=== PATIENT | male | born 1940 | race Caucasian/White ===

== ENCOUNTER → 2019-07-09 08:23 | Outpatient (BNVA) | payer MEDICARE, SELFPAY | PROVIDERS: Family Provider Internal Medicine; PCP Internal Medicine; Visit Provider Internal Medicine Cardiovascular Disease | DX: I48.91 Unspecified atrial fibrillation (principal) | CPT/HCPCS: 85610 ==

== ENCOUNTER → 2019-08-06 08:16 | Outpatient (BNVA) | payer MEDICARE, SELFPAY | PROVIDERS: Family Provider Internal Medicine; PCP Internal Medicine; Visit Provider Internal Medicine Cardiovascular Disease | DX: I48.91 Unspecified atrial fibrillation (principal); Z79.01 Long term (current) use of anticoagulants | CPT/HCPCS: 85610 ==

== ENCOUNTER → 2019-09-03 08:28 | Outpatient (BNVA) | payer MEDICARE, SELFPAY | PROVIDERS: Family Provider Internal Medicine; PCP Internal Medicine; Visit Provider Internal Medicine Cardiovascular Disease | DX: I48.91 Unspecified atrial fibrillation (principal) | CPT/HCPCS: 85610 ==

== ENCOUNTER → 2019-10-03 08:24 | Outpatient (BNVA) | payer MEDICARE, SELFPAY | PROVIDERS: Family Provider Internal Medicine; PCP Internal Medicine; Visit Provider Internal Medicine Cardiovascular Disease | DX: I48.91 Unspecified atrial fibrillation (principal) | CPT/HCPCS: 85610 ==

== ENCOUNTER → 2019-11-01 08:33 | Outpatient (BNVA) | payer MEDICARE, SELFPAY | PROVIDERS: Family Provider Internal Medicine; PCP Internal Medicine; Visit Provider Internal Medicine Cardiovascular Disease | DX: I48.91 Unspecified atrial fibrillation (principal); Z79.01 Long term (current) use of anticoagulants | CPT/HCPCS: 85610 ==

== ENCOUNTER → 2019-11-29 08:29 | Outpatient (BNVA) | payer MEDICARE, SELFPAY | PROVIDERS: Family Provider Internal Medicine; PCP Internal Medicine; Visit Provider Internal Medicine Cardiovascular Disease | DX: I48.91 Unspecified atrial fibrillation (principal); Z79.01 Long term (current) use of anticoagulants | CPT/HCPCS: 85610 ==

== ENCOUNTER → 2019-12-06 08:38 | Outpatient (BNVA) | payer MEDICARE, SELFPAY | PROVIDERS: Family Provider Internal Medicine; PCP Internal Medicine; Visit Provider Internal Medicine Cardiovascular Disease | DX: I48.91 Unspecified atrial fibrillation (principal); Z79.01 Long term (current) use of anticoagulants | CPT/HCPCS: 85610 ==

== ENCOUNTER → 2020-01-03 08:29 | Outpatient (BNVA) | payer MEDICARE, SELFPAY | PROVIDERS: Family Provider Internal Medicine; PCP Internal Medicine; Visit Provider Internal Medicine Cardiovascular Disease | DX: I48.91 Unspecified atrial fibrillation (principal) | CPT/HCPCS: 85610 ==

== ENCOUNTER → 2020-01-31 08:07 | Outpatient (BNVA) | payer MEDICARE, SELFPAY | PROVIDERS: Family Provider Internal Medicine; PCP Internal Medicine; Visit Provider Internal Medicine Cardiovascular Disease | DX: I48.91 Unspecified atrial fibrillation (principal) | CPT/HCPCS: 85610 ==

== ENCOUNTER → 2020-03-06 08:23 | Outpatient (BNVA) | payer MEDICARE, SELFPAY | PROVIDERS: Family Provider Internal Medicine; PCP Internal Medicine; Visit Provider Internal Medicine Cardiovascular Disease | DX: I48.91 Unspecified atrial fibrillation (principal) | CPT/HCPCS: 85610 ==

== ENCOUNTER → 2020-04-03 09:22 | Outpatient (BNVA) | payer MEDICARE, SELFPAY | PROVIDERS: Family Provider Internal Medicine; PCP Internal Medicine; Visit Provider Internal Medicine Cardiovascular Disease | DX: I48.91 Unspecified atrial fibrillation (principal) | CPT/HCPCS: 85610 ==

== ENCOUNTER → 2020-04-10 08:27 | Outpatient (BNVA) | payer MEDICARE, SELFPAY | PROVIDERS: Family Provider Internal Medicine; PCP Internal Medicine; Visit Provider Internal Medicine Cardiovascular Disease | DX: I48.91 Unspecified atrial fibrillation (principal); Z79.01 Long term (current) use of anticoagulants | CPT/HCPCS: 85610 ==

== ENCOUNTER → 2020-04-24 08:15 | Outpatient (BNVA) | payer MEDICARE, SELFPAY | PROVIDERS: Family Provider Internal Medicine; PCP Internal Medicine; Visit Provider Internal Medicine Cardiovascular Disease | DX: I48.91 Unspecified atrial fibrillation (principal) | CPT/HCPCS: 85610 ==

== ENCOUNTER → 2020-05-22 08:19 | Outpatient (BNVA) | payer MEDICARE, SELFPAY | PROVIDERS: Family Provider Internal Medicine; PCP Internal Medicine; Visit Provider Internal Medicine Cardiovascular Disease | DX: I48.91 Unspecified atrial fibrillation (principal) | CPT/HCPCS: 85610 ==

== ENCOUNTER → 2020-06-19 08:43 | Outpatient (BNVA) | payer MEDICARE, SELFPAY | PROVIDERS: Family Provider Internal Medicine; PCP Internal Medicine; Visit Provider Internal Medicine Cardiovascular Disease | DX: I48.91 Unspecified atrial fibrillation (principal) | CPT/HCPCS: 85610 ==

== ENCOUNTER → 2020-06-26 08:25 | Outpatient (BNVA) | payer MEDICARE, SELFPAY | PROVIDERS: Family Provider Internal Medicine; PCP Internal Medicine; Visit Provider Internal Medicine Cardiovascular Disease | DX: I48.91 Unspecified atrial fibrillation (principal) | CPT/HCPCS: 85610 ==

== ENCOUNTER → 2020-08-01 10:09 | Outpatient (BNVA) | payer MEDICARE, SELFPAY | PROVIDERS: Family Provider Internal Medicine; PCP Internal Medicine; Visit Provider Internal Medicine Cardiovascular Disease | DX: I48.91 Unspecified atrial fibrillation (principal) | CPT/HCPCS: 85610 ==

== ENCOUNTER → 2020-08-28 09:03 | Outpatient (BNVA) | payer MEDICARE, SELFPAY | PROVIDERS: Family Provider Internal Medicine; PCP Internal Medicine; Visit Provider Internal Medicine Cardiovascular Disease | DX: I48.91 Unspecified atrial fibrillation (principal) | CPT/HCPCS: 85610 ==

== ENCOUNTER → 2020-10-01 08:29 | Outpatient (BNVA) | payer MEDICARE, SELFPAY | PROVIDERS: Family Provider Internal Medicine; PCP Internal Medicine; Visit Provider Internal Medicine Cardiovascular Disease | DX: I48.91 Unspecified atrial fibrillation (principal) | CPT/HCPCS: 85610 ==

== ENCOUNTER → 2020-10-29 10:50 | Outpatient (BNVA) | payer MEDICARE, SELFPAY | PROVIDERS: Family Provider Internal Medicine; PCP Internal Medicine; Visit Provider Internal Medicine Cardiovascular Disease | DX: I48.91 Unspecified atrial fibrillation (principal) | CPT/HCPCS: 85610 ==

== ENCOUNTER → 2020-11-05 08:54 | Outpatient (BNVA) | payer MEDICARE, SELFPAY | PROVIDERS: Family Provider Internal Medicine; PCP Internal Medicine; Visit Provider Internal Medicine Cardiovascular Disease | DX: I48.91 Unspecified atrial fibrillation (principal) | CPT/HCPCS: 85610 ==

== ENCOUNTER → 2020-12-03 08:20 | Outpatient (BNVA) | payer MEDICARE, SELFPAY | PROVIDERS: Family Provider Internal Medicine; PCP Family Medicine; Visit Provider Internal Medicine Cardiovascular Disease | DX: I48.91 Unspecified atrial fibrillation (principal); Z79.01 Long term (current) use of anticoagulants | CPT/HCPCS: 85610 ==

== ENCOUNTER 2020-12-08 14:32 | Outpatient (CLI) | payer MEDICARE, SELFPAY ==
--- NOTE | 2020-12-08 15:00 | USCV_ITS ---
Al Yni Age: 80 Gender: M : 1940 Exam Date: 12/08/2020 14:46 Ordering Phys: Flavio Hanks MD ([email or web address]) Technologist: Stephanie Delgado Exam Location: [facility] [place] Indication: 2 PRIOR CABG BP: / HR: 70 Rhythm: Sinus Technical Quality: Adequate MEASUREMENTS (Male / Female) Normal Values 2D ECHO LV Diastolic Diameter PLAX 5.0 cm 4.2 - 5.9 / 3.9 - 5.3 cm LV Systolic Diameter PLAX 5.6 cm LV Chamber Size 5.7 cm IVS Diastolic Thickness 1.4 cm 0.6 - 1.0 / 0.6 - 0.9 cm IVS Systolic Thickness 1.2 cm LVPW Diastolic Thickness 1.8 cm 0.6 - 1.0 / 0.6 - 0.9 cm LVPW Systolic Thickness 1.4 cm RV Chamber Size 4.1 cm LVOT Diameter 2.1 cm LV Ejection Fraction 2D Teich 51.7 % LV Ejection Fraction MOD 2C 19.4 % LV Ejection Fraction 2C AL 20.0 % LA Diameter 4.5 cm LA Width 4.2 cm LA Height 4.3 cm RA Width 3.9 cm RA Height 4.4 cm Aorta at Sinotubular Diameter 2.5 cm M-MODE LV Diastolic Diameter MM 4.2 cm 4.2 - 5.9 / 3.9 - 5.3 cm LV Systolic Diameter MM 3.2 cm LV Ejection Fraction MM Teich 47.5 % IVS Diastolic Thickness MM 1.0 cm 0.6 - 1.0 / 0.6 - 0.9 cm IVS Systolic Thickness MM 1.1 cm LVPW Diastolic Thickness MM 1.2 cm 0.6 - 1.0 / 0.6 - 0.9 cm LVPW Systolic Thickness MM 1.7 cm Aortic Annulus Diameter 3.6 cm LA Ao Ratio MM 1.4 MV E Point Septal Separation 2.7 cm DOPPLER AV Peak Velocity 110.0 cm/s LVOT Peak Velocity 81.0 cm/s AV Area Cont Eq vti 2.3 cm squared AV Area Cont Eq pk 2.5 cm squared MV Area PHT 4.1 cm squared Mitral E to A Ratio 1.4 MV E' Velocity 35.5 cm/s Mitral E to MV E' Ratio 10.2 Mitral E to LV E' Lateral Ratio 8.8 Mitral E to LV E' Septal Ratio 12.4 TR Peak Velocity 264.7 cm/s TR Peak Gradient 28.0 mmHg TR Mean Velocity 183.6 cm/s TR Mean Gradient 15.5 mmHg TR Velocity Time Integral 88.4 cm TV Peak E Velocity 52.0 cm/s Right Atrial Pressure 3.0 mmHg Pulmonary Artery Systolic Pressu 31.0 mmHg PV Peak Velocity 52.0 cm/s RV Acceleration Time 0.1 s RV Ejection Time 0.3 s RV AcT/ET 0.4 FINDINGS Left Ventricle Moderately increased left ventricular cavity size. Severely decreased left ventricular systolic function. Global left ventricular hypokinesis. Left ventricular ejection fraction is estimated at 25 %. Grade II/IV diastolic dysfunction, moderately elevated filling pressures. Right Ventricle Catheter/pacemaker wire visualized in the right ventricle. Right Atrium The right atrium is normal in size. Left Atrium The left atrium is normal in size. Mitral Valve Moderately thickened mitral valve. No mitral valve stenosis. Moderate mitral valve regurgitation. Aortic Valve Structurally normal aortic valve without significant sclerosis or stenosis. There is no aortic regurgitation. Tricuspid Valve Thickened tricuspid valve. Moderate tricuspid valve regurgitation. Pulmonic Valve Structurally normal pulmonic valve without significant stenosis. There is no pulmonic regurgitation. Pericardium Normal pericardium without effusion. Aorta Normal ascending aorta dimension. CONCLUSIONS 1-Moderately increased left ventricular cavity size. Severely decreased left ventricular systolic function. Global left ventricular hypokinesis. Left ventricular ejection fraction is estimated at 25 %. Grade II/IV diastolic dysfunction, moderately elevated filling pressures. 2-Catheter/pacemaker wire visualized in the right ventricle. 3-Moderately thickened mitral valve. No mitral valve stenosis. Moderate mitral valve regurgitation. 4-Structurally normal aortic valve without significant sclerosis or stenosis. There is no aortic regurgitation. 5-Thickened tricuspid valve. Moderate tricuspid valve regurgitation. 6-There is no pericardial effusion. 7-No significant change since the prior echocardiogram study of 11/19/2013.. Flavio Hanks MD (Electronically Signed) Final Date: 10 December 2020 19:03 S
== END 2020-12-08 14:33 | disposition home or self-care (01) ==
PROVIDERS: PCP Family Medicine; Visit Provider Internal Medicine Cardiovascular Disease
DX: R06.02 Shortness of breath (principal); Z95.1 Presence of aortocoronary bypass graft; I08.3 Combined rheumatic disorders of mitral, aortic and tricuspid valves; Z95.0 Presence of cardiac pacemaker
CPT/HCPCS: 93306

== ENCOUNTER → 2020-12-31 08:28 | Outpatient (BNVA) | payer MEDICARE, SELFPAY | PROVIDERS: PCP Family Medicine; Visit Provider Internal Medicine Cardiovascular Disease | DX: I48.91 Unspecified atrial fibrillation (principal); Z79.01 Long term (current) use of anticoagulants | CPT/HCPCS: 85610 ==

== ENCOUNTER → 2021-01-07 08:24 | Outpatient (BNVA) | payer MEDICARE, SELFPAY | PROVIDERS: PCP Family Medicine; Visit Provider Internal Medicine Cardiovascular Disease | DX: I48.91 Unspecified atrial fibrillation (principal); Z79.01 Long term (current) use of anticoagulants | CPT/HCPCS: 85610 ==

== ENCOUNTER → 2021-02-04 08:28 | Outpatient (BNVA) | payer MEDICARE, SELFPAY | PROVIDERS: PCP Family Medicine; Visit Provider Internal Medicine Cardiovascular Disease | DX: I48.91 Unspecified atrial fibrillation (principal); Z79.01 Long term (current) use of anticoagulants | CPT/HCPCS: 85610 ==

== ENCOUNTER → 2021-03-04 08:22 | Outpatient (BNVA) | payer MEDICARE, SELFPAY | PROVIDERS: PCP Family Medicine; Visit Provider Internal Medicine Cardiovascular Disease | DX: I48.91 Unspecified atrial fibrillation (principal); Z79.01 Long term (current) use of anticoagulants | CPT/HCPCS: 85610 ==

== ENCOUNTER → 2021-04-08 08:29 | Outpatient (BNVA) | payer MEDICARE, SELFPAY | PROVIDERS: PCP Family Medicine; Visit Provider Internal Medicine Cardiovascular Disease | DX: I48.91 Unspecified atrial fibrillation (principal); Z79.01 Long term (current) use of anticoagulants | CPT/HCPCS: 85610 ==

== ENCOUNTER → 2021-05-06 08:21 | Outpatient (BNVA) | payer MEDICARE, SELFPAY | PROVIDERS: PCP Family Medicine; Visit Provider Internal Medicine Cardiovascular Disease | DX: I48.91 Unspecified atrial fibrillation (principal); Z79.01 Long term (current) use of anticoagulants | CPT/HCPCS: 85610 ==

== ENCOUNTER → 2021-06-03 08:59 | Outpatient (BNVA) | payer MEDICARE, SELFPAY | PROVIDERS: PCP Family Medicine; Visit Provider Internal Medicine Cardiovascular Disease | DX: I48.91 Unspecified atrial fibrillation (principal); Z79.01 Long term (current) use of anticoagulants | CPT/HCPCS: 85610 ==

== ENCOUNTER → 2021-07-01 08:26 | Outpatient (BNVA) | payer MEDICARE, SELFPAY | PROVIDERS: PCP Family Medicine; Visit Provider Internal Medicine Cardiovascular Disease | DX: I48.91 Unspecified atrial fibrillation (principal) | CPT/HCPCS: 85610 ==

== ENCOUNTER → 2021-07-08 08:28 | Outpatient (BNVA) | payer MEDICARE, SELFPAY | PROVIDERS: PCP Family Medicine; Visit Provider Internal Medicine Cardiovascular Disease | DX: I48.91 Unspecified atrial fibrillation (principal) | CPT/HCPCS: 85610 ==

== ENCOUNTER → 2021-08-04 08:22 | Outpatient (BNVA) | payer MEDICARE, SELFPAY | PROVIDERS: PCP Family Medicine; Visit Provider Internal Medicine Cardiovascular Disease | DX: I48.91 Unspecified atrial fibrillation (principal) | CPT/HCPCS: 85610 ==

== ENCOUNTER → 2021-09-01 08:30 | Outpatient (BNVA) | payer MEDICARE, SELFPAY | PROVIDERS: PCP Family Medicine; Visit Provider Internal Medicine | DX: I48.91 Unspecified atrial fibrillation (principal); Z79.01 Long term (current) use of anticoagulants | CPT/HCPCS: 85610 ==

== ENCOUNTER → 2021-09-25 08:18 | Outpatient (BNVA) | payer MEDICARE, SELFPAY | PROVIDERS: PCP Family Medicine; Visit Provider Internal Medicine | DX: Z45.02 Encounter for adjustment and management of automatic implantable cardiac defibrillator (principal) | CPT/HCPCS: 93283 ==

== ENCOUNTER → 2021-09-29 08:20 | Outpatient (BNVA) | payer MEDICARE, SELFPAY | PROVIDERS: PCP Family Medicine; Visit Provider Internal Medicine | DX: I48.91 Unspecified atrial fibrillation (principal); Z79.01 Long term (current) use of anticoagulants | CPT/HCPCS: 85610 ==

== ENCOUNTER 2021-10-09 13:26 | Outpatient (CLI) | payer MEDICARE, SELFPAY ==
[2021-10-09 14:16] LABS: Anion Gap 14.7 (5-19); Blood Urea Nitrogen 28 mg/dL (8-23); Calcium 9.3 mg/dL (8.5-10.5); Carbon Dioxide 27 mmol/L (22-29); Chloride 94 mmol/L (98-107); Glucose 78 mg/dL (65-115); NT Pro B Type Natriuretic Pept 6131 pg/mL (0-450); Osmolality Calculated 276 mOsm/kg (285-295); Potassium 4.7 mmol/L (3.5-5.1); Sodium 131 mmol/L (136-145)
== END 2021-10-09 13:27 | disposition home or self-care (01) ==
LOC: LAB 13:29
PROVIDERS: PCP Family Medicine; Visit Provider Internal Medicine
DX: I50.22 Chronic systolic (congestive) heart failure (principal); I11.0 Hypertensive heart disease with heart failure
CPT/HCPCS: 36415; 80048; 83880

== ENCOUNTER 2021-10-26 08:27 | Outpatient (CLI) | payer MEDICARE, SELFPAY ==
[2021-10-26 10:27] LABS: Anion Gap 15.9 (5-19); Blood Urea Nitrogen 41 mg/dL (8-23); Calcium 8.3 mg/dL (8.5-10.5); Carbon Dioxide 25 mmol/L (22-29); Chloride 94 mmol/L (98-107); Glucose 197 mg/dL (65-115); NT Pro B Type Natriuretic Pept 2972 pg/mL (0-450); Osmolality Calculated 286 mOsm/kg (285-295); Potassium 4.9 mmol/L (3.5-5.1); Sodium 130 mmol/L (136-145)
== END 2021-10-26 08:28 | disposition home or self-care (01) ==
PROVIDERS: PCP Family Medicine; Visit Provider Internal Medicine
DX: I10 Essential (primary) hypertension (principal); I50.22 Chronic systolic (congestive) heart failure
CPT/HCPCS: 36415; 80048; 83880

== ENCOUNTER → 2021-10-28 08:28 | Outpatient (BNVA) | payer MEDICARE, SELFPAY | PROVIDERS: PCP Family Medicine; Visit Provider Internal Medicine | DX: I25.10 Atherosclerotic heart disease of native coronary artery without angina pectoris (principal); I11.0 Hypertensive heart disease with heart failure; I50.22 Chronic systolic (congestive) heart failure; I48.91 Unspecified atrial fibrillation; Z79.01 Long term (current) use of anticoagulants; I25.5 Ischemic cardiomyopathy; Z87.891 Personal history of nicotine dependence | CPT/HCPCS: 85610; 99214 ==

== ENCOUNTER → 2021-11-04 08:37 | Outpatient (BNVA) | payer MEDICARE, SELFPAY | PROVIDERS: PCP Family Medicine; Visit Provider Internal Medicine | DX: Z79.01 Long term (current) use of anticoagulants (principal) | CPT/HCPCS: 85610 ==

== ENCOUNTER 2021-11-10 14:44 | Inpatient (IN) | payer OTHER, MEDICARE, SELFPAY ==
[2021-11-10] VITALS (10 sets, daily range): BP systolic 70–106; BP diastolic 30–86; PULSE 65–93; RESP 12–21; TEMP 35.5–36.5; O2SAT 92–99; BMI 24.8; BMI 25.6
--- NOTE | 2021-11-10 15:14 | XRR_ITS ---
PROCEDURE INFORMATION: Exam: XR Chest Exam date and time: 11/10/2021 3:37 PM Age: 81 years old Clinical indication: Cough and dyspnea; Additional info: Dyspnea/cough TECHNIQUE: Imaging protocol: XR of the chest. Views: 1 view. COMPARISON: CR Chest 1 [place] [id number] 03/01/2017 4:37 AM FINDINGS: Tubes, catheters and devices: Sternotomy wires, CABG clips and left chest wall cardiac device remain in place. Lungs: Minimal reticulonodular interstitial prominence has slightly worsened which may be related to interstitial lung disease and/or minimal pulmonary interstitial edema. No obvious dense consolidation however the lung bases are suboptimally assessed. Pleural spaces: Unremarkable. No pleural effusion. No pneumothorax. Heart/Mediastinum: Mild cardiac silhouette enlargement with cephalized/prominent vascularity suggesting CHF, which may have slightly worsened since prior exam. Bones/joints: No acute findings. XR/XR chest 1V portable [id number] IMPRESSION: 1. Enlarged cardiac silhouette with vascular congestion. 2. Minimal interstitial prominence as described above. No obvious consolidation.
--- NOTE | 2021-11-10 15:15 | ECG_ITS ---
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 Measurements Intervals [place] Rate: 72 P: [place]: QRS: 50 QRSD: 194 T: -86 QT: 447 QTc: 492 Interpretive Statements ELECTRONIC VENTRICULAR PACEMAKER -- CONTOUR ANALYSIS BASED ON INTRINSIC RHYTHM INTRAVENTRICULAR CONDUCTION DELAY [130+ ms QRS DURATION] Compared to ECG 03/01/2017 04:03:27 Intraventricular conduction delay now present Atrial-paced complex(es) or rhythm no longer present Ventricular premature complex(es) no longer present Electronically Signed On 11-10-2021 18:27:48 CDT by Matt Tucker M.D. [id number]
--- NOTE | 2021-11-10 15:30 | W.ED.GENADLT ---
HPI - General Adult General: Chief complaint: General Medical Stated complaint: needs fluids, had kidney test done Time Seen by Provider: 11/10/21 14:58 Source: patient Mode of arrival: ambulatory Limitations: no limitations History of Present Illness: 73-year-old male presents emergency room with complaint of generally not feeling well. He has a known history of congestive heart failure and recently had a follow-up his creatinine is markedly elevated. He recently had his diuretics adjusted. On follow-up his creatinine is elevated. He is not having as much orthopnea. His residential program worker had directed him to the emergency room after getting the results of his most recent lab work. Onset (ago): minute(s) Severity: mild Quality: burning Pain Consistency: constant Relieving factors: none Exacerbating factors: none Associated symptoms: Reports malaise; Deny chest pain, confusion, cough, diaphoresis, decreased appetite, dyspnea, fevers/chills, headache(s), nausea, rash, palpitations, seizures, short of breath, syncope, vomiting or weakness Treatments prior to arrival: none Review of Systems Const: Reports: fatigue and malaise; Denies: fever(s), chills, body aches, change in appetite or diaphoresis ENMT: Denies: throat pain, ear or mastoid pain, nasal discharge or nasal congestion Card: Denies: chest pain, palpitations or syncope Resp: Denies: dyspnea GI: Denies: nausea or vomiting : Denies: flank pain, dysuria, urinary frequency or urinary urgency Skin/Breast: Denies: rash Neuro: Denies: headache(s) or confusion PFS ED PFSH: Medical History Atrial fibrillation Cardioembolic stroke CHF (congestive heart failure) Coronary artery disease Stable doing fine from a coronary disease perspective continue meds HTN (hypertension) Hyperlipidemia Ischemic cardiomyopathy Surgical History S/P CABG (coronary artery bypass graft) S/P cardiac pacemaker procedure S/P cholecystectomy Family History Father Stroke Social History Smoking and tobacco status: former smoker History of recent travel: No Physical Exam Const: GENERAL APPEARANCE: cooperative and comfortable ORIENTATION/CONSCIOUSNESS: Yes awake, Yes oriented to person, Yes oriented to place and Yes oriented to time HENMT: COMMON NORMALS: normocephalic, atraumatic and hearing grossly normal bilaterally HEAD & SCALP: normocephalic and atraumatic Neck/C-Spine: COMMON NORMALS: no JVD Resp: AUSCULTATION: crackles and diminished lung sounds Cardio: COMMON NORMALS: no JVD, regular rate, regular rhythm and No murmurs present (Cardio) RATE: regular rate RHYTHM: regular rhythm GI: COMMON NORMALS: No hepatosplenomegaly present INSPECTION: Yes abdominal distension and Yes Fluid wave present AUSCULTATION: Yes normoactive bowel sounds PALPATION: No Tenderness to palpation present (GI), No Guarding due to palpation present (GI) and Yes No hepatosplenomegaly present PERCUSSION: dullness to percussion and Fluid wave present Extremity: COMMON NORMALS: normal to inspection, capillary refill normal, no clubbing, cyanosis or edema, no calf tenderness and no pedal edema Neuro: SENSORIUM/ORIENTATION: Yes oriented to person, Yes oriented to place and Yes oriented to time Skin: COMMON NORMALS: no rashes or lesions noted GENERAL SKIN EXAM: no rashes or lesions noted Course Vital Signs: Vital signs: Vital Signs Temperature 98 F 11/12/21 00:00 Pulse Rate 74 11/12/21 05:47 Respiratory Rate 14 11/12/21 00:00 Blood Pressure 102/68 11/12/21 00:00 Pulse Oximetry 93 11/12/21 00:00 [facility] - General Adult Medical Decision Making Acute kidney injury with hyponatremia. Additionally patient has severe ischemic cardiomyopathy and congestive heart failure his EF is 25%. Will need to be very gently rehydrated discussed with hospitalist orders written. Patient was significantly hypotensive initially has been started on Levophed. He did respond to small fluid boluses here in the emergency room. Did not use large fluid bolus because of his poor EF and history of heart failure. Medical Records I reviewed the patient's medical records. Lab Data I reviewed the patient's lab results. : 11/11/21 04:44 11/11/21 04:44 Radiology Impressions Chest X-Ray 11/10/21 15:14 IMPRESSION: 1. Enlarged cardiac silhouette with vascular congestion. 2. Minimal interstitial prominence as described above. No obvious consolidation. Abdomen Ultrasound 11/11/21 01:46 Impression: 1. Cholecystectomy. 2. Pancreas not visualized. 3. Negative for acute intra-abdominal abnormalities. Abdomen/Pelvis CT 11/11/21 12:24 IMPRESSION: 1. Comparison CT 03/01/2017. 2. New trace bilateral pleural effusions and cardiac findings as above. 3. Status post cholecystectomy. Few ovoid calcific densities are noted adjacent to cholecystectomy clips. See discussion above. No biliary dilatation. 4. Colonic diverticulosis without diverticulitis. 5. Mildly enlarged and probably mild bladder wall thickening. See discussion above. 6. Soft tissue and osseous findings as described. Laboratory Results WBC 7.5 10^3/uL (4.0-10.0) 11/10/21 15:34 RBC 4.81 10^6/uL (4.1-5.3) 11/10/21 15:34 Hgb 15.9 g/dL (11.7-16.6) 11/10/21 15:34 Hct 45.3 % (42.0-52.0) 11/10/21 15:34 MCV 94.2 fl (80-94) H 11/10/21 15:34 MCH 33.1 pg (28.0-34.0) 11/10/21 15:34 MCHC 35.1 g/dL (30.0-36.0) 11/10/21 15:34 RDW 12.3 % (12.1-15.1) 11/10/21 15:34 Plt Count 149 10^3/cmm (130-400) 11/10/21 15:34 MPV 10.1 fL (7.4-10.4) 11/10/21 15:34 Neut % (Auto) 66.5 % 11/10/21 15:34 Lymph % (Auto) 19.1 % 11/10/21 15:34 Curry % (Auto) 11.7 % 11/10/21 15:34 Eos % (Auto) 1.5 % 11/10/21 15:34 Baso % (Auto) 0.5 % 11/10/21 15:34 Neut # (Auto) 4.96 10^3/uL (1.8-7.7) 11/10/21 15:34 Lymph # (Auto) 1.4 10^3/uL (0.8-4.8) 11/10/21 15:34 Curry # (Auto) 0.9 10^3/uL (0.2-0.9) 11/10/21 15:34 Eos # (Auto) 0.1 10^3/uL (0.0-0.8) 11/10/21 15:34 Baso # (Auto) 0.0 10^3/uL (0.0-0.1) 11/10/21 15:34 Nucleated RBC % (auto) 0 % 11/10/21 15:34 Nucleated RBCs # 0.0 /100WBC 11/10/21 15:34 Sodium 122 mmol/L (136-145) L 11/10/21 15:34 Potassium 3.4 mmol/L (3.5-5.1) L 11/10/21 15:34 Chloride 78 mmol/L (98-107) L 11/10/21 15:34 Carbon Dioxide 26 mmol/L (22-29) 11/10/21 15:34 Anion Gap 21.4 (5-19) H 11/10/21 15:34 BUN 109 mg/dL (8-23) H* 11/10/21 15:34 Creatinine 3.1 mg/dL (0.7-1.2) H 11/10/21 15:34 GFR Calculation Not Reportable 11/10/21 15:34 Glucose 125 mg/dL (65-115) H 11/10/21 15:34 Calculated Osmolality 290 mOsm/kg (285-295) 11/10/21 15:34 Calcium 9.4 mg/dL (8.5-10.5) 11/10/21 15:34 Total Bilirubin 1.1 mg/dL (0.15-1.2) 11/10/21 15:34 AST 22 U/L (0-40) 11/10/21 15:34 ALT 17 U/L (0-41) 11/10/21 15:34 Alkaline Phosphatase 76 IU/L (40-130) 11/10/21 15:34 Creatine Kinase 76 U/L (39-308) 11/10/21 15:34 Troponin T Baseline 64 ng/L (0-15) H 11/10/21 15:34 NT-Pro-B Natriuret Pep 8792 pg/mL (0-450) H 11/10/21 15:34 Total Protein 6.6 g/dL (6.6-8.7) 11/10/21 15:34 Albumin 4.0 g/dL (3.5-5.2) 11/10/21 15:34 Globulin 2.6 g/dL (1.3-4.6) 11/10/21 15:34 Discharge Plan Discharge Patient Disposition: Placed in Observation Admit Provider: Benjamin Kingsley Clinical Impression: Acute kidney injury, Ischemic cardiomyopathy, Atrial fibrillation, Congestive heart failure, HTN (hypertension), Hyponatremia Coding Level of Care Code ED Dental Mold Maker for Brennan Contreras
[2021-11-10 15:42] LABS: Basophils % 0.5 %; Eosinophils # 0.1 10^3/uL (0.0-0.8); Eosinophils % 1.5 %; Hematocrit 45.3 % (42.0-52.0); Hemoglobin 15.9 g/dL (11.7-16.6); Lymphocytes # 1.4 10^3/uL (0.8-4.8); Lymphocytes % 19.1 %; Mean Corpuscular HGB Conc 35.1 g/dL (30.0-36.0); Mean Corpuscular Hemoglobin 33.1 pg (28.0-34.0); Mean Corpuscular Volume 94.2 fl (80-94); Mean Platelet Volume 10.1 fL (7.4-10.4); Monocytes # 0.9 10^3/uL (0.2-0.9); Monocytes % 11.7 %; Neutrophils # 4.96 10^3/uL (1.8-7.7); Neutrophils % 66.5 %; Nucleated Red Blood Cells % 0 %; Platelet Count 149 10^3/cmm (130-400); Red Blood Count 4.81 10^6/uL (4.1-5.3); Red Cell Distribution Width 12.3 % (12.1-15.1); White Blood Count 7.5 10^3/uL (4.0-10.0)
[2021-11-10] MEDS: sodium chloride 0.9% 500 ML IV (16:00)
[2021-11-10 16:01] LABS: Troponin(5th) Baseline 64 ng/L (0-15)
[2021-11-10 16:09] LABS: Alanine Aminotransferase 17 U/L (0-41); Alkaline Phosphatase 76 IU/L (40-130); Aspartate Amino Transferase 22 U/L (0-40); Calcium 9.4 mg/dL (8.5-10.5); Carbon Dioxide 26 mmol/L (22-29); Chloride 78 mmol/L (98-107); Creatine Phosphokinase 76 U/L (39-308); Globulin 2.6 g/dL (1.3-4.6); Glucose 125 mg/dL (65-115); NT Pro B Type Natriuretic Pept 8792 pg/mL (0-450); Osmolality Calculated 290 mOsm/kg (285-295); Sodium 122 mmol/L (136-145); Total Bilirubin 1.1 mg/dL (0.15-1.2); Total Protein 6.6 g/dL (6.6-8.7)
[2021-11-10 16:10] LABS: Anion Gap 21.4 (5-19); Potassium 3.4 mmol/L (3.5-5.1)
[2021-11-10 16:11] LABS: Blood Urea Nitrogen 109 mg/dL (8-23)
--- NOTE | 2021-11-10 17:15 | ECG_ITS ---
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 Measurements Intervals [place] Rate: 74 P: [place]: QRS: 39 QRSD: 188 T: -85 QT: 466 QTc: 518 Interpretive Statements UNCERTAIN IRREGULAR RHYTHM ELECTRONIC VENTRICULAR PACEMAKER -- CONTOUR ANALYSIS BASED ON INTRINSIC RHYTHM INTRAVENTRICULAR CONDUCTION DELAY [130+ ms QRS DURATION] Compared to ECG 11/10/2021 15:23:48 No significant changes Electronically Signed On 11-10-2021 18:33:00 CDT by Matt Tucker M.D. [id number]
--- NOTE | 2021-11-10 18:51 | P.HP_ITS ---
Providers/Chief Complaint Admitting Physician: Benjamin Kingsley Primary Care Provider: Echo Garay MD Chief Complaint: needs fluids, had kidney test done History of Present Illness Al Yin is a 81 year old male who presents to the ER after sent in by Dr. Tucker. He had recent worsening abdominal swelling despite no history of cirrhosis. His diuretics were increased and he developed renal failure and came in with hypotension patient was hydrated gently in the emergency department and referred for admission for hyponatremia sodium 122 and acute kidney injury with creatinine 3.3 Patient lives alone. He does not smoke for the last 30 years. He does not drink alcohol and never was a heavy drinker he wants full CODE STATUS Review of Systems Narrative: General no fevers chills weight initially went down and then increased again patient states he weighs daily. 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 Heme negative for bleeding or bruising Medications/Allergies Home Medications Medication Instructions Recorded Confirmed Last Taken Type lisinopril 5 mg tablet 2.5 mg PO DAILY tab 07/17/19 11/10/21 11/10/21 History magnesium 250 mg tablet 500 mg PO DAILY tab 07/17/19 11/10/21 11/10/21 History pravastatin 40 mg tablet 40 mg PO DAILY 07/18/19 11/10/21 11/10/21 History warfarin 5 mg tablet 5 mg PO DIRECTED 90 Days #90 tab 11/03/20 11/10/21 11/10/21 Rx coenzyme Q10 100 mg capsule (Co 100 mg PO DAILY 04/22/21 11/10/21 11/10/21 History Q-10) evolocumab 140 mg/mL subcutaneous 140 mg SUBCUT Q14D ml 04/22/21 11/10/21 Unknown History pen injector (Shania Dominguez) carvedilol 6.25 mg tablet 9.375 mg PO BID #408 tab 10/23/21 11/10/21 11/10/21 Rx bumetanide 2 mg tablet 2 mg PO BID #180 tab 10/28/21 11/10/21 11/10/21 Rx metolazone 5 mg tablet 5 mg PO DAILY #90 tab 10/28/21 11/10/21 11/10/21 Rx cholecalciferol (vitamin D3) 25 25 mcg PO DAILY 11/10/21 11/10/21 11/10/21 History mcg (1,000 unit) tablet (Vitamin D3) furosemide 40 mg tablet 40 mg PO BID 11/10/21 11/10/21 11/10/21 History omega-3 fatty acids-fish oil 684 1 cap PO DAILY 11/10/21 11/10/21 11/10/21 History mg-1,200 mg capsule,delayed release spironolactone 25 mg tablet 25 mg PO DAILY 11/10/21 11/10/21 11/10/21 History Allergies Allergy/AdvReac Type Severity Reaction Status Date / Time atorvastatin Allergy Unknown Unknown Verified 10/28/21 12:54 simvastatin Allergy Unknown Unknown Verified 10/28/21 12:54 PFSH Acute PFSH: Medical History Atrial fibrillation Cardioembolic stroke CHF (congestive heart failure) Coronary artery disease Stable doing fine from a coronary disease perspective continue meds HTN (hypertension) Hyperlipidemia Ischemic cardiomyopathy Surgical History S/P CABG (coronary artery bypass graft) S/P cardiac pacemaker procedure S/P cholecystectomy Family History Father Stroke Social History Smoking and tobacco status: former smoker History of recent travel: No Vitals/I&O/Wt Last Vital Signs Temp 96 F L 11/10/21 15:02 Pulse 92 11/10/21 18:00 Resp 15 11/10/21 18:00 BP 102/86 11/10/21 18:00 Pulse Ox 99 11/10/21 18:00 Weight last 48 hrs Weight 69.853 kg Physical Exam Narrative: General well-developed well-nourished male with abdominal distention. CV regular rate and rhythm Lungs clear to auscultation bilaterally Abdomen distended nontender no rebound. Calves trace to 1+ pretibial edema Skin warm and dry psych mood and affect are appropriate. Data : 11/10/21 15:34 11/10/21 15:34 A&P Assessment and plan (1) Acute kidney injury: This appears to be diuretic induced and possibly hepatorenal with the ascites although he denies history of liver disease Status: Acute (2) Hyponatremia: We will replace with Normal saline with 20 of KCl per liter to run at 100 cc an hour. 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 Patient denies history of cirrhosis, alcoholism or viral hepatitis Status: Acute Attestations Medical Necessity Statement*: Patient admitted for hypotension and acute kidney failure. Time Spent in Patient Care: Greater than 35 minutes 70 minutes spent in evaluation coronation care for this patient today Coding Level of Care Code Acute Venetian Blind Maker for Brennan Contreras Diagnoses Acute kidney injury N17.9 Hyponatremia E87.1 Congestive heart failure I50.9 Ischemic cardiomyopathy I25.5 Tense ascites R18.8
[2021-11-10 19:05] LABS: Troponin 5 2HR 58.02 ng/L (0-15)
[2021-11-10 19:07] LABS: Troponin 5 2HR Delta -5.98 ABS# (0-10)
[2021-11-10] MEDS: sodium chlor 0.9% + KCl 20 mEq 20 MEQ/1,000 ML BAG 100 MEQ IV (20:08)
--- NOTE | 2021-11-10 21:15 | ECG_ITS ---
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 Measurements Intervals [place] Rate: 81 P: [place]: QRS: 57 QRSD: 184 T: -82 QT: 453 QTc: 526 Interpretive Statements UNCERTAIN IRREGULAR RHYTHM ELECTRONIC VENTRICULAR PACEMAKER -- CONTOUR ANALYSIS BASED ON INTRINSIC RHYTHM INTRAVENTRICULAR CONDUCTION DELAY [130+ ms QRS DURATION] Compared to ECG 11/10/2021 16:56:07 No significant changes Electronically Signed On 11-10-2021 21:46:47 CDT by Matt Tucker M.D. [id number]
[2021-11-10] MEDS: hyDROXYzine 25 mg Capsule PO (23:19)
[2021-11-11] VITALS (8 sets, daily range): BP systolic 101–109; BP diastolic 59–80; PULSE 70–76; RESP 14–18; TEMP 36.3–36.7; O2SAT 90–98
--- NOTE | 2021-11-11 01:46 | US_ITS ---
WS: [id number] Abdomen ultrasound, 11/11/2021 Clinical Data: ascites and kidney failure Comparison: None. Findings: The pancreas was obscured by overlying bowel gas. The liver shows no cysts, masses or dilated intrahepatic ducts. The liver measured 17.1 cm in greates t diameter with normal portal venous flow. The gallbladder has been removed. The common bile duct is 0.3 cm and no intraductal abnormalities are noted. The right kidney is 10.9 cm. No cysts, masses or hydronephrosis is seen. The left kidney is 11.1 cm. No cysts, masses or hydronephrosis is seen. The abdominal aorta is not dilated and the inferior vena cava has normal flow. No vascular abnormalit ies are seen. The spleen measures 9.4 cm and there are no intrasplenic masses or capsular abnormalities. The bladder showed no wall thickening or intraluminal defects. The bladder volume was 125 mL. US/US abdomen complete* [id number] Impression: 1. Cholecystectomy. 2. Pancreas not visualized. 3. Negative for acute intra-abdominal abnormalities.
[2021-11-11 05:55] LABS: Basophils % 0.6 %; Eosinophils # 0.2 10^3/uL (0.0-0.8); Eosinophils % 2.8 %; Hematocrit 41.6 % (42.0-52.0); Hemoglobin 14.9 g/dL (11.7-16.6); Lymphocytes # 1.7 10^3/uL (0.8-4.8); Lymphocytes % 25.5 %; Mean Corpuscular HGB Conc 35.8 g/dL (30.0-36.0); Mean Corpuscular Hemoglobin 32.9 pg (28.0-34.0); Mean Corpuscular Volume 91.8 fl (80-94); Mean Platelet Volume 10.3 fL (7.4-10.4); Monocytes # 0.8 10^3/uL (0.2-0.9); Monocytes % 12.5 %; Neutrophils # 3.75 10^3/uL (1.8-7.7); Nucleated Red Blood Cells % 0 %; Platelet Count 142 10^3/cmm (130-400); Red Blood Count 4.53 10^6/uL (4.1-5.3); Red Cell Distribution Width 12.1 % (12.1-15.1); White Blood Count 6.5 10^3/uL (4.0-10.0)
[2021-11-11] MEDS: sodium chlor 0.9% + KCl 20 mEq 20 MEQ/1,000 ML BAG 100 MEQ IV ×2 (06:12→16:37)
[2021-11-11 06:14] LABS: Alanine Aminotransferase 14 U/L (0-41); Albumin Level 3.6 g/dL (3.5-5.2); Alkaline Phosphatase 61 IU/L (40-130); Anion Gap 18.5 (5-19); Aspartate Amino Transferase 15 U/L (0-40); Carbon Dioxide 23 mmol/L (22-29); Chloride 86 mmol/L (98-107); Globulin 2.2 g/dL (1.3-4.6); Glucose 87 mg/dL (65-115); Potassium 3.5 mmol/L (3.5-5.1); Sodium 124 mmol/L (136-145); Total Bilirubin 1.1 mg/dL (0.15-1.2); Total Protein 5.8 g/dL (6.6-8.7)
[2021-11-11 06:26] LABS: Osmolality Calculated 295 mOsm/kg (285-295)
[2021-11-11 06:28] LABS: Blood Urea Nitrogen 117 mg/dL (8-23)
--- NOTE | 2021-11-11 10:45 | PC.CHAP ---
Pastoral Care Encounter/Spiritual Assessment Type of Contact [] Declined control room helper visit [] Patient/Family/Request visit [] Outpatient visit [] Follow-up visit [] Physician referral [] Code/Alert [x] Routine visit [] Staff referral [] Actively dying [] Patient sleeping [] Family support [] [] Out of room [] Palliative care [] [] Receiving care in room [] Pre-surgical visit [] Trauma [] Long length of stay [] ICU visit [] Other: Relational/Emotional Strength [x] Patient feels connected with others/family/visitors/staff [] Distress [] Loneliness/isolation [] Abandonment Spirituality of Patient [x] Person of Joanne [x] Attends Islam of their Joanne x] Believes in Prayer [] Reads Bible or Orthodoxy materials [] There are Spiritual issues to be addressed School Bus Technician Interventions [x] Prayer [x] Active listening [x] Non-anxious presence [x] Spiritual/emotional support [] Crisis/trauma care [] Spiritual counseling [] Bereavement support [] Provided bereavement packet [] Provided Bible/devotional materials [] Provided toy/stuffed animal, coloring book to patient or family member [] Provided Communion [] Anointing/[place] [] Salvation [x Completed spiritual assessment [] Other: Impact on Illness or Injury [] Angry [] Fearful [] Anxious [] Often cries [] Exhaustion [] Unable to work [] Unable to attend episcopalian [] Unable to walk/stand [] Unable to read [] Unable to drive [] Unable to eat/drink [] Unable to sleep [] Unable to be with family [] Patient intubated [] Other: Summary Time spent with patient 10 min
--- NOTE | 2021-11-11 12:18 | P.PN_ITS ---
Subjective Subjective: Patient was admitted with acute renal failure. 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 He came in dehydrated. He denies history of ascites or liver disease. He does not drink alcohol. He underwent abdominal ultrasound but there is no liver disease or ascites identified. Patient states he does have bowel movements but less in the last few days. Vitals/I&O/Wt Last Vital Signs Temp 97.6 F 11/11/21 07:39 Pulse 70 11/11/21 11:10 Resp 18 11/11/21 11:10 BP 106/70 11/11/21 11:10 Pulse Ox 98 11/11/21 11:10 11/10/21 11/11/21 11/11/21 22:59 06:59 14:59 Intake Total 500 / 500 1480 / 1980 360 / 360 Output Total 300 / 300 600 / 900 600 / 600 Balance 200 / 200 880 / 1080 -240 / -240 Weight last 48 hrs Weight 71.94 kg Weight 69.853 kg Physical Exam Narrative: General well-developed well-nourished male with abdominal distention. CV regular rate and rhythm Lungs clear to auscultation bilaterally Abdomen distended nontender no rebound. Calves trace to 1+ pretibial edema Skin warm and dry psych mood and affect are appropriate. Data : 11/11/21 04:44 11/11/21 04:44 A&P Assessment and plan (1) Acute kidney injury: This appears to be diuretic induced. Abdomen distended prompting recent outpatient increase in diuretics but no ascites seen on ultrasound. RenalUltrasound findings no hydronephrosis or obstruction bladder wall not thickened no masses and volume was 125 Status: Acute (2) Hyponatremia: We will replace with Normal saline with 20 of KCl per liter to run at 100 cc an hour. 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 Patient denies history of cirrhosis, alcoholism or viral hepatitis this is not tense ascites and actually was just abdominal distention. Will obtain a CT of the abdomen no contrast to see if he has excess stool or air bloating Status: Acute Attestations Medical Necessity Statement*: Additional close monitoring of renal function Time Spent in Patient Care: Greater than 35 minutes Coding Level of Care Code Acute Mental Health Program Manager for [facility] Diagnoses Acute kidney injury N17.9 Hyponatremia E87.1 Congestive heart failure I50.9 Ischemic cardiomyopathy I25.5 Tense ascites R18.8
--- NOTE | 2021-11-11 12:24 | CTR_ITS ---
PROCEDURE INFORMATION: Exam: CT Abdomen And Pelvis Without Contrast Exam date and time: 11/11/2021 4:11 PM Age: 81 years old Clinical indication: Bloating; Prior surgery; Surgery date: 6+ months; Surgery type: Carly; Additional info: Abdominal distention, no iv contrast due to gregory TECHNIQUE: Imaging protocol: Computed tomography of the abdomen and pelvis without contrast. Radiation optimization: All CT scans at this facility use at least one of these dose optimization techniques: automated exposure control; mA and/or kV adjustment per patient size (includes targeted exams where dose is matched to clinical indication); or iterative reconstruction. Other contrast: Oral, redi cat, 450 mL; COMPARISON: CT abdomen pelvis w con* [id number] 03/01/2017 5:52 AM RADIATION DOSE METRICS: Total DLP (mGy-cm): 1604.18 FINDINGS: Heart: [id number] 4 chamber cardiomegaly with coronary calcification similar to prior exam. New trace bilateral pleural effusions. Liver: Normal. No mass. Gallbladder and bile ducts: Prior cholecystectomy. Few ovoid calcific densities are noted adjacent to the cholecystectomy clips, the largest measuring 15 x 9 mm which has minimally increased in size since prior exam. Unclear if this is a dropped in the subhepatic space/surgical site or retained calculi within the cystic duct. No acute regional inflammatory response or fluid collection. No abnormal bile duct dilatation. Pancreas: Normal. No ductal dilation. Spleen: Normal. No splenomegaly. Adrenal glands: Normal. No mass. Kidneys and ureters: No obstructing calculus. No hydronephrosis. Stomach and bowel: Colonic diverticulosis. Small to moderate stool burden. No bowel obstruction or pneumatosis. No suspicious bowel wall thickening. Appendix: No evidence of appendicitis. Intraperitoneal space: See Gallbladder and bile ducts finding. Vasculature: No abdominal aortic aneurysm. Lymph nodes: No enlarged lymph nodes. Anterior midline omental calcification measuring 10 mm likely representing a benign calcified lymph node, unchanged. Urinary bladder: Urinary bladder is suboptimally assessed due to incomplete distention however there is probable nonspecific bladder wall thickening. This may be related to chronic hypertrophy and/or cystitis. Clinical correlation is needed. Reproductive: Mildly enlarged prostate. Bones/joints: Multilevel vertebral disc degeneration and endplate osteophytes. Interval worsening of L2-L3 disc space loss with chronic endplate changes. New prominent Schmorl's node at the inferior endplate of L1. No acute osseous findings otherwise. Soft tissues: Tiny bilateral fat containing inguinal hernias which also contained a trace amount of fluid. No evidence of bowel herniation. CT/CT abdomen pelvis wo con [id number] IMPRESSION: 1. Comparison CT 03/01/2017. 2. New trace bilateral pleural effusions and cardiac findings as above. 3. Status post cholecystectomy. Few ovoid calcific densities are noted adjacent to cholecystectomy clips. See discussion above. No biliary dilatation. 4. Colonic diverticulosis without diverticulitis. 5. Mildly enlarged and probably mild bladder wall thickening. See discussion above. 6. Soft tissue and osseous findings as described.
[2021-11-11] MEDS: iohexol 300 mg/mL 50 mL Btl PO (14:43)
[2021-11-11] MEDS: warfarin 2.5 mg Tablet PO (15:13)
[2021-11-12] VITALS (9 sets, daily range): BP systolic 100–126; BP diastolic 65–75; PULSE 65–83; RESP 14–18; TEMP 36.3–36.6; O2SAT 92–97
[2021-11-12] MEDS: sodium chlor 0.9% + KCl 20 mEq 20 MEQ/1,000 ML BAG 100 MEQ IV ×3 (02:16→22:01)
[2021-11-12] MEDS: warfarin 2.5 mg Tablet PO (13:49)
--- NOTE | 2021-11-12 14:27 | PM.PN ---
Subjective Subjective: Patient was admitted with acute renal failure. 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 He came in dehydrated. He denies history of ascites or liver disease. He does not drink alcohol. He underwent abdominal ultrasound but there is no liver disease or ascites identified. Patient states he does have bowel movements but less in the last few days. Vitals/I&O/Wt Last Vital Signs Temp 97.5 F L 11/12/21 11:18 Pulse 67 11/12/21 11:18 Resp 16 11/12/21 11:18 BP 112/73 11/12/21 11:18 Pulse Ox 96 11/12/21 11:18 11/11/21 11/12/21 11/12/21 22:59 06:59 14:59 Intake Total 1240 / 1840 965 / 2805 1570 / 1570 Output Total 325 / 925 300 / 1225 150 / 150 Balance 915 / 915 665 / 1580 1420 / 1420 Weight last 48 hrs Weight 71.94 kg Weight 69.853 kg Physical Exam Narrative: General well-developed well-nourished male with abdominal distention. CV regular rate and rhythm Lungs clear to auscultation bilaterally Abdomen distended nontender no rebound. Calves trace to 1+ pretibial edema Skin warm and dry psych mood and affect are appropriate. Data : 11/11/21 04:44 11/11/21 04:44 CT Abd/Pel: My impression: no ascites Radiologist's impression: 1. Comparison CT 03/01/2017. 2. New trace bilateral pleural effusions and cardiac findings as above. 3. Status post cholecystectomy. Few ovoid calcific densities are noted adjacent to cholecystectomy clips. See discussion above. No biliary dilatation. 4. Colonic diverticulosis without diverticulitis. 5. Mildly enlarged and probably mild bladder wall thickening. See discussion above. A&P Assessment and plan (1) Acute kidney injury: This appears to be diuretic induced. Abdomen distended prompting recent outpatient increase in diuretics but no ascites seen on ultrasound. RenalUltrasound findings no hydronephrosis or obstruction bladder wall not thickened no masses and volume was 125 Status: Acute (2) Hyponatremia: We will replace with Normal saline with 20 of KCl per liter to run at 100 cc an hour. 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
[2021-11-12] MEDS: bumetanide 1 mg Tablet PO (15:42)
[2021-11-12 16:06] LABS: INR 1.89 (0.8-1.2)
[2021-11-12 16:43] LABS: Anion Gap 22.2 (5-19); Calcium 8.7 mg/dL (8.5-10.5); Carbon Dioxide 20 mmol/L (22-29); Chloride 94 mmol/L (98-107); Glucose 99 mg/dL (65-115); Osmolality Calculated 301 mOsm/kg (285-295); Potassium 4.2 mmol/L (3.5-5.1); Sodium 132 mmol/L (136-145)
[2021-11-12 16:50] LABS: Blood Urea Nitrogen 89 mg/dL (8-23)
--- NOTE | 2021-11-12 16:56 | PC.NURSE ---
Received critical BUN of [address] Benjamin Kingsley notified. No new orders at this time.
[2021-11-13] VITALS: BP 109/78; PULSE 75; RESP 18; TEMP 36.7; O2SAT 94
[2021-11-13 04:00] VITALS: BP 130/71; PULSE 112; RESP 19; TEMP 36.6; O2SAT 94
[2021-11-13 05:32] VITALS: PULSE 88
[2021-11-13 05:33] LABS: Anion Gap 19.1 (5-19); Calcium 8.5 mg/dL (8.5-10.5); Carbon Dioxide 18 mmol/L (22-29); Chloride 97 mmol/L (98-107); Glucose 109 mg/dL (65-115); Osmolality Calculated 295 mOsm/kg (285-295); Potassium 4.1 mmol/L (3.5-5.1); Sodium 130 mmol/L (136-145)
[2021-11-13 05:53] LABS: Creatinine Clr Calc Pharmacy 25.8233
[2021-11-13 05:54] LABS: Blood Urea Nitrogen 81 mg/dL (8-23)
[2021-11-13 07:30] VITALS: BP 132/82; PULSE 85; RESP 18; TEMP 36.6; O2SAT 96
[2021-11-13] MEDS: sodium chlor 0.9% + KCl 20 mEq 20 MEQ/1,000 ML BAG 100 MEQ IV (08:01)
--- NOTE | 2021-11-13 09:42 | PC.SOCIAL ---
IMM Update Pg. 2 of IMM Updated and reviewed with patient, who verbalized understanding. Copy provided.
[2021-11-13 11:43] VITALS: BP 124/87; PULSE 75; RESP 18; TEMP 36.4; O2SAT 98
--- NOTE | 2021-11-13 11:59 | PM.DCS ---
Discharge Providers Date of Admission: 11/10/21 16:55 Date of Discharge: November 13, 2021 Attending Provider at Admission: Benjamin Kingsley MD Attending Provider at Discharge: Benjamin Kingsley MD Primary Care Provider: Echo Garay MD Diagnoses at Discharge Discharge Diagnosis (1) Acute kidney injury: Details from hospital stay: overdiuresed. Improved on fluid. The diuretics held for a admission and restarted just bumex 1 mg yesterday. resume 2 mg daily now. stop zaroxolyn for now Status: Acute (2) Hyponatremia: Details from hospital stay: improved with hydration. stop IVF and ok for discharge Status: Acute (3) Congestive heart failure: Details from hospital stay: Chronic systolic and diastolic CHF Status: Acute (4) Ischemic cardiomyopathy: Details from hospital stay: stable and managed by Dr. Tucker Status: Acute Reason for Visit Reason for Visit: needs fluids, had kidney test done Brief History: came in after ARF after diuretics increased for abd enlargement Hospital Course Hospital Course 81 yo WM admitted with dehydration and ZOEY following recent attempt to increase diuretic. He says his abdomen was swollen and thought to be retaining fluid. admitted with hyponatremia and given NS with potassium. He did well but renal function still recovering. abdominal US no ascites. CT scan showed obesity but not diverticulitis, bowel blockage or ascites. Patient stable for discharge on decreased dose of diuretic compared to home meds. Follow-up with mini panel and INR on Tuesday results to Dr. Tucker and primary care physician Echo Garay. Physical Exam Narrative: General well-developed well-nourished male with abdominal distention. CV regular rate and rhythm Lungs clear to auscultation bilaterally Abdomen distended nontender no rebound. Calves trace to 1+ pretibial edema Skin warm and dry psych mood and affect are appropriate. Discharge Data Studies Completed and Pending Completed Studies During Hospitalization Category Date Time Status CT abdomen pelvis wo con [id number] Routine Cat Scan 11/11/21 12:24 Completed XR chest 1V portable [id number] Stat Exams 11/10/21 15:14 Completed US abdomen complete* [id number] Routine Ultrasound 11/11/21 01:46 Completed Radiology Impressions Chest X-Ray 11/10/21 15:14 IMPRESSION: 1. Enlarged cardiac silhouette with vascular congestion. 2. Minimal interstitial prominence as described above. No obvious consolidation. Abdomen Ultrasound 11/11/21 01:46 Impression: 1. Cholecystectomy. 2. Pancreas not visualized. 3. Negative for acute intra-abdominal abnormalities. Abdomen/Pelvis CT 11/11/21 12:24 IMPRESSION: 1. Comparison CT 03/01/2017. 2. New trace bilateral pleural effusions and cardiac findings as above. 3. Status post cholecystectomy. Few ovoid calcific densities are noted adjacent to cholecystectomy clips. See discussion above. No biliary dilatation. 4. Colonic diverticulosis without diverticulitis. 5. Mildly enlarged and probably mild bladder wall thickening. See discussion above. 6. Soft tissue and osseous findings as described. Laboratory Results WBC 6.5 10^3/uL (4.0-10.0) 11/11/21 04:44 RBC 4.53 10^6/uL (4.1-5.3) 11/11/21 04:44 Hgb 14.9 g/dL (11.7-16.6) 11/11/21 04:44 Hct 41.6 % (42.0-52.0) L 11/11/21 04:44 MCV 91.8 fl (80-94) 11/11/21 04:44 MCH 32.9 pg (28.0-34.0) 11/11/21 04:44 MCHC 35.8 g/dL (30.0-36.0) 11/11/21 04:44 RDW 12.1 % (12.1-15.1) 11/11/21 04:44 Plt Count 142 10^3/cmm (130-400) 11/11/21 04:44 MPV 10.3 fL (7.4-10.4) 11/11/21 04:44 Neut % (Auto) 58.0 % 11/11/21 04:44 Lymph % (Auto) 25.5 % 11/11/21 04:44 Lipscomb % (Auto) 12.5 % 11/11/21 04:44 Eos % (Auto) 2.8 % 11/11/21 04:44 Baso % (Auto) 0.6 % 11/11/21 04:44 Neut # (Auto) 3.75 10^3/uL (1.8-7.7) 11/11/21 04:44 Lymph # (Auto) 1.7 10^3/uL (0.8-4.8) 11/11/21 04:44 Lipscomb # (Auto) 0.8 10^3/uL (0.2-0.9) 11/11/21 04:44 Eos # (Auto) 0.2 10^3/uL (0.0-0.8) 11/11/21 04:44 Baso # (Auto) 0.0 10^3/uL (0.0-0.1) 11/11/21 04:44 Nucleated RBC % (auto) 0 % 11/11/21 04:44 Nucleated RBCs # 0.0 /100WBC 11/11/21 04:44 PT 22.10 SECONDS (12.1-14.9) H 11/12/21 15:42 INR 1.89 (0.8-1.2) H 11/12/21 15:42 Sodium 130 mmol/L (136-145) L 11/13/21 04:37 Potassium 4.1 mmol/L (3.5-5.1) 11/13/21 04:37 Chloride 97 mmol/L (98-107) L 11/13/21 04:37 Carbon Dioxide 18 mmol/L (22-29) L 11/13/21 04:37 Anion Gap 19.1 (5-19) H 11/13/21 04:37 BUN 81 mg/dL (8-23) H 11/13/21 04:37 Creatinine 2.2 mg/dL (0.7-1.2) H 11/13/21 04:37 GFR Calculation Not Reportable 11/13/21 04:37 Glucose 109 mg/dL (65-115) 11/13/21 04:37 Calculated Osmolality 295 mOsm/kg (285-295) 11/13/21 04:37 Calcium 8.5 mg/dL (8.5-10.5) 11/13/21 04:37 Total Bilirubin 1.1 mg/dL (0.15-1.2) 11/11/21 04:44 AST 15 U/L (0-40) 11/11/21 04:44 ALT 14 U/L (0-41) 11/11/21 04:44 Alkaline Phosphatase 61 IU/L (40-130) 11/11/21 04:44 Creatine Kinase 76 U/L (39-308) 11/10/21 15:34 Troponin T Baseline 64 ng/L (0-15) H 11/10/21 15:34 Troponin T 120 Minute 58.02 ng/L (0-15) H 11/10/21 18:10 Delta Troponin T -5.98 ABS# (0-10) L 11/10/21 18:10 Troponin T Hi Sens 6Hr 58.50 ng/L (0-15) H 11/10/21 21:52 Troponin T Hi Sens 6Hr Delta -5.50 ng/L (0-12) L 11/10/21 21:52 NT-Pro-B Natriuret Pep 8792 pg/mL (0-450) H 11/10/21 15:34 Total Protein 5.8 g/dL (6.6-8.7) L 11/11/21 04:44 Albumin 3.6 g/dL (3.5-5.2) 11/11/21 04:44 Globulin 2.2 g/dL (1.3-4.6) 11/11/21 04:44 Vitals Last Vital Signs Temp 97.6 F 11/13/21 11:43 Pulse 75 11/13/21 11:43 Resp 18 11/13/21 11:43 BP 124/87 11/13/21 11:43 Pulse Ox 98 11/13/21 11:43 Discharge Plan Discharge Patient Disposition: Home Condition: Stable Prescriptions: Continued pravastatin 40 mg tablet 40 mg PO DAILY 0RF magnesium 250 mg tablet 500 mg PO DAILY 0RF Repatha SureClick 140 mg/mL pen injector 140 mg SUBCUT Q14D 0RF coenzyme Q10 [Co Q-10] 100 mg capsule 100 mg PO DAILY 0RF warfarin 5 mg tablet 5 mg PO DIRECTED 90 Days Qty: 90 3RF Protocol: Dose Management Condition: Tuesday Dose/Route: 2.5 mg Instruction: 0.5 x 5 mg tablets Condition: Tuesday Dose/Route: 2.5 mg Instruction: 0.5 x 5 mg tablets Condition: Tuesday Dose/Route: 2.5 mg Instruction: 0.5 x 5 mg tablets Condition: Tuesday Dose/Route: 2.5 mg Instruction: 0.5 x 5 mg tablets Condition: Dose/Route: 2.5 mg Instruction: 0.5 x 5 mg tablets Condition: Tuesday Dose/Route: 2.5 mg Instruction: 0.5 x 5 mg tablets Condition: Tuesday Dose/Route: 2.5 mg Instruction: 0.5 x 5 mg tablets Protocol Text: Adjustment Start Date: Tuesday11/04/21 INR Value: 21.9 Seconds INR Date: 11/04/21 Recheck Date: 11/11/21 carvedilol 6.25 mg tablet 9.375 mg PO BID Qty: 408 3RF spironolactone 25 mg Tablet 25 mg PO DAILY 0RF Vitamin D3 25 mcg (1,000 unit) Tablet 25 mcg PO DAILY 0RF [place] 3 Fish Oil 684-1,200 mg Capsule,Delayed Release(Dr/Ec) 1 cap PO DAILY 0RF Changed bumetanide 2 mg tablet 2 mg PO DAILY Qty: 180 3RF Discontinued metolazone 5 mg tablet 5 mg PO DAILY Qty: 90 3RF lisinopril 5 mg tablet 2.5 mg PO DAILY 0RF furosemide 40 mg Tablet 40 mg PO BID 0RF Discharge Orders: Discharge Order (Routine); Ordered 11/13/21 Ordered By: Benjamin Kingsley Referrals: Echo Garay MD [Primary Care Provider] - 11/17/21 1:30 pm (Your follow up appointment with Dr. Garay Office is 11-17-21 at 1:30 p.m. Please call [phone] to verify or if you have any questions or concerns. Thank you.) Discharge Diet: Cardiac Discharge Activity: Increase activity as tolerated Patient Instructions: Heart Failure (DC), Acute Kidney Injury (DC), Opioid Safety Discharge Attestations Time Spent in Discharge Care*: greater than 30 min Time Spent in Smoking Cessation: Non-smoker Quality Metrics Clinical Quality Measures [ No reported AMI, CVA or VTE this stay] Coding Level of Care Code Acute Chg FW DC note Diagnoses Acute kidney injury N17.9 Hyponatremia E87.1 Congestive heart failure I50.9 Ischemic cardiomyopathy I25.5
[2021-11-13] MEDS: bumetanide 1 mg Tablet PO (12:08)
--- NOTE | 2021-11-13 12:08 | PC.NURSE ---
Medication missed at 0900.
[2021-11-13] MEDS: warfarin 2.5 mg Tablet PO (14:38)
[2021-11-13 16:42] VITALS: BP 124/87; PULSE 75; RESP 18; TEMP 36.4; O2SAT 98
== END 2021-11-13 15:30 | disposition home or self-care (01) | DRG 683 ==
LOC: ER 16:24 → MEDSURG 21:15
PROVIDERS: Emergency Medicine; Admitting Provider Internal Medicine; Emergency Provider Family Medicine; PCP Family Medicine; Visit Provider Internal Medicine
DX: N17.9 Acute kidney failure, unspecified (principal); E87.1 Hypo-osmolality and hyponatremia; I50.42 Chronic combined systolic (congestive) and diastolic (congestive) heart failure; T50.1X5A Adverse effect of loop [high-ceiling] diuretics, initial encounter; I11.0 Hypertensive heart disease with heart failure; I48.91 Unspecified atrial fibrillation; Z86.73 Personal history of transient ischemic attack (TIA), and cerebral infarction without residual deficits; I25.10 Atherosclerotic heart disease of native coronary artery without angina pectoris; Z95.1 Presence of aortocoronary bypass graft; E78.5 Hyperlipidemia, unspecified; I25.5 Ischemic cardiomyopathy; Z95.0 Presence of cardiac pacemaker; Z87.891 Personal history of nicotine dependence; I95.9 Hypotension, unspecified; E86.0 Dehydration; E66.9 Obesity, unspecified; Z68.25 Body mass index [BMI] 25.0-25.9, adult; Z79.01 Long term (current) use of anticoagulants
CPT/HCPCS: 36415; 71045; 74176; 76700; 80048; 80053; 82550; 83880; 84484; 85025; 85610; 93005; 96360; 99285; J7040; Q9967

== ENCOUNTER 2021-11-15 09:01 | Observation (INO) | payer OTHER, MEDICARE, SELFPAY ==
[2021-11-15] VITALS (10 sets, daily range): BP systolic 93–118; BP diastolic 64–87; PULSE 61–95; RESP 12–18; TEMP 36.4–36.6; O2SAT 95–99; BMI 25.0
--- NOTE | 2021-11-15 09:05 | ECG_ITS ---
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 Measurements Intervals [place] Rate: 77 P: 123 ND: 186 QRS: 48 QRSD: 174 T: -83 QT: 416 QTc: 473 Interpretive Statements ELECTRONIC ATRIAL PACEMAKER with PVCs INTRAVENTRICULAR CONDUCTION DELAY [130+ ms QRS DURATION] LATERAL MYOCARDIAL INFARCTION , OF INDETERMINATE AGE [40+ ms Q WAVE AND/OR ST/T ABNORMALITY IN I/aVL/V5/V6] INFERIOR MYOCARDIAL INFARCTION , OF INDETERMINATE AGE [40+ ms Q WAVE AND/OR ST/T ABNORMALITY IN II/aVF] Compared to ECG 11/10/2021 21:16:22 Myocardial infarct finding now present Ventricular-paced complex(es) or rhythm no longer present Electronically Signed On 11-15-2021 9:24:49 CDT by Lorenzo Palacio M.D. [id number]
--- NOTE | 2021-11-15 09:05 | XRR_ITS ---
PROCEDURE INFORMATION: Exam: XR Chest Exam date and time: 11/15/2021 9:16 AM Age: 81 years old Clinical indication: Pain; Chest pressure; Prior surgery; Surgery type: Bypass, stents; Additional info: Cp TECHNIQUE: Imaging protocol: XR of the chest. Views: 1 view. COMPARISON: CR XR chest 1V portable [id number] 11/10/2021 3:37 PM FINDINGS: Tubes, catheters and devices: Cardiac rhythm maintenance device is in place. Lungs: Unremarkable. No consolidation. Pleural spaces: Unremarkable. No pleural effusion. No pneumothorax. Heart/Mediastinum: Changes of prior CABG. Cardiomegaly. Bones/joints: Unremarkable. XR/XR chest 1V portable [id number] IMPRESSION: Cardiomegaly with no acute cardiopulmonary abnormality.
[2021-11-15 09:19] LABS: Basophils # 0.1 10^3/uL (0.0-0.1); Basophils % 0.6 %; Eosinophils # 0.3 10^3/uL (0.0-0.8); Eosinophils % 3.2 %; Hemoglobin 15.3 g/dL (11.7-16.6); Lymphocytes # 1.5 10^3/uL (0.8-4.8); Lymphocytes % 16.3 %; Mean Corpuscular Hemoglobin 32.9 pg (28.0-34.0); Mean Corpuscular Volume 96.8 fl (80-94); Monocytes # 0.7 10^3/uL (0.2-0.9); Monocytes % 7.6 %; Neutrophils # 6.65 10^3/uL (1.8-7.7); Neutrophils % 71.9 %; Nucleated Red Blood Cells % 0 %; Platelet Count 142 10^3/cmm (130-400); Red Blood Count 4.65 10^6/uL (4.1-5.3); Red Cell Distribution Width 13.1 % (12.1-15.1); White Blood Count 9.3 10^3/uL (4.0-10.0)
--- NOTE | 2021-11-15 09:20 | ED_ITS ---
HPI - Syncope General: Chief Complaint: Syncope Stated Complaint: SYNCOPE Time Seen by Provider: 11/15/21 09:04 Source: patient and EMS Mode of arrival: EMS Limitations: no limitations History of Present Illness: 81-year-old male who states that he was going to the grocery store this morning and had a syncopal event. Patient was passed out in the parking lot bystanders believed he was not breathing and perform CPR and he states he awoke immediately unsure for actually how long he had passed out. He denies any pain before or after the event. He states that he has had some diarrhea recently admitted here for a acute kidney injury. Denies any fever denies hitting his head when he fell Associated symptoms: Deny abdominal pain, chest pain, fever(s), headache(s) or nausea Review of Systems Const: Denies: fever(s), chills, body aches or change in appetite Eyes: Denies: blurry vision or eye discomfort ENMT: Denies: throat pain or dental pain Card: Reports: syncope; Denies: chest pain Resp: Denies: dyspnea GI: Denies: abdominal pain, nausea, vomiting or diarrhea : Denies: dysuria Musc: Denies: neck pain or back pain Skin/Breast: Denies: rash Neuro: Denies: headache(s) Psych: Denies: depression Ros[place]/Lymph: Denies: easy bruising All/Imm: Denies: urticaria PFSH ED PFSH: Medical History Atrial fibrillation Cardioembolic stroke CHF (congestive heart failure) Coronary artery disease Stable doing fine from a coronary disease perspective continue meds HTN (hypertension) Hyperlipidemia Ischemic cardiomyopathy Surgical History S/P CABG (coronary artery bypass graft) S/P cardiac pacemaker procedure S/P cholecystectomy Family History Father Stroke Social History Smoking and tobacco status: former smoker History of recent travel: No Physical Exam Const: COMMON NORMALS: no acute distress, patient oriented x3 and healthy appearing HENMT: COMMON NORMALS: normocephalic and atraumatic HEAD & SCALP: normocephalic and atraumatic Eye: COMMON NORMALS: Equal, round and reactive pupils present and EOMs intact bilaterally PUPIL: Yes Equal, round and reactive pupils present Neck/C-Spine: COMMON NORMALS: full ROM and supple Chest: COMMONS NORMALS: normal inspection of the chest and normal palpation of entire chest wall Resp: COMMON NORMALS: normal respiratory effort, No retractions, No use of accessory muscles and clear to auscultation bilaterally AUSCULTATION: clear to auscultation bilaterally Cardio: COMMON NORMALS: regular rate, regular rhythm and No murmurs present (Cardio) RATE: regular rate RHYTHM: regular rhythm GI: COMMON NORMALS: Normal to inspection, nondistended, normoactive bowel sounds present, Soft to palpation, non-tender and no masses PALPATION: Yes Soft to palpation Extremity: COMMON NORMALS: normal to inspection and full ROM Neuro: COMMON NORMALS: patient oriented x3, moves all extremities and no focal motor deficits Psych: COMMON NORMALS: mental status grossly normal, Normal thought process present and cooperative THOUGHT PROCESS: Normal thought process present Skin: COMMON NORMALS: no rashes or lesions noted and no wounds GENERAL SKIN EXAM: no rashes or lesions noted Course Vital Signs: Vital signs: Vital Signs Temperature 98 F 11/15/21 09:05 Pulse Rate 72 11/15/21 10:03 Respiratory Rate 12 11/15/21 10:03 Blood Pressure 115/83 11/15/21 10:03 Pulse Oximetry 95 11/15/21 10:03 MDM - Syncope Medical Decision Making Patient presents here with syncopal event. He is well-appearing here felt improved here. Does have slightly elevated troponin and creatinine that is not far from his baseline but will trend spoke to hospitalist will admit for observation for his syncopal event. Lab Data : 11/15/21 08:45 11/15/21 08:45 Radiology Impressions Chest X-Ray 11/15/21 09:05 IMPRESSION: Cardiomegaly with no acute cardiopulmonary abnormality. Laboratory Results WBC 9.3 10^3/uL (4.0-10.0) 11/15/21 08:45 RBC 4.65 10^6/uL (4.1-5.3) 11/15/21 08:45 Hgb 15.3 g/dL (11.7-16.6) 11/15/21 08:45 Hct 45.0 % (42.0-52.0) 11/15/21 08:45 MCV 96.8 fl (80-94) H 11/15/21 08:45 MCH 32.9 pg (28.0-34.0) 11/15/21 08:45 MCHC 34.0 g/dL (30.0-36.0) 11/15/21 08:45 RDW 13.1 % (12.1-15.1) 11/15/21 08:45 Plt Count 142 10^3/cmm (130-400) 11/15/21 08:45 MPV 10.0 fL (7.4-10.4) 11/15/21 08:45 Neut % (Auto) 71.9 % 11/15/21 08:45 Lymph % (Auto) 16.3 % 11/15/21 08:45 [place] % (Auto) 7.6 % 11/15/21 08:45 Eos % (Auto) 3.2 % 11/15/21 08:45 Baso % (Auto) 0.6 % 11/15/21 08:45 Neut # (Auto) 6.65 10^3/uL (1.8-7.7) 11/15/21 08:45 Lymph # (Auto) 1.5 10^3/uL (0.8-4.8) 11/15/21 08:45 [place] # (Auto) 0.7 10^3/uL (0.2-0.9) 11/15/21 08:45 Eos # (Auto) 0.3 10^3/uL (0.0-0.8) 11/15/21 08:45 Baso # (Auto) 0.1 10^3/uL (0.0-0.1) 11/15/21 08:45 Nucleated RBC % (auto) 0 % 11/15/21 08:45 Nucleated RBCs # 0.0 /100WBC 11/15/21 08:45 PT 25.90 SECONDS (12.1-14.9) H 11/15/21 08:45 INR 2.33 (0.8-1.2) H 11/15/21 08:45 Sodium 133 mmol/L (136-145) L 11/15/21 08:45 Potassium 3.5 mmol/L (3.5-5.1) 11/15/21 08:45 Chloride 95 mmol/L (98-107) L 11/15/21 08:45 Carbon Dioxide 24 mmol/L (22-29) 11/15/21 08:45 Anion Gap 17.5 (5-19) 11/15/21 08:45 BUN 69 mg/dL (8-23) H 11/15/21 08:45 Creatinine 2.4 mg/dL (0.7-1.2) H 11/15/21 08:45 GFR Calculation Not Reportable 11/15/21 08:45 Glucose 138 mg/dL (65-115) H 11/15/21 08:45 Calculated Osmolality 298 mOsm/kg (285-295) H 11/15/21 08:45 Calcium 9.5 mg/dL (8.5-10.5) 11/15/21 08:45 Total Bilirubin 1.4 mg/dL (0.15-1.2) H 11/15/21 08:45 AST 53 U/L (0-40) H 11/15/21 08:45 ALT 56 U/L (0-41) H 11/15/21 08:45 Alkaline Phosphatase 98 IU/L (40-130) 11/15/21 08:45 Troponin T Baseline 83 ng/L (0-15) H 11/15/21 08:45 Total Protein 6.5 g/dL (6.6-8.7) L 11/15/21 08:45 Albumin 3.8 g/dL (3.5-5.2) 11/15/21 08:45 Globulin 2.7 g/dL (1.3-4.6) 11/15/21 08:45 EKG Data EKG 1: I personally reviewed and interpreted this EKG as follows: EKG interpretation date: 11/15/21 EKG interpretation time: 09:08 Interpretation: paced hr [address] elevation qrs 174 qtc 448 Discharge Plan Discharge Patient Disposition: Admitted As Inpatient Clinical Impression: Syncope Condition: Stable Prescriptions: No Action pravastatin 40 mg tablet 40 mg PO DAILY 0RF magnesium 250 mg tablet 500 mg PO DAILY 0RF Repatha SureClick 140 mg/mL pen injector 140 mg SUBCUT Q14D 0RF coenzyme Q10 [Co Q-10] 100 mg capsule 100 mg PO DAILY 0RF warfarin 5 mg tablet 5 mg PO DIRECTED 90 Days Qty: 90 3RF Protocol: Dose Management Condition: Tuesday Dose/Route: 2.5 mg Instruction: 0.5 x 5 mg tablets Condition: Tuesday Dose/Route: 2.5 mg Instruction: 0.5 x 5 mg tablets Condition: Tuesday Dose/Route: 2.5 mg Instruction: 0.5 x 5 mg tablets Condition: Tuesday Dose/Route: 2.5 mg Instruction: 0.5 x 5 mg tablets Condition: Dose/Route: 2.5 mg Instruction: 0.5 x 5 mg tablets Condition: Tuesday Dose/Route: 2.5 mg Instruction: 0.5 x 5 mg tablets Condition: Tuesday Dose/Route: 2.5 mg Instruction: 0.5 x 5 mg tablets Protocol Text: Adjustment Start Date: Tuesday11/04/21 INR Value: 21.9 Seconds INR Date: 11/04/21 Recheck Date: 11/11/21 carvedilol 6.25 mg tablet 9.375 mg PO BID Qty: 408 3RF spironolactone 25 mg Tablet 25 mg PO DAILY 0RF Vitamin D3 25 mcg (1,000 unit) Tablet 25 mcg PO DAILY 0RF omega-3 fatty acids-fish oil 684-1,200 mg Capsule,Delayed Release(Dr/Ec) 1 cap PO DAILY 0RF bumetanide 2 mg tablet 2 mg PO DAILY Qty: 180 3RF Referrals: Echo Garay MD [Primary Care Provider] - Coding Level of Care Code ED Bottle Machine Operator for Chg Fwd Exam Comprehensive
[2021-11-15 09:34] LABS: INR 2.33 (0.8-1.2)
[2021-11-15 09:37] LABS: Troponin(5th) Baseline 83 ng/L (0-15)
[2021-11-15 09:40] LABS: Alanine Aminotransferase 56 U/L (0-41); Albumin Level 3.8 g/dL (3.5-5.2); Alkaline Phosphatase 98 IU/L (40-130); Anion Gap 17.5 (5-19); Aspartate Amino Transferase 53 U/L (0-40); Blood Urea Nitrogen 69 mg/dL (8-23); Calcium 9.5 mg/dL (8.5-10.5); Carbon Dioxide 24 mmol/L (22-29); Chloride 95 mmol/L (98-107); Globulin 2.7 g/dL (1.3-4.6); Glucose 138 mg/dL (65-115); Osmolality Calculated 298 mOsm/kg (285-295); Potassium 3.5 mmol/L (3.5-5.1); Sodium 133 mmol/L (136-145); Total Bilirubin 1.4 mg/dL (0.15-1.2); Total Protein 6.5 g/dL (6.6-8.7)
--- NOTE | 2021-11-15 11:02 | PC.NURSE ---
EKG done at 1055 and shown to ER doctor.
--- NOTE | 2021-11-15 11:05 | ECG_ITS ---
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 Measurements Intervals [place] Rate: 77 P: 127 HI: 190 QRS: 52 QRSD: 176 T: 270 QT: 441 QTc: 501 Interpretive Statements ELECTRONIC ATRIAL PACEMAKER INTRAVENTRICULAR CONDUCTION DELAY [130+ ms QRS DURATION] LATERAL MYOCARDIAL INFARCTION , OF INDETERMINATE AGE [40+ ms Q WAVE AND/OR ST/T ABNORMALITY IN I/aVL/V5/V6] Compared to ECG 11/15/2021 09:08:11 Ventricular premature complex(es) no longer present Myocardial infarct finding still present Electronically Signed On 11-16-2021 16:25:37 CDT by Lorenzo Palacio M.D. [id number]
[2021-11-15 11:26] LABS: Troponin 5 2HR 71.49 ng/L (0-15)
--- NOTE | 2021-11-15 11:35 | PM.HP ---
Providers/Chief Complaint Primary Care Provider: Echo Garay MD Chief Complaint: SYNCOPE History of Present Illness Al Yin is a 81 year old male who carries history of reduced action fraction heart failure, status post AICD/pacemaker, most recent discharge from the hospital after management of ZOEY related to dehydration, patient presented today after an syncopal event. Patient stating that he drove himself to the grocery store, while he was in the parking lot, he started experiencing dizziness which he is describing as lightheadedness. And then next thing he knows he was on the ground, he did not experience any nausea, vomiting, shortness of breath or chest pain. He has been experiencing diarrhea for last 3 days, he is compliant with his Bumex as well. He noticed that he has lost 6 pounds all of a sudden which is very unusual for him. While he was on the ground he could hear there a bystander was stating that patient is not breathing, someone started chest compression however as soon as chest compressions were started he woke up. EMS was called. He was hemodynamically stable, patient denied discharge of his AICD. Diagnostics in the ER revealed normal hemodynamics, lab work consistent with CHF Patient has taken his Bumex today INR therapeutic I have requested echo, imaging in the ER is unremarkable Troponin trending down Review of Systems Const: Denies: fever(s) Eyes: Denies: change in vision ENMT: Denies: throat pain Card: Denies: chest pain Resp: Denies: dyspnea GI: Denies: abdominal pain : Denies: flank pain Musc: Denies: neck pain Skin/Breast: Denies: rash Neuro: Reports: dizziness; Denies: headache(s) Psych: Denies: anxiety Endo: Denies: polyuria Ros[place]/Lymph: Denies: easy bruising All/Imm: Denies: urticaria Medications/Allergies Home Medications Medication Instructions Recorded Confirmed Last Taken Type magnesium 250 mg tablet 500 mg PO DAILY tab 07/17/19 11/15/21 11/15/21 History pravastatin 40 mg tablet 40 mg PO DAILY 07/18/19 11/15/21 11/14/21 History warfarin 5 mg tablet 5 mg PO DIRECTED 90 Days #90 tab 11/03/20 11/15/21 11/14/21 Rx coenzyme Q10 100 mg capsule (Co 100 mg PO DAILY 04/22/21 11/15/21 11/15/21 History Q-10) evolocumab 140 mg/mL subcutaneous 140 mg SUBCUT Q14D ml 04/22/21 11/15/21 Unknown History pen injector (Shania Dominguez) carvedilol 6.25 mg tablet 9.375 mg PO BID #408 tab 10/23/21 11/15/21 11/15/21 Rx cholecalciferol (vitamin D3) 25 25 mcg PO DAILY 11/10/21 11/15/21 11/15/21 History mcg (1,000 unit) tablet (Vitamin D3) omega-3 fatty acids-fish oil 684 1 cap PO DAILY 11/10/21 11/15/21 11/15/21 History mg-1,200 mg capsule,delayed release bumetanide 2 mg tablet 2 mg PO DAILY #180 tab 11/13/21 11/15/21 11/15/21 Rx Allergies Allergy/AdvReac Type Severity Reaction Status Date / Time atorvastatin Allergy Unknown Unknown Verified 10/28/21 12:54 simvastatin Allergy Unknown Unknown Verified 10/28/21 12:54 PFSH Acute PFSH: Medical History Atrial fibrillation Cardioembolic stroke CHF (congestive heart failure) Coronary artery disease Stable doing fine from a coronary disease perspective continue meds HTN (hypertension) Hyperlipidemia Ischemic cardiomyopathy Surgical History S/P CABG (coronary artery bypass graft) S/P cardiac pacemaker procedure S/P cholecystectomy Family History Father Stroke Social History Smoking and tobacco status: former smoker History of recent travel: No Vitals/I&O/Wt Last Vital Signs Temp 98 F 11/15/21 09:05 Pulse 72 11/15/21 10:03 Resp 12 11/15/21 10:03 BP 115/83 11/15/21 10:03 Pulse Ox 95 11/15/21 10:03 Weight last 48 hrs Weight 70.307 kg Physical Exam Narrative: male Saturating well on room air Hemodynamically stable No active chest pain Abdomen bloated, soft, distended, No audible stridor or wheezing Edema of legs noted Right knee laceration noted He is awake and alert No signs of stroke or meningitis No signs of cellulitis No active bleeding A. fib without RVR Data : 11/15/21 08:45 11/15/21 08:45 A&P Assessment and plan (1) Syncope: Status: Acute (2) Congestive heart failure: Status: Acute (3) Atrial fibrillation: Status: Acute (4) Acute kidney injury superimposed on chronic kidney disease: Status: Acute Plan Syncopal event Likely related to fluid imbalance He has been suffering from intravascular depletion, acute on chronic kidney disease Pacemaker/AICD interrogation Echo in the morning Serial troponin EKG No active chest pain Patient is denying discharge of AICD Check magnesium and TSH Conservative management Is chemistry is consistent with CHF exacerbation, will start his Bumex tomorrow He took his dose today at home Patient is full code He has a nephew as a family member who should be notified in case of any emergency He lives alone Acute on chronic kidney disease he takes Bumex at home, chemistry consistent with fluid overload however clinically shows mild signs of fluid buildup in his legs Cardiac diet DVT prophylaxis not indicated as patient is on Coumadin for A. fib, INR is therapeutic Attestations Medical Necessity Statement*: Anticipating discharge within 48 hours will need work-up for syncope Time Spent in Patient Care: 40mins Coding Level of Care Code Acute Chief Librarian Music Department for Chg Fwd Diagnoses Syncope R55 Congestive heart failure I50.9 Atrial fibrillation I48.91 Acute kidney injury superimposed on chronic kidney disease N17.9; N18.9
[2021-11-15 11:41] LABS: Troponin 5 2HR Delta -11.51 ABS# (0-10)
--- NOTE | 2021-11-15 12:20 | USCV_ITS ---
Al Yin Age: 81 Gender: M : 1940 Exam Date: 11/15/2021 13:58 Ordering Phys: Flavio Virgen MD Technologist: Stephanie Delgado [place] [facility] [place]: [place] BP: 118 / 80 HR: 83 Rhythm: Atrial fibrillation Technical Quality: Adequate MEASUREMENTS (Male / Female) Normal Values 2D ECHO LV Diastolic Diameter PLAX 6.5 cm 4.2 - 5.9 / 3.9 - 5.3 cm LV Systolic Diameter PLAX 5.2 cm LV Chamber Size 3.7 cm IVS Diastolic Thickness 0.9 cm 0.6 - 1.0 / 0.6 - 0.9 cm IVS Systolic Thickness 0.7 cm LVPW Diastolic Thickness 0.9 cm 0.6 - 1.0 / 0.6 - 0.9 cm LVPW Systolic Thickness 1.4 cm RV Chamber Size 4.5 cm LVOT Diameter 2.0 cm LV Ejection Fraction 2D Teich 40.1 % LV Ejection Fraction MOD 2C 44.2 % LV Ejection Fraction 2C AL 49.2 % LA Diameter 4.1 cm LA Width 3.6 cm LA Height 5.7 cm RA Width 4.3 cm RA Height 5.0 cm Aorta at Sinotubular Diameter 2.4 cm IVC Diameter 2.8 cm M-MODE Aortic Annulus Diameter 3.6 cm LA Ao Ratio MM 1.3 MV E Point Septal Separation 1.9 cm DOPPLER AV Peak Velocity 84.0 cm/s LVOT Peak Velocity 58.0 cm/s AV Area Cont Eq vti 2.4 cm squared AV Area Cont Eq pk 2.2 cm squared MV Area PHT 7.1 cm squared MV E' Velocity 49.5 cm/s Mitral E to MV E' Ratio 9.1 Mitral E to LV E' Lateral Ratio 9.3 Mitral E to LV E' Septal Ratio 9.0 TR Peak Velocity 269.7 cm/s TR Peak Gradient 29.1 mmHg TR Mean Velocity 197.9 cm/s TR Mean Gradient 17.6 mmHg TR Velocity Time Integral 91.5 cm TV Peak E Velocity 73.0 cm/s Right Atrial Pressure 15.0 mmHg Pulmonary Artery Systolic Pressu 44.1 mmHg PV Peak Velocity 53.0 cm/s RV Acceleration Time 0.1 s RV Ejection Time 0.3 s RV AcT/ET 0.2 FINDINGS Left Ventricle Moderately increased left ventricular cavity size. Normal left ventricular wall thickness. Severely decreased left ventricular systolic function. Global left ventricular hypokinesis. Left ventricular ejection fraction is estimated at 25%. Right Ventricle Normal right ventricular size and systolic function. Catheter/pacemaker wire in the right ventricular cavity. Mild pulmonary hypertension, RVSP 44.1 mmHg. Right Atrium Mildly increased right atrial size. Left Atrium Mildly increased left atrial size. Mitral Valve Structurally normal mitral valve. Moderate-severe mitral valve regurgitation. Aortic Valve Structurally normal aortic valve without significant sclerosis or stenosis. There is no aortic regurgitation. Tricuspid Valve Structurally normal tricuspid valve. Mild tricuspid valve regurgitation. Pulmonic Valve Pulmonic valve not well visualized. Pericardium Normal pericardium without effusion. Aorta Normal ascending aorta dimension. IVC The inferior vena cava pulmonary and hepatic veins appear normal. CONCLUSIONS Moderately increased left ventricular cavity size. Normal left ventricular wall thickness. Severely decreased left ventricular systolic function. Global left ventricular hypokinesis. Left ventricular ejection fraction is estimated at 25%. Normal right ventricular size and systolic function. Catheter/pacemaker wire in the right ventricular cavity. Mild pulmonary hypertension, RVSP 44.1 mmHg. Mildly increased right atrial size. Mildly increased left atrial size. Structurally normal mitral valve. Moderate-severe mitral valve regurgitation. Dr. Lorenzo Palacio MD (Electronically Signed) Final Date: 16 November 2021 09:39 S
[2021-11-15 12:29] LABS: NT Pro B Type Natriuretic Pept 6294 pg/mL (0-450); Procalcitonin 0.13 ng/mL (0-0.5); Thyroid Stimulating Hormone 4.45 uIU/mL (0.27-4.20)
--- NOTE | 2021-11-15 15:05 | ECG_ITS ---
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 Measurements Intervals [place] Rate: 81 P: 121 MT: 196 QRS: 52 QRSD: 186 T: 267 QT: 444 QTc: 517 Interpretive Statements ELECTRONIC ATRIAL PACEMAKER INTRAVENTRICULAR CONDUCTION DELAY [130+ ms QRS DURATION] LATERAL MYOCARDIAL INFARCTION , OF INDETERMINATE AGE [40+ ms Q WAVE AND/OR ST/T ABNORMALITY IN I/aVL/V5/V6] INFERIOR MYOCARDIAL INFARCTION , OF INDETERMINATE AGE [40+ ms Q WAVE AND/OR ST/T ABNORMALITY IN II/aVF] Compared to ECG 11/15/2021 10:49:37 No significant changes Electronically Signed On 11-16-2021 16:28:19 CDT by Lorenzo Palacio M.D. [id number]
--- NOTE | 2021-11-15 15:35 | PC.NURSE ---
Pacemaker check completed using Universal Ad interrogator.
[2021-11-15 16:44] LABS: Troponin 5 6HR 76.99 ng/L (0-15)
[2021-11-15 16:53] LABS: Free T4 Free Thyroxine 1.67 ng/dL (0.82-1.77)
[2021-11-15] MEDS: warfarin 2.5 mg Tablet PO (17:03)
[2021-11-15 17:14] LABS: Troponin 5 6HR Delta -6.01 ng/L (0-12)
[2021-11-15] MEDS: carvedilol 6.25 mg Tablet 9.375 MG PO (19:10)
[2021-11-16] VITALS (11 sets, daily range): BP systolic 93–119; BP diastolic 58–91; PULSE 63–90; RESP 16–17; TEMP 36.3–36.6; O2SAT 94–97
[2021-11-16 05:28] LABS: Basophils % 0.7 %; Eosinophils # 0.3 10^3/uL (0.0-0.8); Eosinophils % 4.7 %; Hematocrit 41.5 % (42.0-52.0); Hemoglobin 13.9 g/dL (11.7-16.6); Lymphocytes % 17.9 %; Mean Corpuscular HGB Conc 33.5 g/dL (30.0-36.0); Mean Corpuscular Hemoglobin 32.9 pg (28.0-34.0); Mean Corpuscular Volume 98.3 fl (80-94); Mean Platelet Volume 9.6 fL (7.4-10.4); Monocytes # 0.5 10^3/uL (0.2-0.9); Monocytes % 8.2 %; Neutrophils # 3.92 10^3/uL (1.8-7.7); Nucleated Red Blood Cells % 0 %; Platelet Count 113 10^3/cmm (130-400); Red Blood Count 4.22 10^6/uL (4.1-5.3); Red Cell Distribution Width 13.2 % (12.1-15.1); White Blood Count 5.8 10^3/uL (4.0-10.0)
[2021-11-16 05:45] LABS: Anion Gap 15.9 (5-19); Blood Urea Nitrogen 72 mg/dL (8-23); C Reactive Protein 9.8 mg/L (0.0-4.9); Calcium 9.3 mg/dL (8.5-10.5); Carbon Dioxide 26 mmol/L (22-29); Chloride 95 mmol/L (98-107); Glucose 89 mg/dL (65-115); Magnesium 2.1 mg/dL (1.7-2.3); Osmolality Calculated 299 mOsm/kg (285-295); Phosphorus 3.6 mg/dL (2.5-4.5); Sodium 134 mmol/L (136-145)
[2021-11-16 05:47] LABS: Potassium 2.9 mmol/L (3.5-5.1)
[2021-11-16] MEDS: lidocaine 1% 5 ML in potassium chloride premix 100 ML 25 ML IV (06:22)
--- NOTE | 2021-11-16 09:45 | PC.CHAP ---
Pastoral Care Encounter/Spiritual Assessment Type of Contact [] Declined bunghole borer visit [] Patient/Family/Request visit [] Outpatient visit [] Follow-up visit [] Physician referral [] Code/Alert [x] Routine visit [] Staff referral [] Actively dying [] Patient sleeping [] Family support [] [] Out of room [] Palliative care [] [] Receiving care in room [] Pre-surgical visit [] Trauma [] Long length of stay [] ICU visit [] Other: Relational/Emotional Strength [x] Patient feels connected with others/family/visitors/staff [] Distress [] Loneliness/isolation [] Abandonment Spirituality of Patient [x] Person of Joanne [] Attends Yazidi of their Joanne [x] Believes in Prayer [] Reads Bible or Latter-Day materials [] There are Spiritual issues to be addressed Battery Service Technician Interventions [x] Prayer [x Active listening [x] Non-anxious presence [x] Spiritual/emotional support [] Crisis/trauma care [] Spiritual counseling [] Bereavement support [] Provided bereavement packet [] Provided Bible/devotional materials [] Provided toy/stuffed animal, coloring book to patient or family member [] Provided Communion [] Anointing/[place] [] Salvation [x] Completed spiritual assessment [] Other: Impact on Illness or Injury [] Angry [] Fearful [] Anxious [] Often cries [] Exhaustion [] Unable to work [] Unable to attend samaritan [] Unable to walk/stand [] Unable to read [] Unable to drive [] Unable to eat/drink [] Unable to sleep [] Unable to be with family [] Patient intubated [] Other: Summary Time spent with patient 10 min
[2021-11-16] MEDS: sodium chloride 0.9% 250 ML IV (09:53)
--- NOTE | 2021-11-16 12:02 | PM.PN ---
Subjective Subjective: Orthostatic positive Will give small bolus Potassium repleted Diuretics on hold Requested nurse to have IT check his telemetry leads, It is not showing any bleeding, last night Pacemaker and he is interrogation still pending, nurse updated Echo EF 25% pulm hypertension, mitral regurgitation, Vitals/I&O/Wt Last Vital Signs Temp 97.9 F 11/16/21 08:00 Pulse 68 11/16/21 09:20 Resp 16 11/16/21 09:20 BP 100/69 11/16/21 08:00 Pulse Ox 94 11/16/21 09:20 11/15/21 11/16/21 11/16/21 22:59 06:59 14:59 Intake Total 120 / 120 Output Total 800 / 800 900 / 1700 475 / 475 Balance -680 / -680 -900 / -1580 -475 / -475 Weight last 48 hrs Weight 70.307 kg Weight 70.307 kg Physical Exam Narrative: Patient is sitting at the bedside Endorsing feeling better Signs of fluid overload with 2+ pitting edema of legs No active chest pain Saturating well on room air Awake and alert Fluid bolus running at the bedside Abdomen soft Data : 11/16/21 05:17 11/16/21 05:17 A&P Assessment and plan (1) Acute kidney injury superimposed on chronic kidney disease: Status: Acute (2) Syncope: Status: Acute (3) Congestive heart failure: Status: Acute Plan Severe hypokalemia: Repleted Magnesium is normal Patient is endorsing feeling better Orthostatic hypotension positive most likely is the cause of his syncope Holding diuretics and Coreg for now A small bolus can be given today Echo reviewed Patient has pacemaker and AICD, interrogation is pending Nurse updated IT to reevaluate his telemetry leads Cardiac diet Full code Am planning to discharge him tomorrow after interrogation Symptomatically he has improved, I have encouraged patient to get out of bed and walk in the hallway with assistance Attestations Medical Necessity Statement*: Discharge tomorrow Time Spent in Patient Care: 30mins Coding Level of Care Code Acute Orthotic Finish Grinding Technician for [place] Fwd Diagnoses Acute kidney injury superimposed on chronic kidney disease N17.9; N18.9 Syncope R55 Congestive heart failure I50.9
[2021-11-16] MEDS: warfarin 2.5 mg Tablet PO (13:53)
[2021-11-17] VITALS: BP 116/64; PULSE 65; RESP 16; TEMP 36.3; O2SAT 95
[2021-11-17 04:00] VITALS: BP 89/58; PULSE 61; RESP 16; TEMP 36.6; O2SAT 94
[2021-11-17 05:48] VITALS: PULSE 75
[2021-11-17 06:19] LABS: INR 2.37 (0.8-1.2)
[2021-11-17 06:32] LABS: Anion Gap 14.5 (5-19); Blood Urea Nitrogen 64 mg/dL (8-23); Calcium 9.3 mg/dL (8.5-10.5); Carbon Dioxide 26 mmol/L (22-29); Chloride 97 mmol/L (98-107); Glucose 96 mg/dL (65-115); Magnesium 2.3 mg/dL (1.7-2.3); Osmolality Calculated 296 mOsm/kg (285-295); Potassium 3.5 mmol/L (3.5-5.1); Sodium 134 mmol/L (136-145)
[2021-11-17 08:00] VITALS: BP 126/80; PULSE 71; PULSE 73; RESP 16; TEMP 36.5; O2SAT 96; O2SAT 97
[2021-11-17] MEDS: potassium chloride ER 20 mEq Tablet 40 MEQ PO (09:20)
[2021-11-17] MEDS: lactated ringers 500 ML 999 ML IV (09:21)
--- NOTE | 2021-11-17 10:47 | PM.DCS ---
Discharge Providers Date of Admission: 11/15/21 12:20 Date of Discharge: November 17, 2021 Attending Provider at Admission: Flavio Virgen MD Attending Provider at Discharge: Flavio Virgen MD Primary Care Provider: Echo Garay MD Diagnoses at Discharge Discharge Diagnosis (1) Acute kidney injury superimposed on chronic kidney disease: Status: Acute (2) Syncope: Status: Acute (3) Congestive heart failure: Status: Acute Reason for Visit Reason for Visit: SYNCOPE Hospital Course Hospital Course Mr. Yin who is seeing Dr. Marcum for his reduced action fraction heart failure, he also has AICD/pacemaker, presented to the hospital after 1 syncopal episode. AICD pacemaker interrogation did not reveal AICD discharge for V. fib, he remained in A. fib for about 6 hours as well later on. He was orthostatic positive as well. He is low blood pressure responded very well to gentle fluid hydration. The cause of AICD discharge most likely is related to electrolyte imbalance. He was treated for electrolyte deficiency. Magnesium and potassium repleted. He did not complain of any chest pain. Troponin without significant delta. Echo did not show new abnormalities however it does show poor ejection fraction. Case was discussed with city distribution clerk Dr. Tucker. Who recommended increasing the dose of Coreg if blood pressure allows. Unfortunately blood pressure is on the softer side and I had to give him multiple boluses throughout his hospitalization. I would continue his same Coreg regimen. Patient was counseled not to take his Coreg if systolic blood pressure below 100. His Bumex was held. Creatinine seems to be getting better with better fluid hydration. At the time of discharge I will give him potassium, magnesium supplementation. Close follow-up with PCP and city distribution clerk. I have asked him to hold his Bumex for next 3 to 4 days. Creatinine at the time of discharge 1.8. Creatinine at the time of admission 2.4. Physical Exam Narrative: Patient is sitting in his chair with out any active dis comfort Endorsing feeling better Sig ns of fluid overlo ad with 2+ pitting edema of legs No active chest pain Saturating well on room air Awake an d alert Abdomen so ft Discharge Data Studies Completed and Pending Completed Studies During Hospitalization Category Date Time Status XR chest 1V portable [id number] Stat Exams 11/15/21 09:05 Completed CV. echo complete* [id number] Routine Ultrasound 11/15/21 12:20 Completed Radiology Impressions Chest X-Ray 11/15/21 09:05 IMPRESSION: Cardiomegaly with no acute cardiopulmonary abnormality. Laboratory Results WBC 5.8 10^3/uL (4.0-10.0) 11/16/21 05:17 RBC 4.22 10^6/uL (4.1-5.3) 11/16/21 05:17 Hgb 13.9 g/dL (11.7-16.6) 11/16/21 05:17 Hct 41.5 % (42.0-52.0) L 11/16/21 05:17 MCV 98.3 fl (80-94) H 11/16/21 05:17 MCH 32.9 pg (28.0-34.0) 11/16/21 05:17 MCHC 33.5 g/dL (30.0-36.0) 11/16/21 05:17 RDW 13.2 % (12.1-15.1) 11/16/21 05:17 Plt Count 113 10^3/cmm (130-400) L 11/16/21 05:17 MPV 9.6 fL (7.4-10.4) 11/16/21 05:17 Neut % (Auto) 68.0 % 11/16/21 05:17 Lymph % (Auto) 17.9 % 11/16/21 05:17 [place] % (Auto) 8.2 % 11/16/21 05:17 Eos % (Auto) 4.7 % 11/16/21 05:17 Baso % (Auto) 0.7 % 11/16/21 05:17 Neut # (Auto) 3.92 10^3/uL (1.8-7.7) 11/16/21 05:17 Lymph # (Auto) 1.0 10^3/uL (0.8-4.8) 11/16/21 05:17 [place] # (Auto) 0.5 10^3/uL (0.2-0.9) 11/16/21 05:17 Eos # (Auto) 0.3 10^3/uL (0.0-0.8) 11/16/21 05:17 Baso # (Auto) 0.0 10^3/uL (0.0-0.1) 11/16/21 05:17 Nucleated RBC % (auto) 0 % 11/16/21 05:17 Nucleated RBCs # 0.0 /100WBC 11/16/21 05:17 PT 26.30 SECONDS (12.1-14.9) H 11/17/21 05:00 INR 2.37 (0.8-1.2) H 11/17/21 05:00 Sodium 134 mmol/L (136-145) L 11/17/21 05:00 Potassium 3.5 mmol/L (3.5-5.1) 11/17/21 05:00 Chloride 97 mmol/L (98-107) L 11/17/21 05:00 Carbon Dioxide 26 mmol/L (22-29) 11/17/21 05:00 Anion Gap 14.5 (5-19) 11/17/21 05:00 BUN 64 mg/dL (8-23) H 11/17/21 05:00 Creatinine 1.8 mg/dL (0.7-1.2) H 11/17/21 05:00 GFR Calculation Not Reportable 11/17/21 05:00 Glucose 96 mg/dL (65-115) 11/17/21 05:00 Calculated Osmolality 296 mOsm/kg (285-295) H 11/17/21 05:00 Calcium 9.3 mg/dL (8.5-10.5) 11/17/21 05:00 Phosphorus 3.6 mg/dL (2.5-4.5) 11/16/21 05:17 Magnesium 2.3 mg/dL (1.7-2.3) 11/17/21 05:00 Total Bilirubin 1.4 mg/dL (0.15-1.2) H 11/15/21 08:45 AST 53 U/L (0-40) H 11/15/21 08:45 ALT 56 U/L (0-41) H 11/15/21 08:45 Alkaline Phosphatase 98 IU/L (40-130) 11/15/21 08:45 Troponin T Baseline 83 ng/L (0-15) H 11/15/21 08:45 Troponin T 120 Minute 71.49 ng/L (0-15) H 11/15/21 11:00 Delta Troponin T -11.51 ABS# (0-10) L 11/15/21 11:00 Troponin T Hi Sens 6Hr 76.99 ng/L (0-15) H 11/15/21 15:59 Troponin T Hi Sens 6Hr Delta -6.01 ng/L (0-12) L 11/15/21 15:59 C-Reactive Protein 9.8 mg/L (0.0-4.9) H 11/16/21 05:17 NT-Pro-B Natriuret Pep 6294 pg/mL (0-450) H 11/15/21 11:00 Total Protein 6.5 g/dL (6.6-8.7) L 11/15/21 08:45 Albumin 3.8 g/dL (3.5-5.2) 11/15/21 08:45 Globulin 2.7 g/dL (1.3-4.6) 11/15/21 08:45 Procalcitonin 0.13 ng/mL (0-0.5) 11/15/21 11:00 TSH 4.45 uIU/mL (0.27-4.20) H 11/15/21 11:00 Free T4 1.67 ng/dL (0.82-1.77) 11/15/21 15:59 Vitals Last Vital Signs Temp 97.7 F 11/17/21 08:00 Pulse 73 11/17/21 08:00 Resp 16 11/17/21 08:00 BP 126/80 11/17/21 08:00 Pulse Ox 96 11/17/21 08:00 Discharge Plan Discharge Patient Disposition: Home Condition: Stable Prescriptions: New potassium chloride 10 mEq tablet extended release 10 meq PO DAILY Qty: 10 0RF Continued pravastatin 40 mg tablet 40 mg PO DAILY 0RF Repatha SureClick 140 mg/mL pen injector 140 mg SUBCUT Q14D 0RF coenzyme Q10 [Co Q-10] 100 mg capsule 100 mg PO DAILY 0RF warfarin 5 mg tablet 5 mg PO DIRECTED 90 Days Qty: 90 3RF Protocol: Dose Management Condition: Tuesday Dose/Route: 2.5 mg Instruction: 0.5 x 5 mg tablets Condition: Tuesday Dose/Route: 2.5 mg Instruction: 0.5 x 5 mg tablets Condition: Tuesday Dose/Route: 2.5 mg Instruction: 0.5 x 5 mg tablets Condition: Tuesday Dose/Route: 2.5 mg Instruction: 0.5 x 5 mg tablets Condition: Dose/Route: 2.5 mg Instruction: 0.5 x 5 mg tablets Condition: Tuesday Dose/Route: 2.5 mg Instruction: 0.5 x 5 mg tablets Condition: Tuesday Dose/Route: 2.5 mg Instruction: 0.5 x 5 mg tablets Protocol Text: Adjustment Start Date: Tuesday11/04/21 INR Value: 21.9 Seconds INR Date: 11/04/21 Recheck Date: 11/11/21 magnesium 250 mg tablet 500 mg PO DAILY Qty: 30 2RF cholecalciferol (vitamin D3) [Vitamin D3] 25 mcg (1,000 unit) Tablet 25 mcg PO DAILY 0RF omega-3 fatty acids-fish oil 684-1,200 mg Capsule,Delayed Release(Dr/Ec) 1 cap PO DAILY 0RF Held carvedilol 6.25 mg tablet 9.375 mg PO BID Qty: 408 3RF Hold Instructions: Resume on 11/18/21. bumetanide 2 mg tablet 2 mg PO DAILY Qty: 180 3RF Hold Instructions: Resume on 11/20/21. Discharge Orders: Discharge Order (Routine); Ordered 11/17/21 Ordered By: Flavio Virgen Referrals: Matt Tucker M.D [Physician] - 2 weeks Echo Garay MD [Primary Care Provider] - 1-3 days Discharge Diet: Cardiac Discharge Activity: Increase activity as tolerated Patient Instructions: Opioid Safety Discharge Attestations Time Spent in Discharge Care*: less than 30 min Quality Metrics Clinical Quality Measures [ No reported AMI, CVA or VTE this stay] Coding Level of Care Code Acute Chg FW DC note Diagnoses Acute kidney injury superimposed on chronic kidney disease N17.9; N18.9 Syncope R55 Congestive heart failure I50.9
[2021-11-17 11:59] VITALS: BP 109/80; PULSE 75; RESP 16; TEMP 36.4; O2SAT 98
[2021-11-17 13:11] VITALS: BP 109/80; PULSE 75; RESP 16; TEMP 36.4; O2SAT 98
== END 2021-11-17 13:14 | disposition home or self-care (01) ==
LOC: ER 10:19 → MEDSURG 12:38
PROVIDERS: Admitting Provider Internal Medicine; Emergency Provider Emergency Medicine; PCP Family Medicine; Visit Provider Internal Medicine
DX: N17.9 Acute kidney failure, unspecified (principal); E11.22 Type 2 diabetes mellitus with diabetic chronic kidney disease; I13.0 Hypertensive heart and chronic kidney disease with heart failure and stage 1 through stage 4 chronic kidney disease, or unspecified chronic kidney disease; N18.9 Chronic kidney disease, unspecified; I50.9 Heart failure, unspecified; R55 Syncope and collapse; Z79.01 Long term (current) use of anticoagulants; I48.91 Unspecified atrial fibrillation; E78.5 Hyperlipidemia, unspecified; Z95.1 Presence of aortocoronary bypass graft; Z95.0 Presence of cardiac pacemaker
CPT/HCPCS: 36415; 71045; 80048; 80053; 83735; 83880; 84100; 84145; 84439; 84443; 84484; 85025; 85610; 86140; 93005; 93306; 96365; 96366; 99285; G0378; J3480; J7050

== ENCOUNTER → 2021-11-23 09:36 | Outpatient (BNVA) | payer OTHER, SELFPAY | PROVIDERS: PCP Family Medicine; Visit Provider Internal Medicine | DX: Z51.81 Encounter for therapeutic drug level monitoring (principal); Z79.01 Long term (current) use of anticoagulants; I48.91 Unspecified atrial fibrillation | CPT/HCPCS: 85610 ==

== ENCOUNTER → 2021-11-30 13:36 | Outpatient (BNVA) | payer OTHER, SELFPAY | PROVIDERS: PCP Family Medicine; Visit Provider Internal Medicine | DX: I25.10 Atherosclerotic heart disease of native coronary artery without angina pectoris (principal); I11.0 Hypertensive heart disease with heart failure; I50.22 Chronic systolic (congestive) heart failure; I48.91 Unspecified atrial fibrillation; I25.5 Ischemic cardiomyopathy; Z87.891 Personal history of nicotine dependence; Z95.810 Presence of automatic (implantable) cardiac defibrillator | CPT/HCPCS: 99214 ==

== ENCOUNTER → 2021-12-21 09:15 | Outpatient (BNVA) | payer OTHER, SELFPAY | PROVIDERS: PCP Family Medicine; Visit Provider Internal Medicine | DX: Z79.01 Long term (current) use of anticoagulants (principal) | CPT/HCPCS: 85610 ==

== ENCOUNTER → 2021-12-28 09:25 | Outpatient (BNVA) | payer OTHER, SELFPAY | PROVIDERS: PCP Family Medicine; Visit Provider Internal Medicine | DX: Z79.01 Long term (current) use of anticoagulants (principal) | CPT/HCPCS: 85610 ==

== ENCOUNTER → 2022-01-07 09:12 | Outpatient (BNVA) | payer OTHER, SELFPAY | PROVIDERS: PCP Family Medicine; Visit Provider Internal Medicine | DX: I48.91 Unspecified atrial fibrillation (principal) | CPT/HCPCS: 85610 ==

== ENCOUNTER → 2022-02-04 09:23 | Outpatient (BNVA) | payer OTHER, SELFPAY | PROVIDERS: PCP Family Medicine; Visit Provider Internal Medicine | DX: I48.91 Unspecified atrial fibrillation (principal) | CPT/HCPCS: 85610 ==

== ENCOUNTER 2022-02-26 09:58 | Inpatient (IN) | payer OTHER, SELFPAY ==
[2022-02-26] VITALS (23 sets, daily range): BP systolic 79–177; BP diastolic 56–86; PULSE 57–102; RESP 13–24; TEMP 36.4; O2SAT 94–99; BMI 25.0
--- NOTE | 2022-02-26 10:31 | CT_ITS ---
WS: [id number] CT abdomen pelvis wo con [id number] REASON FOR EXAM: abd pain/ swelling IV CONTRAST ADMINISTERED: None. TOTAL EXAM DLP: 619.[address] scans at [facility] use at least one of these dose optimization techniques: automat ed exposure control; mA and/or kV adjustment per patient size (includes targeted exams where dose is matched to clinical indication); or iterative reconstruction. FINDINGS: ABDOMEN: Compared to the previous examination of 11/11/2021, there is a very small amount of ascitic fluid adjac ent to the right lobe of the liver and a small right pleural effusion. Calculi associated with the cholecystectomy surgical bed and clips unchanged. No acute abnormality of the pancreas. Spleen is unremarkable. No renal hydronephrosis, calculus, or mass. No acute bowel abnormality. Degenerative spondylosis in the lumbar spine with no significant focal bone lesion. Intravertebral taisha dy herniation of disc at L1 and L3. PELVIS: No mass or adenopathy. Enlargement of the prostate with mild urinary bladder wall thickening. Fluid in the inguinal canals unchanged compared to 11/11/2021. No significant bony abnormality pelvis. CT/CT abdomen pelvis wo con [id number] IMPRESSION: Interval development of very small amount of ascitic fluid adjacent to the righ t lobe of liver and small right pleural effusion. No other significant interval change or acute abnormality.
--- NOTE | 2022-02-26 10:31 | XR_ITS ---
WS: [id number] XR chest 1V portable [id number] REASON FOR EXAM: sob FINDINGS: The chest does not appear significantly changed compared to previous examination of 11/10/2021 and 11/15. Left chest cardiac device with transverse left subclavian leads to the right ventricular apex and rig ht atrium. Previous sternotomy. Presumed internal mammary artery coronary artery bypass surgery. Moderate cardio megaly. Moderate tortuosity and ectasia of the thoracic aorta. No acute pulmonary parenchymal or pleural abnormality. Chronic interstitial lung opacities in both lo wer lungs. XR/XR chest 1V portable [id number] IMPRESSION: Cardiomegaly. No acute chest finding identified.
[2022-02-26 10:41] LABS: Basophils # 0.1 10^3/uL (0.0-0.1); Basophils % 0.9 %; Eosinophils # 0.1 10^3/uL (0.0-0.8); Eosinophils % 1.8 %; Hematocrit 45.7 % (42.0-52.0); Hemoglobin 15.3 g/dL (11.7-16.6); Lymphocytes # 1.6 10^3/uL (0.8-4.8); Mean Corpuscular HGB Conc 33.5 g/dL (30.0-36.0); Mean Corpuscular Hemoglobin 33.4 pg (28.0-34.0); Mean Corpuscular Volume 99.8 fl (80-94); Mean Platelet Volume 10.3 fL (7.4-10.4); Monocytes # 0.8 10^3/uL (0.2-0.9); Monocytes % 11.8 %; Neutrophils # 4.38 10^3/uL (1.8-7.7); Neutrophils % 62.1 %; Nucleated Red Blood Cells % 0 %; Platelet Count 150 10^3/cmm (130-400); Red Blood Count 4.58 10^6/uL (4.1-5.3); Red Cell Distribution Width 13.9 % (12.1-15.1); White Blood Count 7.1 10^3/uL (4.0-10.0)
[2022-02-26 10:57] LABS: Troponin(5th) Baseline 56 ng/L (0-15)
[2022-02-26 11:13] LABS: Alanine Aminotransferase 16 U/L (0-41); Albumin Level 3.9 g/dL (3.5-5.2); Alkaline Phosphatase 99 U/L (40-130); Aspartate Amino Transferase 26 U/L (0-40); Blood Urea Nitrogen 57 mg/dL (8-23); Calcium 9.6 mg/dL (8.5-10.5); Carbon Dioxide 21 mmol/L (22-29); Chloride 89 mmol/L (98-107); Globulin 2.9 g/dL (1.3-4.6); Glucose 132 mg/dL (65-115); NT Pro B Type Natriuretic Pept 5777 pg/mL (0-450); Osmolality Calculated 276 mOsm/kg (285-295); Sodium 124 mmol/L (136-145); Total Bilirubin 1.4 mg/dL (0.15-1.2); Total Protein 6.8 g/dL (6.6-8.7)
--- NOTE | 2022-02-26 11:20 | ED_ITS ---
HPI - SOB/Dyspnea General: Chief Complaint: ER Hold Stated Complaint: Dehydrated Time Seen by Provider: 02/26/22 10:22 Source: patient Mode of arrival: ambulatory Limitations: no limitations History of Present Illness: HPI Narrative: 81-year-old male states he has been having some abdominal distention with a pressure pain in his abdomen and states he is also been having shortness of breath. He states the symptoms are much worse with exertion. His abdomen is quite distended he states this is not typical for him. States he has had fatigue and weakness as well denies any vomiting or diarrhea denies any fevers. Associated symptoms: Reports abdominal pain; Deny chest pain or fever(s) Review of Systems Const: Denies: fever(s), chills, body aches or change in appetite Eyes: Denies: blurry vision or eye discomfort ENMT: Denies: throat pain or dental pain Card: Denies: chest pain Resp: Reports: dyspnea GI: Reports: abdominal pain : Denies: dysuria Musc: Denies: neck pain or back pain Skin/Breast: Denies: rash Neuro: Denies: headache(s) Psych: Denies: depression [place]/Lymph: Denies: easy bruising All/Imm: Denies: urticaria PFSH ED PFSH: Medical History Atrial fibrillation Cardioembolic stroke CHF (congestive heart failure) Congestive heart failure Coronary artery disease Stable doing fine from a coronary disease perspective continue meds HTN (hypertension) Hyperlipidemia Ischemic cardiomyopathy Surgical History S/P CABG (coronary artery bypass graft) S/P cardiac pacemaker procedure S/P cholecystectomy Family History Father Stroke Social History Smoking and tobacco status: former smoker History of recent travel: No Physical Exam Const: COMMON NORMALS: patient oriented x3 HENMT: COMMON NORMALS: normocephalic and atraumatic HEAD & SCALP: normocephalic and atraumatic Eye: COMMON NORMALS: Equal, round and reactive pupils present and EOMs intact bilaterally PUPIL: Yes Equal, round and reactive pupils present Neck/C-Spine: COMMON NORMALS: full ROM and supple Chest: COMMONS NORMALS: normal inspection of the chest and normal palpation of entire chest wall Resp: COMMON NORMALS: normal respiratory effort, No retractions, No use of accessory muscles and clear to auscultation bilaterally AUSCULTATION: clear to auscultation bilaterally Cardio: COMMON NORMALS: regular rate, regular rhythm and No murmurs present (Cardio) RATE: regular rate RHYTHM: regular rhythm GI: COMMON NORMALS: no masses OTHER: abdominal distention noted Extremity: COMMON NORMALS: normal to inspection and full ROM Neuro: COMMON NORMALS: patient oriented x3, moves all extremities and no focal motor deficits Psych: COMMON NORMALS: mental status grossly normal, Normal thought process present and cooperative THOUGHT PROCESS: Normal thought process present Skin: COMMON NORMALS: no rashes or lesions noted and no wounds GENERAL SKIN EXAM: no rashes or lesions noted Course Vital Signs: Vital signs: Vital Signs Pulse Rate 79 02/26/22 11:47 Respiratory Rate 13 02/26/22 11:47 Blood Pressure 100/79 02/26/22 11:47 Pulse Oximetry 98 02/26/22 11:47 Oxygen Delivery Me thod 02/26/22 11:47 MDM - SOB/Dyspnea Medical Decision Making Patient presents here with abdominal pain he does have ascites patient also has acute kidney injury along with hyponatremia patient otherwise well-appearing no signs of SBP spoke to hospitalist will admit at this time. Lab Data : 02/26/22 10:30 02/26/22 10:30 Labs/Radiology: Radiology Impressions Abdomen/Pelvis CT 02/26/22 10:31 IMPRESSION: Interval development of very small amount of ascitic fluid adjacent to the right lobe of liver and small right pleural effusion. No other significant interval change or acute abnormality. Chest X-Ray 02/26/22 10:31 IMPRESSION: Cardiomegaly. No acute chest finding identified. Abdomen Ultrasound 02/26/22 12:02 Impression: 1. Absent gallbladder. 2. Minimal perihepatic ascites. 3. Coarse liver echotexture with abnormal portal venous flow. Laboratory Results WBC 7.1 10^3/uL (4.0-10.0) 02/26/22 10:30 RBC 4.58 10^6/uL (4.1-5.3) 02/26/22 10:30 Hgb 15.3 g/dL (11.7-16.6) 02/26/22 10:30 Hct 45.7 % (42.0-52.0) 02/26/22 10:30 MCV 99.8 fl (80-94) H 02/26/22 10:30 MCH 33.4 pg (28.0-34.0) 02/26/22 10:30 MCHC 33.5 g/dL (30.0-36.0) 02/26/22 10:30 RDW 13.9 % (12.1-15.1) 02/26/22 10:30 Plt Count 150 10^3/cmm (130-400) 02/26/22 10:30 MPV 10.3 fL (7.4-10.4) 02/26/22 10:30 Neut % (Auto) 62.1 % 02/26/22 10:30 Lymph % (Auto) 23.0 % 02/26/22 10:30 [place] % (Auto) 11.8 % 02/26/22 10:30 Eos % (Auto) 1.8 % 02/26/22 10:30 Baso % (Auto) 0.9 % 02/26/22 10:30 Neut # (Auto) 4.38 10^3/uL (1.8-7.7) 02/26/22 10:30 Lymph # (Auto) 1.6 10^3/uL (0.8-4.8) 02/26/22 10:30 [place] # (Auto) 0.8 10^3/uL (0.2-0.9) 02/26/22 10:30 Eos # (Auto) 0.1 10^3/uL (0.0-0.8) 02/26/22 10:30 Baso # (Auto) 0.1 10^3/uL (0.0-0.1) 02/26/22 10:30 Nucleated RBC % (auto) 0 % 02/26/22 10:30 Nucleated RBCs # 0.0 /100WBC 02/26/22 10:30 PT 26.90 SECONDS (12.1-14.9) H 02/26/22 10:30 INR 2.45 (0.8-1.2) H 02/26/22 10:30 Sodium 124 mmol/L (136-145) L 02/26/22 10:30 Potassium 5.0 mmol/L (3.5-5.1) 02/26/22 10:30 Chloride 89 mmol/L (98-107) L 02/26/22 10:30 Carbon Dioxide 21 mmol/L (22-29) L 02/26/22 10:30 Anion Gap 19.0 (5-19) 02/26/22 10:30 BUN 57 mg/dL (8-23) H 02/26/22 10:30 Creatinine 2.3 mg/dL (0.7-1.2) H 02/26/22 10:30 GFR Calculation Not Reportable 02/26/22 10:30 Glucose 132 mg/dL (65-115) H 02/26/22 10:30 Calculated Osmolality 276 mOsm/kg (285-295) L 02/26/22 10:30 Calcium 9.6 mg/dL (8.5-10.5) 02/26/22 10:30 Total Bilirubin 1.4 mg/dL (0.15-1.2) H 02/26/22 10:30 AST 26 U/L (0-40) 02/26/22 10:30 ALT 16 U/L (0-41) 02/26/22 10:30 Alkaline Phosphatase 99 U/L (40-130) 02/26/22 10:30 Troponin T Baseline 56 ng/L (0-15) H 02/26/22 10:30 Troponin T 120 Minute 50.75 ng/L (0-15) H 02/26/22 12:29 Delta Troponin T -5.25 ABS# (0-10) L 02/26/22 12:29 NT-Pro-B Natriuret Pep 5777 pg/mL (0-450) H 02/26/22 10:30 Total Protein 6.8 g/dL (6.6-8.7) 02/26/22 10:30 Albumin 3.9 g/dL (3.5-5.2) 02/26/22 10:30 Globulin 2.9 g/dL (1.3-4.6) 02/26/22 10:30 EKG Data EKG 1: I personally reviewed and interpreted this EKG as follows: EKG Interpretation Date: 02/26/22 Interpretation: PACED hr [address] or t wave abnormalities qrs 174 qtc 481 Discharge Plan Discharge Patient Disposition: Admitted As Inpatient Admit Provider: Christa Rojas Clinical Impression: Acute kidney injury, Hyponatremia, Ascites Condition: Stable Coding Level of Care Code ED Pbx Inspector for Chg Fwd Exam Comprehensive
--- NOTE | 2022-02-26 12:02 | US_ITS ---
WS: [id number] Gallbladder and right upper quadrant ultrasound, 02/26/2022 Clinical Data: abd pain Comparison: Abdomen ultrasound, 11/11/2021 Findings: The gallbladder is absent The common bile duct is 0.3 cm and there are no intrahepatic ductal abnorma lities. Liver shows no cysts, masses or dilated intrahepatic ducts. The liver demonstrates minimal perihepat ic ascites. The main portal vein shows abnormal fugal flow. There is a coarse echotexture to the live r. The pancreas is obscured by overlying bowel gas but no cyst, pseudocyst, or evidence of pancreatitis is noted. Right kidney measures 10.1 cm and no cyst, masses or hydronephrosis can be seen. The aorta and inferior vena cava show no vascular abnormalities. US/US abdomen limited [id number] Impression: 1. Absent gallbladder. 2. Minimal perihepatic ascites. 3. Coarse liver echotexture with abnormal portal venous flow.
[2022-02-26 12:20] LABS: INR 2.45 (0.8-1.2)
--- NOTE | 2022-02-26 12:41 | ECG_ITS ---
[facility] Test Date: 2022-02-26 Pat Name: Al Yin Department: Room: EDIP Gender: Male Senior Sales Assistant: : 1940 Requested By: Luiz Barros Order Number: [id number] Piedad MD: Marie Davenport M.D. Measurements Intervals [place] Rate: 83 P: [place]: QRS: 53 QRSD: 172 T: 257 QT: 423 QTc: 499 Interpretive Statements ATRIAL FIBRILLATION ELECTRONIC VENTRICULAR PACEMAKER -- CONTOUR ANALYSIS BASED ON INTRINSIC RHYTHM INTRAVENTRICULAR CONDUCTION DELAY [130+ ms QRS DURATION] LATERAL MYOCARDIAL INFARCTION , OF INDETERMINATE AGE [40+ ms Q WAVE AND/OR ST/T ABNORMALITY IN I/aVL/V5/V6] Compared to ECG 02/26/2022 10:45:33 No significant changes Electronically Signed On 02-27-2022 8:42:25 CDT by Marie Davenport M.D. [id number]
[2022-02-26 12:59] LABS: Troponin 5 2HR 50.75 ng/L (0-15); Troponin 5 2HR Delta -5.25 ABS# (0-10)
--- NOTE | 2022-02-26 13:25 | P.HP_ITS ---
Providers/Chief Complaint Admitting Physician: Christa Rojas MD Primary Care Provider: Echo Garay MD Chief Complaint: Dehydrated/SOB History of Present Illness Al Yin is a 81 year old male Medications/Allergies Home Medications Medication Instructions Recorded Confirmed Last Taken Type pravastatin 40 mg tablet 40 mg PO QPM 07/18/19 02/26/22 02/25/22 History coenzyme Q10 100 mg capsule (Co 100 mg PO DAILY 04/22/21 02/26/22 02/26/22 History Q-10) evolocumab 140 mg/mL subcutaneous 140 mg SUBCUT Q14D 04/22/21 02/26/22 02/24/22 History pen injector (athjosé miguel MirelesWallacekyle) carvedilol 6.25 mg tablet 9.375 mg PO BID #408 tabs 10/23/21 02/26/22 02/26/22 Rx cholecalciferol (vitamin D3) 25 25 mcg PO DAILY 11/10/21 02/26/22 02/26/22 History mcg (1,000 unit) tablet (Vitamin D3) omega-3 fatty acids-fish oil 684 1 cap PO DAILY 11/10/21 02/26/22 02/26/22 History mg-1,200 mg capsule,delayed release bumetanide 2 mg tablet 2 mg PO DAILY #180 tabs 11/13/21 02/26/22 02/26/22 Rx magnesium 250 mg tablet 500 mg PO DAILY #30 tabs 11/17/21 02/26/22 02/26/22 Rx potassium chloride 10 mEq 10 meq PO DAILY #90 tabs 11/26/21 02/26/22 02/26/22 Rx tablet,extended release warfarin 5 mg tablet 5 mg PO DIRECTED #90 tabs 02/12/22 02/26/22 02/26/22 Rx lisinopril 5 mg tablet 2.5 mg PO DAILY 02/26/22 02/26/22 02/26/22 History Allergies Allergy/AdvReac Type Severity Reaction Status Date / Time atorvastatin Allergy Unknown Unknown Verified 02/26/22 12:08 simvastatin Allergy Unknown Unknown Verified 02/26/22 12:08 alirocumab Allergy Unknown Verified 02/26/22 12:08 lovastatin [From Mevacor] Allergy Unknown Verified 02/26/22 12:08 PFSH Acute PFSH: Medical History Atrial fibrillation Cardioembolic stroke CHF (congestive heart failure) Congestive heart failure Coronary artery disease Stable doing fine from a coronary disease perspective continue meds HTN (hypertension) Hyperlipidemia Ischemic cardiomyopathy Surgical History S/P CABG (coronary artery bypass graft) S/P cardiac pacemaker procedure S/P cholecystectomy Family History Father Stroke Social History Smoking and tobacco status: former smoker History of recent travel: No Vitals/I&O/Wt Last Vital Signs Pulse 79 02/26/22 11:47 Resp 13 02/26/22 11:47 BP 100/79 02/26/22 11:47 Pulse Ox 98 02/26/22 11:47 O2 Del Method 02/26/22 11:47 Weight last 48 hrs Weight 70.307 kg Data : 02/26/22 10:30 02/26/22 10:30 Coding Level of Care Code Acute Perioperative Nurse for Brennan Contreras
[2022-02-26 13:58] LABS: Lactic Sepsis W/Reflex 2.6 mmol/L (0.5-2.2)
[2022-02-26 14:01] LABS: Thyroid Stimulating Hormone 8.17 uIU/mL (0.27-4.20)
[2022-02-26 14:22] LABS: Procalcitonin 0.09 ng/mL (0-0.5)
[2022-02-26 14:53] LABS: Add Urine Microscopic? NO; Charge for UA Resulting for Rev
[2022-02-26 14:55] LABS: Bilirubin Urine Neg (Negative); Blood Urine Neg (Negative); Glucose Urine UA Norm (Normal); Ketones Urine Negative (Negative); Leukocyte Esterase Urine Negative (Negative); Nitrate Urine Negative (Negative); Protein Urine Neg (Negative); Specific Gravity, Urine 1.025 (1.005-1.030); Urine Appearance Clear (CLEAR); Urine Color Yellow (Yellow); Urobilinogen Urine Neg (Negative); pH Urine 5 (5-7)
--- NOTE | 2022-02-26 15:18 | PC.NURSE ---
[facility] CATHETER PLACEMENT ATTEMPTED AND UNSUCCESSFUL. DR MONAHAN NOTIFIED OF ATTEMPT AND PT'S ABILITY TO URINATE INTO URINAL. DR MONAHAN GAVE VERBAL ORDER TO DC CATHETER INSERTION.
[2022-02-26 15:32] LABS: Reflex Lactate Order REFLEX LACTIC ORDERD
--- NOTE | 2022-02-26 16:10 | PC.NURSE ---
DISCHARGE DOCUMENTATION FOR PATIENT TO DC HOME ENTERED IN ERROR. PT TRANSFERRED TO [facility].
--- NOTE | 2022-02-26 16:31 | ECG_ITS ---
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 Measurements Intervals [place] Rate: 76 P: [place]: QRS: 57 QRSD: 174 T: 255 QT: 450 QTc: 508 Interpretive Statements UNCERTAIN IRREGULAR RHYTHM underlying atrial fibrillation ELECTRONIC VENTRICULAR PACEMAKER -- CONTOUR ANALYSIS BASED ON INTRINSIC RHYTHM INTRAVENTRICULAR CONDUCTION DELAY [130+ ms QRS DURATION] LATERAL MYOCARDIAL INFARCTION , OF INDETERMINATE AGE [40+ ms Q WAVE AND/OR ST/T ABNORMALITY IN I/aVL/V5/V6] Compared to ECG 11/15/2021 15:03:51 Atrial-paced complex(es) or rhythm no longer present Myocardial infarct finding still present Electronically Signed On 02-27-2022 9:42:43 CDT by Lorenzo Palacio M.D. [email or web address]/[id number]
[2022-02-26 17:20] LABS: Troponin 5 6HR 51.95 ng/L (0-15)
[2022-02-26 17:21] LABS: Troponin 5 6HR Delta -4.05 ng/L (0-12)
--- NOTE | 2022-02-26 19:32 | PC.NURSE ---
Pt planned to transfer to ICU. Pt meds placed in bag of clothes for transfer to ICU
--- NOTE | 2022-02-26 20:07 | CTR_ITS ---
PROCEDURE INFORMATION: Exam: CT Chest Without Contrast; Diagnostic Exam date and time: 02/26/2022 10:58 PM Age: 81 years old Clinical indication: Shortness of breath; Prior surgery; Surgery type: Cabg. Pacer. Gb. Patient HX: C/O SOB. History of chf. TECHNIQUE: Imaging protocol: Diagnostic computed tomography of the chest without contrast. Radiation optimization: All CT scans at this facility use at least one of these dose optimization techniques: automated exposure control; mA and/or kV adjustment per patient size (includes targeted exams where dose is matched to clinical indication); or iterative reconstruction. COMPARISON: CR XR chest 1V portable [id number] 02/26/2022 10:39 AM RADIATION DOSE METRICS: Total DLP (mGy-cm): 423.24 FINDINGS: Tubes, catheters and devices: Pacemaker. Lungs: Emphysematous changes. Bibasilar atelectasis versus infiltrate. Pleural spaces: Moderate right and small left pleural effusions. Heart: Cardiomegaly. Coronary artery atherosclerotic calcifications. Lymph nodes: Unremarkable. No enlarged lymph nodes. Vasculature: Unremarkable. No aortic aneurysm. Gallbladder and bile ducts: Cholecystectomy. Several calcifications in the gallbladder fossa measuring up to 16 mm suggestive of dropped gallstones. Bones/joints: Sternotomy wires. Soft tissues: Unremarkable. Perihepatic fluid. CT/CT chest [facility] [id number] IMPRESSION: 1. Cardiomegaly. 2. Sternotomy wires. 3. Coronary artery atherosclerotic calcifications. 4. Moderate right and small left pleural effusions. 5. Cholecystectomy. 6. Emphysematous changes. 7. Bibasilar atelectasis versus infiltrate. 8. Pacemaker. 9. Perihepatic fluid. 10. Several calcifications in the gallbladder fossa measuring up to 16 mm suggestive of dropped gallstones.
--- NOTE | 2022-02-26 20:09 | P.HP_ITS ---
Providers/Chief Complaint Admitting Physician: Christa Rojas MD Primary Care Provider: Echo Garay MD Chief Complaint: Dehydrated/SOB History of Present Illness Al Yin is a 81 year old male with a past medical history of CAD, atrial fibrillation on Coumadin, hypertension, systolic CHF, EF of 25%, diastolic CHF, AICD history of pacemaker placement for syncope, patient had admission on 11/30/2021 for fluid overload, elevated creatinine, concern for ascites, history of V. fib requiring discharge from requiring admission on November 17, 2021, who had COVID in December, had 1 episode of pacemaker firing then, CKD who presents to [facility] for complaints of shortness of breath, exertional shortness of breath, and abdominal edema. He tells me that for the last few weeks, he has developed increase which shortness of breath, shortness of breath progressing to less than 10 feet, no orthopnea, no paroxysmal nocturnal dyspnea, no chest pain, no lower extremity edema, no fevers, no cough, no smoking history no COPD, no asthma history, he tells me he got over COVID in December, no very recent history of COVID. He also tells me that he developed abdominal edema with his shortness of breath. He tells me lives alone, he is able to take care of himself, but with the shortness of breath he has become short of breath with less than a few feet, which is interfering with his functioning. He takes all his medications as prescribed, last INR 2.45, denies any calf pain, no calf swelling, no recent travel, Review of Systems Const: Denies: fever(s) Card: Denies: chest pain Resp: Reports: dyspnea Medications/Allergies Home Medications Medication Instructions Recorded Confirmed Last Taken Type pravastatin 40 mg tablet 40 mg PO QPM 07/18/19 02/26/22 02/25/22 History coenzyme Q10 100 mg capsule (Co 100 mg PO DAILY 04/22/21 02/26/22 02/26/22 History Q-10) evolocumab 140 mg/mL subcutaneous 140 mg SUBCUT Q14D 04/22/21 02/26/22 02/24/22 History pen injector (Shania Dominguez) carvedilol 6.25 mg tablet 9.375 mg PO BID #408 tabs 10/23/21 02/26/22 02/26/22 Rx cholecalciferol (vitamin D3) 25 25 mcg PO DAILY 11/10/21 02/26/22 02/26/22 History mcg (1,000 unit) tablet (Vitamin D3) omega-3 fatty acids-fish oil 684 1 cap PO DAILY 11/10/21 02/26/22 02/26/22 History mg-1,200 mg capsule,delayed release bumetanide 2 mg tablet 2 mg PO DAILY #180 tabs 11/13/21 02/26/22 02/26/22 Rx magnesium 250 mg tablet 500 mg PO DAILY #30 tabs 11/17/21 02/26/22 02/26/22 Rx potassium chloride 10 mEq 10 meq PO DAILY #90 tabs 11/26/21 02/26/22 02/26/22 Rx tablet,extended release warfarin 5 mg tablet 5 mg PO DIRECTED #90 tabs 02/12/22 02/26/22 02/26/22 Rx lisinopril 5 mg tablet 2.5 mg PO DAILY 02/26/22 02/26/22 02/26/22 History Allergies Allergy/AdvReac Type Severity Reaction Status Date / Time atorvastatin Allergy Unknown Unknown Verified 02/26/22 12:08 simvastatin Allergy Unknown Unknown Verified 02/26/22 12:08 alirocumab Allergy Unknown Verified 02/26/22 12:08 lovastatin [From Mevacor] Allergy Unknown Verified 02/26/22 12:08 PFSH Acute PFSH: Medical History Atrial fibrillation Cardioembolic stroke CHF (congestive heart failure) Congestive heart failure Coronary artery disease Stable doing fine from a coronary disease perspective continue meds HTN (hypertension) Hyperlipidemia Ischemic cardiomyopathy Surgical History S/P CABG (coronary artery bypass graft) S/P cardiac pacemaker procedure S/P cholecystectomy Family History Father Stroke Social History Smoking and tobacco status: former smoker History of recent travel: No Vitals/I&O/Wt Last Vital Signs Pulse 57 L 02/26/22 16:04 Resp 20 H 02/26/22 16:06 BP 95/66 02/26/22 19:00 Pulse Ox 98 02/26/22 17:25 O2 Del Method 02/26/22 17:25 02/26/22 02/26/22 02/26/22 06:59 14:59 22:59 Intake Total 240 / 240 Balance 240 / 240 Weight last 48 hrs Weight 70.352 kg Weight 70.307 kg Physical Exam Const: COMMON NORMALS: no acute distress and patient oriented x3 HENMT: COMMON NORMALS: normocephalic HEAD & SCALP: normocephalic Eye: COMMON NORMALS: Equal, round and reactive pupils present and EOMs intact bilaterally Neck/C-Spine: COMMON NORMALS: no JVD Resp: COMMON NORMALS: normal respiratory effort, No retractions, No use of accessory muscles and clear to auscultation bilaterally AUSCULTATION: clear to auscultation bilaterally Cardio: COMMON NORMALS: regular rate, regular rhythm, S1 normal heart sound present and S2 normal heart sound present JUGULAR VENOUS DISTENTION: JVD RATE: regular rate RHYTHM: regular rhythm HEART SOUNDS: S1 normal heart sound present and S2 normal heart sound present GI: COMMON NORMALS: Soft to palpation, non-tender, No hepatosplenomegaly present, no masses and no bruits INSPECTION: Yes normal to inspection and Yes abdominal distension AUSCULTATION: Yes normoactive bowel sounds PALPATION: Yes Soft to palpation and Yes No hepatosplenomegaly present Extremity: COMMON NORMALS: capillary refill normal, no clubbing, cyanosis or edema, no calf tenderness and no pedal edema Neuro: COMMON NORMALS: patient oriented x3, CN's II-XII intact bilaterally, moves all extremities and no focal motor deficits Psych: COMMON NORMALS: mental status grossly normal Data : 02/26/22 10:30 02/26/22 10:30 A&P Assessment and plan (1) Acute kidney injury: Status: Acute (2) Hyponatremia: Status: Acute (3) Ascites: Status: Acute (4) Acute kidney injury: Status: Acute (5) CHF (congestive heart failure): Status: Acute Qualifiers: Heart failure type: systolic Heart failure chronicity: chronic Qualified Code(s): I50.22 - Chronic systolic (congestive) heart failure (6) Ischemic cardiomyopathy: Status: Acute (7) Shortness of breath: Status: Acute Plan Shortness of breath -Etiology unclear -Patient does not have bilateral extremity edema, no crackles on exam JVD is 8 t o 9 cm, does have abdominal distention, possible gut edema -No significant evidence of infectious etiology, no serum leukocytosis, Pro-Rickey within normal limits, chest x-ray no focal pneumonia -He did have COVID back in December, no calf pain, calf swelling, no hemoptysis, is on Coumadin -Last echocardiogram EF 25% he has been on diuretics, Bumex, difficulty with diuresis as outpatient given his fluctuation in his creatinine -However he is back here with shortness of breath with elevated JVD, get edema, hyponatremia, elevated creatinine -Potentially given above findings, patient's shortness of breath is related to systolic CHF exacerbation, with congestive hepatopathy, with cardiorenal syndrome, with hyponatremia -Case was discussed briefly with cardiology, plans on moving to ICU, dobutamine drip -Currently he is hemodynamically stable, on room air, blood pressure soft 90/50, no chest pain, shortness of breath, alert oriented x3 Plan -Moved to ICU -Start dobutamine drip -Place Caraballo catheter monitor urine output -Hyponatremia, monitor serum sodiums closely, but potentially serum sodiums c ould improve with dobutamine and Lasix -We will consider starting Lasix tonight based on clinical progress -We will do venous ultrasound, D-dimer given history of COVID infection -We will order cardiac echo -CT of the chest -Full code -Coumadin for DVT prophylaxis ZOEY on CKD likely cardiorenal syndrome, will monitor urine output to monitor creatinine Elevated lactic acid, 2.6, likely related to systolic CHF, EF 25% Attestations Medical Necessity Statement*: Patient requires hospitalization, inpatient, greater than 2 midnights, for shortness of breath Coding Level of Care Code 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
--- NOTE | 2022-02-26 20:56 | USR_ITS ---
PROCEDURE INFORMATION: Exam: US Duplex Lower Extremity Veins, Bilateral Exam date and time: 02/26/2022 9:43 PM Age: 81 years old Clinical indication: Other: Increased d dimer; Patient HX: Long history of cardiac problems; Additional info: Dvt TECHNIQUE: Imaging protocol: Real-time Duplex ultrasound of the bilateral extremities with 2-D agee scale, color Doppler flow and spectral waveform analysis with image documentation. Complete exam focused on the bilateral lower extremity veins. COMPARISON: CT abdomen pelvis wo con [id number] 02/26/2022 11:01 AM FINDINGS: Right deep veins: Unremarkable. The common femoral, femoral, proximal profunda femoral and popliteal veins are patent without thrombus. Normal Doppler waveforms. Normal compressibility and/or augmentation response. Right superficial veins: Saphenofemoral junction is patent without thrombus. Left deep veins: Unremarkable. The common femoral, femoral, proximal profunda femoral and popliteal veins are patent without thrombus. Normal Doppler waveforms. Normal compressibility and/or augmentation response. Left superficial veins: Saphenofemoral junction is patent without thrombus. Soft tissues: Unremarkable. US/CV venous duplex [facility] [id number] IMPRESSION: No evidence of deep vein thrombosis.
--- NOTE | 2022-02-26 20:56 | USCV_ITS ---
Al Yin Age: 81 Gender: M : 1940 Exam Date: 02/26/2022 21:23 Ordering Phys: Gabriel Garcia MD Technologist: Stephanie Dlegado [place] [facility] [place]: Shortness and history of low EF BP: 97 / 70 HR: 82 Rhythm: Atrial fibrillation Technical Quality: Adequate MEASUREMENTS (Male / Female) Normal Values 2D ECHO LV Diastolic Diameter PLAX 5.6 cm 4.2 - 5.9 / 3.9 - 5.3 cm LV Systolic Diameter PLAX 5.2 cm LV Chamber Size 3.0 cm IVS Diastolic Thickness 1.2 cm 0.6 - 1.0 / 0.6 - 0.9 cm IVS Systolic Thickness 1.4 cm LVPW Diastolic Thickness 1.4 cm 0.6 - 1.0 / 0.6 - 0.9 cm LVPW Systolic Thickness 1.8 cm RV Chamber Size 4.1 cm LVOT Diameter 2.1 cm LV Ejection Fraction 2D Teich 16.7 % LV Ejection Fraction MOD 2C 20.2 % LV Ejection Fraction 2C AL 17.5 % LA Diameter 5.0 cm LA Width 4.6 cm LA Height 6.8 cm RA Width 4.5 cm RA Height 5.4 cm Aorta at Sinotubular Diameter 2.8 cm IVC Diameter 1.9 cm M-MODE Aortic Annulus Diameter 1.7 cm LA Ao Ratio MM 1.8 MV E Point Septal Separation 1.1 cm DOPPLER AV Peak Velocity 86.0 cm/s LVOT Peak Velocity 68.0 cm/s AV Area Cont Eq vti 3.2 cm squared AV Area Cont Eq pk 2.6 cm squared MV Area PHT 2.0 cm squared MV E' Velocity 36.5 cm/s Mitral E to MV E' Ratio 9.3 Mitral E to LV E' Lateral Ratio 8.2 Mitral E to LV E' Septal Ratio 10.9 TR Peak Velocity 232.2 cm/s TR Peak Gradient 21.6 mmHg TR Mean Velocity 171.1 cm/s TR Mean Gradient 13.1 mmHg TR Velocity Time Integral 72.5 cm TV Peak E Velocity 77.0 cm/s Right Atrial Pressure 3.0 mmHg Pulmonary Artery Systolic Pressu 24.6 mmHg RV Acceleration Time 0.3 s RV Ejection Time 0.1 s RV AcT/ET 1.9 FINDINGS Left Ventricle Severely increased left ventricular cavity size. Decreased left ventricular wall thickness. Severely decreased left ventricular systolic function. Left ventricular ejection fraction is estimated at 10-15 %. Rhythm precludes evaluation of diastolic function. Global left ventricular hypokinesis. Right Ventricle Normal right ventricular size and systolic function. Normal right ventricular systolic pressure. Catheter/pacemaker wire in the right ventricular cavity. Right Atrium Mildly increased right atrial size. Left Atrium Moderately increased left atrial size. Mitral Valve Structurally normal mitral valve. Moderate-severe mitral valve regurgitation. Aortic Valve Structurally normal aortic valve without significant sclerosis or stenosis. There is no aortic regurgitation. Tricuspid Valve Structurally normal tricuspid valve. Trace tricuspid valve regurgitation. Pulmonic Valve Structurally normal pulmonic valve. Pericardium Normal pericardium without effusion. Aorta Normal ascending aorta dimension. IVC Inferior vena cava not visualized. CONCLUSIONS Severely increased left ventricular cavity size. Decreased left ventricular wall thickness. Severely decreased left ventricular systolic function. Left ventricular ejection fraction is estimated at 10-15 %. Rhythm precludes evaluation of diastolic function. Global left ventricular hypokinesis. Mildly increased right atrial size. Moderately increased left atrial size. Structurally normal mitral valve. Moderate-severe mitral valve regurgitation. From the previous echo dated 11/15/2021, the left ventricular function has decreased. Previous ejection fraction was 25%. Also the ventricular wall thickness is less. Dr. Lorenzo Palacio MD (Electronically Signed) Final Date: 27 February 2022 08:49 S
--- NOTE | 2022-02-26 21:24 | PC.NURSE ---
Dr. 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
[2022-02-26 21:38] LABS: D Dimer 1.23 ug/mIFEU (0-0.59)
[2022-02-26] MEDS: bumetanide 0.25 mg/mL SDV 10 mL 2 MG IVP (22:07)
[2022-02-26] MEDS: midodrine 5 mg TABLET 10 MG PO (22:07)
[2022-02-26 23:06] LABS: Urine Random Sodium 17 mmol/L
[2022-02-27] VITALS (73 sets, daily range): BP systolic 83–131; BP diastolic 49–102; PULSE 64–100; RESP 11–25; TEMP 36.4–36.6; O2SAT 84–99
--- NOTE | 2022-02-27 01:01 | PC.NURSE ---
Pt has clubbing of the toenails.
--- NOTE | 2022-02-27 01:13 | PC.NURSE ---
2L of oxygen per nasal cannula applied due to frequent periods of oxygen saturations in the 80%s with good waveform.
--- NOTE | 2022-02-27 04:06 | PC.NURSE ---
Pt has bladder distention, which is difficult to fully assess due to ascites. He also complains of feeling like he cannot empty all of the way. Will seek smaller urinary catheter. Pt also having increased PVCs.
--- NOTE | 2022-02-27 04:30 | PC.NURSE ---
Unable to place catheter.
--- NOTE | 2022-02-27 04:34 | PC.NURSE ---
Due to patient fullness, another attempt to place urinary catheter with smaller nigerian catheter attempted by another RN. Due to anatomical abnormalities, catheter placement unsuccessful.
[2022-02-27 04:56] LABS: Basophils # 0.1 10^3/uL (0.0-0.1); Basophils % 0.7 %; Eosinophils # 0.1 10^3/uL (0.0-0.8); Eosinophils % 1.2 %; Hematocrit 42.4 % (42.0-52.0); Hemoglobin 14.2 g/dL (11.7-16.6); Lymphocytes # 1.7 10^3/uL (0.8-4.8); Lymphocytes % 22.7 %; Mean Corpuscular HGB Conc 33.5 g/dL (30.0-36.0); Mean Corpuscular Hemoglobin 33.2 pg (28.0-34.0); Mean Corpuscular Volume 99.1 fl (80-94); Mean Platelet Volume 10.6 fL (7.4-10.4); Monocytes % 12.5 %; Neutrophils # 4.78 10^3/uL (1.8-7.7); Neutrophils % 62.1 %; Nucleated Red Blood Cells % 0 %; Platelet Count 156 10^3/cmm (130-400); Red Blood Count 4.28 10^6/uL (4.1-5.3); Red Cell Distribution Width 13.9 % (12.1-15.1); White Blood Count 7.7 10^3/uL (4.0-10.0)
[2022-02-27 05:15] LABS: Alanine Aminotransferase 21 U/L (0-41); Albumin Level 3.6 g/dL (3.5-5.2); Alkaline Phosphatase 95 U/L (40-130); Anion Gap 18.9 (5-19); Aspartate Amino Transferase 27 U/L (0-40); Blood Urea Nitrogen 62 mg/dL (8-23); Calcium 9.7 mg/dL (8.5-10.5); Carbon Dioxide 20 mmol/L (22-29); Chloride 89 mmol/L (98-107); Globulin 2.9 g/dL (1.3-4.6); Glucose 111 mg/dL (65-115); Magnesium 2.7 mg/dL (1.7-2.3); Osmolality Calculated 274 mOsm/kg (285-295); Potassium 4.9 mmol/L (3.5-5.1); Sodium 123 mmol/L (136-145); Total Bilirubin 1.5 mg/dL (0.15-1.2); Total Protein 6.5 g/dL (6.6-8.7)
[2022-02-27] MEDS: midodrine 5 mg TABLET 10 MG PO (05:37)
--- NOTE | 2022-02-27 07:21 | P.CONIM_ITS ---
Providers/Reason For Consult Consulting Physician/Specialty*: Cardiovascular medicine Reason for Consult*: Prior organic heart disease Requesting Physician: Hospitalist Attending Physician: Christa Rojas MD Primary Care Provider: Echo Garay MD History of Present Illness History of Present Illness Al Yin is a 81 year old male who has a long history of complicated cardiac disease. This involves coronary disease early in his life. He has undergone bypass surgery twice in the past. 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 He also has chronic atrial fibrillation on warfarin, stage III chronic kidney disease, an ejection fraction of 25%, chronic systolic heart failure, hypertension, dyslipidemia, history of a stroke and intolerance to statins. He was in the hospital in November with syncope and has dehydration. He has also had penile cancer and has difficulty urinating. Over the last week or 2 he has noticed shortness of breath with minimal exertion and some abdominal fullness. He does not have true distention or pain in the abdomen just feels like its full. He lives alone. At home he takes Bumex twice a day, Coreg, lisinopril, potassium and warfarin. He came into the emergency room last night and has been admitted. He has had a large number of radiologic studies since his arrival to include CT of the abdomen and pelvis which shows a small amount of ascitic fluid and small right pleural effusion but no other abnormalities. Chest x-ray does not reveal any congestive heart failure and is otherwise normal aside from noting the devices and cardiomegaly. Ultrasound of the abdomen shows ascites with abnormal portal venous flow. Chest CT shows moderate bilateral pleural effusions. Venous duplex shows no DVT. His INR is 2.4. CBC is normal. Sodium slightly low 124 and creatinine 2.1 which is about normal for him. I was contacted last evening by the hospitalist and suggested he be put on a dobutamine drip. The hospital does not have any dobutamine and somehow norepine phrine was substituted for the dobutamine. He is having some difficulty urinating because of his previous penile cancer. Review of Systems Narrative: Negative other than what is present in the history of present illness. Medications/Allergies Home Medications Medication Instructions Recorded Confirmed Last Taken Type pravastatin 40 mg tablet 40 mg PO QPM 07/18/19 02/26/22 02/25/22 History coenzyme Q10 100 mg capsule (Co 100 mg PO DAILY 1102/26/22 02/26/22 History Q-10) evolocumab 140 mg/mL subcutaneous 140 mg SUBCUT Q14D 04/22/21 02/26/22 02/24/22 History pen injector (Shania Dominguez) carvedilol 6.25 mg tablet 9.375 mg PO BID #408 tabs 10/23/21 02/26/22 02/26/22 Rx cholecalciferol (vitamin D3) 25 25 mcg PO DAILY 11/10/21 02/26/22 02/26/22 History mcg (1,000 unit) tablet (Vitamin D3) omega-3 fatty acids-fish oil 684 1 cap PO DAILY 11/10/21 02/26/22 02/26/22 History mg-1,200 mg capsule,delayed release bumetanide 2 mg tablet 2 mg PO DAILY #180 tabs 11/13/21 02/26/22 02/26/22 Rx magnesium 250 mg tablet 500 mg PO DAILY #30 tabs 11/17/21 02/26/22 02/26/22 Rx potassium chloride 10 mEq 10 meq PO DAILY #90 tabs 11/26/21 02/26/22 02/26/22 Rx tablet,extended release warfarin 5 mg tablet 5 mg PO DIRECTED #90 tabs 02/12/22 02/26/22 02/26/22 Rx lisinopril 5 mg tablet 2.5 mg PO DAILY 02/26/22 02/26/22 02/26/22 History Allergies Allergy/AdvReac Type Severity Reaction Status Date / Time atorvastatin Allergy Unknown Unknown Verified 02/26/22 12:08 simvastatin Allergy Unknown Unknown Verified 02/26/22 12:08 alirocumab Allergy Unknown Verified 02/26/22 12:08 lovastatin [From Mevacor] Allergy Unknown Verified 02/26/22 12:08 Current Medications Generic Name Dose Route Start Last Admin Trade Name Freq PRN Reason Stop Dose Admin Bumetanide 2 mg 02/26/22 21:30 02/26/22 22:07 Bumetanide 0.25 Mg/Ml Sdv 10 Ml IVP 2 mg Q12H GERMAN Administration Dobutamine HCl/Dextrose 500 mg in 250 mls @ 4.221 mls/hr 02/26/22 19:00 02/26/22 22:07 Dobutamine Drip IV Not Given .Q24H GERMAN 2 MCG/KG/MIN Norepinephrine Bitartrate 4 mg 254 mls @ 0 mls/hr 02/26/22 21:30 02/27/22 06:00 / Dextrose IV 2 mcg/min .Q0M GERMAN 7.62 mls/hr Titration Protocol Per Protocol Midodrine 10 mg 02/26/22 21:30 02/27/22 05:37 Midodrine 5 Mg Tablet PO 10 mg Q8H GERMAN Administration PFSH Acute PFSH: Medical History (Updated 02/27/22 @ 08:08 by Lorenzo Palacio MD) Atrial fibrillation Cardioembolic stroke CHF (congestive heart failure) Chronic kidney disease (CKD) Congestive heart failure Coronary artery disease Stable doing fine from a coronary disease perspective continue meds History of penile cancer HTN (hypertension) Hyperlipidemia ICD (implantable cardioverter-defibrillator) in place Ischemic cardiomyopathy Urinary obstruction Surgical History (Updated 02/27/22 @ 08:08 by Lorenzo Palacio MD) S/P CABG (coronary artery bypass graft) S/P cardiac pacemaker procedure S/P cholecystectomy Family History Father Stroke Social History Smoking and tobacco status: former smoker History of recent travel: No Vitals/I&O/Wt Last Vital Signs Temp 97.6 F 02/27/22 04:00 Pulse 86 02/27/22 06:15 Resp 14 02/27/22 06:15 BP 110/78 02/27/22 06:15 Pulse Ox 98 02/27/22 06:15 O2 Del Method 02/27/22 06:15 O2 Flow Rate 2 02/27/22 06:15 02/26/22 02/27/22 02/27/22 22:59 06:59 14:59 Intake Total 240 / 240 262.799 / 502.799 Output Total 100 / 100 475 / 575 150 / 150 Balance 140 / 140 -212.201 / -72.201 -150 / -150 Weight last 48 hrs Weight 159 lb 9.6 oz Weight 162 lb 9.6 oz Weight 155 lb 1.6 oz Weight 155 lb Physical Exam Narrative: GENERAL: In general he is comfortable this morning lying flat in b ed in no distress HEENT: Exam within normal limits. NECK: Supple without jugular vein distention. The carotid upstroke is normal without bruits. BACK: Exam normal. LUNGS: Clear. HEART: Irregular rate and rhythm. ABDOMEN: Benign without organomegaly or tenderness. EXTREMITIES: No edema. NEUROLOGIC: Exam normal. SKIN: Unremarkable. Urinary Catheter Management: Caraballo: Cath Placed During This Visit: no Data : 02/27/22 03:37 02/27/22 03:37 A&P Assessment and plan (1) Shortness of breath: Status: Acute (2) Acute kidney injury: Status: Acute (3) Hyponatremia: Status: Acute (4) Ascites: Status: Acute (5) Hyperlipidemia: Status: Acute Qualifiers: Hyperlipidemia type: pure hypercholesterolemia Qualified Code(s): E78.00 - Pure hypercholesterolemia, unspecified (6) HTN (hypertension): Status: Acute (7) CHF (congestive heart failure): Status: Acute Qualifiers: Heart failure type: systolic Heart failure chronicity: chronic Qualified Code(s): I50.22 - Chronic systolic (congestive) heart failure (8) Ischemic cardiomyopathy: Status: Acute (9) Cardioembolic stroke: Status: Acute (10) Coronary artery disease: Status: Acute (11) S/P cardiac pacemaker procedure: Status: Acute (12) S/P CABG (coronary artery bypass graft): Status: Acute (13) ICD (implantable cardioverter-defibrillator) in place: Status: Acute (14) Urinary obstruction: Status: Acute (15) History of penile cancer: Status: Acute (16) Chronic kidney disease (CKD): Status: Acute Plan We need to switch the drip to milrinone. Norepinephrine will not be of any benefit. The urinary obstruction should be addressed. His lungs his blood pressure is stable we will continue the intravenous Bumex. I do not see a need for midodrine nor do I see a need for a repeat echo. Another echo will not change our management. I will add back his beta-ori once he diuresis and as his blood pressure tolerates. I believe this entire illness is related to cardiac failure. Consult Attestations Medical Necessity Statement: Hospitalization for management of congestive heart failure. 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 [facility] Patient Type New History Comprehensive Exam Comprehensive Medical Decision Making High Complexity Diagnoses Shortness of breath R06.02 Acute kidney injury N17.9 Hyponatremia E87.1 Ascites R18.8 Hyperlipidemia E78.00 Hyperlipidemia type: pure hypercholesterolemia HTN (hypertension) I10 CHF (congestive heart failure) I50.22 Heart failure type: systolic Heart failure chronicity: chronic Ischemic cardiomyopathy I25.5 Cardioembolic stroke I63.9 Coronary artery disease I25.10 S/P cardiac pacemaker procedure Z95.0 S/P CABG (coronary artery bypass graft) Z95.1 ICD (implantable cardioverter-defibrillator) in place Z95.810 Urinary obstruction N13.9 History of penile cancer Z85.49 Chronic kidney disease (CKD) N18.9
[2022-02-27] MEDS: ondansetron 2 mg/ML SDV 2 mL 4 MG IVP (07:54)
--- NOTE | 2022-02-27 07:57 | PM.PN ---
Subjective Subjective: Seen this AM. Dobutamine unavailable in hospital. Pt will now be on milrinone. No acute events overnight. Echo done this AM shows reduced EF 10-15%. Dr. Gary placed 12 maltese couday catheter Vitals/I&O/Wt Last Vital Signs Temp 97.6 F 02/27/22 04:00 Pulse 86 02/27/22 06:15 Resp 14 02/27/22 06:15 BP 110/78 02/27/22 06:15 Pulse Ox 98 02/27/22 06:15 O2 Del Method 02/27/22 06:15 O2 Flow Rate 2 02/27/22 06:15 02/26/22 02/27/22 02/27/22 22:59 06:59 14:59 Intake Total 240 / 240 262.799 / 502.799 Output Total 100 / 100 475 / 575 150 / 150 Balance 140 / 140 -212.201 / -72.201 -150 / -150 Weight last 48 hrs Weight 72.393 kg Weight 73.754 kg Weight 70.352 kg Weight 70.307 kg Physical Exam Narrative: General: Alert oriented x3, patient seen laying in bed appearing comfortable on room air. No acute distress HEENT: Normocephalic, atraumatic, EOMI, breathing normally Cardio: Regular rate rhythm, normal S1-S2, No JVD Respiratory: Clear to ausculation bilaterally, no wheezes, no ronchi, no crackles GI: Abdomen soft, distended, bowel sounds +, no apparent fluid wave Behavior: Appropriate and cooperative Extremities: Pulses 2+, no lower extermity edema, warm extremities Urinary Catheter Management: Caraballo: Cath Placed During This Visit: no Data : 02/27/22 03:37 02/27/22 03:37 A&P Assessment and plan (1) Ischemic cardiomyopathy: Status: Acute (2) CHF (congestive heart failure): Status: Acute Qualifiers: Heart failure chronicity: chronic Heart failure type: systolic Qualified Code(s): I50.22 - Chronic systolic (congestive) heart failure (3) HTN (hypertension): Status: Acute (4) Hyperlipidemia: Status: Acute Qualifiers: Hyperlipidemia type: pure hypercholesterolemia Qualified Code(s): E78.00 - Pure hypercholesterolemia, unspecified (5) Coronary artery disease: Status: Acute (6) S/P CABG (coronary artery bypass graft): Status: Acute (7) S/P cardiac pacemaker procedure: Status: Acute (8) Hyponatremia: Status: Acute (9) Acute kidney injury: Status: Acute (10) Hyponatremia: Status: Acute (11) Ascites: Status: Acute (12) Shortness of breath: Status: Acute (13) ICD (implantable cardioverter-defibrillator) in place: Status: Acute (14) History of penile cancer: Status: Acute (15) Chronic kidney disease (CKD): Status: Acute (16) Postprocedural urethral stricture: Status: Acute (17) Cardiorenal syndrome: Status: Acute Plan #Worsening chronic congestive heart failure, EF 10-15% #Hx of CABG x2 #Ischemic CAD s/p AICD #Hx of penile cancer s/p partial penectomy #Mild Ascites 2/2 to HF #ZOEY on CKD #Cardiorenal syndrome #Hx of HTN #Urinary outlet obstruction 2/2 to penectomy #Afib, stable, chronically on warfarin -Patient does not have bilateral extremity edema, no crackles on exam JVD is 8 to 9 cm, does have abdominal distention, possible gut edema -No significant evidence of infectious etiology, no serum leukocytosis, Pro-Rickey within normal limits, chest x-ray no focal pneumonia -He did have COVID back in December, no calf pain, calf swelling, no hemoptysis, is on Coumadin -Last echocardiogram EF 25% he has been on diuretics, Bumex, difficulty with diuresis as outpatient given his fluctuation in his creatinine -However he is back here with shortness of breath with elevated JVD, get edema, hyponatremia, elevated creatinine -Potentially given above findings, patient's shortness of breath is related to systolic CHF exacerbation, with congestive hepatopathy, with cardiorenal syndrome, with hyponatremia -Cardiology consulted. Intial plan was to start dobutamine however that medicine is not available in hospital therefore will start milrinone. -Currently he is hemodynamically stable, on room air, blood pressure soft 90/50, no chest pain, shortness of breath, alert oriented x3 - Dr. Gary placed 12 maltese coudey cathether for accurate measure of UOP. Pt will need to taught self catherization at discharge. - Hyponatremia most likely 2/2 to fluid overload and HF. Urine sodium 17 - Echo complete today. Global hypokinesia and EF 10-15%. - ELevated lactic acid 2/2 to HF - Plan to use milrinone and slowly diurese patient - Cardiology on board. Appreciate recommendations. -Full code -Coumadin for DVT prophylaxis Prognosis is poor. This documentation was created by [employer] director of partnerships software. Every effort was made to ensure accuracy of director of partnerships. Any obvious errors or omissions should be clarified with the author of the document. Attestations Medical Necessity Statement*: Will require ICU stay for management of worsening HF. Expect 48-72 hour stay. Critical Care Time: 25 Coding Level of Care Code Acute Internal Medicine Nurse Practitioner for Chg Fwd Diagnoses Ischemic cardiomyopathy I25.5 CHF (congestive heart failure) I50.22 Heart failure chronicity: chronic Heart failure type: systolic HTN (hypertension) I10 Hyperlipidemia E78.00 Hyperlipidemia type: pure hypercholesterolemia Coronary artery disease I25.10 S/P CABG (coronary artery bypass graft) Z95.1 S/P cardiac pacemaker procedure Z95.0 Hyponatremia E87.1 Acute kidney injury N17.9 Hyponatremia E87.1 Ascites R18.8 Shortness of breath R06.02 ICD (implantable cardioverter-defibrillator) in place Z95.810 History of penile cancer Z85.49 Chronic kidney disease (CKD) N18.9 Postprocedural urethral stricture Cardiorenal syndrome I13.10
--- NOTE | 2022-02-27 08:02 | PC.NURSE ---
attempting to void unsuccessfully noted nausea at this time noted and zofran given
--- NOTE | 2022-02-27 08:22 | USR_ITS ---
PROCEDURE INFORMATION: Exam: US Abdomen; Limited Exam date and time: 02/27/2022 8:34 AM Age: 81 years old Clinical indication: Screening exam; Other: Abdominal cancer; Additional info: Retention TECHNIQUE: Imaging protocol: Real time ultrasound of the abdomen with image documentation. Limited exam focused on the region of clinical interest. COMPARISON: US abdomen limited [id number] 02/26/2022 12:52 PM FINDINGS: Urinary bladder: The bladder is unremarkable without evidence of abnormal mass. Residual within the bladder is measured at 44.3 cc. US/US bladder [id number] IMPRESSION: Bladder volume is 44.3 cc. No abnormal mass or debris is seen in the bladder.
[2022-02-27] MEDS: cholecalciferol (vitamin D3) 1,000 unit Tablet 1000 UNIT PO (08:51)
--- NOTE | 2022-02-27 10:09 | P.CONIM_ITS ---
Providers/Reason For Consult Consulting Physician/Specialty*: Urology/Gary Reason for Consult*: Inability to pass catheter Requesting Physician: Dr. Rojas Attending Physician: Christa Rojas MD Primary Care Provider: Echo Garay MD History of Present Illness History of Present Illness Al Yin is a 81 year old male who I evaluated for the first time today at the request of the hospitalist service inability to pass catheter and patient requiring close fluid monitoring. Admitted with progressive congestive heart failure. Attempts at catheter placement were unsuccessful. He is status post partial penectomy 1994 in [place] for small glans penis lesion. No evidence of recurrence to date per his report. Does describe decreased force of stream over time. He does feel like he empties his bladder well but it takes him a while to do so. There is been at least one other episode in the past where an attempt at passing a catheter was unsuccessful. The attempts were abandoned. Denies recurrent UTIs, gross hematuria or recent urinary retention. Procedure: Urethral dilation with Caraballo catheter placement Patient has had a partial penectomy. The neomeatus was identified. It was very tight. 2% lidocaine jelly was attempted to be instilled in through the neomeatus but was unsuccessful. A well-lubricated 10 [place]an straight catheter was then used to manipulate through the neomeatus into the bladder. It was tight but once past the initial 1 to 2 cm of the urethra the catheter went well. Clear urine was obtained. Sequential dilation then with 12 Com[place]an 14 Com[place]an and 16 [place]an straight cathet ers was then performed with several minutes of indwelling time before moving to the next size. Lubrication of the urethra with 2% lidocaine jelly was conducted after the 12 [place] dilation. A 12 [place]an coud? catheter was then passed through the dilated urethral neomeatus into the bladder demonstrating function and drainage before inflating the balloon with 10 cc. Catheter was placed to dependent drainage. Nurses were instructed to place a catheter retaining device. He tolerated procedure well without complications. Turned back over to the nursing staff. Recommendations: 1. Maintain Caraballo catheter through discharge 2. I can increase his size if necessary prior to to discharge if there is difficulty with the catheter maintaining patency. I doubt that will be the case. 3. I will see him back in my clinic or will conduct a voiding trial and teach him self-catheterization technique to maintain stricture patency maintenance. Review of Systems Const: Denies: fever(s), chills or diaphoresis Eyes: Denies: change in vision ENMT: Denies: hoarseness Card: Denies: chest pain or palpitations Resp: Reports: dyspnea; Denies: wheezing GI: Reports: abdominal pain and bloating : Reports: urinary frequency, urinary hesitancy, urinary dribbling, change in urine stream (Chronically slow) and scrotal swelling; Denies: genital lesions Musc: Reports: extremity swelling; Denies: extremity pain Skin/Breast: Denies: rash or sores Neuro: Denies: confusion or Slurred speech present Psych: Denies: anxiety or irritability Rosendo/Lymph: Denies: easy bruising or easy bleeding All/Imm: Denies: acute wheezing Medications/Allergies Home Medications Medication Instructions Recorded Confirmed Last Taken Type pravastatin 40 mg tablet 40 mg PO QPM 07/18/19 02/26/22 02/25/22 History coenzyme Q10 100 mg capsule (Co 100 mg PO DAILY 04/22/21 02/26/22 02/26/22 History Q-10) evolocumab 140 mg/mL subcutaneous 140 mg SUBCUT Q14D 04/22/21 02/26/22 02/24/22 History pen injector (Shania Dominguez) carvedilol 6.25 mg tablet 9.375 mg PO BID #408 tabs 10/23/21 02/26/22 02/26/22 Rx cholecalciferol (vitamin D3) 25 25 mcg PO DAILY 11/10/21 02/26/22 02/26/22 History mcg (1,000 unit) tablet (Vitamin D3) omega-3 fatty acids-fish oil 684 1 cap PO DAILY 11/10/21 02/26/22 02/26/22 History mg-1,200 mg capsule,delayed release bumetanide 2 mg tablet 2 mg PO DAILY #180 tabs 11/13/21 02/26/22 02/26/22 Rx magnesium 250 mg tablet 500 mg PO DAILY #30 tabs 11/17/21 02/26/22 02/26/22 Rx potassium chloride 10 mEq 10 meq PO DAILY #90 tabs 11/26/21 02/26/22 02/26/22 Rx tablet,extended release warfarin 5 mg tablet 5 mg PO DIRECTED #90 tabs 02/12/22 02/26/22 02/26/22 Rx lisinopril 5 mg tablet 2.5 mg PO DAILY 02/26/22 02/26/22 02/26/22 History Allergies Allergy/AdvReac Type Severity Reaction Status Date / Time atorvastatin Allergy Unknown Unknown Verified 02/26/22 12:08 simvastatin Allergy Unknown Unknown Verified 02/26/22 12:08 alirocumab Allergy Unknown Verified 02/26/22 12:08 lovastatin [From Mevacor] Allergy Unknown Verified 02/26/22 12:08 Current Medications Generic Name Dose Route Start Last Admin Trade Name Freq PRN Reason Stop Dose Admin Milrinone Lactate/Dextrose 100 mls @ 0 mls/hr 02/27/22 08:15 02/27/22 09:20 Primacor IV 0.375 mcg/kg/min .Q0M GERMAN 8.14 mls/hr Administration Protocol Per Protocol Ondansetron HCl 4 mg 02/26/22 13:26 02/27/22 07:54 Ondansetron 2 Mg/Ml Sdv 2 Ml IVP 4 mg Q8H PRN Administration vomiting, or N/V if npo Vitamin D 1,000 unit 02/27/22 09:00 02/27/22 08:51 Cholecalciferol (Vitamin D3) 1,000 Unit Tablet PO 1,000 unit DAILY GERMAN Administration PFSH Acute PFSH: Medical History (Updated 02/27/22 @ 10:18 by Genaro Gary MD) Atrial fibrillation Cardioembolic stroke CHF (congestive heart failure) Chronic kidney disease (CKD) Congestive heart failure Coronary artery disease Stable doing fine from a coronary disease perspective continue meds History of penile cancer HTN (hypertension) Hyperlipidemia ICD (implantable cardioverter-defibrillator) in place Ischemic cardiomyopathy Surgical History (Updated 02/27/22 @ 10:18 by Genaro Gary MD) History of penectomy Partial 1994. 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) S/P cardiac pacemaker procedure S/P cholecystectomy Family History Father Stroke Social History Smoking and tobacco status: former smoker History of recent travel: No Vitals/I&O/Wt Last Vital Signs Temp 97.6 F 02/27/22 04:00 Pulse 92 02/27/22 08:00 Resp 16 02/27/22 08:00 BP 110/78 02/27/22 06:15 Pulse Ox 98 02/27/22 08:00 O2 Del Method 02/27/22 08:00 O2 Flow Rate 2 02/27/22 08:00 02/26/22 02/27/22 02/27/22 22:59 06:59 14:59 Intake Total 240 / 240 262.799 / 502.799 Output Total 100 / 100 475 / 575 150 / 150 Balance 140 / 140 -212.201 / -72.201 -150 / -150 Weight last 48 hrs Weight 159 lb 9.6 oz Weight 162 lb 9.6 oz Weight 155 lb 1.6 oz Weight 155 lb Physical Exam Const: COMMON NORMALS: no acute distress and patient oriented x3 HENMT: COMMON NORMALS: normocephalic HEAD & SCALP: normocephalic Neck/C-Spine: OTHER: Good range of motion Lymph: LYMPHATIC: no lymphadenopathy noted Chest: OTHER: Normal movements Resp: COMMON NORMALS: normal respiratory effort, No retractions and No use of accessory muscles Cardio: COMMON NORMALS: regular rate and regular rhythm RATE: regular rate RHYTHM: regular rhythm GI: COMMON NORMALS: Soft to palpation and non-tender INSPECTION: Yes normal to inspection and Yes abdominal distension AUSCULTATION: Yes normoactive bowel sounds PALPATION: Yes Soft to palpation : COMMON NORMALS: Yes no CVA tenderness BLADDER/KIDNEY EXAM: Yes no CVA tenderness OTHER: Status post partial penectomy. Neomeatus appears to be stenotic. Normal scrotum. Normal testicles. No severe swelling. No tenderness. No other rashes or lesions Back/Pelvis: COMMON NORMALS: no CVA tenderness Extremity: COMMON NORMALS: capillary refill normal and no calf tenderness Neuro: COMMON NORMALS: patient oriented x3 and moves all extremities Psych: COMMON NORMALS: mental status grossly normal Skin: COMMON NORMALS: no rashes or lesions noted and no wounds GENERAL SKIN EXAM: no rashes or lesions noted Urinary Catheter Management: Caraballo: Cath Placed During This Visit: yes Data : 02/27/22 03:37 02/27/22 03:37 A&P Assessment and plan (1) Postprocedural urethral stricture: Stricture of urethral neomeatus status post partial penectomy for penile cancer remotely with no evidence of recurrence Dilated. See HPI. Caraballo catheter placed. Status: Acute (2) History of penile cancer: No evidence of recurrence. Status: Acute (3) CHF (congestive heart failure): Progressive Status: Acute Qualifiers: Heart failure type: systolic Heart failure chronicity: chronic Qualified Code(s): I50.22 - Chronic systolic (congestive) heart failure Plan See HPI. 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
[2022-02-27] MEDS: lidocaine 2% Urojet 20 mL (10:18)
--- NOTE | 2022-02-27 10:38 | PC.NURSE ---
Doctor mell here consult inserted chisholm at this time .. stat lock placed at this time
[2022-02-27] MEDS: warfarin 5 mg Tablet PO (15:12)
[2022-02-27] MEDS: atorvastatin 40 mg Tablet 20 MG PO (16:55)
--- NOTE | 2022-02-27 21:12 | PC.NURSE ---
When bathing patient, a large umbilical hernia was noted.
--- NOTE | 2022-02-27 21:55 | PC.NURSE ---
Pt tells me that he has had hiccups for most for most of the day. He tells me that he has tried holding his breath, drinking sprite, and eating.
--- NOTE | 2022-02-27 23:54 | PC.NURSE ---
Pt continues to have intermittent hypotension when sleeping, but denies any dizziness or symptoms.
[2022-02-28] VITALS (67 sets, daily range): BP systolic 71–132; BP diastolic 44–91; PULSE 77–115; RESP 12–32; TEMP 36.1–36.6; O2SAT 93–98
[2022-02-28 05:18] LABS: Basophils # 0.1 10^3/uL (0.0-0.1); Basophils % 0.7 %; Eosinophils # 0.2 10^3/uL (0.0-0.8); Eosinophils % 2.9 %; Hematocrit 35.8 % (42.0-52.0); Hemoglobin 12.3 g/dL (11.7-16.6); Lymphocytes # 1.1 10^3/uL (0.8-4.8); Lymphocytes % 14.8 %; Mean Corpuscular HGB Conc 34.4 g/dL (30.0-36.0); Mean Corpuscular Hemoglobin 33.8 pg (28.0-34.0); Mean Corpuscular Volume 98.4 fl (80-94); Mean Platelet Volume 10.1 fL (7.4-10.4); Neutrophils # 5.18 10^3/uL (1.8-7.7); Neutrophils % 68.2 %; Nucleated Red Blood Cells % 0 %; Platelet Count 139 10^3/cmm (130-400); Red Blood Count 3.64 10^6/uL (4.1-5.3); Red Cell Distribution Width 13.5 % (12.1-15.1); White Blood Count 7.6 10^3/uL (4.0-10.0)
--- NOTE | 2022-02-28 05:28 | PC.NURSE ---
Pt has continued to be in atrial fib all shift. He has frequent multifocal PVCs, the longest run was 6 beats.
[2022-02-28 05:33] LABS: INR 3.04 (0.8-1.2)
--- NOTE | 2022-02-28 06:06 | PC.NURSE ---
Pt requests saltines for nausea. He continues to have intermittent hiccups.
[2022-02-28 07:44] LABS: Blood Urea Nitrogen 54 mg/dL (8-23); Carbon Dioxide 23 mmol/L (22-29); Chloride 88 mmol/L (98-107); Glucose 120 mg/dL (65-115); Magnesium 2.2 mg/dL (1.7-2.3); Osmolality Calculated 274 mOsm/kg (285-295); Sodium 124 mmol/L (136-145)
--- NOTE | 2022-02-28 07:47 | PM.PN ---
Subjective Subjective: After being started on the milrinone yesterday he has put out a little over 1 L of urine. Symptomatically he is a little better. He is able to lie flat. He is fast asleep this morning. He is off all other medications such as the beta-blockers, DAKOTAH inhibitor and the diuretics. We held this due to his relatively low blood pressure. His blood pressures have been running in the high 90s and low 100s overnight. The echo revealed a drop in his ejection fraction from 25% in November to now around 10%. It is global hypokinesis. Vitals/I&O/Wt Last Vital Signs Temp 97 F L 02/28/22 04:00 Pulse 98 02/28/22 06:30 Resp 19 H 02/28/22 06:30 BP 105/65 02/28/22 06:30 Pulse Ox 97 02/28/22 06:30 O2 Del Method 02/28/22 06:30 O2 Flow Rate 2 02/28/22 06:15 02/27/22 02/28/22 02/28/22 22:59 06:59 14:59 Intake Total 200.043 / 300.043 79.501 / 379.544 195.58 / 195.58 Output Total 1200 / 1350 650 / 2000 Balance -999.957 / -1049.957 -570.499 / -1620.456 195.58 / 195.58 Weight last 48 hrs Weight 160 lb Weight 159 lb 9.6 oz Weight 162 lb 9.6 oz Weight 155 lb 1.6 oz Weight 155 lb Physical Exam Narrative: GENERAL: In general he is asleep and comfortable at rest HEENT: Exam within normal limits. NECK: Supple without jugular vein distention. The carotid upstroke is normal without bruits. BACK: Exam normal. LUNGS: Clear. HEART: Regular rate and rhythm. ABDOMEN: Benign without organomegaly or tenderness. EXTREMITIES: No edema. NEUROLOGIC: Exam normal. SKIN: Unremarkable. Urinary Catheter Management: Caraballo: Cath Placed During This Visit: yes Reason for Continuing Indwelling Catheter: Accurate Measurement of Urinary Output in Critically Ill Patients Urinary Catheter Date of Insertion: 02/27/22 Data : 02/28/22 04:10 02/28/22 06:30 A&P Assessment and plan (1) Ischemic cardiomyopathy: Status: Acute (2) Cardiorenal syndrome: Status: Acute (3) CHF (congestive heart failure): Status: Acute Qualifiers: Heart failure type: systolic Heart failure chronicity: chronic Qualified Code(s): I50.22 - Chronic systolic (congestive) heart failure (4) HTN (hypertension): Status: Acute (5) Hyperlipidemia: Status: Acute Qualifiers: Hyperlipidemia type: pure hypercholesterolemia Qualified Code(s): E78.00 - Pure hypercholesterolemia, unspecified (6) S/P CABG (coronary artery bypass graft): Status: Acute (7) S/P cardiac pacemaker procedure: Status: Acute (8) ICD (implantable cardioverter-defibrillator) in place: Status: Acute (9) Shortness of breath: Status: Acute (10) Ascites: Status: Acute (11) Hyponatremia: Status: Acute (12) Chronic kidney disease (CKD): Status: Acute Plan He is on low-dose milrinone. I am going to leave him on this today. The decrease in his ejection fraction is most likely due to chronic ischemia. The only other possibility would be atrial fibrillation however I think he is probably been in chronic atrial fibrillation. In looking back over his old EKGs it is difficult to be sure with certainty but his rates have not been high. In the circumstances with longstanding coronary disease and bypass surgery to the left ventricular dysfunction typically is due to small vessel disease. The other possibility is graft disease. Question is how aggressive would we look into this. I think probably the best thing to do is to start out with a stress test and risk stratify him. I will order that for tomorrow. I would only perform angiography if the stress test was dramatically abnormal. He is not having chest pain. I would plan to discontinue the milrinone tomorrow and add back his low-dose carvedilol and either an DAKOTAH inhibitor or Entresto, along with the loop diuretic. Attestations Medical Necessity Statement*: Hospital care for congestive heart failure. Coding Level of Care Code Established Pt Acute Incident Response Manager for Brennan Contreras Patient Type Established History Detailed Exam Detailed Medical Decision Making Moderate Complexity Diagnoses Ischemic cardiomyopathy I25.5 Cardiorenal syndrome I13.10 CHF (congestive heart failure) I50.22 Heart failure type: systolic Heart failure chronicity: chronic HTN (hypertension) I10 Hyperlipidemia E78.00 Hyperlipidemia type: pure hypercholesterolemia S/P CABG (coronary artery bypass graft) Z95.1 S/P cardiac pacemaker procedure Z95.0 ICD (implantable cardioverter-defibrillator) in place Z95.810 Shortness of breath R06.02 Ascites R18.8 Hyponatremia E87.1 Chronic kidney disease (CKD) N18.9
[2022-02-28 07:55] LABS: Anion Gap 16.8 (5-19); Potassium 3.8 mmol/L (3.5-5.1)
[2022-02-28] MEDS: cholecalciferol (vitamin D3) 1,000 unit Tablet 1000 UNIT PO (09:14)
--- NOTE | 2022-02-28 13:53 | PM.PN ---
Subjective Subjective: No acute events overnight. Sodium 123 slightly improved now back to 124. Creatinine improving to 1.8. He is on low-dose milrinone. Patient denies any shortness of breath however is on 2 L of nasal cannula. He had a long discussion with me this a.m. regarding his goals of care. Patient would like to be DNR/DNI. He says he has thought this through for a long time. His sister also went through the same thing and could not be resuscitated successfully. He states with his EF being 10 to 15% he believes it would be cabrera to change his CODE STATUS to DNR/DNI. He has also discussed this with his nephew and family is aware. He does not want me to call them at this time. Jasson transplant case manager present at the time discussion took place. Patient is alert oriented x3. CODE STATUS changed to DNR/DNI at this time. Vitals/I&O/Wt Last Vital Signs Temp 97.0 F L 02/28/22 08:00 Pulse 104 H 02/28/22 12:30 Resp 21 H 02/28/22 12:30 BP 108/65 02/28/22 12:30 Pulse Ox 93 02/28/22 12:30 O2 Del Method 02/28/22 12:00 O2 Flow Rate 2 02/28/22 06:15 02/27/22 02/28/22 02/28/22 22:59 06:59 14:59 Intake Total 200.043 / 300.043 79.501 / 379.544 435.58 / 435.58 Output Total 1200 / 1350 650 / 2000 Balance -999.957 / -1049.957 -570.499 / -1620.456 435.58 / 435.58 Weight last 48 hrs Weight 72.575 kg Weight 72.393 kg Weight 73.754 kg Weight 70.352 kg Physical Exam Narrative: General: Alert oriented x3, patient seen laying in bed appearing comfortable on room air. No acute distress HEENT: Normocephalic, atraumatic, EOMI, breathing normally, on nasal cannula 2L Cardio: Regular rate rhythm, normal S1-S2, No JVD Respiratory: Clear to ausculation bilaterally, no wheezes, no ronchi, no crackles GI: Abdomen soft, distended, bowel sounds +, no apparent fluid wave Behavior: Appropriate and cooperative Extremities: Pulses 2+, no lower extermity edema, warm extremities Urinary Catheter Management: Caraballo: Cath Placed During This Visit: yes Reason for Continuing Indwelling Catheter: Accurate Measurement of Urinary Output in Critically Ill Patients Urinary Catheter Date of Insertion: 02/27/22 Data : 02/28/22 04:10 02/28/22 06:30 A&P Assessment and plan (1) Ischemic cardiomyopathy: Status: Acute (2) CHF (congestive heart failure): Status: Acute Qualifiers: Heart failure type: systolic Heart failure chronicity: chronic Qualified Code(s): I50.22 - Chronic systolic (congestive) heart failure (3) HTN (hypertension): Status: Acute (4) Hyperlipidemia: Status: Acute Qualifiers: Hyperlipidemia type: pure hypercholesterolemia Qualified Code(s): E78.00 - Pure hypercholesterolemia, unspecified (5) Coronary artery disease: Status: Acute (6) S/P CABG (coronary artery bypass graft): Status: Acute (7) S/P cardiac pacemaker procedure: Status: Acute (8) Hyponatremia: Status: Acute (9) Acute kidney injury: Status: Acute (10) Hyponatremia: Status: Acute (11) Ascites: Status: Acute (12) Shortness of breath: Status: Acute (13) ICD (implantable cardioverter-defibrillator) in place: Status: Acute (14) History of penile cancer: Status: Acute (15) Chronic kidney disease (CKD): Status: Acute (16) Postprocedural urethral stricture: Status: Acute (17) Cardiorenal syndrome: Status: Acute Plan #Worsening chronic congestive heart failure, EF 10-15% #Hx of CABG x2 #Ischemic CAD s/p AICD #Hx of penile cancer s/p partial penectomy #Mild Ascites 2/2 to HF #ZOEY on CKD #Cardiorenal syndrome #Hx of HTN #Urinary outlet obstruction 2/2 to penectomy #Afib, stable, chronically on warfarin -Patient does not have bilateral extremity edema, no crackles on exam JVD is 8 to 9 cm, does have abdominal distention, possible gut edema -No significant evidence of infectious etiology, no serum leukocytosis, Pro-Rickey within normal limits, chest x-ray no focal pneumonia -He did have COVID back in December, no calf pain, calf swelling, no hemoptysis, is on Coumadin -Last echocardiogram EF 25% he has been on diuretics, Bumex, difficulty with diuresis as outpatient given his fluctuation in his creatinine -However he is back here with shortness of breath with elevated JVD, get edema, hyponatremia, elevated creatinine -Potentially given above findings, patient's shortness of breath is related to systolic CHF exacerbation, with congestive hepatopathy, with cardiorenal syndrome, with hyponatremia -Currently he is hemodynamically stable, on room air, blood pressure soft 90/50, no chest pain, shortness of breath, alert oriented x3 - Dr. Gary placed 12 wolof coudey cathether for accurate measure of UOP. She will need to keep Caraballo catheter in when he leaves the hospital. He is to follow-up with Dr. Gary within a week of discharge. - Hyponatremia most likely 2/2 to fluid overload and HF. Urine sodium 17 - Echo complete today. Global hypokinesia and EF 10-15%. - ELevated lactic acid 2/2 to HF - Plan to use milrinone and slowly diurese patient ? Creatinine improving from 1.8 today. - Cardiology on board. Appreciate recommendations. -DNR/DNI. Please see subjective portion of this note today for details. RN updated. -Coumadin for DVT prophylaxis Prognosis is poor. This documentation was created by [employer] electric arc welder software. Every effort was made to ensure accuracy of electric arc welder. Any obvious errors or omissions should be clarified with the author of the document. Attestations Medical Necessity Statement*: Will require ICU stay for management of worsening HF. Expect 48-72 hour stay. Critical Care Time: 25 Coding Level of Care Code Acute Change Control Specialist for [facility] Fwd Diagnoses Ischemic cardiomyopathy I25.5 CHF (congestive heart failure) I50.22 Heart failure type: systolic Heart failure chronicity: chronic HTN (hypertension) I10 Hyperlipidemia E78.00 Hyperlipidemia type: pure hypercholesterolemia Coronary artery disease I25.10 S/P CABG (coronary artery bypass graft) Z95.1 S/P cardiac pacemaker procedure Z95.0 Hyponatremia E87.1 Acute kidney injury N17.9 Hyponatremia E87.1 Ascites R18.8 Shortness of breath R06.02 ICD (implantable cardioverter-defibrillator) in place Z95.810 History of penile cancer Z85.49 Chronic kidney disease (CKD) N18.9 Postprocedural urethral stricture Cardiorenal syndrome I13.10
[2022-02-28] MEDS: warfarin 2.5 mg Tablet PO (14:18)
[2022-02-28 14:56] LABS: Add Urine Microscopic? YES; Bilirubin Urine Neg (Negative); Blood Urine 3+ (Negative); Glucose Urine UA Norm (Normal); Ketones Urine Negative (Negative); Leukocyte Esterase Urine 2+ (Negative); Nitrate Urine Negative (Negative); Protein Urine Neg (Negative); Urine Appearance Clear (CLEAR); Urine Color Yellow (Yellow); Urobilinogen Urine Norm (Negative); pH Urine 6 (5-7)
[2022-02-28 14:57] LABS: Add Urine Culture? Yes; Bacteria Urine TRACE /hpf; RBC Urine 25-40 /hpf (0-2)
--- NOTE | 2022-02-28 16:40 | ECG_ITS ---
[facility] Test Date: 2022-02-28 Pat Name: Al Yin Department: Room: ICU03 Gender: Male Vice President Of Finance: : 1940 Requested By: Christa Rojas Order Number: [id number] Piedad MD: Lorenzo Palacio M.D. Measurements Intervals [place] Rate: 96 P: TN: QRS: 48 QRSD: 157 T: 256 QT: 362 QTc: 459 Interpretive Statements ATRIAL FIBRILLATION WITH ABERRANT CONDUCTION OR VENTRICULAR PREMATURE COMPLEXES INTRAVENTRICULAR CONDUCTION DELAY [130+ ms QRS DURATION] Ventricular pacing, demand style LATERAL MYOCARDIAL INFARCTION , OF INDETERMINATE AGE [40+ ms Q WAVE AND/OR ST/T ABNORMALITY IN I/aVL/V5/V6] INFERIOR MYOCARDIAL INFARCTION , OF INDETERMINATE AGE [40+ ms Q WAVE AND/OR ST/T ABNORMALITY IN II/aVF] Compared to ECG 02/26/2022 12:41:07 Ventricular premature complex(es) now present Aberrant conduction of supraventricular beat(s) now present Ventricular-paced complex(es) or rhythm still present Myocardial infarct finding still present Electronically Signed On 02-28-2022 17:38:16 CDT by Lorenzo Palacio M.D. [id number]
[2022-02-28] MEDS: polyethylene glycol 3350 Pkt 17 gm PO (17:06)
[2022-02-28] MEDS: lidocaine 2% viscous 15 ML, aluminum-mag hydrox-simethicon 30 ML, sucralfate oral liq 1 GM PO (17:06)
[2022-02-28] MEDS: atorvastatin 40 mg Tablet 20 MG PO (17:06)
[2022-02-28] MEDS: cefTRIAXone 1,000 MG in sodium chloride 0.9% (plus) 50 ML 100 MG IV (17:10)
[2022-02-28 17:28] LABS: Troponin T (5th) Once 47 ng/L (0-15)
[2022-03-01] VITALS (50 sets, daily range): BP systolic 77–141; BP diastolic 50–119; PULSE 69–113; RESP 12–34; TEMP 36.2–36.6; O2SAT 83–98
[2022-03-01 04:07] LABS: INR 3.02 (0.8-1.2)
[2022-03-01 04:19] LABS: Blood Urea Nitrogen 34 mg/dL (8-23); Calcium 9.3 mg/dL (8.5-10.5); Carbon Dioxide 23 mmol/L (22-29); Chloride 89 mmol/L (98-107); Glucose 106 mg/dL (65-115); Osmolality Calculated 266 mOsm/kg (285-295); Sodium 124 mmol/L (136-145)
--- NOTE | 2022-03-01 06:13 | PC.NURSE ---
Nuclear stress test discussed with patient. He is willing to have stress test and proceed with angiogram if indicated. Dr. Palacio notified. Nuclear medicine notified.
--- NOTE | 2022-03-01 06:18 | PC.NURSE ---
Pt resting quietly in bed with eyes closed. Skin is pink and dry. Respirations are even and unlabored. Left anterior lung souza more diminished than the right. Pt in NSR with rare PVC's throughout the night.
--- NOTE | 2022-03-01 07:16 | ECG_ITS ---
[facility] Test Date: 2022-03-01 Pat Name: Al Yin Department: Room: ICU03 Gender: Male Web Portal Developer: : 1940 Requested By: Lorenzo Palacio Order Number: [id number] Piedad MD: Marie Davenport M.D. Interpretive Statements NAME OF STUDY: LEXISCAN SESTAMIBI STRESS TEST INDICATION: ISCHEMIC CARDIOMYOPATHY PROCEDURE: At the baseline, the blood pressure was 124/75 mmHg with a heart rate of 94 bpm. The electrocardiogram showed atrial fibrillation, intraventricular conduction delay. The Lexiscan was infused over a period of 20 seconds. A total of 0.4 milligrams of Lexiscan was infused. The stress phase was continued for a total of 5 minutes. Heart rate at the end of the stress phase was 97 bpm with a blood pressure of 99/65 mmHg. The EKG at the peak infusion revealed no significant ST-T wave changes. The study was terminated due to protocol completion. Sestamibi was injected 20 seconds after the Lexiscan infusion. Blood pressure at the end of the recovery phase was 100/64 mmHg with a heart rate of 97 beats per minute. CONCLUSION: 1. No significant EKG changes with the LexiScan infusion. 2. No LexiScan induced chest pain or cardiac arrhythmia. 3. Normal blood pressure and heart rate response. 4. Sestamibi/sestamibi perfusion scan pending; see separate report. Electronically Signed On 03-01-2022 11:28:53 CDT by Marie Davenport M.D. [id number]
[2022-03-01] MEDS: regadenoson 0.4 Mg/5 ml Syringe IVP (07:54)
--- NOTE | 2022-03-01 07:58 | NMCV_ITS ---
NM daniele perf SPECT r/s* [id number] Al Yin Age: 81 Gender: M : 1940 Exam Date: 03/01/2022 06:53 Ordering Phys: Lorenzo Palacio MD ([email or web address]) Technologist: PIA Kilgore Exam Location: [facility] Indications: CHEST PAIN STRESS TEST Please see separate stress test report in [facility] for full findings IMAGE PROTOCOL Rest/Stress 1 Lexiscan Day Radiopharmaceutical Dose (mCi) Administration Site Administered by Rest: Tc-99m 10.8 IV PIA Rocha Sestamibi Stress:Tc-99m 32.9 IV PIA Rocha Sestamibi Rest: 01-Mar-2022 60 Discovery 630 Stress: 01-Mar-2022 30 Discovery 630 0.4mg Lexiscan. Supine position only as patient was unable to lay prone. SPECT RESULTS Technical Quality: Good Raw Data Analysis: Normal Image Corrections: No attenuation or motion correction applied Summed Stress Score: 32 Summed Rest Score: 32 Summed Difference Score: 2 PERFUSION FINDINGS Large sized perfusion abnormality of moderate to severe severity of basal to apical inferior, basal to mid inferoseptal, apical septal, basal to mid anterolateral, mid inferolateral and apical lateral and apical anterior oliveros on rest and stress images. FUNCTIONAL RESULTS (calculated via Gated SPECT) Stress Image LV EF (%): 13 Stress EDV (mL):268 TID: 1.04 Stress ESV (mL):232 FUNCTIONAL FINDINGS: The left ventricle is dilated. Transient Ischemia Dilatation of 1. The left ventricular ejection fraction is severely reduced with a value of 13%. There is severe global hypokinesis with abnormal septal motion. Markedly increased end-diastolic and end-systolic volumes. IMPRESSIONS 1. Large sized predominantly fixed perfusion abnormality of moderate to severe severity of basal to apical inferior, basal to mid inferoseptal, apical septal, basal to mid anterolateral, mid inferolateral and apical lateral and apical anterior oliveros. 2. 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 3. The left ventricular ejection fraction is severely reduced with a value of 13%. There is severe global hypokinesis with abnormal septal motion. 4. EKG portion of the study will be reported separately. 4. No coronary ischemia based on the study. Marie Davenport MD (Electronically Signed) Final Date: 01 March 2022 11:25 S
[2022-03-01] MEDS: cholecalciferol (vitamin D3) 1,000 unit Tablet 1000 UNIT PO (09:44)
--- NOTE | 2022-03-01 09:54 | PC.CHAP ---
Pastoral Care Encounter/Spiritual Assessment Type of Contact [] Declined cut press operator visit [] Patient/Family/Request visit [] Outpatient visit [] Follow-up visit [] Physician referral [] Code/Alert [x] Routine visit [] Staff referral [] Actively dying [] Patient sleeping [x] Family support [] [] Out of room [] Palliative care [] [x] Receiving care in room [] Pre-surgical visit [] Trauma [] Long length of stay [x] ICU visit [] Other: Relational/Emotional Strength [] Patient feels connected with others/family/visitors/staff [] Distress [] Loneliness/isolation [] Abandonment Spirituality of Patient [] Person of Joanne [] Attends Mandaen of their Joanne [] Believes in Prayer [] Reads Bible or Mormon materials [] There are Spiritual issues to be addressed Window Treatment Installer Interventions [x] Prayer [] Active listening [] Non-anxious presence [] Spiritual/emotional support [] Crisis/trauma care [] Spiritual counseling [] Bereavement support [] Provided bereavement packet [] Provided Bible/devotional materials [] Provided toy/stuffed animal, coloring book to patient or family member [] Provided Communion [] Anointing/[place] [] Salvation [x] Completed spiritual assessment [] Other: Impact on Illness or Injury [] Angry [] Fearful [] Anxious [] Often cries [] Exhaustion [] Unable to work [] Unable to attend religion [] Unable to walk/stand [] Unable to read [] Unable to drive [] Unable to eat/drink [] Unable to sleep [] Unable to be with family [] Patient intubated [] Other: Summary Time spent with patient
--- NOTE | 2022-03-01 13:08 | PM.PN ---
Subjective Subjective: No acute events overnight. 700 cc urine output. Creatinine is improved to 1.3. Vitals/I&O/Wt Last Vital Signs Temp 98 F 03/01/22 04:30 Pulse 86 03/01/22 12:00 Resp 16 03/01/22 12:00 BP 114/77 03/01/22 12:00 Pulse Ox 95 03/01/22 10:00 O2 Del Method 03/01/22 05:30 O2 Flow Rate 2 03/01/22 05:30 02/28/22 03/01/22 03/01/22 22:59 06:59 14:59 Intake Total 269.715 / 825.295 220 / 1045.295 360 / 360 Output Total 200 / 200 500 / 700 Balance 69.715 / 625.295 -280 / 345.295 360 / 360 Weight last 48 hrs Weight 72.303 kg Weight 72.575 kg Physical Exam Narrative: General: Alert oriented x3, patient seen laying in bed appearing comfortable on room air. No acute distress HEENT: Normocephalic, atraumatic, EOMI, breathing normally, on nasal cannula 2L Cardio: Regular rate rhythm, normal S1-S2, No JVD Respiratory: Clear to ausculation bilaterally, no wheezes, no ronchi, no crackles GI: Abdomen soft, slightly distended, bowel sounds +, no apparent fluid wave Behavior: Appropriate and cooperative Extremities: no lower extermity edema, warm extremities Urinary Catheter Management: Caraballo: Cath Placed During This Visit: yes Reason for Continuing Indwelling Catheter: Accurate Measurement of Urinary Output in Critically Ill Patients Urinary Catheter Date of Insertion: 02/27/22 Data : 02/28/22 04:10 03/01/22 02:57 A&P Assessment and plan (1) Ischemic cardiomyopathy: Status: Acute (2) CHF (congestive heart failure): Status: Acute Qualifiers: Heart failure type: systolic Heart failure chronicity: chronic Qualified Code(s): I50.22 - Chronic systolic (congestive) heart failure (3) HTN (hypertension): Status: Acute (4) Hyperlipidemia: Status: Acute Qualifiers: Hyperlipidemia type: pure hypercholesterolemia Qualified Code(s): E78.00 - Pure hypercholesterolemia, unspecified (5) Coronary artery disease: Status: Acute (6) S/P CABG (coronary artery bypass graft): Status: Acute (7) S/P cardiac pacemaker procedure: Status: Acute (8) Hyponatremia: Status: Acute (9) Acute kidney injury: Status: Acute (10) Hyponatremia: Status: Acute (11) Ascites: Status: Acute (12) Shortness of breath: Status: Acute (13) ICD (implantable cardioverter-defibrillator) in place: Status: Acute (14) History of penile cancer: Status: Acute (15) Chronic kidney disease (CKD): Status: Acute (16) Postprocedural urethral stricture: Status: Acute (17) Cardiorenal syndrome: Status: Acute Plan #Worsening chronic congestive heart failure, EF 10-15% #Hx of CABG x2 #Ischemic CAD s/p AICD #Hx of penile cancer s/p partial penectomy #Mild Ascites 2/2 to HF #ZOEY on CKD #Cardiorenal syndrome #Hx of HTN #Urinary outlet obstruction 2/2 to penectomy #Afib, stable, chronically on warfarin #Supratherapeutic INR -Patient does not have bilateral extremity edema, no crackles on exam JVD is 8 to 9 cm, does have abdominal distention, possible gut edema -No significant evidence of infectious etiology, no serum leukocytosis, Pro-Rickey within normal limits, chest x-ray no focal pneumonia -He did have COVID back in December, no calf pain, calf swelling, no hemoptysis, is on Coumadin -Last echocardiogram EF 25% he has been on diuretics, Bumex, difficulty with diuresis as outpatient given his fluctuation in his creatinine -However he is back here with shortness of breath with elevated JVD, get edema, hyponatremia, elevated creatinine -Potentially given above findings, patient's shortness of breath is related to systolic CHF exacerbation, with congestive hepatopathy, with cardiorenal syndrome, with hyponatremia -Currently he is hemodynamically stable, on room air, blood pressure soft 90/50, no chest pain, shortness of breath, alert oriented x3 - Dr. Gary placed 12 kyrgyz coudey cathether for accurate measure of UOP. She will need to keep Caraballo catheter in when he leaves the hospital. He is to follow-up with Dr. Gary within a week of discharge. - Hyponatremia most likely 2/2 to fluid overload and HF. Urine sodium 17 - Echo complete today. Global hypokinesia and EF 10-15%. - ELevated lactic acid 2/2 to HF -We will stop milrinone today. Restart Coreg 3.125 twice daily, Bumex 1 mg daily IV as per cardiology recommendations. ? Creatinine improving from 1.3 today. - Cardiology on board. Appreciate recommendations. -Patient had stress test today. Results are pending at this time. -Pharmacy to adjust warfarin dosing. -DNR/DNI. -Coumadin for DVT prophylaxis Prognosis is poor. This documentation was created by M[employer]bang[employer] educator senior clinical software. Every effort was made to ensure accuracy of educator senior clinical. Any obvious errors or omissions should be clarified with the author of the document. Attestations Medical Necessity Statement*: Will require ICU stay for management of worsening HF. Expect 48-72 hour stay. Critical Care Time: 30 Coding Level of Care Code Acute Parts Sales Associate for Chg Fwd Diagnoses Ischemic cardiomyopathy I25.5 CHF (congestive heart failure) I50.22 Heart failure type: systolic Heart failure chronicity: chronic HTN (hypertension) I10 Hyperlipidemia E78.00 Hyperlipidemia type: pure hypercholesterolemia Coronary artery disease I25.10 S/P CABG (coronary artery bypass graft) Z95.1 S/P cardiac pacemaker procedure Z95.0 Hyponatremia E87.1 Acute kidney injury N17.9 Hyponatremia E87.1 Ascites R18.8 Shortness of breath R06.02 ICD (implantable cardioverter-defibrillator) in place Z95.810 History of penile cancer Z85.49 Chronic kidney disease (CKD) N18.9 Postprocedural urethral stricture Cardiorenal syndrome I13.10
[2022-03-01] MEDS: bumetanide 0.25 mg/mL SDV 4 mL 1 MG IVP (13:48)
[2022-03-01] MEDS: warfarin 2.5 mg Tablet PO (13:52)
[2022-03-01] MEDS: cefTRIAXone 1,000 MG in sodium chloride 0.9% (plus) 50 ML 100 MG IV (16:59)
[2022-03-01] MEDS: carvedilol 3.125 mg Tablet PO (16:59)
[2022-03-01] MEDS: atorvastatin 40 mg Tablet 20 MG PO (16:59)
--- NOTE | 2022-03-01 18:22 | P.PN_ITS ---
Subjective Subjective: Patient is stable. Denies chest pain. Breathing is better. Vitals/I&O/Wt Last Vital Signs Temp 98 F 03/01/22 04:30 Pulse 104 H 03/01/22 17:00 Resp 18 03/01/22 17:00 BP 103/84 03/01/22 17:00 Pulse Ox 98 03/01/22 14:24 O2 Del Method 03/01/22 14:24 O2 Flow Rate 2 03/01/22 05:30 03/01/22 03/01/22 03/01/22 06:59 14:59 22:59 Intake Total 220 / 1045.295 840 / 840 Output Total 500 / 700 1000 / 1000 Balance -280 / 345.295 840 / 840 -1000 / -160 Weight last 48 hrs Weight 159 lb 6.4 oz Weight 160 lb Physical Exam Narrative: GENERAL: Alert and oriented x 3 HEENT: Exam within normal limits. NECK: Supple without jugular vein distention. The carotid upstroke is normal without bruits. BACK: Exam normal. LUNGS: Clear. HEART: Regular rate and rhythm. EXTREMITIES: No edema. NEUROLOGIC: Exam normal. SKIN: Unremarkable. Urinary Catheter Management: Caraballo: Cath Placed During This Visit: yes Reason for Continuing Indwelling Catheter: Accurate Measurement of Urinary Output in Critically Ill Patients Urinary Catheter Date of Insertion: 02/27/22 Data : 02/28/22 04:10 03/01/22 02:57 A&P Assessment and plan (1) Ischemic cardiomyopathy: Status: Acute (2) Cardiorenal syndrome: Status: Acute (3) CHF (congestive heart failure): Status: Acute Qualifiers: Heart failure type: systolic Heart failure chronicity: chronic Qualified Code(s): I50.22 - Chronic systolic (congestive) heart failure (4) HTN (hypertension): Status: Acute (5) Hyperlipidemia: Status: Acute Qualifiers: Hyperlipidemia type: pure hypercholesterolemia Qualified Code(s): E78.00 - Pure hypercholesterolemia, unspecified (6) S/P CABG (coronary artery bypass graft): Status: Acute (7) S/P cardiac pacemaker procedure: Status: Acute (8) ICD (implantable cardioverter-defibrillator) in place: Status: Acute (9) Shortness of breath: Status: Acute (10) Ascites: Status: Acute (11) Hyponatremia: Status: Acute (12) Chronic kidney disease (CKD): Status: Acute Plan Patient is stable. On milrinone. Can wean off. Blood pressure and renal function have improved. Will restart coreg 3.125mg BID. We will start entresto tomorrow, if blood pressure allows. Bumex 1mg daily IV and uptitrate as BP allows Stress test done, result pending Thank you for involving us with care of this patient. Please call with questions Attestations Medical Necessity Statement*: Care expected to cross 2 midnight. Coding Level of Care Code Acute Sleeping Bag Filler for Chg Fwd Diagnoses Ischemic cardiomyopathy I25.5 Cardiorenal syndrome I13.10 CHF (congestive heart failure) I50.22 Heart failure type: systolic Heart failure chronicity: chronic HTN (hypertension) I10 Hyperlipidemia E78.00 Hyperlipidemia type: pure hypercholesterolemia S/P CABG (coronary artery bypass graft) Z95.1 S/P cardiac pacemaker procedure Z95.0 ICD (implantable cardioverter-defibrillator) in place Z95.810 Shortness of breath R06.02 Ascites R18.8 Hyponatremia E87.1 Chronic kidney disease (CKD) N18.9
[2022-03-01] MEDS: ondansetron 2 mg/ML SDV 2 mL 4 MG IVP (20:18)
[2022-03-02] VITALS (37 sets, daily range): BP systolic 68–113; BP diastolic 45–83; PULSE 80–115; RESP 3–26; TEMP 36.8; O2SAT 80–97
[2022-03-02 04:21] LABS: Basophils % 0.6 %; Eosinophils # 0.2 10^3/uL (0.0-0.8); Eosinophils % 3.5 %; Hematocrit 40.3 % (42.0-52.0); Hemoglobin 13.5 g/dL (11.7-16.6); Lymphocytes # 1.3 10^3/uL (0.8-4.8); Mean Corpuscular HGB Conc 33.5 g/dL (30.0-36.0); Mean Corpuscular Hemoglobin 33.1 pg (28.0-34.0); Mean Corpuscular Volume 98.8 fl (80-94); Mean Platelet Volume 9.6 fL (7.4-10.4); Monocytes % 14.9 %; Neutrophils # 3.95 10^3/uL (1.8-7.7); Neutrophils % 60.7 %; Nucleated Red Blood Cells % 0 %; Platelet Count 128 10^3/cmm (130-400); Red Blood Count 4.08 10^6/uL (4.1-5.3); White Blood Count 6.5 10^3/uL (4.0-10.0)
[2022-03-02 04:35] LABS: INR 2.49 (0.8-1.2)
[2022-03-02 04:40] LABS: Blood Urea Nitrogen 29 mg/dL (8-23); Calcium 8.9 mg/dL (8.5-10.5); Carbon Dioxide 21 mmol/L (22-29); Chloride 88 mmol/L (98-107); Glucose 102 mg/dL (65-115); Magnesium 2.1 mg/dL (1.7-2.3); Osmolality Calculated 258 mOsm/kg (285-295); Sodium 121 mmol/L (136-145)
[2022-03-02 04:43] LABS: Anion Gap 16.4 (5-19); Potassium 4.4 mmol/L (3.5-5.1)
--- NOTE | 2022-03-02 06:17 | PC.NURSE ---
Shift Note Frequent safety and comfort rounds continue. Orders and/or nursing care completed as indicated. Patient monitored for response to intervention and treatment(s). Education provided includes urine output and chisholm management. Patient verbalized understanding of teaching. Patient had an uneventful shift, remains on alert/oriented x4 on room air. No wounds or skin issues noted at this time. Chisholm catheter drained 650 mls of urine overnight. Will continue to monitor.
--- NOTE | 2022-03-02 08:39 | PM.PN ---
Subjective Subjective: Seen this morning. Borderline low blood pressures overnight. Patient reportedly feeling better clinically. He says his shortness of breath is improved and his abdomen feels less distended today. However he states he has not had much urine output compared to yesterday. Urine output overnight 650. Vitals/I&O/Wt Last Vital Signs Temp 97.2 F L 03/01/22 20:00 Pulse 86 03/02/22 08:00 Resp 16 03/02/22 08:00 BP 74/63 03/02/22 06:00 Pulse Ox 95 03/02/22 08:00 O2 Del Method 03/02/22 08:00 O2 Flow Rate 2 03/01/22 05:30 03/01/22 03/02/22 03/02/22 22:59 06:59 14:59 Intake Total 150 / 990 250 / 1240 Output Total 1000 / 1000 650 / 1650 Balance -850 / -10 -400 / -410 Weight last 48 hrs Weight 72.303 kg Physical Exam Narrative: General: Alert oriented x3, patient seen laying in bed appearing comfortable on room air. No acute distress HEENT: Normocephalic, atraumatic, EOMI, breathing normally, on room air today. Cardio: Regular rate rhythm, normal S1-S2, No JVD Respiratory: Clear to ausculation bilaterally, no wheezes, no ronchi, no crackles GI: Abdomen soft, slightly distended, bowel sounds +, no apparent fluid wave Behavior: Appropriate and cooperative Extremities: no lower extermity edema, warm extremities Urinary Catheter Management: Caraballo: Cath Placed During This Visit: yes Reason for Continuing Indwelling Catheter: Accurate Measurement of Urinary Output in Critically Ill Patients Urinary Catheter Date of Insertion: 02/27/22 Data : 03/02/22 04:12 03/02/22 04:12 A&P Assessment and plan (1) Ischemic cardiomyopathy: Status: Acute (2) CHF (congestive heart failure): Status: Acute Qualifiers: Heart failure type: systolic Heart failure chronicity: chronic Qualified Code(s): I50.22 - Chronic systolic (congestive) heart failure (3) HTN (hypertension): Status: Acute (4) Hyperlipidemia: Status: Acute Qualifiers: Hyperlipidemia type: pure hypercholesterolemia Qualified Code(s): E78.00 - Pure hypercholesterolemia, unspecified (5) Coronary artery disease: Status: Acute (6) S/P CABG (coronary artery bypass graft): Status: Acute (7) S/P cardiac pacemaker procedure: Status: Acute (8) Hyponatremia: Status: Acute (9) Acute kidney injury: Status: Acute (10) Hyponatremia: Status: Acute (11) Ascites: Status: Acute (12) Shortness of breath: Status: Acute (13) ICD (implantable cardioverter-defibrillator) in place: Status: Acute (14) History of penile cancer: Status: Acute (15) Chronic kidney disease (CKD): Status: Acute (16) Postprocedural urethral stricture: Status: Acute (17) Cardiorenal syndrome: Status: Acute Plan #Worsening chronic congestive heart failure, EF 10-15% #Hx of CABG x2 #Ischemic CAD s/p AICD #Hx of penile cancer s/p partial penectomy #Mild Ascites 2/2 to HF #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 #Cardiorenal syndrome #Hx of HTN #Urinary outlet obstruction 2/2 to penectomy #Afib, stable, chronically on warfarin #Supratherapeutic INR -Patient does not have bilateral extremity edema, no crackles on exam JVD is 8 to 9 cm, does have abdominal distention, possible gut edema -No significant evidence of infectious etiology, no serum leukocytosis, Pro-Rickey within normal limits, chest x-ray no focal pneumonia -He did have COVID back in December, no calf pain, calf swelling, no hemoptysis, is on Coumadin -Last echocardiogram EF 25% he has been on diuretics, Bumex, difficulty with diuresis as outpatient given his fluctuation in his creatinine -However he is back here with shortness of breath with elevated JVD, get edema, hyponatremia, elevated creatinine -Potentially given above findings, patient's shortness of breath is related to systolic CHF exacerbation, with congestive hepatopathy, with cardiorenal syndrome, with hyponatremia -Currently he is hemodynamically stable, on room air, blood pressure soft 90/50, no chest pain, shortness of breath, alert oriented x3 - Dr. Gary placed 12 cypriot coudey cathether for accurate measure of UOP. She will need to keep Caraballo catheter in when he leaves the hospital. He is to follow-up with Dr. Gary within a week of discharge. - Hyponatremia most likely 2/2 to fluid overload and HF. Urine sodium 17 - Echo complete today. Global hypokinesia and EF 10-15%. - ELevated lactic acid 2/2 to HF -Status post 48 hours of milrinone. Increase Coreg 6.25 twice daily, Bumex 1 mg daily IV as per cardiology recommendations. ? Creatinine improving from admission. 1.5 today - Cardiology on board. Appreciate recommendations. -Patient had stress test today. No acute evidence of ischemia. Angiogram not recommended at this time. Discussed this with cardiology -Pharmacy to adjust warfarin dosing. -DNR/DNI. -Coumadin for DVT prophylaxis Prognosis is poor. This documentation was created by [employer] plant floor automation manager software. Every effort was made to ensure accuracy of plant floor automation manager. Any obvious errors or omissions should be clarified with the author of the document. Attestations Medical Necessity Statement*: Continue to monitor in ICU today. Medication adjustments made. Potential discharge in next 24 to 48 hours. 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 [employer] Diagnoses Ischemic cardiomyopathy I25.5 CHF (congestive heart failure) I50.22 Heart failure type: systolic Heart failure chronicity: chronic HTN (hypertension) I10 Hyperlipidemia E78.00 Hyperlipidemia type: pure hypercholesterolemia Coronary artery disease I25.10 S/P CABG (coronary artery bypass graft) Z95.1 S/P cardiac pacemaker procedure Z95.0 Hyponatremia E87.1 Acute kidney injury N17.9 Hyponatremia E87.1 Ascites R18.8 Shortness of breath R06.02 ICD (implantable cardioverter-defibrillator) in place Z95.810 History of penile cancer Z85.49 Chronic kidney disease (CKD) N18.9 Postprocedural urethral stricture Cardiorenal syndrome I13.10
[2022-03-02] MEDS: carvedilol 3.125 mg Tablet PO (08:50)
[2022-03-02] MEDS: cholecalciferol (vitamin D3) 1,000 unit Tablet 1000 UNIT PO (08:50)
[2022-03-02] MEDS: polyethylene glycol 3350 Pkt 17 gm PO (08:51)
--- NOTE | 2022-03-02 09:01 | PM.PN ---
Subjective Subjective: Patient is stable. No complaints of chest pain. Stress test did not show significant ischemia, showed large sized prior infarct. Creatinine went up today Vitals/I&O/Wt Last Vital Signs Temp 97.2 F L 03/01/22 20:00 Pulse 86 03/02/22 08:00 Resp 16 03/02/22 08:00 BP 74/63 03/02/22 06:00 Pulse Ox 95 03/02/22 08:00 O2 Del Method 03/02/22 08:00 O2 Flow Rate 2 03/01/22 05:30 03/01/22 03/02/22 03/02/22 22:59 06:59 14:59 Intake Total 150 / 990 250 / 1240 Output Total 1000 / 1000 650 / 1650 Balance -850 / -10 -400 / -410 Weight last 48 hrs Weight 159 lb 6.4 oz Physical Exam Narrative: GENERAL: Alert and oriented x 3 HEENT: Exam within normal limits. NECK: Supple without jugular vein distention. The carotid upstroke is normal without bruits. BACK: Exam normal. LUNGS: Clear. HEART: Regular rate and rhythm. EXTREMITIES: No edema. NEUROLOGIC: Exam normal. SKIN: Unremarkable. Urinary Catheter Management: Caraballo: Cath Placed During This Visit: yes Reason for Continuing Indwelling Catheter: Accurate Measurement of Urinary Output in Critically Ill Patients Urinary Catheter Date of Insertion: 02/27/22 Data : 03/02/22 04:12 03/03/22 02:59 A&P Assessment and plan (1) Ischemic cardiomyopathy: Status: Acute (2) Cardiorenal syndrome: Status: Acute (3) CHF (congestive heart failure): Status: Acute Qualifiers: Heart failure type: systolic Heart failure chronicity: chronic Qualified Code(s): I50.22 - Chronic systolic (congestive) heart failure (4) HTN (hypertension): Status: Acute (5) Hyperlipidemia: Status: Acute Qualifiers: Hyperlipidemia type: pure hypercholesterolemia Qualified Code(s): E78.00 - Pure hypercholesterolemia, unspecified (6) S/P CABG (coronary artery bypass graft): Status: Acute (7) S/P cardiac pacemaker procedure: Status: Acute (8) ICD (implantable cardioverter-defibrillator) in place: Status: Acute (9) Shortness of breath: Status: Acute (10) Ascites: Status: Acute (11) Hyponatremia: Status: Acute (12) Chronic kidney disease (CKD): Status: Acute Plan Patient is overall doing well. His stress test did not show significant area of ischemia. We will medically treated. Continue Bumex at current dose Strict I and Os. Monitor renal function. Thank you for involving us with care of this patient. Please call with questions Attestations Medical Necessity Statement*: Care expected to cross 2 midnights. 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
[2022-03-02 09:48] LABS: Urine Random Sodium 16 mmol/L
[2022-03-02] MEDS: warfarin 2.5 mg Tablet PO (13:39)
[2022-03-02] MEDS: bumetanide 0.25 mg/mL SDV 4 mL 1 MG IVP (13:39)
[2022-03-02] MEDS: cefTRIAXone 1,000 MG in sodium chloride 0.9% (plus) 50 ML 100 MG IV (17:38)
[2022-03-02] MEDS: carvedilol 6.25 mg Tablet PO (17:39)
[2022-03-03] VITALS (22 sets, daily range): BP systolic 62–112; BP diastolic 45–94; PULSE 75–103; RESP 5–22; TEMP 36.7; O2SAT 91–98
[2022-03-03] MEDS: ondansetron 2 mg/ML SDV 2 mL 4 MG IVP (00:32)
[2022-03-03 04:20] LABS: Blood Urea Nitrogen 39 mg/dL (8-23); Calcium 9.3 mg/dL (8.5-10.5); Carbon Dioxide 22 mmol/L (22-29); Chloride 90 mmol/L (98-107); Glucose 110 mg/dL (65-115); Osmolality Calculated 270 mOsm/kg (285-295); Sodium 125 mmol/L (136-145)
[2022-03-03 04:39] LABS: INR 2.45 (0.8-1.2)
--- NOTE | 2022-03-03 09:36 | P.DS_ITS ---
Discharge Providers Date of Admission: 02/26/22 13:27 Date of Discharge: March 03, 2022 Attending Provider at Admission: Christa Rojas MD Attending Provider at Discharge: Leo Peña MD Consults: Cardiology: Dr. Tucker/Dr. Palacio Urology: Dr. Gary Primary Care Provider: Echo Garay MD Diagnoses at Discharge Discharge Diagnosis (1) Ischemic cardiomyopathy: Status: Acute (2) CHF (congestive heart failure): Status: Acute Qualifiers: Heart failure chronicity: chronic Heart failure type: systolic Qualified Code(s): I50.22 - Chronic systolic (congestive) heart failure (3) HTN (hypertension): Status: Acute (4) Hyperlipidemia: Status: Acute Qualifiers: Hyperlipidemia type: pure hypercholesterolemia Qualified Code(s): E78.00 - Pure hypercholesterolemia, unspecified (5) Coronary artery disease: Status: Acute Permanent problem details: Stable doing fine from a coronary disease perspective continue meds (6) S/P CABG (coronary artery bypass graft): Status: Acute (7) S/P cardiac pacemaker procedure: Status: Acute (8) Hyponatremia: Status: Acute (9) Acute kidney injury: Status: Acute (10) Hyponatremia: Status: Acute (11) Ascites: Status: Acute (12) Shortness of breath: Status: Acute (13) ICD (implantable cardioverter-defibrillator) in place: Status: Acute (14) History of penile cancer: Status: Acute (15) Chronic kidney disease (CKD): Status: Acute (16) Postprocedural urethral stricture: Status: Acute (17) Cardiorenal syndrome: Status: Acute Reason for Visit Reason for Visit: Dehydrated/SOB Hospital Course Hospital Course Al Yin is a 81 year old male who has a long history of complicated cardiac disease.? This involves coronary disease early in his life.? He has undergone bypass surgery twice in the past.? He has an ischemic cardiomyopathy and has a FILTRATION OPERATOR device in place.? He also has chronic atrial fibrillation on warfarin, stage III chronic kidney disease, an ejection fraction of 25%, chronic systolic heart failure, hypertension, dyslipidemia, history of a stroke and intolerance to statins.? He was in the hospital in November with syncope and has dehydration.? He has also had penile cancer and has difficulty urinating. Over the last week or 2 he has noticed shortness of breath with minimal exertion and some abdominal fullness.? He does not have true distention or pain in the abdomen just feels like its full.? He lives alone.? At home he takes Bumex twice a day, Coreg, lisinopril, potassium and warfarin. He came into the emergency room last night and has been admitted.? He has had a large number of radiologic studies since his arrival to include CT of the abdomen and pelvis which shows a small amount of ascitic fluid and small right pleural effusion but no other abnormalities.? Chest x-ray does not reveal any congestive heart failure and is otherwise normal aside from noting the devices and cardiomegaly.? Ultrasound of the abdomen shows ascites with abnormal portal venous flow.? Chest CT shows moderate bilateral pleural effusions.? Venous duplex shows no DVT.? His INR is 2.4.? CBC is normal.? Sodium slightly low 124 and creatinine 2.1 which is about normal for him. Patient was admitted to the ICU for further evaluation and management for cardiogenic shock along with heart failure. He was started on milrinone drip which was eventually weaned off. He was treated with IV diuretics. Patient did have episodes of urinary obstruction during hospitalization for which urology was consulted and he underwent urethral dilatation with Caraballo catheter placement. Repeat echocardiogram was done which showed new EF of 10 to 15%. His previous echocardiogram was 25%. To rule out further ischemia leading to lower EF patient underwent cardiac stress test on 03/01 which was negative for acute ischemia. Patient responded well to the treatment and has been tolerating medication changes well. His oral antihypertensives were restarted at lower dose to which he tolerated well. Has been discharged home with home health with hemodynamically stable condition. He is to continue taking Bumex 1 mg daily at home. Antihypertensives including Coreg and lisinopril have been withheld for now. He does check his blood pressure daily at home and follow-up with his primary care provider and with heart services within next 1 week for reinitiation of antihypertensives as needed. Going forward he is to take warfarin at a dose of 2.5 mg for 6/7 days a week and 5 mg on Tuesday. Physical Exam Narrative: General: Alert oriented x3, patient seen laying in bed appearing comfortable on room air. No acute distress HEENT: Normocephalic, atraumatic, EOMI, breathing normally, on room air today. Cardio: Regular rate rhythm, normal S1-S2, No JVD Respiratory: Clear to ausculation bilaterally, no wheezes, no ronchi, no crackles GI: Abdomen soft, slightly distended, bowel sounds +, no apparent fluid wave Behavior: Appropriate and cooperative Extremities: no lower extermity edema, warm extremities Urinary Catheter Management: Caraballo: Cath Placed During This Visit: yes Reason for Continuing Indwelling Catheter: Accurate Measurement of Urinary Output in Critically Ill Patients Urinary Catheter Date of Insertion: 02/27/22 Discharge Data Studies Completed and Pending Completed Studies During Hospitalization Category Date Time Status CT abdomen pelvis wo con [id number] Stat Cat Scan 02/26/22 10:[address] chest wo con [id number] Stat Cat Scan 02/26/22 20:07 Completed CXRP [XR chest 1V portable [id number]] Stat Exams 02/26/22 10:31 Completed Cardiac Stress Test MIBI [Sestamibi Stress Test Request Exams 03/01/22 07:16 Completed ] Routine NM daniele perf SPECT r/s* [id number] Routine Nuc Med 03/01/22 07:58 Completed CV. echo complete* [id number] Routine Ultrasound 02/26/22 20:56 Completed US abdomen limited [id number] Stat Ultrasound 02/26/22 12:02 Completed US bladder [id number] Routine Ultrasound 02/27/22 08:22 Completed US venous duplex lower extremity bilat [CV venous Ultrasound 02/26/22 20:56 [place] [id number]] Routine Pending at discharge Category Date Time Status Prothrombin Time INR AM LABS Lab 03/04/22 04:00 Ordered Prothrombin Time INR AM LABS Lab 03/05/22 04:00 Ordered Radiology Impressions Abdomen/Pelvis CT 02/26/22 10:31 IMPRESSION: Interval development of very small amount of ascitic fluid adjacent to the right lobe of liver and small right pleural effusion. No other significant interval change or acute abnormality. Chest X-Ray 02/26/22 10:31 IMPRESSION: Cardiomegaly. No acute chest finding identified. Abdomen Ultrasound 02/26/22 12:02 Impression: 1. Absent gallbladder. 2. Minimal perihepatic ascites. 3. Coarse liver echotexture with abnormal portal venous flow. Chest CT 02/26/22 20:07 IMPRESSION: 1. Cardiomegaly. 2. Sternotomy wires. 3. Coronary artery atherosclerotic calcifications. 4. Moderate right and small left pleural effusions. 5. Cholecystectomy. 6. Emphysematous changes. 7. Bibasilar atelectasis versus infiltrate. 8. Pacemaker. 9. Perihepatic fluid. 10. Several calcifications in the gallbladder fossa measuring up to 16 mm suggestive of dropped gallstones. Venous Duplex 02/26/22 20:56 IMPRESSION: No evidence of deep vein thrombosis. Bladder Ultrasound 02/27/22 08:22 IMPRESSION: Bladder volume is 44.3 cc. No abnormal mass or debris is seen in the bladder. Echocardiogram: CONCLUSIONS ?Severely increased left ventricular cavity size. Decreased left?ventricular wall thickness. Severely decreased left ventricular ?systolic function. Left ventricular ejection fraction is?estimated at 10-15 %. Rhythm precludes evaluation of diastolic?function. Global left ventricular hypokinesis. ?Mildly increased right atrial size. ?Moderately increased left atrial size. ?Structurally normal mitral valve. Moderate-severe mitral valve?regurgitation. ?From the previous echo dated 11/15/2021, the left ventricular ?function has decreased.? Previous ejection fraction was 25%.??Also the ventricular wall thickness is less. ?Dr. Lorenzo Palacio MD ?(Electronically Signed) ?Final Date:? ? ? 27 February 2022 ? 08:49 Lexiscan stress test: PERFUSION FINDINGS ?Large sized perfusion abnormality of moderate to severe severity of basal to?apical inferior, basal to mid inferoseptal, apical septal, basal to mid ?anterolateral, mid inferolateral and apical lateral and apical anterior olivreos?on rest and stress images. ?FUNCTIONAL RESULTS ? ? (calculated via Gated SPECT) ? Stress Image LV EF (%):? ? 13 ? Stress EDV (mL):268? TID:? 1.04 ? Stress ESV (mL):232 ?FUNCTIONAL FINDINGS: ?The left ventricle is dilated. Transient Ischemia Dilatation of 1. ?The left ventricular ejection fraction is severely reduced with a value of 13%. ?There is severe global hypokinesis with abnormal septal motion. ?Markedly increased end-diastolic and end-systolic volumes. ?IMPRESSIONS ?1. Large sized predominantly fixed perfusion abnormality of moderate to severe?severity of basal to apical inferior, basal to mid inferoseptal, apical septal, ?basal to mid anterolateral, mid inferolateral and apical lateral and apical?anterior oliveros. ?2. This is suggestive of old myocardial infarction/scarring in all three?coronary artery territories. ?3. The left ventricular ejection fraction is severely reduced with a value of?13%. There is severe global hypokinesis with abnormal septal motion. ?4. EKG portion of the study will be reported separately. ?4. No coronary ischemia based on the study. ?Marie Davenport MD ?(Electronically Signed) ?Final Date:? ? ? 01 March 2022 ? 11:25 S Laboratory Results WBC 6.5 10^3/uL (4.0-10.0) 03/02/22 04:12 RBC 4.08 10^6/uL (4.1-5.3) L 03/02/22 04:12 Hgb 13.5 g/dL (11.7-16.6) 03/02/22 04:12 Hct 40.3 % (42.0-52.0) L 03/02/22 04:12 MCV 98.8 fl (80-94) H 03/02/22 04:12 MCH 33.1 pg (28.0-34.0) 03/02/22 04:12 MCHC 33.5 g/dL (30.0-36.0) 03/02/22 04:12 RDW 14.0 % (12.1-15.1) 03/02/22 04:12 Plt Count 128 10^3/cmm (130-400) L 03/02/22 04:12 MPV 9.6 fL (7.4-10.4) 03/02/22 04:12 Neut % (Auto) 60.7 % 03/02/22 04:12 Lymph % (Auto) 20.0 % 03/02/22 04:12 [place] % (Auto) 14.9 % 03/02/22 04:12 Eos % (Auto) 3.5 % 03/02/22 04:12 Baso % (Auto) 0.6 % 03/02/22 04:12 Neut # (Auto) 3.95 10^3/uL (1.8-7.7) 03/02/22 04:12 Lymph # (Auto) 1.3 10^3/uL (0.8-4.8) 03/02/22 04:12 [place] # (Auto) 1.0 10^3/uL (0.2-0.9) H 03/02/22 04:12 Eos # (Auto) 0.2 10^3/uL (0.0-0.8) 03/02/22 04:12 Baso # (Auto) 0.0 10^3/uL (0.0-0.1) 03/02/22 04:12 Nucleated RBC % (auto) 0 % 03/02/22 04:12 Nucleated RBCs # 0.0 /100WBC 03/02/22 04:12 PT 26.90 SECONDS (12.1-14.9) H 03/03/22 02:59 INR 2.45 (0.8-1.2) H 03/03/22 02:59 D-Dimer 1.23 ug/mIFEU (0-0.59) H 02/26/22 21:10 Sodium 125 mmol/L (136-145) L 03/03/22 02:59 Potassium 5.0 mmol/L (3.5-5.1) 03/03/22 02:59 Chloride 90 mmol/L (98-107) L 03/03/22 02:59 Carbon Dioxide 22 mmol/L (22-29) 03/03/22 02:59 Anion Gap 18.0 (5-19) 03/03/22 02:59 BUN 39 mg/dL (8-23) H 03/03/22 02:59 Creatinine 1.8 mg/dL (0.7-1.2) H 03/03/22 02:59 GFR Calculation Not Reportable 03/03/22 02:59 Glucose 110 mg/dL (65-115) 03/03/22 02:59 Calculated Osmolality 270 mOsm/kg (285-295) L 03/03/22 02:59 Lactic Acid 2.6 mmol/L (0.5-2.2) H 02/26/22 10:30 Lactic Acid (Sepsis) 2.0 mmol/L (0.5-2.2) 02/26/22 16:54 Calcium 9.3 mg/dL (8.5-10.5) 03/03/22 02:59 Magnesium 2.1 mg/dL (1.7-2.3) 03/02/22 04:12 Total Bilirubin 1.5 mg/dL (0.15-1.2) H 02/27/22 03:37 AST 27 U/L (0-40) 02/27/22 03:37 ALT 21 U/L (0-41) 02/27/22 03:37 Alkaline Phosphatase 95 U/L (40-130) 02/27/22 03:37 Troponin T Gen 5 ng/L 47 ng/L (0-15) H 02/28/22 17:04 Troponin T Baseline 56 ng/L (0-15) H 02/26/22 10:30 Troponin T 120 Minute 50.75 ng/L (0-15) H 02/26/22 12:29 Delta Troponin T -5.25 ABS# (0-10) L 02/26/22 12:29 Troponin T Hi Sens 6Hr 51.95 ng/L (0-15) H 02/26/22 16:54 Troponin T Hi Sens 6Hr Delta -4.05 ng/L (0-12) L 02/26/22 16:54 NT-Pro-B Natriuret Pep 5777 pg/mL (0-450) H 02/26/22 10:30 Total Protein 6.5 g/dL (6.6-8.7) L 02/27/22 03:37 Albumin 3.6 g/dL (3.5-5.2) 02/27/22 03:37 Globulin 2.9 g/dL (1.3-4.6) 02/27/22 03:37 Procalcitonin 0.09 ng/mL (0-0.5) 02/26/22 10:30 TSH 8.17 uIU/mL (0.27-4.20) H 02/26/22 10:30 Urine Color Yellow (Yellow) 02/28/22 14:23 Urine Appearance Clear (CLEAR) 02/28/22 14:23 Urine pH 6 (5-7) 02/28/22 14:23 Ur Specific [place] 1.010 (1.005-1.030) 02/28/22 14:23 Urine Protein Neg (Negative) 02/28/22 14:23 Urine Glucose (UA) Norm (Normal) 02/28/22 14:23 Urine Ketones Negative (Negative) 02/28/22 14:23 Urine Blood 3+ (Negative) H 02/28/22 14:23 Urine Nitrate Negative (Negative) 02/28/22 14:23 Urine Bilirubin Neg (Negative) 02/28/22 14:23 Urine Urobilinogen Norm mg/dL (Negative) 02/28/22 14:23 Ur Leukocyte Esterase 2+ (Negative) H 02/28/22 14:23 Urine RBC 25-40 /hpf (0-2) H 02/28/22 14:23 Urine WBC 10-15 /hpf (0-5) H 02/28/22 14:23 Ur Squamous Epith Cells None /hpf (0-5) 02/28/22 14:23 Amorphous Sediment Not Reportable 02/28/22 14:23 Urine Bacteria Trace /hpf (NONE) 02/28/22 14:23 Ur Random Sodium 16 mmol/L 03/02/22 08:45 Vitals Last Vital Signs Temp 98.0 F 03/03/22 03:30 Pulse 93 03/03/22 08:00 Resp 16 03/03/22 08:00 BP 109/73 03/03/22 06:30 Pulse Ox 95 03/03/22 08:00 O2 Del Method 03/03/22 08:00 O2 Flow Rate 2 03/01/22 05:30 Discharge Plan Discharge Patient Disposition: Home Health Service Condition: Stable Prescriptions: New polyethylene glycol 3350 17 gram Powder In Packet 17 g PO DAILY PRN (Reason: constipation) Qty: 30 0RF warfarin 2.5 mg Tablet 2.5 mg PO SuMoTuWeThFr@1400 Qty: 30 0RF warfarin 5 mg Tablet 5 mg PO Sa@1400 Qty: 10 0RF Continued pravastatin 40 mg tablet 40 mg PO QPM Repatha SureClick 140 mg/mL pen injector 140 mg SUBCUT Q14D coenzyme Q10 [Co Q-10] 100 mg capsule 100 mg PO DAILY potassium chloride 10 mEq tablet extended release 10 meq PO DAILY Qty: 90 3RF magnesium 250 mg tablet 500 mg PO DAILY Qty: 30 2RF cholecalciferol (vitamin D3) [Vitamin D3] 25 mcg (1,000 unit) Tablet 25 mcg PO DAILY omega-3 fatty acids-fish oil 684-1,200 mg Capsule,Delayed Release(Dr/Ec) 1 cap PO DAILY Changed bumetanide 2 mg tablet 1 mg PO DAILY Qty: 180 3RF Held carvedilol 6.25 mg tablet 9.375 mg PO BID Qty: 408 3RF Hold Instructions: Resume on 03/17/22. lisinopril 5 mg Tablet 2.5 mg PO DAILY Hold Instructions: Resume on 03/17/22. Discontinued warfarin 5 mg tablet 5 mg PO DIRECTED Qty: 90 3RF Protocol: Dose Management Condition: Tuesday Dose/Route: 2.5 mg Instruction: 0.5 x 5 mg tablets Condition: Tuesday Dose/Route: 5 mg Instruction: 1 x 5 mg tablet Condition: Tuesday Dose/Route: 2.5 mg Instruction: 0.5 x 5 mg tablets Condition: Tuesday Dose/Route: 5 mg Instruction: 1 x 5 mg tablet Condition: Dose/Route: 2.5 mg Instruction: 0.5 x 5 mg tablets Condition: Tuesday Dose/Route: 5 mg Instruction: 1 x 5 mg tablet Condition: Tuesday Dose/Route: 2.5 mg Instruction: 0.5 x 5 mg tablets Protocol Text: Adjustment Start Date: 02/04/22 INR Value: 29.3 Seconds INR Date: 02/04/22 Recheck Date: 03/04/22 Discharge Orders: Discharge Order (Routine); Ordered 03/03/22 Ordered By: Leo Peña Other Ambulatory Orders: Home Sleep Test Type III Globa (Routine) Timeframe: 1 Week Facility: [facility] - Location: [facility] Ordered By: Leo Peña Referrals: Genaro Gary MD [Physician] - 7-10 days (This call to for appointment, office to call with a follow up appointment within 24 hours of discharge ) Matt Tucker M.D [Physician] - 1 month (appointment to be scheduled after ,seen by NUCLEAR POWERPLANT MECHANIC Nurse Dilma Cherry) Echo Garay MD [Primary Care Provider] - 1 week (This appointment has been scheduled : [facility] of Tuesday at time of 1:30 pm ) Dilma Cherry FNP [Nurse Practitioner] - 4-7 days (Dilam Cherry NUCLE[employer] POWERPLANT MECHANIC Nurse for 1 week follow up after in hospital care: this appointment has been scheduled : Tuesday ,time of 1:45 pm ) Discharge Diet: Usual diet and Cardiac Discharge Activity: Resume usual activity and Increase activity as tolerated Patient Instructions: Warfarin (By mouth), Polyethylene Glycol 3350 (By mouth) (Miralax, Healthylax..., Restrictive Cardiomyopathy (DC), Hypertension (DC), Fluid Restriction (DC), CHF Stoplight, Opioid Safety Activity Restrictions/Additional Instructions: Fluid restriction up to 1500 cc. Restrict salt intake to less than 2 g. Take Bumex 1 mg daily. Hold off on taking Coreg, Lisinopril for now. Check blood pressures daily at h ome and maintain a blood pressure diary and follow-up with a primary care provider and with cardiology services within next 1 week for initiation of antihypertensives as needed. Please follow-up with Dilma Cherry from cardiology nurse practitioner within 1 week, Dr. Tucker from cardiology within next [address] Gary from urology for Caraballo catheter within next 1 week. Please do not remove Caraballo before you see Dr. Gary. A Caraballo catheter remains in for more than 1 month it should be replaced. Discharge Attestations Time Spent in Discharge Care*: greater than 30 min Specific Discharge Activities: educating patient, discussing with pcp/other providers, discussing with rn case management/social workers/dc planners, documenting/other paperwork and evaluating patient/reviewing data Status at Discharge: Cognitive status at discharge: cognitively intact , Behavioral status at discharge: cooperative , Functional status at discharge: independent ambulation , Overall status at discharge: patient is progressing back to baseline Quality Metrics Clinical Quality Measures [ No reported AMI, CVA or VTE this stay] Coding Level of Care Code Acute Chg FW DC note Diagnoses Ischemic cardiomyopathy I25.5 CHF (congestive heart failure) I50.22 Heart failure chronicity: chronic Heart failure type: systolic HTN (hypertension) I10 Hyperlipidemia E78.00 Hyperlipidemia type: pure hypercholesterolemia Coronary artery disease I25.10 S/P CABG (coronary artery bypass graft) Z95.1 S/P cardiac pacemaker procedure Z95.0 Hyponatremia E87.1 Acute kidney injury N17.9 Hyponatremia E87.1 Ascites R18.8 Shortness of breath R06.02 ICD (implantable cardioverter-defibrillator) in place Z95.810 History of penile cancer Z85.49 Chronic kidney disease (CKD) N18.9 Postprocedural urethral stricture Cardiorenal syndrome I13.10
[2022-03-03] MEDS: carvedilol 6.25 mg Tablet PO (09:45)
[2022-03-03] MEDS: cholecalciferol (vitamin D3) 1,000 unit Tablet 1000 UNIT PO (09:45)
--- NOTE | 2022-03-03 10:19 | P.PN_ITS ---
Subjective Subjective: Patient is stable. Labs are improved. Denies chest pain or shortness of breath Vitals/I&O/Wt Last Vital Signs Temp 98.0 F 03/03/22 03:30 Pulse 93 03/03/22 08:00 Resp 16 03/03/22 08:00 BP 109/73 03/03/22 06:30 Pulse Ox 95 03/03/22 08:00 O2 Del Method 03/03/22 08:00 O2 Flow Rate 2 03/01/22 05:30 03/02/22 03/03/22 03/03/22 22:59 06:59 14:59 Intake Total 290 / 770 Output Total 300 / 300 250 / 550 Balance -10 / 470 -250 / 220 Physical Exam Narrative: GENERAL: Alert and oriented x 3 HEENT: Exam within normal limits. NECK: Supple without jugular vein distention. The carotid upstroke is normal without bruits. BACK: Exam normal. LUNGS: Clear. HEART: Regular rate and rhythm. EXTREMITIES: No edema. NEUROLOGIC: Exam normal. SKIN: Unremarkable. Urinary Catheter Management: Caraballo: Cath Placed During This Visit: yes Reason for Continuing Indwelling Catheter: Accurate Measurement of Urinary Output in Critically Ill Patients Urinary Catheter Date of Insertion: 02/27/22 Data : 03/02/22 04:12 03/03/22 02:59 Micro: Microbiology 02/28/22 14:23 Urine Culture - Final Urine,Clean Catch A&P Assessment and plan (1) ICD (implantable cardioverter-defibrillator) discharge: Status: Acute (2) Syncope: Status: Resolved (3) Cardiorenal syndrome: Status: Acute (4) Ischemic cardiomyopathy: Status: Acute (5) CHF (congestive heart failure): Status: Acute (6) Acute kidney injury: Status: Acute Plan Patient is stable. Continue current medications. Patient is stable to discharge home from cardiology standpoint. Thank you for involving us with care of this patient. 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
--- NOTE | 2022-03-03 12:54 | PC.NURSE ---
Spoke to nursing home social worker who stated that [facility] will not [facility] patient's home O2 without an overnight sleep study. Clarified patient's discharge status with Dr. Peña, who approved patient's discharge home with out patient sleep study to be scheduled.
--- NOTE | 2022-03-03 13:47 | PC.NURSE ---
Patient states he will be driving himself home upon discharged. Clarified this with Dr. Peña, who states this is ok.
--- NOTE | 2022-03-03 15:10 | PC.NURSE ---
Detailed instructions given to patient on Caraballo catheter care. All questions answered and return demonstration given by patient.
== END 2022-03-03 15:14 | disposition home health service (06) | DRG 291 ==
LOC: ER 11:22 → ER IP 13:46 → MEDSURG 15:57 → ICU 21:06
PROVIDERS: Family Medicine; Physician Assistant; Admitting Provider Internal Medicine; Emergency Provider Emergency Medicine; PCP Family Medicine; Visit Provider Student in an Organized Health Care Education/Training Program
DX: I13.0 Hypertensive heart and chronic kidney disease with heart failure and stage 1 through stage 4 chronic kidney disease, or unspecified chronic kidney disease (principal); I50.23 Acute on chronic systolic (congestive) heart failure; I48.20 Chronic atrial fibrillation, unspecified; N17.9 Acute kidney failure, unspecified; E87.1 Hypo-osmolality and hyponatremia; R18.8 Other ascites; N18.9 Chronic kidney disease, unspecified; Z95.0 Presence of cardiac pacemaker; I25.10 Atherosclerotic heart disease of native coronary artery without angina pectoris; Z95.1 Presence of aortocoronary bypass graft; Z86.16 Personal history of COVID-19; Z86.73 Personal history of transient ischemic attack (TIA), and cerebral infarction without residual deficits; E78.00 Pure hypercholesterolemia, unspecified; I25.5 Ischemic cardiomyopathy; Z85.49 Personal history of malignant neoplasm of other male genital organs; Z90.79 Acquired absence of other genital organ(s); N99.114 Postprocedural urethral stricture, male, unspecified; Z79.01 Long term (current) use of anticoagulants; I25.2 Old myocardial infarction; Z66 Do not resuscitate
CPT/HCPCS: 36415; 51702; 51798; 71045; 71250; 74176; 76705; 76857; 78452; 80048; 80053; 81001; 81003; 83605; 83735; 83880; 84145; 84300; 84443; 84484; 85025; 85378; 85610; 87086; 93005; 93017; 93306; 93970; 94664; 94760; 96374; 99285; A9500; J0696; J2260; J2405; J2785; J3490

== ENCOUNTER 2022-03-09 13:57 | Inpatient (IN) | payer OTHER, MEDICARE, SELFPAY ==
[2022-03-09] VITALS (68 sets, daily range): BP systolic 94–146; BP diastolic 56–84; PULSE 64–119; RESP 5–29; TEMP 36.1–36.6; O2SAT 85–99; BMI 24.3
--- NOTE | 2022-03-09 14:12 | XR_ITS ---
WS: [id number] Exam: XR chest 1V portable [id number] Date/Time of Exam: 03/09/2022 2:17 PM Reason For Exam: dyspnea/cough Comparison 02/26/2022. The heart is enlarged but unchanged in size. The lungs are clear and fully expanded. A permanent card iac pacer superimposes the left chest. Signs of previous CABG surgery with median sternotomy. Bony st ructures are intact. The mediastinum is normal in contour. XR/XR chest 1V portable [id number] IMPRESSION: 1. Cardiac enlargement. No acute process noted.
--- NOTE | 2022-03-09 14:12 | ECG_ITS ---
[facility] Test Date: 2022-03-09 Pat Name: Al Yin Department: Room: Gender: Male Guide Excursion: : 1940 Requested By: Simon Sorto Order Number: [id number] Piedad MD: Marie Davenport M.D. Measurements Intervals [place] Rate: 71 P: 107 [place]: 188 QRS: 60 QRSD: 173 T: 250 QT: 453 QTc: 495 Interpretive Statements SINUS RHYTHM WITH DEMAND ATRIAL PACING INTRAVENTRICULAR CONDUCTION DELAY [130+ ms QRS DURATION] LATERAL MYOCARDIAL INFARCTION , OF INDETERMINATE AGE INFERIOR MYOCARDIAL INFARCTION , OF INDETERMINATE AGE Compared to ECG 02/28/2022 16:53:46 Atrial fibrillation no longer present Ventricular premature complex(es) no longer present Aberrant conduction of supraventricular beat(s) no longer present Ventricular-paced complex(es) or rhythm no longer present Myocardial infarct finding still present Electronically Signed On 03-10-2022 6:04:20 CDT by Marie Davenport M.D. [email or web address]
--- NOTE | 2022-03-09 14:13 | ED_ITS ---
HPI - Syncope General: Chief Complaint: Fall Stated Complaint: SYNCOPE/ FALL Time Seen by Provider: 03/09/22 14:03 Source: patient Mode of arrival: EMS History of Present Illness: 81-year-old male presents emergency room after syncopal episode at home. He was sitting on the edge of the bed getting ready to get up and he fell he hit his forehead on some tiles there is no full loss of consciousness he does not think that is pacer went off but he is not sure. States last time he had an episode like this his ICD did deliver it shock. He has no chest pain now he has noticed increasing shortness of breath with almost any activity although he maintains normal sats and feels fine while resting. He has a significantly lowered ejection fraction of 15%. He denies being ill recently. He has a history of atrial fibrillation and is on warfarin. MD complaint: loss of consciousness Onset (ago): minute(s) Prodromal symptoms: lightheaded Witnessed: No Context: at rest and standing up Injuries sustained associated with event: none Associated symptoms: Deny abdominal pain, chest pain, fever(s), headache(s), lightheadedness, nausea, short of breath, vertigo or weakness Treatments prior to arrival: none Review of Systems Const: Denies: fever(s), chills, fatigue or malaise ENMT: Denies: throat pain, ear or mastoid pain, nasal discharge or nasal congestion Card: Reports: palpitations; Denies: chest pain, irregular heart rhythm, edema, swelling of feet/ankles or lightheadedness Resp: Denies: dyspnea, productive cough or non-productive cough GI: Denies: abdominal pain or nausea : Denies: flank pain, difficulty urinating, dysuria, urinary frequency or urinary urgency Musc: Denies: neck pain or back pain Skin/Breast: Denies: rash or pruritus Neuro: Denies: headache(s) or vertigo PFSH ED PFSH: Medical History Atrial fibrillation Cardioembolic stroke CHF (congestive heart failure) Chronic kidney disease (CKD) Congestive heart failure Coronary artery disease Stable doing fine from a coronary disease perspective continue meds History of penile cancer History of penile cancer HTN (hypertension) Hyperlipidemia ICD (implantable cardioverter-defibrillator) in place Ischemic cardiomyopathy Surgical History History of penectomy Partial 1994. 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) S/P cardiac pacemaker procedure S/P cholecystectomy Family History Father Stroke Social History Smoking and tobacco status: former smoker Lives independently: Yes Household members: none History of recent travel: No Physical Exam Const: COMMON NORMALS: no acute distress GENERAL APPEARANCE: cooperative and comfortable ORIENTATION/CONSCIOUSNESS: Yes awake, Yes oriented to person, Yes oriented to place and Yes oriented to time HENMT: COMMON NORMALS: normocephalic, atraumatic and hearing grossly normal bilaterally HEAD & SCALP: normocephalic and atraumatic Resp: COMMON NORMALS: normal respiratory effort, No retractions, No use of accessory muscles and clear to auscultation bilaterally AUSCULTATION: clear to auscultation bilaterally Cardio: COMMON NORMALS: regular rate, regular rhythm and No murmurs present (Cardio) RATE: regular rate RHYTHM: regular rhythm GI: COMMON NORMALS: Soft to palpation and No hepatosplenomegaly present AUSCULTATION: Yes normoactive bowel sounds PALPATION: Yes Soft to palpation, No Tenderness to palpation present (GI), No Guarding due to palpation present (GI) and Yes No hepatosplenomegaly present Extremity: COMMON NORMALS: normal to inspection, capillary refill normal, no clubbing, cyanosis or edema, no calf tenderness and no pedal edema Neuro: SENSORIUM/ORIENTATION: Yes oriented to person, Yes oriented to place and Yes oriented to time Skin: COMMON NORMALS: no rashes or lesions noted GENERAL SKIN EXAM: no rashes or lesions noted Course Vital Signs: Vital signs: Vital Signs Temperature 97.6 F 03/13/22 14:04 Pulse Rate 75 03/13/22 14:04 Respiratory Rate 15 03/13/22 14:04 Blood Pressure 88/46 03/13/22 14:04 Pulse Oximetry 98 03/13/22 14:04 Oxygen Delivery Me thod 03/12/22 21:30 Oxygen Flow Rate 3 03/13/22 10:54 MDM - Syncope Medical Decision Making Interrogated ICD patient has had at least 1 discharge this morning and then we are about to disposition him and he had another nonsustained run of V. tach which she was minimally symptomatic. Discussing the tachycardia to the analysis he has had several episodes that were nonsustained some that he was paced out of but he is only had the one discharge for defib. We will admit the patient discussed with Dr. Sharma orders written consult cardiology. They are recommending repeat interrogation to check battery life in 1 to 2 days Medical Records I reviewed the patient's medical records. Lab Data I reviewed the patient's lab results. : 03/13/22 02:23 03/13/22 02:23 Radiology Impressions Chest X-Ray 03/09/22 14:12 IMPRESSION: 1. Cardiac enlargement. No acute process noted. Face CT 03/09/22 14:49 IMPRESSION: 1. No facial bone fracture. 2. Moderate soft tissue hematoma centered over the RIGHT orbit, globe and frontal bone. Head CT 03/09/22 14:49 IMPRESSION: 1. No acute intracranial hemorrhage or edema. 2. Moderate atrophy and small vessel ischemic disease. Remote infarct in the posterior LEFT frontal lobe. 3. No skull fracture. 4. Soft tissue hematoma centered over the RIGHT orbit and globe. Gallbladder Ultrasound 03/09/22 16:40 IMPRESSION: 1. Small ascites. 2. Mild engorgement of the hepatic vessels and IVC Laboratory Results WBC 7.8 10^3/uL (4.0-10.0) 03/09/22 14: RBC 4.60 10^6/uL (4.1-5.3) 03/09/22 14:23 Hgb 15.4 g/dL (11.7-16.6) 03/09/22 14:23 Hct 46.7 % (42.0-52.0) 03/09/22 14:23 MCV 101.5 fl (80-94) H 03/09/22 14:23 MCH 33.5 pg (28.0-34.0) 03/09/22 14: MCHC 33.0 g/dL (30.0-36.0) 03/09/22 14: RDW 15.8 % (12.1-15.1) H 03/09/22 14:23 Plt Count 182 10^3/cmm (130-400) 03/09/22 14:23 MPV 9.9 fL (7.4-10.4) 03/09/22 14:23 Neut % (Auto) 67.9 % 03/09/22 14:23 Lymph % (Auto) 18.9 % 03/09/22 14:23 [place] % (Auto) 9.9 % 03/09/22 14:23 Eos % (Auto) 1.9 % 03/09/22 14:23 Baso % (Auto) 0.8 % 03/09/22 14:23 Neut # (Auto) 5.28 10^3/uL (1.8-7.7) 03/09/22 14:23 Lymph # (Auto) 1.5 10^3/uL (0.8-4.8) 03/09/22 14:23 [place] # (Auto) 0.8 10^3/uL (0.2-0.9) 03/09/22 14:23 Eos # (Auto) 0.2 10^3/uL (0.0-0.8) 03/09/22 14:23 Baso # (Auto) 0.1 10^3/uL (0.0-0.1) 03/09/22 14:23 Nucleated RBC % (auto) 0 % 03/09/22 14: Nucleated RBCs # 0.0 /100WBC 03/09/22 14:23 PT 28.20 SECONDS (12.1-14.9) H 03/09/22 14:27 INR 2.61 (0.8-1.2) H 03/09/22 14:27 APTT 41.3 SECONDS (23.9-36.7) H 03/09/22 14:27 Sodium 127 mmol/L (136-145) L 03/09/22 14:23 Potassium 4.9 mmol/L (3.5-5.1) 03/09/22 14:23 Chloride 88 mmol/L (98-107) L 03/09/22 14:23 Carbon Dioxide 23 mmol/L (22-29) 03/09/22 14:23 Anion Gap 20.9 (5-19) H 03/09/22 14:23 BUN 52 mg/dL (8-23) H 03/09/22 14:23 Creatinine 2.7 mg/dL (0.7-1.2) H 03/09/22 14:23 GFR Calculation Not Reportable 03/09/22 14:23 Glucose 171 mg/dL (65-115) H 03/09/22 14:23 Calculated Osmolality 282 mOsm/kg (285-295) L 03/09/22 14:23 Calcium 10.1 mg/dL (8.5-10.5) 03/09/22 14:23 Total Bilirubin 3.1 mg/dL (0.15-1.2) H 03/09/22 14:23 AST 206 U/L (0-40) H 03/09/22 14:23 ALT 300 U/L (0-41) H 03/09/22 14:23 Alkaline Phosphatase 282 U/L (40-130) H 03/09/22 14:23 Troponin T Baseline 63 ng/L (0-15) H 03/09/22 14:23 Troponin T 120 Minute 56.96 ng/L (0-15) H 03/09/22 16:18 Delta Troponin T -6.04 ABS# (0-10) L 03/09/22 16:18 Total Protein 6.9 g/dL (6.6-8.7) 03/09/22 14:23 Albumin 3.9 g/dL (3.5-5.2) 03/09/22 14:23 Globulin 3.0 g/dL (1.3-4.6) 03/09/22 14:23 Discharge Plan Discharge Patient Disposition: Admitted As Inpatient Admit Provider: Nathanael Sharma Clinical Impression: Syncope, Ischemic cardiomyopathy, CHF (congestive heart failure), ICD (implantable cardioverter-defibrillator) in place, VT (ventricular tachycardia), ICD (implantable cardioverter-defibrillator) discharge Condition: Stable Discharge Diet: Cardiac Discharge Activity: Increase activity as tolerated Coding Level of Care Code ED Heel Seat Fitter for Brennan Contreras
[2022-03-09 14:33] LABS: Basophils # 0.1 10^3/uL (0.0-0.1); Basophils % 0.8 %; Eosinophils # 0.2 10^3/uL (0.0-0.8); Eosinophils % 1.9 %; Hematocrit 46.7 % (42.0-52.0); Hemoglobin 15.4 g/dL (11.7-16.6); Lymphocytes # 1.5 10^3/uL (0.8-4.8); Lymphocytes % 18.9 %; Mean Corpuscular Hemoglobin 33.5 pg (28.0-34.0); Mean Corpuscular Volume 101.5 fl (80-94); Mean Platelet Volume 9.9 fL (7.4-10.4); Monocytes # 0.8 10^3/uL (0.2-0.9); Monocytes % 9.9 %; Neutrophils # 5.28 10^3/uL (1.8-7.7); Neutrophils % 67.9 %; Nucleated Red Blood Cells % 0 %; Platelet Count 182 10^3/cmm (130-400); Red Cell Distribution Width 15.8 % (12.1-15.1); White Blood Count 7.8 10^3/uL (4.0-10.0)
--- NOTE | 2022-03-09 14:49 | CT_ITS ---
WS: [id number] CT HEAD NONCONTRAST HISTORY: trauma TECHNIQUE: Contiguous axial imaging performed through the brain in 2.5 mm imaging. Bone and soft tiss ue windows. Sagittal and coronal reformats reviewed. All CT scans at [facility] use at least one of these dose optimization techniques: automated exposure control; mA and/or kV adjustment per pa tient size (includes targeted exams where dose is matched to clinical indication); or iterative recon struction. DLP: 1003.28 mGy.cm COMPARISON: 01/10/2012 No acute intracranial hemorrhage, midline shift or mass effect. Moderate atrophy and small vessel ischemic disease. Area of encephalomalacia from a prior infarct in the posterior LEFT frontal lobe. Moderate small vessel ischemic changes in the periventricular white matter. Prior ischemic changes in the external capsules bilaterally. Ventricles: Normal size with no hydrocephalus. No inferior displacement of cerebellar tonsils. Paranasal sinuses: Small amount of mucoperiosteal thickening in the frontal sinuses bilaterally. No a ir-fluid levels. Mastoid air cells: Well pneumatized. Calvarium and scalp: Moderate soft tissue inflammation and edema centered over the RIGHT orbit and gl obe and RIGHT frontal bone. No skull fracture. CT/CT head wo con* [id number] IMPRESSION: 1. No acute intracranial hemorrhage or edema. 2. Moderate atrophy and small vessel ischemic disease. Remote infarct in the p osterior LEFT frontal lobe. 3. No skull fracture. 4. Soft tissue hematoma centered over the RIGHT orbit and globe.
--- NOTE | 2022-03-09 14:49 | CT_ITS ---
WS: [id number] CT FACIAL BONES HISTORY: trauma TECHNIQUE: Images obtained from the supraorbital location through the mandible. Soft tissue and bone windows are reviewed. Coronal and sagittal reformats have also been submitted. DLP: 589.[address] scans at [facility] use at least one of these dose optimization techniques: automated e xposure control; mA and/or kV adjustment per patient size (includes targeted exams where dose is matc hed to clinical indication); or iterative reconstruction. COMPARISON: None available. No facial bone fractures are identified. Zygomatic arches and nasal bones are intact. No air-fluid le vels within the maxillary sinuses. The floor and roof of the orbits are intact. Moderate soft tissue hematoma centered over the RIGHT orbit, globe and frontal bone. There is no underlying fracture. Visualized upper cervical spine is positive for spondylitic changes. C4 anterolisthesis by [address]/CT facial bones wo con* [id number] IMPRESSION: 1. No facial bone fracture. 2. Moderate soft tissue hematoma centered over the RIGHT orbit, globe and fron sera bone.
[2022-03-09 14:57] LABS: Troponin(5th) Baseline 63 ng/L (0-15)
[2022-03-09 14:58] LABS: Alanine Aminotransferase 300 U/L (0-41); Albumin Level 3.9 g/dL (3.5-5.2); Alkaline Phosphatase 282 U/L (40-130); Anion Gap 20.9 (5-19); Aspartate Amino Transferase 206 U/L (0-40); Blood Urea Nitrogen 52 mg/dL (8-23); Calcium 10.1 mg/dL (8.5-10.5); Carbon Dioxide 23 mmol/L (22-29); Chloride 88 mmol/L (98-107); Glucose 171 mg/dL (65-115); Osmolality Calculated 282 mOsm/kg (285-295); Potassium 4.9 mmol/L (3.5-5.1); Sodium 127 mmol/L (136-145); Total Bilirubin 3.1 mg/dL (0.15-1.2); Total Protein 6.9 g/dL (6.6-8.7)
--- NOTE | 2022-03-09 16:16 | ECG_ITS ---
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 Measurements Intervals Yale Rate: 72 P: 165 HI: 186 QRS: 53 QRSD: 166 T: 254 QT: 444 QTc: 486 Interpretive Statements ELECTRONIC ATRIAL PACEMAKER INTRAVENTRICULAR CONDUCTION DELAY [130+ ms QRS DURATION] LATERAL MYOCARDIAL INFARCTION , OF INDETERMINATE AGE INFERIOR MYOCARDIAL INFARCTION , OF INDETERMINATE AGE Compared to ECG 03/09/2022 14:37:08 No significant changes Electronically Signed On 03-10-2022 6:09:11 CDT by Marie Davenport M.D. [email or web address]
--- NOTE | 2022-03-09 16:40 | USR_ITS ---
PROCEDURE INFORMATION: Exam: US Abdomen, Limited; Right Upper Quadrant Exam date and time: 03/09/2022 5:28 PM Age: 81 years old Clinical indication: Abnormal findings; Abnormal lab test; Elevated liver enzymes; Prior surgery; Surgery date: 6+ months; Surgery type: Cholecystectomy; Additional info: Elevated lfts TECHNIQUE: Imaging protocol: Real time ultrasound of the abdomen with image documentation. Limited exam focused on the right upper quadrant. COMPARISON: [place] bladder [id number] 02/27/2022 8:34 AM FINDINGS: Liver: Vasculature: Mild engorgement of the hepatic vessels and IVC. Gallbladder: No gallstones. No gallbladder wall thickening or pericholecystic fluid. Negative sonographic Lorenz's sign, as per the performing fire alarm technician. Biliary ducts: Normal. No stones. No dilation. Pancreas: Unremarkable as visualized. Right kidney: No mass. No definite stones. No hydronephrosis. Intraperitoneal space: Small ascites. US/US gall bladder [id number] IMPRESSION: 1. Small ascites. 2. Mild engorgement of the hepatic vessels and IVC
[2022-03-09 16:50] LABS: Troponin 5 2HR 56.96 ng/L (0-15)
[2022-03-09 16:54] LABS: Troponin 5 2HR Delta -6.04 ABS# (0-10)
[2022-03-09 16:55] LABS: INR 2.61 (0.8-1.2)
[2022-03-09 16:56] LABS: Partial Thromboplastin Time 41.3 SECONDS (23.9-36.7)
--- NOTE | 2022-03-09 17:33 | PC.NURSE ---
Pt rested, he said he feels ok, denies any pain at this time
[2022-03-09 18:07] LABS: Glucose Point of Care 122 mg/dL (70-110)
--- NOTE | 2022-03-09 18:21 | P.HP_ITS ---
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 Soft tissue hematoma over right orbit and globe noted in ER. She reports that while at rest she is doing okay, but with any exertion, even short distance she becomes very dyspneic. Denies lightheadedness when standing up. Denies chest pain or pressure. Has not had any supplemental oxygen so far, but states that he had been wanting to ask about it at the [place]. he did not qualify for home oxygen on home O2 evaluation last admission. In ER he is noted to have new ZOEY on CKD, creatinine up to 2.7, also noted transaminitis, hyperbilirubinemia and alk phos elevation. Previous history of cholecystectomy. Gallbladder ultrasound with small ascites, mild engorgement of hepatic vessels and IVC. Noted chronic hyponatremia, sodium 127. Troponin 63, 2-hour troponin 56.96. ICD was interrogated, and is found to have delivered a shock for ventricular tachycardia prior to that with attempted pacing. Also question of possibly depletion of generator battery with reported possibly a month left, unclear w hether this is due to recent discharge or in fact true premature depletion. He tells me currently he lives at home alone but has been considering moving in with his [id number]. He states so far he has not yet considered hospice care. He has discussed CODE STATUS during last admission and still confirms would not want chest compressions or intubation in case of cardiopulmonary arrest. He reports recently he has had very poor appetite. Review of Systems Const: Denies: fever(s), chills, body aches or malaise Eyes: Denies: change in vision, eye discomfort or eye redness ENMT: Denies: throat pain, oral sores or ear or mastoid pain Card: Reports: syncope and dyspnea on exertion; Denies: chest pain, edema or swelling of feet/ankles Resp: Denies: productive cough, change in phlegm color or hemoptysis GI: Denies: abdominal pain, nausea, vomiting, diarrhea, constipation, hematochezia or melena : Denies: flank pain, difficulty urinating, urinary frequency or hematuria Musc: Denies: back pain, joint swelling or joint redness Skin/Breast: Denies: rash or new lesions Neuro: Denies: headache(s), numbness in extremities, weakness in extremities, dizziness, confusion or seizure-like activity Endo: Denies: polyuria or polydipsia [place]/Lymph: Denies: easy bleeding or tender lymph nodes All/Imm: Denies: urticaria or tongue swelling Medications/Allergies Home Medications Medication Instructions Recorded Confirmed Last Taken Type pravastatin 40 mg tablet 40 mg PO QPM 07/18/19 03/09/22 03/08/22 History coenzyme Q10 100 mg capsule (Co 100 mg PO DAILY 04/22/21 03/09/22 03/09/22 History Q-10) evolocumab 140 mg/mL subcutaneous 140 mg SUBCUT Q14D 04/22/21 03/09/22 02/24/22 History pen injector (Shania Dominguez) carvedilol 6.25 mg tablet 9.375 mg PO BID #408 tabs 10/23/21 03/09/22 02/26/22 Rx cholecalciferol (vitamin D3) 25 25 mcg PO DAILY 11/10/21 03/09/22 03/09/22 History mcg (1,000 unit) tablet (Vitamin D3) omega-3 fatty acids-fish oil 684 1 cap PO DAILY 11/10/21 03/09/22 03/09/22 History mg-1,200 mg capsule,delayed release magnesium 250 mg tablet 500 mg PO DAILY #30 tabs 11/17/21 03/09/22 03/09/22 Rx potassium chloride 10 mEq 10 meq PO DAILY #90 tabs 11/26/21 03/09/22 03/09/22 Rx tablet,extended release lisinopril 5 mg tablet 2.5 mg PO DAILY 02/26/22 03/09/22 02/26/22 History polyethylene glycol 3350 17 gram 17 g PO DAILY PRN constipation #30 03/03/22 03/09/22 Unknown Rx oral powder packet ea warfarin 2.5 mg tablet 2.5 mg PO SuMoTuWeThFr@1400 #30 03/03/22 03/09/22 03/07/22 Rx tabs warfarin 5 mg tablet 5 mg PO Sa@1400 #10 tabs 03/03/22 03/09/22 Unknown Rx bumetanide 2 mg tablet 2 mg PO DAILY 03/09/22 03/09/22 03/09/22 History Allergies Allergy/AdvReac Type Severity Reaction Status Date / Time atorvastatin Allergy Unknown Unknown Verified 03/09/22 15:55 simvastatin Allergy Unknown Unknown Verified 03/09/22 15:55 alirocumab Allergy Unknown Verified 03/09/22 15:55 lovastatin [From Mevacor] Allergy Unknown Verified 03/09/22 15:55 PFSH Acute PFSH: Medical History Atrial fibrillation Cardioembolic stroke CHF (congestive heart failure) Chronic kidney disease (CKD) Congestive heart failure Coronary artery disease Stable doing fine from a coronary disease perspective continue meds History of penile cancer HTN (hypertension) Hyperlipidemia ICD (implantable cardioverter-defibrillator) in place Ischemic cardiomyopathy Surgical History History of penectomy Partial 1994. 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) S/P cardiac pacemaker procedure S/P cholecystectomy Family History Father Stroke Social History (Updated 03/09/22 @ 18:34 by Nathanael Sharma MD) Smoking and tobacco status: former smoker Lives independently: Yes Household members: none History of recent travel: No Vitals/I&O/Wt Last Vital Signs Temp 97.9 F 03/09/22 14:10 Pulse 72 03/09/22 17:30 Resp 14 03/09/22 17:30 BP 119/82 03/09/22 17:30 Pulse Ox 98 03/09/22 15:48 O2 Del Method 03/09/22 14:10 Weight last 48 hrs Weight 68.492 kg Physical Exam Const: COMMON NORMALS: patient oriented x3 and alert GENERAL APPEARANCE: cooperative ORIENTATION/CONSCIOUSNESS: Yes awake HENMT: COMMON NORMALS: oropharynx normal Neck/C-Spine: COMMON NORMALS: no JVD Resp: COMMON NORMALS: normal respiratory effort and clear to auscultation bilaterally AUSCULTATION: clear to auscultation bilaterally OTHER: Mild crackles at bases Cardio: COMMON NORMALS: no JVD, regular rhythm, S1 normal heart sound present, S2 normal heart sound present and No murmurs present (Cardio) RHYTHM: regular rhythm HEART SOUNDS: S1 normal heart sound present and S2 normal heart sound present GI: COMMON NORMALS: Normal to inspection, nondistended, normoactive bowel sounds present, Soft to palpation and non-tender PALPATION: Yes Soft to palpation Extremity: COMMON NORMALS: no joint enlargement and no pedal edema Neuro: COMMON NORMALS: patient oriented x3 and moves all extremities SENSORIUM/ORIENTATION: Yes alert Skin: COMMON NORMALS: no rashes or lesions noted GENERAL SKIN EXAM: no rashes or lesions noted Data : 03/09/22 14:23 03/09/22 14:23 A&P Assessment and plan (1) CHF (congestive heart failure): Currently appears to have again some decompensation of congestive heart failure, with crackles on exam Quinamm dyspnea on exertion, as well as congestive hepatopathy, and ZOEY on CKD suspected secondary to cardiorenal syndrome. He does have quite severe cardiomyopathy, EF 10-15%. Discussed with him, he so far has not considered hospice care yet. Severely decreased that the ejection fraction exposes him to constant risk of complications, organ failure. Discussed with cardiology, at this time we will start on milrinone, reassess his renal and liver function. Subsequently consider addition of diuretic. Monitor I&O. Appreciate cardiology consultation. Further consideration of goals of care, consideration of additional assessment at heart failure center, or consideration of hospice care, although in that instance disposition will need to be considered as well given he lives alone at home. Case management consultation. Very high risk of readmission. High risk of complications, mortality. Unfortunately suspect he may be reaching end-stage CHF. Gets very dyspneic with exertion. Last time did not qualify for home oxygen evaluation, would benefit from reevaluation again. (2) Cardiorenal syndrome: As above (3) Transaminitis: Appears to have congestive hepatopathy, mild ascites. History of cholecystectomy. Additional management of acute CHF as above. (4) Syncope: Syncope secondary to ventricular tachycardia, with ICD discharge. Additional management of acute CHF as above. Further consideration of goals of care. (5) ICD (implantable cardioverter-defibrillator) discharge: ICD interrogation with concern for possible low generator battery, reported month remaining. Possibly due to recent discharge. Consider reassess in several days to get a clear picture of level of charge. (6) VT (ventricular tachycardia): So far several discharges to earlier in January, and 1 today. No evidence of ischemia on recent stress test. Severe cardiomyopathy. Appreciate any additional cardiology recommendations. Check magnesium. (7) Ischemic cardiomyopathy: (8) Acute kidney injury: ZOEY on CKD, as above. (9) Hyponatremia: Chronic (10) Dyspnea on exertion: (11) ICD (implantable cardioverter-defibrillator) in place: Plan Urethral stricture: During last hospitalization, underwent dilation with ur ology. Attestations Medical Necessity Statement*: Admission of over 2 nights anticipate for assessment of management after ventricular tachycardia, ICD discharge, syncope, and gentleman with decompensation of congestive heart failure, ZOEY on CKD, congestive hepatopathy, with underlying severe cardiomyopathy, EF 10-15%. Coding Level of Care Code Acute Certified Public Accountant for [facility] Fwd Diagnoses CHF (congestive heart failure) I50.9 Cardiorenal syndrome I13.10 Transaminitis R74.01 Syncope R55 ICD (implantable cardioverter-defibrillator) discharge Z45.02 VT (ventricular tachycardia) I47.2 Ischemic cardiomyopathy I25.5 Acute kidney injury N17.9 Hyponatremia E87.1 Dyspnea on exertion R06.09 ICD (implantable cardioverter-defibrillator) in place Z95.810
--- NOTE | 2022-03-09 20:10 | PC.NURSE ---
Transfer Note Patient transferred to ICU from [facility] via wheelchair. Handoff received from STORM Flores. Patient oriented to environment and equipment. Covering service notified. Orders reviewed and will continue to monitor. Patient transferred on room air, alert and oriented x4, with contusion noted to right eye-no other wounds or skin issues noted at this time.
[2022-03-09 20:47] LABS: Troponin 5 6HR 65.01 ng/L (0-15)
[2022-03-09 20:48] LABS: Troponin 5 6HR Delta 2.01 ng/L (0-12)
--- NOTE | 2022-03-09 20:56 | ECG_ITS ---
[facility] Test Date: 2022-03-09 Pat Name: Al Yin Department: Room: ICU06 Gender: Male Cafe Associate: : 1940 Requested By: Simon Sorto Order Number: [id number] Piedad MD: Marie Davenport M.D. Measurements Intervals [place] Rate: 69 P: 178 VA: 189 QRS: 53 QRSD: 168 T: -83 QT: 463 QTc: 499 Interpretive Statements ELECTRONIC ATRIAL PACEMAKER INTRAVENTRICULAR CONDUCTION DELAY [130+ ms QRS DURATION] LATERAL MYOCARDIAL INFARCTION , OF INDETERMINATE AGE [40+ ms Q WAVE AND/OR ST/T ABNORMALITY IN I/aVL/V5/V6] INFERIOR MYOCARDIAL INFARCTION , OF INDETERMINATE AGE [40+ ms Q WAVE AND/OR ST/T ABNORMALITY IN II/aVF] Compared to ECG 03/09/2022 16:16:18 No significant changes Electronically Signed On 03-10-2022 6:08:33 CDT by Marie Davenport M.D. [email or web address]
[2022-03-09 23:16] LABS: Magnesium 2.8 mg/dL (1.7-2.3)
[2022-03-10] VITALS (88 sets, daily range): BP systolic 88–133; BP diastolic 50–78; PULSE 66–110; RESP 9–28; TEMP 36.2–36.4; O2SAT 74–95; BMI 26.8
[2022-03-10 04:14] LABS: Basophils % 0.5 %; Eosinophils # 0.1 10^3/uL (0.0-0.8); Hematocrit 40.3 % (42.0-52.0); Hemoglobin 13.5 g/dL (11.7-16.6); Lymphocytes # 1.1 10^3/uL (0.8-4.8); Lymphocytes % 18.8 %; Mean Corpuscular HGB Conc 33.5 g/dL (30.0-36.0); Mean Corpuscular Hemoglobin 33.1 pg (28.0-34.0); Mean Corpuscular Volume 98.8 fl (80-94); Mean Platelet Volume 9.7 fL (7.4-10.4); Monocytes # 0.7 10^3/uL (0.2-0.9); Monocytes % 11.7 %; Neutrophils # 3.87 10^3/uL (1.8-7.7); Neutrophils % 67.5 %; Nucleated Red Blood Cells % 0 %; Platelet Count 144 10^3/cmm (130-400); Red Blood Count 4.08 10^6/uL (4.1-5.3); Red Cell Distribution Width 15.4 % (12.1-15.1); White Blood Count 5.7 10^3/uL (4.0-10.0)
[2022-03-10] MEDS: acetaminophen 325 mg Tablet 650 MG PO ×2 (04:25→22:54)
[2022-03-10 04:40] LABS: Alanine Aminotransferase 234 U/L (0-41); Albumin Level 3.3 g/dL (3.5-5.2); Alkaline Phosphatase 233 U/L (40-130); Anion Gap 16.3 (5-19); Aspartate Amino Transferase 145 U/L (0-40); Blood Urea Nitrogen 51 mg/dL (8-23); Calcium 9.6 mg/dL (8.5-10.5); Carbon Dioxide 26 mmol/L (22-29); Chloride 93 mmol/L (98-107); Globulin 2.4 g/dL (1.3-4.6); Glucose 108 mg/dL (65-115); Osmolality Calculated 286 mOsm/kg (285-295); Potassium 4.3 mmol/L (3.5-5.1); Sodium 131 mmol/L (136-145); Total Bilirubin 2.5 mg/dL (0.15-1.2); Total Protein 5.7 g/dL (6.6-8.7)
[2022-03-10 04:42] LABS: INR 2.24 (0.8-1.2)
--- NOTE | 2022-03-10 06:19 | PC.NURSE ---
Shift Note Frequent safety and comfort rounds continue. Orders and/or nursing care completed as indicated. Patient monitored for response to intervention and treatment(s). Education provided includes medications. Patient verbalized understanding of teaching. Patient had an uneventful shift, remains alert/oriented x4 on room air. Contusion noted to right eye, no other wounds skin issues noted at this time. Caraballo catheter drained 525 mls of urine overnight. Milrinone infusing per protocol please see MAR for infusion rate. Will continue to monitor.
--- NOTE | 2022-03-10 07:43 | PM.CONSULT ---
Providers/Reason For Consult Consulting Physician/Specialty*: Matt Tucker MD/ Cardiology Reason for Consult*: Congestive heart failure Requesting Physician: Dr Sharma Attending Physician: Nathanael Sharma Primary Care Provider: Echo Garay MD History of Present Illness History of Present Illness Al Yin is a 81 year old male with PMH of congetive heart failure, ischemic cardiomyopathy with EF of 10 to 15%, on Coumadin for atrial fibrillation, ICD in place, hypertension, hyperlipidemia who presented to the hospital after a syncopal episode. He was recently discharged from the hospital when he was on inotropes and was diuresed. ICD interrogation demonstrated ICD shocks. He has a hematoma on the right eye. His physical activity is limited. He gets significant dyspnea on exertion. His kidney function had worsened with a creatinine of 2.7. Troponins have not trended up significantly. ICD check showed ventricular tachycardia. It also shows battery life 1 month left. Review of Systems Const: Denies: fever(s), chills, body aches or malaise Eyes: Denies: change in vision, eye discomfort or eye redness ENMT: Denies: throat pain, oral sores or ear or mastoid pain Card: Reports: syncope and dyspnea on exertion; Denies: chest pain, edema or swelling of feet/ankles Resp: Denies: productive cough, change in phlegm color or hemoptysis GI: Denies: abdominal pain, nausea, vomiting, diarrhea, constipation, hematochezia or melena : Denies: flank pain, difficulty urinating, urinary frequency or hematuria Musc: Denies: back pain, joint swelling or joint redness Skin/Breast: Denies: rash or new lesions Neuro: Denies: headache(s), numbness in extremities, weakness in extremities, dizziness, confusion or seizure-like activity Endo: Denies: polyuria or polydipsia Rosendo/Lymph: Denies: easy bleeding or tender lymph nodes All/Imm: Denies: urticaria or tongue swelling Medications/Allergies Home Medications Medication Instructions Recorded Confirmed Last Taken Type pravastatin 40 mg tablet 40 mg PO QPM 07/18/19 03/09/22 03/08/22 History coenzyme Q10 100 mg capsule (Co 100 mg PO DAILY 04/22/21 03/09/22 03/09/22 History Q-10) evolocumab 140 mg/mL subcutaneous 140 mg SUBCUT Q14D 04/22/21 03/09/22 02/24/22 History pen injector (Shania Dominguez) carvedilol 6.25 mg tablet 9.375 mg PO BID #408 tabs 10/23/21 03/09/22 02/26/22 Rx cholecalciferol (vitamin D3) 25 25 mcg PO DAILY 11/10/21 03/09/22 03/09/22 History mcg (1,000 unit) tablet (Vitamin D3) omega-3 fatty acids-fish oil 684 1 cap PO DAILY 11/10/21 03/09/22 03/09/22 History mg-1,200 mg capsule,delayed release magnesium 250 mg tablet 500 mg PO DAILY #30 tabs 11/17/21 03/09/22 03/09/22 Rx potassium chloride 10 mEq 10 meq PO DAILY #90 tabs 11/26/21 03/09/22 03/09/22 Rx tablet,extended release lisinopril 5 mg tablet 2.5 mg PO DAILY 02/26/22 03/09/22 02/26/22 History polyethylene glycol 3350 17 gram 17 g PO DAILY PRN constipation #30 03/03/22 03/09/22 Unknown Rx oral powder packet ea warfarin 2.5 mg tablet 2.5 mg PO SuMoTuWeThFr@1400 #30 03/03/22 03/09/22 03/07/22 Rx tabs warfarin 5 mg tablet 5 mg PO Sa@1400 #10 tabs 03/03/22 03/09/22 Unknown Rx bumetanide 2 mg tablet 2 mg PO DAILY 03/09/22 03/09/22 03/09/22 History Allergies Allergy/AdvReac Type Severity Reaction Status Date / Time atorvastatin Allergy Unknown Unknown Verified 03/09/22 15:55 simvastatin Allergy Unknown Unknown Verified 03/09/22 15:55 alirocumab Allergy Unknown Verified 03/09/22 15:55 lovastatin [From Mevacor] Allergy Unknown Verified 03/09/22 15:55 Current Medications Generic Name Dose Route Start Last Admin Trade Name Freq PRN Reason Stop Dose Admin Acetaminophen 650 mg 03/09/22 20:26 03/10/22 04:25 Acetaminophen 325 Mg Tablet PO 650 mg Q6H PRN Administration Mild/Mod Pain Or Temp >/= 101 Milrinone Lactate/Dextrose 100 mls @ 0 mls/hr 03/09/22 18:00 03/10/22 06:43 Primacor IV 0.375 mcg/kg/min .Q0M GERMAN 7.71 mls/hr Administration Protocol Per Protocol PFSH Acute PFSH: Medical History Atrial fibrillation Cardioembolic stroke CHF (congestive heart failure) Chronic kidney disease (CKD) Congestive heart failure Coronary artery disease Stable doing fine from a coronary disease perspective continue meds History of penile cancer HTN (hypertension) Hyperlipidemia ICD (implantable cardioverter-defibrillator) in place Ischemic cardiomyopathy Surgical History History of penectomy Partial 1994. 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) S/P cardiac pacemaker procedure S/P cholecystectomy Family History Father Stroke Social History (Updated 03/09/22 @ 18:34 by Nathanael Sharma MD) Smoking and tobacco status: former smoker Lives independently: Yes Household members: none History of recent travel: No Vitals/I&O/Wt Last Vital Signs Temp 97.1 F L 03/10/22 04:25 Pulse 73 03/10/22 06:00 Resp 21 H 03/10/22 04:25 BP 103/61 03/10/22 04:25 Pulse Ox 92 03/10/22 04:25 O2 Del Method 03/09/22 20:55 03/09/22 03/10/22 03/10/22 22:59 06:59 14:59 Intake Total 275.815 / 275.815 Output Total 525 / 525 Balance -249.185 / -249.185 Weight last 48 hrs Weight 166 lb 4 oz Weight 151 lb Physical Exam Narrative: GENERAL: Patient is alert, awake and oriented x3. [] NECK: No jugular vein distension. [] HEENT: Has hematoma on right eye HEART: Regular S1 and S2. No murmur, rub or gallop. [] LUNGS: Clear to auscultate bilaterally. [] ABDOMEN: Soft, nontender and nondistended. Positive bowel sounds. No guarding, rebound or tenderness. [] CENTRAL NERVOUS SYSTEM: Grossly nonfocal. [] EXTREMITIES: Lower extremities with 1+ edema bilaterally. Pulses palpable in the lower extremities, both dorsalis pedis and posterior tibial. [] Urinary Catheter Management: Caraballo: Cath Placed During This Visit: no Reason for Continuing Indwelling Catheter: Accurate Measurement of Urinary Output in Critically Ill Patients Data : 03/11/22 03:29 03/11/22 03:29 A&P Assessment and plan (1) ICD (implantable cardioverter-defibrillator) discharge: (2) Syncope: (3) Cardiorenal syndrome: (4) Ischemic cardiomyopathy: (5) CHF (congestive heart failure): (6) Acute kidney injury: Plan Patient appears to have worsening of congestive heart failure secondary to low output state. We will recommend starting milrinone. Hold off on diuresis at this time. 1 to 2 days may initiate low-dose diuretics. Monitor labs closely. Continue ICU monitoring. Had a detailed discussion with patient regarding possible future options. Talked about hospice care versus referral to advanced heart failure center. Strict I&O's. Fluid restriction. Thank you for involving us with care of this patient. We will continue to follow. Please call with questions Consult Attestations Medical Necessity Statement: Care expected to cross 2 midnights Coding Level of Care Code Acute [place] Guide for g Fwd Diagnoses ICD (implantable cardioverter-defibrillator) discharge Z45.02 Syncope R55 Cardiorenal syndrome I13.10 Ischemic cardiomyopathy I25.5 CHF (congestive heart failure) I50.9 Acute kidney injury N17.9
--- NOTE | 2022-03-10 12:57 | P.PN_ITS ---
Subjective Subjective: He overall is feeling better today. He states that he is breathing easier. Denies chest pain or pressure. Discussed with him regarding discharge of ICD. Discussed possible low state of charge of generator battery. Vitals/I&O/Wt Last Vital Signs Temp 97.1 F L 03/10/22 04:25 Pulse 74 03/10/22 08:00 Resp 19 H 03/10/22 08:00 BP 96/50 03/10/22 08:00 Pulse Ox 91 03/10/22 08:00 O2 Del Method 03/10/22 08:00 03/09/22 03/10/22 03/10/22 22:59 06:59 14:59 Intake Total 275.815 / 275.815 240 / 240 Output Total 525 / 525 250 / 250 Balance -249.185 / -249.185 -10 / -10 Weight last 48 hrs Weight 75.41 kg Weight 68.492 kg Physical Exam Const: COMMON NORMALS: patient oriented x3 and alert GENERAL APPEARANCE: cooperative ORIENTATION/CONSCIOUSNESS: Yes awake HENMT: COMMON NORMALS: oropharynx normal OTHER: Decreasing swelling over the right eye, able to open the right eye. Neck/C-Spine: COMMON NORMALS: no JVD Resp: COMMON NORMALS: normal respiratory effort and clear to auscultation bilaterally AUSCULTATION: clear to auscultation bilaterally OTHER: Crackles resolved. Cardio: COMMON NORMALS: no JVD, regular rhythm, S1 normal heart sound present, S2 normal heart sound present and No murmurs present (Cardio) RHYTHM: regular rhythm HEART SOUNDS: S1 normal heart sound present and S2 normal heart sound present GI: COMMON NORMALS: Normal to inspection, nondistended, normoactive bowel sounds present, Soft to palpation and non-tender PALPATION: Yes Soft to palpation Extremity: COMMON NORMALS: no joint enlargement and no pedal edema Neuro: COMMON NORMALS: patient oriented x3 and moves all extremities SENSORIUM/ORIENTATION: Yes alert Skin: COMMON NORMALS: no rashes or lesions noted GENERAL SKIN EXAM: no rashes or lesions noted Urinary Catheter Management: Caraballo: Cath Placed During This Visit: no Reason for Continuing Indwelling Catheter: Accurate Measurement of Urinary Output in Critically Ill Patients Data : 03/10/22 03:27 03/10/22 03:27 A&P Assessment and plan (1) CHF (congestive heart failure): With improvement. Feeling better. Renal function, liver parameters improving. In negative balance. Decompensated acute systolic and diastolic CHF with severe cardiomyopathy. Discussed with family with cardiology. At this time continue milrinone. For now hold off addition of diuretics. Monitor ANMOL. Further discussion between him and cardiology with consideration of either assessment at specialized heart failure center. Consideration of hospice care. Very high risk of readmission. High risk of complications, mortality. Unfortunately suspect he may be reaching end-stage CHF. Gets very dyspneic with exertion. Last time did not qualify for home oxygen evaluation, would benefit from reevaluation again. (2) Cardiorenal syndrome: As above (3) Transaminitis: Appears to have congestive hepatopathy, mild ascites. History of cholecystectomy. Additional management of acute CHF as above. (4) Syncope: Without recurrence in the hospital. Syncope secondary to ventricular tachycardia, with ICD discharge. Additional management of acute CHF as above. Further consideration of goals of care. Would benefit from home O2 evaluation as he reports significant degree of dyspnea with exertion. (5) ICD (implantable cardioverter-defibrillator) discharge: ICD interrogation with concern for possible low generator battery, reported month remaining. Possibly due to recent discharge. Consider reassess in several days to get a clear picture of level of charge. Consider additional intragastric ICD prior to discharge. (6) VT (ventricular tachycardia): So far several discharges to earlier in January, and 1 today. No evidence of ischemia on recent stress test. Severe cardiomyopathy. Appreciate any additional cardiology recommendations. Magnesium not low. (7) Ischemic cardiomyopathy: (8) Acute kidney injury: ZOEY on CKD, as above. (9) Hyponatremia: Chronic (10) Dyspnea on exertion: (11) ICD (implantable cardioverter-defibrillator) in place: Plan Urethral stricture: During last hospitalization, underwent dilation with urology. Attestations Medical Necessity Statement*: Continue admission for this management of decompensated CHF with severe cardiomyopathy, EF 10-15%. Ventricular tachycardia with ICD discharge. Coding Level of Care Code Acute [place] for [facility] Diagnoses CHF (congestive heart failure) I50.9 Cardiorenal syndrome I13.10 Transaminitis R74.01 Syncope R55 ICD (implantable cardioverter-defibrillator) discharge Z45.02 VT (ventricular tachycardia) I47.2 Ischemic cardiomyopathy I25.5 Acute kidney injury N17.9 Hyponatremia E87.1 Dyspnea on exertion R06.09 ICD (implantable cardioverter-defibrillator) in place Z95.810
[2022-03-10] MEDS: warfarin 5 mg Tablet 2.5 MG PO (13:38)
--- NOTE | 2022-03-10 14:28 | PC.CHAP ---
Pastoral Care Encounter/Spiritual Assessment Type of Contact [] Declined steel grinder visit [] Patient/Family/Request visit [] Outpatient visit [] Follow-up visit [] Physician referral [] Code/Alert [] Routine visit [] Staff referral [] Actively dying [] Patient sleeping [] Family support [] [] Out of room [] Palliative care [] [] Receiving care in room [] Pre-surgical visit [] Trauma [] Long length of stay [x] ICU visit [] Other: Relational/Emotional Strength [] Patient feels connected with others/family/visitors/staff [] Distress [] Loneliness/isolation [] Abandonment Spirituality of Patient [] Person of Joanne [] Attends Congregational of their Joanne [] Believes in Prayer [] Reads Bible or Temple materials [] There are Spiritual issues to be addressed Tube Operator Interventions [x] Prayer [] Active listening [] Non-anxious presence [] Spiritual/emotional support [] Crisis/trauma care [] Spiritual counseling [] Bereavement support [] Provided bereavement packet [] Provided Bible/devotional materials [] Provided toy/stuffed animal, coloring book to patient or family member [] Provided Communion [] Anointing/[place] [] Salvation [x] Completed spiritual assessment [] Other: Impact on Illness or Injury [] Angry [] Fearful [] Anxious [] Often cries [] Exhaustion [] Unable to work [] Unable to attend spiritism [] Unable to walk/stand [] Unable to read [] Unable to drive [] Unable to eat/drink [] Unable to sleep [] Unable to be with family [] Patient intubated [] Other: Summary Time spent with patient
[2022-03-11] VITALS (52 sets, daily range): BP systolic 66–137; BP diastolic 43–79; PULSE 72–103; RESP 8–37; TEMP 36.1–36.2; O2SAT 84–97
[2022-03-11 00:21] LABS: Bilirubin Urine Negative (Negative); Blood Urine Trace-intact (Negative); Glucose Urine UA Negative (Normal); Ketones Urine Negative (Negative); Leukocyte Esterase Urine 1+; Nitrate Urine Negative; Protein Urine Negative; Specific Gravity, Urine 1.015 (1.005-1.030); Urine Appearance Clear (CLEAR); Urine Color Yellow (Yellow); Urobilinogen Urine 0.2 mg/dL (Negative)
[2022-03-11 00:53] LABS: Add Urine Microscopic? YES
[2022-03-11 00:55] LABS: Add Urine Culture? No; Bacteria Urine 1+ /hpf; RBC Urine 0-4 /hpf (0-2); Squamous Epithelial Cell Urine 0-4 /hpf (0-5); WBC Urine 0-4 /hpf (0-5)
[2022-03-11 03:51] LABS: Basophils % 0.7 %; Eosinophils # 0.2 10^3/uL (0.0-0.8); Eosinophils % 3.8 %; Hematocrit 39.2 % (42.0-52.0); Hemoglobin 13.2 g/dL (11.7-16.6); Lymphocytes # 0.9 10^3/uL (0.8-4.8); Lymphocytes % 14.5 %; Mean Corpuscular HGB Conc 33.7 g/dL (30.0-36.0); Mean Corpuscular Hemoglobin 33.2 pg (28.0-34.0); Mean Corpuscular Volume 98.7 fl (80-94); Monocytes # 0.6 10^3/uL (0.2-0.9); Monocytes % 9.7 %; Neutrophils # 4.26 10^3/uL (1.8-7.7); Neutrophils % 70.8 %; Nucleated Red Blood Cells % 0 %; Platelet Count 132 10^3/cmm (130-400); Red Blood Count 3.97 10^6/uL (4.1-5.3); Red Cell Distribution Width 15.4 % (12.1-15.1)
[2022-03-11 04:01] LABS: INR 2.13 (0.8-1.2)
[2022-03-11 04:11] LABS: Alanine Aminotransferase 184 U/L (0-41); Albumin Level 3.1 g/dL (3.5-5.2); Alkaline Phosphatase 209 U/L (40-130); Anion Gap 13.8 (5-19); Aspartate Amino Transferase 104 U/L (0-40); Blood Urea Nitrogen 40 mg/dL (8-23); Calcium 9.4 mg/dL (8.5-10.5); Carbon Dioxide 26 mmol/L (22-29); Chloride 95 mmol/L (98-107); Globulin 2.5 g/dL (1.3-4.6); Glucose 106 mg/dL (65-115); Osmolality Calculated 282 mOsm/kg (285-295); Potassium 3.8 mmol/L (3.5-5.1); Sodium 131 mmol/L (136-145); Total Bilirubin 2.3 mg/dL (0.15-1.2); Total Protein 5.6 g/dL (6.6-8.7)
[2022-03-11 04:14] LABS: Magnesium 2.4 mg/dL (1.7-2.3)
--- NOTE | 2022-03-11 11:52 | PC.CHAP ---
Pastoral Care Encounter/Spiritual Assessment Type of Contact [] Declined sequins stringer visit [] Patient/Family/Request visit [] Outpatient visit [] Follow-up visit [] Physician referral [] Code/Alert [x] Routine visit [] Staff referral [] Actively dying [] Patient sleeping [] Family support [] [] Out of room [] Palliative care [] [] Receiving care in room [] Pre-surgical visit [] Trauma [] Long length of stay [x] ICU visit [x] Other:PT feeling stronger today Relational/Emotional Strength [] Patient feels connected with others/family/visitors/staff [] Distress [] Loneliness/isolation [] Abandonment Spirituality of Patient [] Person of Joanne [] Attends Taoism of their Joanne [] Believes in Prayer [] Reads Bible or Baptism materials [] There are Spiritual issues to be addressed Pipe Threader Interventions [x] Prayer [] Active listening [] Non-anxious presence [] Spiritual/emotional support [] Crisis/trauma care [] Spiritual counseling [] Bereavement support [] Provided bereavement packet [] Provided Bible/devotional materials [] Provided toy/stuffed animal, coloring book to patient or family member [] Provided Communion [] Anointing/[place] [] Salvation [x] Completed spiritual assessment [] Other: Impact on Illness or Injury [] Angry [] Fearful [] Anxious [] Often cries [] Exhaustion [] Unable to work [] Unable to attend orthodox [] Unable to walk/stand [] Unable to read [] Unable to drive [] Unable to eat/drink [] Unable to sleep [] Unable to be with family [] Patient intubated [] Other: Summary Time spent with patient
--- NOTE | 2022-03-11 12:27 | P.PN_ITS ---
Subjective Subjective: He states that he did require some oxygen overnight. States that when he laid back very flat he became short of breath, hypoxic. Currently he is doing better with low rate oxygen 1 L, and sitting up. Denies chest pain. Swelling around his right eye has been subsiding/resolving. Vitals/I&O/Wt Last Vital Signs Temp 97.0 F L 03/11/22 06:00 Pulse 91 03/11/22 09:00 Resp 20 H 03/11/22 09:00 BP 119/72 03/11/22 09:00 Pulse Ox 92 03/11/22 09:00 O2 Del Method 03/11/22 09:00 O2 Flow Rate 1 03/11/22 09:00 03/10/22 03/11/22 03/11/22 22:59 06:59 14:59 Intake Total 312.988 / 672.988 90.948 / 763.936 324.043 / 324.043 Output Total 550 / 800 20 / 820 300 / 300 Balance -237.012 / -127.012 70.948 / -56.064 24.043 / 24.043 Weight last 48 hrs Weight 75.41 kg Weight 68.492 kg Physical Exam Const: COMMON NORMALS: patient oriented x3 and alert GENERAL APPEARANCE: cooperative ORIENTATION/CONSCIOUSNESS: Yes awake HENMT: COMMON NORMALS: oropharynx normal OTHER: Significantly improving swelling around the right eye, able to open the right eye. Neck/C-Spine: COMMON NORMALS: no JVD Resp: COMMON NORMALS: normal respiratory effort and clear to auscultation bilaterally AUSCULTATION: clear to auscultation bilaterally Cardio: COMMON NORMALS: no JVD, regular rhythm, S1 normal heart sound present, S2 normal heart sound present and No murmurs present (Cardio) RHYTHM: regular rhythm HEART SOUNDS: S1 normal heart sound present and S2 normal heart sound present GI: COMMON NORMALS: Normal to inspection, nondistended, normoactive bowel sounds present, Soft to palpation and non-tender PALPATION: Yes Soft to palpation Extremity: COMMON NORMALS: no joint enlargement GENERAL: Yes edema (Trace) Neuro: COMMON NORMALS: patient oriented x3 and moves all extremities SENSORIUM/ORIENTATION: Yes alert Skin: COMMON NORMALS: no rashes or lesions noted GENERAL SKIN EXAM: no rashes or lesions noted Urinary Catheter Management: Caraballo: Cath Placed During This Visit: no Reason for Continuing Indwelling Catheter: Accurate Measurement of Urinary Output in Critically Ill Patients Data : 03/11/22 03:29 03/11/22 03:29 A&P Assessment and plan (1) CHF (congestive heart failure): Subjectively overall feeling better, although has been requiring some oxygen. Renal function, liver parameters have been gradually improving with milrinone. Maintaining blood pressures. Continue milrinone as per direction of cardiology. Decompensated acute systolic and diastolic CHF with severe cardiomyopathy. Discussed with family with cardiology. At this time continue milrinone. For now hold off addition of diuretics. Monitor ANMOL. Further discussion between him and cardiology with consideration of either assessment at specialized heart failure center. Consideration of hospice care. Very high risk of readmission. High risk of complications, mortality. Unfortunately suspect he may be reaching end-stage CHF. Gets very dyspneic with exertion. Last time did not qualify for home oxygen evaluation, would benefit from reevaluation again. (2) Cardiorenal syndrome: As above (3) Transaminitis: Appears to have congestive hepatopathy, mild ascites. History of cholecystectomy. Additional management of acute CHF as above. (4) Syncope: Overnight 11 beats of V. tach. Does report was having some hypoxia, started on low rate oxygen, possibly triggered VT. Syncope secondary to ventricular tachycardia, with ICD discharge. Suspect fever benefit from oxygen at home. Additional management of acute CHF as above. Further consideration of goals of care. Would benefit from home O2 evaluation as he reports significant degree of dyspnea with exertion. (5) ICD (implantable cardioverter-defibrillator) discharge: ICD interrogation with concern for possible low generator battery, reported month remaining. Possibly due to recent discharge. Consider reassess in several days to get a clear picture of level of charge. Consider additional intragastric ICD prior to discharge. (6) VT (ventricular tachycardia): So far several discharges to earlier in January, and 1 today. No evidence of ischemia on recent stress test. Severe cardiomyopathy. Appreciate any additional cardiology recommendations. Magnesium not low. (7) Ischemic cardiomyopathy: (8) Acute kidney injury: ZOEY on CKD, as above. (9) Hyponatremia: Chronic (10) Dyspnea on exertion: (11) ICD (implantable cardioverter-defibrillator) in place: Plan Urethral stricture: During last hospitalization, underwent dilation with urology. Attestations Medical Necessity Statement*: Continue admission for management of acute decompensation of CHF with cardiorenal syndrome, liver dysfunction, ventricular tachycardia. Coding Level of Care Code Acute Finisher Denture for Chg Fwd Diagnoses CHF (congestive heart failure) I50.9 Cardiorenal syndrome I13.10 Transaminitis R74.01 Syncope R55 ICD (implantable cardioverter-defibrillator) discharge Z45.02 VT (ventricular tachycardia) I47.2 Ischemic cardiomyopathy I25.5 Acute kidney injury N17.9 Hyponatremia E87.1 Dyspnea on exertion R06.09 ICD (implantable cardioverter-defibrillator) in place Z95.810
[2022-03-11] MEDS: warfarin 5 mg Tablet 2.5 MG PO (13:44)
--- NOTE | 2022-03-11 17:40 | PM.PN ---
Subjective Subjective: Patient is overall improving. Denies significant shortness of breath or chest pain. Creatinine is improving as well. Repeat interrogation of device confirmed 1 month of battery life is left on ICD. Vitals/I&O/Wt Last Vital Signs Temp 97.0 F L 03/11/22 06:00 Pulse 74 03/11/22 14:00 Resp 16 03/11/22 13:00 BP 137/75 03/11/22 13:00 Pulse Ox 93 03/11/22 13:00 O2 Del Method 03/11/22 13:00 O2 Flow Rate 1 03/11/22 09:00 03/11/22 03/11/22 03/11/22 06:59 14:59 22:59 Intake Total 90.948 / 763.936 564.043 / 564.043 Output Total 20 / 820 300 / 300 Balance 70.948 / -56.064 264.043 / 264.043 Weight last 48 hrs Weight 166 lb 4 oz Physical Exam Narrative: GENERAL: Patient is alert, awake and oriented x3. [] NECK: No jugular vein distension. [] HEENT: Has hematoma on right eye HEART: Regular S1 and S2. No murmur, rub or gallop. [] LUNGS: Clear to auscultate bilaterally. [] ABDOMEN: Soft, nontender and nondistended. Positive bowel sounds. No guarding, rebound or tenderness. [] CENTRAL NERVOUS SYSTEM: Grossly nonfocal. [] EXTREMITIES: Lower extremities with 1+ edema bilaterally. Pulses palpable in the lower extremities, both dorsalis pedis and posterior tibial. [] Urinary Catheter Management: Caraballo: Cath Placed During This Visit: no Reason for Continuing Indwelling Catheter: Accurate Measurement of Urinary Output in Critically Ill Patients Data : 03/12/22 02:27 03/12/22 02:27 A&P Assessment and plan (1) ICD (implantable cardioverter-defibrillator) discharge: (2) Syncope: (3) Cardiorenal syndrome: (4) Ischemic cardiomyopathy: (5) CHF (congestive heart failure): (6) Acute kidney injury: Plan Continue milrinone drip. Renal function is improving. May consider gentle diuresis once renal function improves further. Monitor labs closely. Patient has not decided on hospice care at this time. He wants to discuss more once he is discharged before making the decision. His ICD has 1 month battery life on it. May need replacement soon Strict I&O's. Fluid restriction. Thank you for involving us with care of this patient. We will continue to follow. Please call with questions Attestations Medical Necessity Statement*: Care expected to cross 2 midnights. Coding Level of Care Code Acute Cloth Seconds Sorter for [facility] Fwd Diagnoses ICD (implantable cardioverter-defibrillator) discharge Z45.02 Syncope R55 Cardiorenal syndrome I13.10 Ischemic cardiomyopathy I25.5 CHF (congestive heart failure) I50.9 Acute kidney injury N17.9
[2022-03-11] MEDS: efferdent effervescent 1 EACH DENTAL (18:55)
[2022-03-12] VITALS (49 sets, daily range): BP systolic 86–132; BP diastolic 52–87; PULSE 0–144; RESP 10–24; TEMP 36.4; O2SAT 86–97
[2022-03-12 02:54] LABS: Basophils % 0.7 %; Eosinophils # 0.3 10^3/uL (0.0-0.8); Hematocrit 40.2 % (42.0-52.0); Hemoglobin 13.2 g/dL (11.7-16.6); Lymphocytes # 0.8 10^3/uL (0.8-4.8); Lymphocytes % 15.6 %; Mean Corpuscular HGB Conc 32.8 g/dL (30.0-36.0); Mean Corpuscular Hemoglobin 33.9 pg (28.0-34.0); Mean Corpuscular Volume 103.3 fl (80-94); Mean Platelet Volume 9.2 fL (7.4-10.4); Monocytes # 0.5 10^3/uL (0.2-0.9); Monocytes % 9.9 %; Neutrophils # 3.67 10^3/uL (1.8-7.7); Neutrophils % 68.4 %; Nucleated Red Blood Cells % 0 %; Platelet Count 136 10^3/cmm (130-400); Red Blood Count 3.89 10^6/uL (4.1-5.3); Red Cell Distribution Width 15.9 % (12.1-15.1); White Blood Count 5.4 10^3/uL (4.0-10.0)
[2022-03-12 03:06] LABS: INR 1.95 (0.8-1.2)
[2022-03-12 03:13] LABS: Alanine Aminotransferase 157 U/L (0-41); Albumin Level 2.9 g/dL (3.5-5.2); Alkaline Phosphatase 192 U/L (40-130); Anion Gap 11.7 (5-19); Aspartate Amino Transferase 89 U/L (0-40); Blood Urea Nitrogen 27 mg/dL (8-23); Calcium 8.6 mg/dL (8.5-10.5); Carbon Dioxide 25 mmol/L (22-29); Chloride 95 mmol/L (98-107); Globulin 2.4 g/dL (1.3-4.6); Glucose 99 mg/dL (65-115); Osmolality Calculated 271 mOsm/kg (285-295); Potassium 3.7 mmol/L (3.5-5.1); Sodium 128 mmol/L (136-145); Total Bilirubin 1.9 mg/dL (0.15-1.2); Total Protein 5.3 g/dL (6.6-8.7)
--- NOTE | 2022-03-12 08:15 | PM.PN ---
Subjective Subjective: Patient's labs are improving. Heart rate is elevated. Vitals/I&O/Wt Last Vital Signs Temp 97.6 F 03/12/22 05:00 Pulse 74 03/12/22 06:00 Resp 13 03/12/22 06:00 BP 98/67 03/12/22 06:00 Pulse Ox 94 03/12/22 06:00 O2 Del Method 03/12/22 03:30 O2 Flow Rate 3 03/12/22 03:30 03/11/22 03/12/22 03/12/22 22:59 06:59 14:59 Intake Total 469.764 / 1033.807 96.417 / 1130.224 Output Total 475 / 775 375 / 1150 Balance -5.236 / 258.807 -278.583 / -19.776 Weight last 48 hrs Weight 162 lb Physical Exam Narrative: GENERAL: Patient is alert, awake and oriented x3. [] NECK: No jugular vein distension. [] HEENT: Has hematoma on right eye HEART: Regular S1 and S2. No murmur, rub or gallop. [] LUNGS: Clear to auscultate bilaterally. [] ABDOMEN: Soft, nontender and nondistended. Positive bowel sounds. No guarding, rebound or tenderness. [] CENTRAL NERVOUS SYSTEM: Grossly nonfocal. [] EXTREMITIES: Lower extremities with 1+ edema bilaterally. Pulses palpable in the lower extremities, both dorsalis pedis and posterior tibial. [] Data : 03/13/22 02:23 03/13/22 02:23 A&P Assessment and plan (1) ICD (implantable cardioverter-defibrillator) discharge: (2) Syncope: (3) Cardiorenal syndrome: (4) Ischemic cardiomyopathy: (5) CHF (congestive heart failure): (6) Acute kidney injury: Plan We will down titrate milrinone and stop it overnight. Heart rate elevated secondary to that. Can restart low-dose carvedilol tomorrow. Strict I&O's. Patient stayed stable tomorrow morning and plan to discharge. Thank you for involving us with care of this patient. We will continue to follow. Please call with questions Attestations Medical Necessity Statement*: Care expected to cross 2 midnights. Coding Level of Care Code Acute Slabbing Machine Operator for [facility] Fwd Diagnoses ICD (implantable cardioverter-defibrillator) discharge Z45.02 Syncope R55 Cardiorenal syndrome I13.10 Ischemic cardiomyopathy I25.5 CHF (congestive heart failure) I50.9 Acute kidney injury N17.9
[2022-03-12] MEDS: bumetanide 0.25 mg/mL SDV 4 mL 0.5 MG IVP (09:14)
--- NOTE | 2022-03-12 09:54 | PC.SOCIAL ---
IMM Update pg 2 of IMM updated w/ patient. Copy provided and Copy dated, initialed and placed in chart.
--- NOTE | 2022-03-12 10:08 | PC.CHAP ---
Pastoral Care Encounter/Spiritual Assessment Type of Contact [] Declined upholstery tech visit [] Patient/Family/Request visit [] Outpatient visit [] Follow-up visit [] Physician referral [] Code/Alert [x] Routine visit [] Staff referral [] Actively dying [x] Patient sleeping [] Family support [] [] Out of room [] Palliative care [] [] Receiving care in room [] Pre-surgical visit [] Trauma [] Long length of stay [x] ICU visit [] Other: Relational/Emotional Strength [] Patient feels connected with others/family/visitors/staff [] Distress [] Loneliness/isolation [] Abandonment Spirituality of Patient [] Person of Joanne [] Attends Protestant of their Joanne [] Believes in Prayer [] Reads Bible or Congregational materials [] There are Spiritual issues to be addressed Felt Tipping Machine Tender Interventions [x] Prayer [] Active listening [] Non-anxious presence [] Spiritual/emotional support [] Crisis/trauma care [] Spiritual counseling [] Bereavement support [] Provided bereavement packet [] Provided Bible/devotional materials [] Provided toy/stuffed animal, coloring book to patient or family member [] Provided Communion [] Anointing/Solomon [] Salvation [x] Completed spiritual assessment [] Other: Impact on Illness or Injury [] Angry [] Fearful [] Anxious [] Often cries [] Exhaustion [] Unable to work [] Unable to attend congregation [] Unable to walk/stand [] Unable to read [] Unable to drive [] Unable to eat/drink [] Unable to sleep [] Unable to be with family [] Patient intubated [] Other: Summary Time spent with patient
--- NOTE | 2022-03-12 10:23 | PC.NURSE ---
up to bathroom for bm noted have sustained vtach doctor notified did not that defibrillator did not fire
--- NOTE | 2022-03-12 13:30 | PM.PN ---
Subjective Subjective: This morning he reports he is doing okay. Denies chest pain or pressure. Reports he is breathing comfortably although on oxygen while at rest. In the afternoon getting up to the commode noted to have episode of VT which was self-limited, without ICD discharge. Back in bed saturation was 90%. Brief diplopia after waking up when looking at the TV resolved. Swelling around right eye has been significantly improving. Vitals/I&O/Wt Last Vital Signs Temp 97.6 F 03/12/22 05:00 Pulse 98 03/12/22 12:00 Resp 20 H 03/12/22 12:00 BP 118/85 03/12/22 10:30 Pulse Ox 91 03/12/22 12:00 O2 Del Method 03/12/22 03:30 O2 Flow Rate 3 03/12/22 03:30 03/11/22 03/12/22 03/12/22 22:59 06:59 14:59 Intake Total 469.764 / 1033.807 96.417 / 1130.224 230.605 / 230.605 Output Total 475 / 775 375 / 1150 Balance -5.236 / 258.807 -278.583 / -19.776 230.605 / 230.605 Weight last 48 hrs Weight 73.482 kg Physical Exam Const: COMMON NORMALS: patient oriented x3 and alert GENERAL APPEARANCE: cooperative ORIENTATION/CONSCIOUSNESS: Yes awake HENMT: COMMON NORMALS: oropharynx normal OTHER: Significantly improving swelling around the right eye, able to open the right eye. Neck/C-Spine: COMMON NORMALS: no JVD Resp: COMMON NORMALS: normal respiratory effort and clear to auscultation bilaterally AUSCULTATION: clear to auscultation bilaterally Cardio: COMMON NORMALS: no JVD, regular rhythm, S1 normal heart sound present, S2 normal heart sound present and No murmurs present (Cardio) RHYTHM: regular rhythm HEART SOUNDS: S1 normal heart sound present and S2 normal heart sound present GI: COMMON NORMALS: Normal to inspection, nondistended, normoactive bowel sounds present, Soft to palpation and non-tender PALPATION: Yes Soft to palpation Extremity: COMMON NORMALS: no joint enlargement and no pedal edema GENERAL: Yes edema (Trace) Neuro: COMMON NORMALS: patient oriented x3 and moves all extremities SENSORIUM/ORIENTATION: Yes alert Skin: COMMON NORMALS: no rashes or lesions noted GENERAL SKIN EXAM: no rashes or lesions noted Urinary Catheter Management: Caraballo: Cath Placed During This Visit: no Reason for Continuing Indwelling Catheter: Accurate Measurement of Urinary Output in Critically Ill Patients Data : 03/12/22 02:27 03/12/22 02:27 A&P Assessment and plan (1) CHF (congestive heart failure): Initiate cautious diuresis, 0.5 mg IV Bumex. Continue milrinone. Renal function improving. If continues to improve, possible return home tomorrow. Home O2 evaluation with discharge. Subjectively overall feeling better, although has been requiring some oxygen. Renal function, liver parameters have been gradually improving with milrinone. Maintaining blood pressures. Continue milrinone as per direction of cardiology. Decompensated acute systolic and diastolic CHF with severe cardiomyopathy. Discussed with family with cardiology. At this time continue milrinone. For now hold off addition of diuretics. Monitor ANMOL. Further discussion between him and cardiology with consideration of either assessment at specialized heart failure center. Consideration of hospice care. Very high risk of readmission. High risk of complications, mortality. Unfortunately suspect he may be reaching end-stage CHF. Gets very dyspneic with exertion. Last time did not qualify for home oxygen evaluation, would benefit from reevaluation again. (2) Cardiorenal syndrome: As above. Improving. (3) Transaminitis: Appears to have congestive hepatopathy, mild ascites. History of cholecystectomy. Additional management of acute CHF as above. (4) Syncope: Additional V. tach noted with exertion to the commode today. Did not wear nasal cannula. Will need home O2 eval prior to discharge although did not appear to be significantly hypoxic when got back to bed on check of saturation bed around 90%. Additional management of acute CHF as above. Further consideration of goals of care. Would benefit from home O2 evaluation as he reports significant degree of dyspnea with exertion. (5) ICD (implantable cardioverter-defibrillator) discharge: Reassessment of generator still showing reaching low state of charge. Per discussion with cardiology follow-up in office for plans of generator replacement. ICD interrogation with concern for possible low generator battery, reported month remaining. (6) VT (ventricular tachycardia): So far several discharges to earlier in January, and 1 on day of admit. No evidence of ischemia on recent stress test. Severe cardiomyopathy. Appreciate any additional cardiology recommendations. Magnesium not low. Suspect may be hypoxic with exertion, home O2 eval prior to discharge. (7) Ischemic cardiomyopathy: (8) Acute kidney injury: ZOEY on CKD, as above. (9) Hyponatremia: Chronic (10) Dyspnea on exertion: (11) ICD (implantable cardioverter-defibrillator) in place: Plan Right eye periorbital swelling: After syncopal episode and fall at home, moderate soft tissue hematoma centered over right orbit globe and frontal bone on face CT. Has been significantly improving. Reported some mild diplopia when waking up in the morning looking at the TV briefly which has resolved. Discussed with him consideration of repeat CT in case any persisting symptoms. Urethral stricture: During last hospitalization, underwent dilation with urology. Attestations Medical Necessity Statement*: Continue admission for assessment of CHF with severe underlying cardiomyopathy and EF 10-15%, cardiorenal syndrome, episodes of VT. Coding Level of Care Code Acute Car Shifter for [facility] Fwd Diagnoses CHF (congestive heart failure) I50.9 Cardiorenal syndrome I13.10 Transaminitis R74.01 Syncope R55 ICD (implantable cardioverter-defibrillator) discharge Z45.02 VT (ventricular tachycardia) I47.2 Ischemic cardiomyopathy I25.5 Acute kidney injury N17.9 Hyponatremia E87.1 Dyspnea on exertion R06.09 ICD (implantable cardioverter-defibrillator) in place Z95.810
[2022-03-12] MEDS: warfarin 5 mg Tablet 2.5 MG PO (14:23)
[2022-03-13] VITALS (20 sets, daily range): BP systolic 71–126; BP diastolic 39–87; PULSE 74–119; RESP 10–53; TEMP 36.4; O2SAT 84–98
[2022-03-13] MEDS: acetaminophen 325 mg Tablet 650 MG PO (01:43)
[2022-03-13 03:57] LABS: Basophils % 0.8 %; Eosinophils # 0.3 10^3/uL (0.0-0.8); Eosinophils % 5.8 %; Hematocrit 41.2 % (42.0-52.0); Hemoglobin 13.5 g/dL (11.7-16.6); Lymphocytes % 18.4 %; Mean Corpuscular HGB Conc 32.8 g/dL (30.0-36.0); Mean Corpuscular Hemoglobin 33.7 pg (28.0-34.0); Mean Corpuscular Volume 102.7 fl (80-94); Mean Platelet Volume 9.1 fL (7.4-10.4); Monocytes # 0.5 10^3/uL (0.2-0.9); Monocytes % 10.3 %; Neutrophils # 3.31 10^3/uL (1.8-7.7); Neutrophils % 64.3 %; Nucleated Red Blood Cells % 0 %; Platelet Count 131 10^3/cmm (130-400); Red Blood Count 4.01 10^6/uL (4.1-5.3); Red Cell Distribution Width 15.7 % (12.1-15.1); White Blood Count 5.2 10^3/uL (4.0-10.0)
[2022-03-13 04:17] LABS: Alanine Aminotransferase 144 U/L (0-41); Albumin Level 2.9 g/dL (3.5-5.2); Alkaline Phosphatase 190 U/L (40-130); Anion Gap 12.8 (5-19); Aspartate Amino Transferase 88 U/L (0-40); Blood Urea Nitrogen 22 mg/dL (8-23); Calcium 9.1 mg/dL (8.5-10.5); Carbon Dioxide 25 mmol/L (22-29); Chloride 97 mmol/L (98-107); Globulin 2.8 g/dL (1.3-4.6); Glucose 94 mg/dL (65-115); Osmolality Calculated 275 mOsm/kg (285-295); Potassium 3.8 mmol/L (3.5-5.1); Sodium 131 mmol/L (136-145); Total Bilirubin 1.9 mg/dL (0.15-1.2); Total Protein 5.7 g/dL (6.6-8.7)
--- NOTE | 2022-03-13 08:34 | PM.PN ---
Subjective Subjective: Patient is stable today. Vitals/I&O/Wt Last Vital Signs Temp 97.6 F 03/12/22 05:00 Pulse 75 03/13/22 08:00 Resp 15 03/13/22 08:00 BP 88/46 03/13/22 08:00 Pulse Ox 98 03/13/22 08:00 O2 Del Method 03/12/22 21:30 O2 Flow Rate 3 03/12/22 03:30 03/12/22 03/13/22 03/13/22 22:59 06:59 14:59 Intake Total 471.376 / 701.981 69.403 / 771.384 Output Total 650 / 650 400 / 1050 Balance -178.624 / 51.981 -330.597 / -278.616 Weight last 48 hrs Weight 160 lb 11.2 oz Weight 162 lb Physical Exam Narrative: GENERAL: Patient is alert, awake and oriented x3. [] NECK: No jugular vein distension. [] HEENT: Has hematoma on right eye HEART: Regular S1 and S2. No murmur, rub or gallop. [] LUNGS: Clear to auscultate bilaterally. [] ABDOMEN: Soft, nontender and nondistended. Positive bowel sounds. No guarding, rebound or tenderness. [] CENTRAL NERVOUS SYSTEM: Grossly nonfocal. [] EXTREMITIES: Lower extremities with 1+ edema bilaterally. Pulses palpable in the lower extremities, both dorsalis pedis and posterior tibial. [] Urinary Catheter Management: Caraballo: Cath Placed During This Visit: no Reason for Continuing Indwelling Catheter: Accurate Measurement of Urinary Output in Critically Ill Patients Data : 03/13/22 02:23 03/13/22 02:23 A&P Assessment and plan (1) ICD (implantable cardioverter-defibrillator) discharge: (2) Syncope: (3) Cardiorenal syndrome: (4) Ischemic cardiomyopathy: (5) CHF (congestive heart failure): (6) Acute kidney injury: Plan Milrinone titrated off. Heart rate has improved. Low dose coreg. Can reinitiate low dose diuretics. Thank you for involving us with care of this patient. Patient is stable to be discharged from cardiology standpoint. Will need close follow up in office in a week to reevaluate the ICD as is closing to the point where needs battery replacement. Please call with questions Attestations Medical Necessity Statement*: Care expected to cross 2 midnights. Coding Level of Care Code Acute Product Marketing Executive for [facility] Fwd Diagnoses ICD (implantable cardioverter-defibrillator) discharge Z45.02 Syncope R55 Cardiorenal syndrome I13.10 Ischemic cardiomyopathy I25.5 CHF (congestive heart failure) I50.9 Acute kidney injury N17.9
--- NOTE | 2022-03-13 10:15 | PM.DCS ---
Discharge Providers Date of Admission: 03/09/22 17:02 Date of Discharge: March 13, 2022 Attending Provider at Admission: Nathanael Sharma Attending Provider at Discharge: Nathanael Sharma Primary Care Provider: Echo Garay MD Diagnoses at Discharge Discharge Diagnosis (1) CHF (congestive heart failure): Status: Acute (2) Cardiorenal syndrome: Status: Acute (3) Transaminitis: Status: Acute (4) Syncope: Status: Acute (5) ICD (implantable cardioverter-defibrillator) discharge: Status: Acute (6) VT (ventricular tachycardia): Status: Acute (7) Ischemic cardiomyopathy: Status: Acute (8) Acute kidney injury: Status: Acute (9) Hyponatremia: Status: Acute (10) Dyspnea on exertion: Status: Acute (11) ICD (implantable cardioverter-defibrillator) in place: Status: Acute Reason for Visit Reason for Visit: SYNCOPE/ FALL Hospital Course Hospital Course Very pleasant 81-year-old gentleman with severe cardiomyopathy, ischemic cardiomyopathy, EF 10-15%, with CUT FILER/AICD, with recent admission due to decompensated systolic congestive heart failure, on chronic anticoagulation with warfarin due to atrial fibrillation, CKD, HTN, HLD, history of CVA, intolerance of statin, prior episode of syncope, ICD discharge, was treated with inotropic agent, diuresis, and assist with stress test during prior admission which showed no active ischemia. He returned to the hospital more short of breath, with syncopal episode, with ICD discharge, with decompensated heart failure again also with cardiorenal syndrome, ZOEY on CKD, as well as transaminitis with congestive hepatopathy, T bili elevation and alk phos elevation. He was seen by cardiology while in the hospital. He was treated with milrinone infusion, with gradual improvement in congestive heart failure symptoms, as well as improvement in resolution of ZOEY, creatinine down to 1.3, as well as improvement in liver parameters. He is feeling better. ICD interrogation showed concern for possible low generator battery for which she will follow-up for reassessment and consideration of replacement. He is resumed on bumetanide at discharge. Due to soft blood pressures now lisinopril is withheld, carvedilol was decreased to 3.125 mg twice daily. Please reassess heart rates and blood pressures. On follow-up with cardiology he will be further referred to specialty heart failure clinic. Alternatively if not continue with active management continue goals of care discussions with consideration for hospice care which also would be appropriate. Please reassess renal and liver parameters. As he does get quite dyspneic with exertion due to CHF, home oxygen evaluation is requested at discharge. After syncope and fall, swelling around right eye initially with significant hematoma now nearly resolved. Please reassess. Physical Exam Const: COMMON NORMALS: patient oriented x3 and alert GENERAL APPEARANCE: cooperative ORIENTATION/CONSCIOUSNESS: Yes awake HENMT: COMMON NORMALS: oropharynx normal OTHER: Significantly improving swelling around the right eye, able to open the right eye. Neck/C-Spine: COMMON NORMALS: no JVD Resp: COMMON NORMALS: normal respiratory effort and clear to auscultation bilaterally AUSCULTATION: clear to auscultation bilaterally Cardio: COMMON NORMALS: no JVD, regular rhythm, S1 normal heart sound present, S2 normal heart sound present and No murmurs present (Cardio) RHYTHM: regular rhythm HEART SOUNDS: S1 normal heart sound present and S2 normal heart sound present GI: COMMON NORMALS: Normal to inspection, nondistended, normoactive bowel sounds present, Soft to palpation and non-tender PALPATION: Yes Soft to palpation Extremity: COMMON NORMALS: no joint enlargement and no pedal edema GENERAL: Yes edema (Trace) Neuro: COMMON NORMALS: patient oriented x3 and moves all extremities SENSORIUM/ORIENTATION: Yes alert Skin: COMMON NORMALS: no rashes or lesions noted GENERAL SKIN EXAM: no rashes or lesions noted Urinary Catheter Management: Caraballo: Cath Placed During This Visit: no Reason for Continuing Indwelling Catheter: Accurate Measurement of Urinary Output in Critically Ill Patients Discharge Data Studies Completed and Pending Completed Studies During Hospitalization Category Date Time Status CT facial bones wo con* [id number] Stat Cat Scan 03/09/22 14:[address] head wo con* [id number] Stat Cat Scan 03/09/22 14:49 Completed XR chest 1V portable [id number] Stat Exams 03/09/22 14:12 Completed US gall bladder [id number] Stat Ultrasound 03/09/22 16:40 Completed Radiology Impressions Chest X-Ray 03/09/22 14:12 IMPRESSION: 1. Cardiac enlargement. No acute process noted. Face CT 03/09/22 14:49 IMPRESSION: 1. No facial bone fracture. 2. Moderate soft tissue hematoma centered over the RIGHT orbit, globe and frontal bone. Head CT 03/09/22 14:49 IMPRESSION: 1. No acute intracranial hemorrhage or edema. 2. Moderate atrophy and small vessel ischemic disease. Remote infarct in the posterior LEFT frontal lobe. 3. No skull fracture. 4. Soft tissue hematoma centered over the RIGHT orbit and globe. Gallbladder Ultrasound 03/09/22 16:40 IMPRESSION: 1. Small ascites. 2. Mild engorgement of the hepatic vessels and IVC Laboratory Results WBC 5.2 10^3/uL (4.0-10.0) 03/13/22 02:23 RBC 4.01 10^6/uL (4.1-5.3) L 03/13/22 02:23 Hgb 13.5 g/dL (11.7-16.6) 03/13/22 02:23 Hct 41.2 % (42.0-52.0) L 03/13/22 02:23 MCV 102.7 fl (80-94) H 03/13/22 02:23 MCH 33.7 pg (28.0-34.0) 03/13/22 02:23 MCHC 32.8 g/dL (30.0-36.0) 03/13/22 02:23 RDW 15.7 % (12.1-15.1) H 03/13/22 02:23 Plt Count 131 10^3/cmm (130-400) 03/13/22 02:23 MPV 9.1 fL (7.4-10.4) 03/13/22 02:23 Neut % (Auto) 64.3 % 03/13/22 02:23 Lymph % (Auto) 18.4 % 03/13/22 02:23 Fountain % (Auto) 10.3 % 03/13/22 02:23 Eos % (Auto) 5.8 % 03/13/22 02:23 Baso % (Auto) 0.8 % 03/13/22 02:23 Neut # (Auto) 3.31 10^3/uL (1.8-7.7) 03/13/22 02:23 Lymph # (Auto) 1.0 10^3/uL (0.8-4.8) 03/13/22 02:23 Fountain # (Auto) 0.5 10^3/uL (0.2-0.9) 10/01/22 02:23 Eos # (Auto) 0.3 10^3/uL (0.0-0.8) 03/13/22 02:23 Baso # (Auto) 0.0 10^3/uL (0.0-0.1) 03/13/22 02:23 Nucleated RBC % (auto) 0 % 03/13/22 02:23 Nucleated RBCs # 0.0 /100WBC 03/13/22 02:23 PT 22.60 SECONDS (12.1-14.9) H 03/12/22 02:27 INR 1.95 (0.8-1.2) H 03/12/22 02:27 APTT 41.3 SECONDS (23.9-36.7) H 03/09/22 14:27 Sodium 131 mmol/L (136-145) L 03/13/22 02:23 Potassium 3.8 mmol/L (3.5-5.1) 03/13/22 02:23 Chloride 97 mmol/L (98-107) L 03/13/22 02:23 Carbon Dioxide 25 mmol/L (22-29) 03/13/22 02:23 Anion Gap 12.8 (5-19) 03/13/22 02:23 BUN 22 mg/dL (8-23) 03/13/22 02:23 Creatinine 1.3 mg/dL (0.7-1.2) H 03/13/22 02:23 GFR Calculation Not Reportable 03/13/22 02:23 Glucose 94 mg/dL (65-115) 03/13/22 02:23 POC Glucose 122 mg/dL (70-110) H 03/09/22 18:03 Calculated Osmolality 275 mOsm/kg (285-295) L 03/13/22 02:23 Calcium 9.1 mg/dL (8.5-10.5) 03/13/22 02:23 Magnesium 2.4 mg/dL (1.7-2.3) H 03/11/22 03:29 Total Bilirubin 1.9 mg/dL (0.15-1.2) H 03/13/22 02:23 AST 88 U/L (0-40) H 03/13/22 02:23 ALT 144 U/L (0-41) H 03/13/22 02:23 Alkaline Phosphatase 190 U/L (40-130) H 03/13/22 02:23 Troponin T Baseline 63 ng/L (0-15) H 03/09/22 14:23 Troponin T 120 Minute 56.96 ng/L (0-15) H 03/09/22 16:18 Delta Troponin T -6.04 ABS# (0-10) L 03/09/22 16:18 Troponin T Hi Sens 6Hr 65.01 ng/L (0-15) H 03/09/22 20:12 Troponin T Hi Sens 6Hr Delta 2.01 ng/L (0-12) 03/09/22 20:12 Total Protein 5.7 g/dL (6.6-8.7) L 03/13/22 02:23 Albumin 2.9 g/dL (3.5-5.2) L 03/13/22 02:23 Globulin 2.8 g/dL (1.3-4.6) 03/13/22 02:23 Urine Color Yellow (Yellow) 03/10/22 23:58 Urine Appearance Clear (CLEAR) 03/10/22 23:58 Urine pH 6.0 (5-7) 03/10/22 23:58 Ur Specific [place] 1.015 (1.005-1.030) 03/10/22 23:58 Urine Protein Negative 03/10/22 23:58 Urine Glucose (UA) Negative (Normal) 03/10/22 23:58 Urine Ketones Negative (Negative) 03/10/22 23:58 Urine Blood Trace-intact (Negative) A 03/10/22 23:58 Urine Nitrate Negative 03/10/22 23:58 Urine Bilirubin Negative (Negative) 03/10/22 23:58 Urine Urobilinogen 0.2 mg/dL (Negative) 03/10/22 23:58 Ur Leukocyte Esterase 1+ 03/10/22 23:58 Urine RBC 0-4 /hpf (0-2) H 03/10/22 23:58 Urine WBC 0-4 /hpf (0-5) H 03/10/22 23:58 Ur Squamous Epith Cells 0-4 /hpf (0-5) H 03/10/22 23:58 Amorphous Sediment Not Reportable 03/10/22 23:58 Urine Bacteria 1+ /hpf (NONE) H 03/10/22 23:58 Vitals Last Vital Signs Temp 97.6 F 03/12/22 05:00 Pulse 75 03/13/22 08:00 Resp 15 03/13/22 08:00 BP 88/46 03/13/22 08:00 Pulse Ox 98 03/13/22 08:00 O2 Del Method 03/12/22 21:30 O2 Flow Rate 3 03/12/22 03:30 Discharge Plan Discharge Patient Disposition: Home Condition: Stable Prescriptions: Continued pravastatin 40 mg tablet 40 mg PO QPM Repatha SureClick 140 mg/mL pen injector 140 mg SUBCUT Q14D coenzyme Q10 [Co Q-10] 100 mg capsule 100 mg PO DAILY potassium chloride 10 mEq tablet extended release 10 meq PO DAILY Qty: 90 3RF magnesium 250 mg tablet 500 mg PO DAILY Qty: 30 2RF bumetanide 2 mg tablet 2 mg PO DAILY cholecalciferol (vitamin D3) [Vitamin D3] 25 mcg (1,000 unit) Tablet 25 mcg PO DAILY omega-3 fatty acids-fish oil 684-1,200 mg Capsule,Delayed Release(Dr/Ec) 1 cap PO DAILY polyethylene glycol 3350 17 gram Powder In Packet 17 g PO DAILY PRN (Reason: constipation) Qty: 30 0RF warfarin 2.5 mg Tablet 2.5 mg PO SuMoTuWeThFr@1400 Qty: 30 0RF warfarin 5 mg Tablet 5 mg PO Sa@1400 Qty: 10 0RF Changed carvedilol 6.25 mg tablet 3.125 mg PO BID Qty: 408 3RF Held lisinopril 5 mg Tablet 2.5 mg PO DAILY Hold Instructions: Resume on 03/17/22. Discharge Orders: Discharge Order (Routine); Ordered 03/13/22 Ordered By: Nathanael Sharma Referrals: Matt Tucker M.D [Physician] - 1 week Echo Garay MD [Primary Care Provider] - 4-7 days Discharge Diet: Cardiac Discharge Activity: Increase activity as tolerated Patient Instructions: Heart Failure (GEN), Pain Management Activity Restrictions/Additional Instructions: For now hold lisinopril until follow-up with your primary doctor and/your entrepreneurial finance professor. For now also decrease carvedilol dose to 3.125 mg twice a day. In case blood pressure is increasing above 120/80, increase carvedilol to 6.25 mg twice a day, then in several days if still increasing increase back to your usual dose 9.375 mg. Follow-up with cardiology for reassessment of congestive heart failure. Referral for follow-up with specialty heart failure clinic. As well as reassessment of defibrillator divide battery charge and arrangements for generator change. Continue discussions regarding goals of care, and if not pursuing aggressive therapy consideration of hospice care. Please have your primary doctor follow-up your kidney function, liver parameters. These have been improving so far in the hospital. Discharge Attestations Time Spent in Discharge Care*: greater than 30 min Status at Discharge: Cognitive status at discharge: cognitively intact, Behavioral status at discharge: cooperative, Quality Metrics Clinical Quality Measures [ No reported AMI, CVA or VTE this stay] Coding Level of Care Code Acute Chg DC note Diagnoses CHF (congestive heart failure) I50.9 Cardiorenal syndrome I13.10 Transaminitis R74.01 Syncope R55 ICD (implantable cardioverter-defibrillator) discharge Z45.02 VT (ventricular tachycardia) I47.2 Ischemic cardiomyopathy I25.5 Acute kidney injury N17.9 Hyponatremia E87.1 Dyspnea on exertion R06.09 ICD (implantable cardioverter-defibrillator) in place Z95.810
== END 2022-03-13 14:26 | disposition home health service (06) | DRG 291 ==
LOC: ER 17:09 → MEDSURG 17:26 → ICU 18:17
PROVIDERS: Internal Medicine; Admitting Provider Internal Medicine; Emergency Provider Family Medicine; PCP Family Medicine; Visit Provider Internal Medicine
DX: I13.0 Hypertensive heart and chronic kidney disease with heart failure and stage 1 through stage 4 chronic kidney disease, or unspecified chronic kidney disease (principal); I50.23 Acute on chronic systolic (congestive) heart failure; N17.9 Acute kidney failure, unspecified; R18.8 Other ascites; E87.1 Hypo-osmolality and hyponatremia; I47.20 Ventricular tachycardia, unspecified; N18.9 Chronic kidney disease, unspecified; S05.11XA Contusion of eyeball and orbital tissues, right eye, initial encounter; W18.30XA Fall on same level, unspecified, initial encounter; I25.5 Ischemic cardiomyopathy; Z95.810 Presence of automatic (implantable) cardiac defibrillator; I48.91 Unspecified atrial fibrillation; E78.5 Hyperlipidemia, unspecified; Z86.73 Personal history of transient ischemic attack (TIA), and cerebral infarction without residual deficits; Z90.49 Acquired absence of other specified parts of digestive tract; I25.10 Atherosclerotic heart disease of native coronary artery without angina pectoris; Z95.1 Presence of aortocoronary bypass graft; Z85.49 Personal history of malignant neoplasm of other male genital organs; Z90.79 Acquired absence of other genital organ(s); Z79.01 Long term (current) use of anticoagulants; H53.2 Diplopia; R55 Syncope and collapse; Z87.891 Personal history of nicotine dependence
CPT/HCPCS: 36415; 36416; 70450; 70486; 71045; 76705; 80053; 81001; 82962; 83735; 84484; 85025; 85610; 85730; 93005; 94760; 99285; J2260; J3490

== ENCOUNTER → 2022-03-18 10:02 | Outpatient (BNVA) | payer OTHER, SELFPAY | PROVIDERS: PCP Family Medicine; Visit Provider Nurse Practitioner Family | DX: I13.0 Hypertensive heart and chronic kidney disease with heart failure and stage 1 through stage 4 chronic kidney disease, or unspecified chronic kidney disease (principal); N18.9 Chronic kidney disease, unspecified; I50.22 Chronic systolic (congestive) heart failure; Z87.891 Personal history of nicotine dependence; Z95.810 Presence of automatic (implantable) cardiac defibrillator; Z79.01 Long term (current) use of anticoagulants | CPT/HCPCS: 85610; 93283; 99214 ==

== ENCOUNTER → 2022-03-19 08:52 | Outpatient (BNVA) | payer OTHER, SELFPAY | PROVIDERS: PCP Family Medicine; Visit Provider Urology | DX: N99.116 Postprocedural urethral stricture, male, overlapping sites (principal) | CPT/HCPCS: 52000; 99213 ==

== ENCOUNTER → 2022-04-01 09:06 | Outpatient (BNVA) | payer OTHER, SELFPAY | PROVIDERS: PCP Family Medicine; Visit Provider Internal Medicine | DX: I48.91 Unspecified atrial fibrillation (principal); Z79.01 Long term (current) use of anticoagulants | CPT/HCPCS: 85610 ==

== ENCOUNTER → 2022-04-02 08:15 | Outpatient (BNVA) | payer OTHER, SELFPAY | PROVIDERS: PCP Family Medicine | DX: Z45.02 Encounter for adjustment and management of automatic implantable cardiac defibrillator (principal) | CPT/HCPCS: 93283 ==

== ENCOUNTER 2022-04-20 05:38 | Day surgery (SDC) | payer OTHER, SELFPAY ==
[2022-04-14 11:01] VITALS: BMI 24.2
--- NOTE | 2022-04-14 11:30 | P.ANESASSM_ITS ---
Pre-Anesthetic Assessment Height/Weight: Height 1.68 m Weight 68.039 kg Operation Date: 04/20/22 09:05 Proposed Procedures p Defibbrillator generator replacement 33478,I50.9(Not Applicable) - Krish Laguna MD Familial anesthetic complications: None Social No alcohol and No tobacco Exam alert, oriented x 3, clear to auscultation bilaterally and regular rate & rhythm Airway Mallampati: Class III Dentition: false Pulmonary None reported CV/HEM Arrythmia, Coronary Artery Disease, Congestive Heart Failure, Hypertension and Myocardial Infarction ?IMPRESSIONS ?1. Large sized predominantly fixed perfusion abnormality of moderate to severe ?severity of basal to apical inferior, basal to mid inferoseptal, apical septal, ?basal to mid anterolateral, mid inferolateral and apical lateral and apical ?anterior oliveros. ?2. This is suggestive of old myocardial infarction/scarring in all three ?coronary artery territories. ?3. The left ventricular ejection fraction is severely reduced with a value of ?13%. There is severe global hypokinesis with abnormal septal motion. ?4. EKG portion of the study will be reported separately. ?4. No coronary ischemia based on the study. echo 22 CONCLUSIONS ?Severely increased left ventricular cavity size. Decreased left ?ventricular wall thickness. Severely decreased left ventricular ?systolic function. Left ventricular ejection fraction is ?estimated at 10-15 %. Rhythm precludes evaluation of diastolic ?function. Global left ventricular hypokinesis. ?Mildly increased right atrial size. ?Moderately increased left atrial size. ?Structurally normal mitral valve. Moderate-severe mitral valve ?regurgitation. ?From the previous echo dated 11/15/2021, the left ventricular ?function has decreased.? Previous ejection fraction was 25%.? ?Also the ventricular wall thickness is less. None reported Hepatic None reported GI None reported Metabolic None reported Musc/skel None reported Neuropsych None reported Anesthetic Plan ASA status: 4 Anesthesia: MAC Risk of > 500 ml blood loss (7ml/kg in children): No Medications/Allergies Home Medications Medication Instructions Recorded Confirmed Last Taken Type pravastatin 40 mg tablet 40 mg PO QPM 07/18/19 04/14/22 03/08/22 History coenzyme Q10 100 mg capsule (Co 100 mg PO DAILY 04/22/21 04/14/22 03/09/22 History Q-10) evolocumab 140 mg/mL subcutaneous 140 mg SUBCUT Q14D 04/22/21 04/14/22 02/24/22 History pen injector (Shania Dominguez) cholecalciferol (vitamin D3) 25 25 mcg PO DAILY 11/10/21 04/14/22 03/09/22 History mcg (1,000 unit) tablet (Vitamin D3) omega-3 fatty acids-fish oil 684 1 cap PO DAILY 11/10/21 04/14/22 03/09/22 History mg-1,200 mg capsule,delayed release magnesium 250 mg tablet 500 mg PO DAILY #30 tabs 11/17/21 04/14/22 03/09/22 Rx potassium chloride 10 mEq 10 meq PO DAILY #90 tabs 11/26/21 04/14/22 03/09/22 Rx tablet,extended release lisinopril 5 mg tablet 2.5 mg PO DAILY 02/26/22 04/14/22 02/26/22 History warfarin 2.5 mg tablet 2.5 mg PO SuMoTuWeThFr@1400 #30 03/03/22 04/14/22 03/07/22 Rx tabs warfarin 5 mg tablet 5 mg PO Sa@1400 #10 tabs 03/03/22 04/14/22 Unknown Rx bumetanide 2 mg tablet 2 mg PO DAILY 03/09/22 04/14/22 03/09/22 History carvedilol 6.25 mg tablet 3.125 mg PO BID #408 tabs 03/13/22 04/14/22 02/26/22 Rx Allergies Allergy/AdvReac Type Severity Reaction Status Date / Time atorvastatin Allergy Unknown Unknown Verified 03/19/22 09:21 simvastatin Allergy Unknown Unknown Verified 03/19/22 09:21 lovastatin [From Mevacor] Allergy Unknown Verified 03/19/22 09:21 REPLACED BY [facility] Anesthesia Medical History (Updated 03/19/22 @ 11:28 by Genaro Gary MD) Atrial fibrillation Cardioembolic stroke CHF (congestive heart failure) Chronic kidney disease (CKD) Congestive heart failure Coronary artery disease Stable doing fine from a coronary disease perspective continue meds History of penile cancer History of penile cancer HTN (hypertension) Hyperlipidemia ICD (implantable cardioverter-defibrillator) in place Ischemic cardiomyopathy Postprocedural urethral stricture Surgical History History of penectomy Partial 1994. 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 Social History (Updated 03/19/22 @ 09:24 by Dilma Gonzalez LPN) Smoking and tobacco status: former smoker Alcohol intake: never Lives independently: Yes Household members: none Marital status: Current occupational status: retired History of recent travel: No Data Anesthesia Cardiac Studies: Echocardiogram 02/26/22 Echocardiogram Ultrasound 12/08/20 Sestamibi Stress Test (Cardiology) 03/01
[2022-04-14 12:10] LABS: Basophils # 0.1 10^3/uL (0.0-0.1); Basophils % 0.9 %; Eosinophils # 0.3 10^3/uL (0.0-0.8); Eosinophils % 4.9 %; Hematocrit 47.4 % (42.0-52.0); Hemoglobin 15.6 g/dL (11.7-16.6); Lymphocytes # 1.5 10^3/uL (0.8-4.8); Lymphocytes % 27.7 %; Mean Corpuscular HGB Conc 32.9 g/dL (30.0-36.0); Mean Corpuscular Hemoglobin 33.8 pg (28.0-34.0); Mean Corpuscular Volume 102.8 fl (80-94); Mean Platelet Volume 9.6 fL (7.4-10.4); Monocytes # 0.6 10^3/uL (0.2-0.9); Neutrophils # 2.96 10^3/uL (1.8-7.7); Neutrophils % 55.3 %; Nucleated Red Blood Cells % 0 %; Platelet Count 146 10^3/cmm (130-400); Red Blood Count 4.61 10^6/uL (4.1-5.3); Red Cell Distribution Width 14.6 % (12.1-15.1); White Blood Count 5.4 10^3/uL (4.0-10.0)
[2022-04-14 12:33] LABS: Anion Gap 14.3 (5-19); Blood Urea Nitrogen 21 mg/dL (8-23); Calcium 10.2 mg/dL (8.5-10.5); Carbon Dioxide 27 mmol/L (22-29); Chloride 99 mmol/L (98-107); Glucose 87 mg/dL (65-115); Osmolality Calculated 284 mOsm/kg (285-295); Potassium 4.3 mmol/L (3.5-5.1); Sodium 136 mmol/L (136-145)
[2022-04-20 06:10] VITALS: BP 107/76; PULSE 80; RESP 18; TEMP 36.4; O2SAT 96
--- NOTE | 2022-04-20 06:16 | W.PM.OPSFHP ---
Same Day Surgery H&P Indication for Procedure/HPI DATE OF PROCEDURE: April 20, 2022 CHIEF COMPLAINT/INDICATIONFOR SURGICAL PROCEDURE: AICD end of service PREOP DIAGNOSIS: AICD generator end of service PLANNED PROCEDURE: Operation Date: 04/20/22 07:00 Proposed Procedures p Defibbrillator generator replacement 52340,I50.9(Not Applicable) - Krish Laguna MD 81 yo gentleman with AICD at end of service. CHF with EF of 10-15%. Hospitalized the end of Feb. with CHF exacerbation. Followed by our cardiology group and Urology. Has had several AICD discharges over the years. Prior CABG and redo. Original AICD placed by Dr. Neal. HANDY [place]LL[place]. No CP. Denies fever, chills, or generalized fatigue with light activities Medications/Allergies* Home Medications Medication Instructions Recorded Confirmed Type pravastatin 40 mg tablet 40 mg PO QPM 07/18/19 04/20/22 History coenzyme Q10 100 mg capsule (Co 100 mg PO DAILY 04/22/21 04/20/22 History Q-10) evolocumab 140 mg/mL subcutaneous 140 mg SUBCUT Q14D 04/22/21 04/14/22 History pen injector (Repatha SureClick) cholecalciferol (vitamin D3) 25 25 mcg PO DAILY 11/10/21 04/20/22 History mcg (1,000 unit) tablet (Vitamin D3) omega-3 fatty acids-fish oil 684 1 cap PO DAILY 11/10/21 04/20/22 History mg-1,200 mg capsule,delayed release lisinopril 5 mg tablet 2.5 mg PO DAILY 02/26/22 04/20/22 History bumetanide 2 mg tablet 2 mg PO DAILY 03/09/22 04/20/22 History Allergies/Adverse Reactions Allergy/AdvReac Type Severity Reaction Status Date / Time atorvastatin Allergy Unknown Unknown Verified 03/19/22 09:21 simvastatin Allergy Unknown Unknown Verified 03/19/22 09:21 lovastatin [From Mevacor] Allergy Unknown Verified 03/19/22 09:21 Pertinent History/Comorbid Conditions* Medical History (Updated 03/19/22 @ 11:28 by Genaro Gary MD) Atrial fibrillation Cardioembolic stroke CHF (congestive heart failure) Chronic kidney disease (CKD) Congestive heart failure Coronary artery disease Stable doing fine from a coronary disease perspective continue meds History of penile cancer History of penile cancer HTN (hypertension) Hyperlipidemia ICD (implantable cardioverter-defibrillator) in place Ischemic cardiomyopathy Postprocedural urethral stricture Surgical History (Updated 03/04/22 @ 00:02 by ) History of penectomy Partial 1994. 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 Lungs: CTA, no wheezes or rales Chest: AICD in left subclavicular region. Well-healed sternotomy scar. Sternum stable CV: RRR II/ systolic murmur Abdomen: soft, non-tender. Normoactive bowel sounds Ext. Trace edema Pertinent Data CXR: clear lung souza. Cardiomegaly, stable Recommendations Surgery/Procedure today Other Plans: For AICD generator exchange. Details and risks of procedure carefully reviewed. All questions answered. He wishes to proceed. 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
[2022-04-20] MEDS: sodium chloride 0.9% 1,000 ML 30 ML IV (06:28)
[2022-04-20 06:41] LABS: INR 1.13 (0.8-1.2)
[2022-04-20] MEDS: ceFAZolin 2,000 MG in sodium chloride 0.9% (plus) 50 ML 100 MG IV (06:54)
[2022-04-20] MEDS: lidocaine 1% INJ 20 mL SUBCUT (07:09)
[2022-04-20] MEDS: ceFAZolin 1,000 mg SDV 1000 MG IRRIGATION (07:09)
--- NOTE | 2022-04-20 07:36 | P.ANESUD_ITS ---
Pre-Anesthetic Update Pre-Anesthetic Assessment: Date of Surgery/Procedure: 04/20/22 Preop Talia gnosis: AICD generator end of service Proposed Procedure: Operation Date: 04/20/22 07:00 Proposed Procedures p Defibbrillator generator replacement 66384,I50.9(Not Applicable) - Krish Laguna MD Any changes to Pre-Anesthetic Assessment?: No Last Intake: Intake Last Liquid Date 04/19/22 Last Liquid Time 18:00 Last Solid Date 04/19/22 Last Solid Time 18:00 Labs Last 48hrs: Coags 04/20/22 06:03 PT 14.80 INR 1.13 Vitals: Temperature 97.6 F 04/20/22 06:10 Temperature Source Temporal Artery S can 04/20/22 06:10 Pulse Rate 80 04/20/22 06:10 Pulse Rhythm 04/20/22 06:17 Pulse Strength 3+ Normal 04/20/22 06:17 Respiratory Rate 18 04/20/22 06:10 Blood Pressure 107/76 04/20/22 06:10 Blood Pressure Dulce Maria n 86 04/20/22 06:10 Pulse Oximetry 96 04/20/22 06:10 Oxygen Delivery Me thod 04/20/22 06:17 Exam: Pre-Anes Outpt Exam: alert, oriented x 3, clear to auscultation bilate rally and regular rate & rhythm Cardiac Studies: Echocardiogram 02/26/22 Echocardiogram Ultrasound 12/08/20 Sestamibi Stress Test (Cardiology) 03/01
--- NOTE | 2022-04-20 07:41 | P.OP_ITS ---
Operative Report Date of procedure: April 20, 2022 Pre-op diagnosis: Preop Diagnosis AICD generator end of service Post-op diagnosis: same Procedure done: AICD generator exchange Implants: Medtronic AICD generator Specimens removed/disposition: old generator given the [employer] medical detail representative Pathology: none sent Surgeon: Krish Laguna Anesthesia: MAC and Local Complications: none Condition: stable Disposition: same day Brief History: Mr. Yin Is a 81-year-old gentleman with severe cardiomyopathy and AICD currently at end of service. Generator replacement was recommended. Details risk of the procedure were carefully discussed. Proper consents have been reviewed and signed. Procedure: Patient was appropriately positioned and sterilely prepped and draped. IV consicious sedation was given with anesthesia monitoring. 1% lidocaine was infiltrated through the prior insertion incision site. # 15 scalpel blade was used to incise the skin down to subcutaneous layer. Subsequently, using sharp and blunt dissection the pseudocapsule to the old generator was reached and opened with a scalpel blade. This area was then enhanced utilizing Metzenbaum scissors with care taken not to injure the pacing leads. Once the pocket was adequate opened, hemostats were utilized to deliver the old generator. Set screws were released and the leads were removed and inserted properly into the new generator with set screws then secured. The old generator was removed from the field. The incision was irrigated with antibiotic solution. Hemostasis was confirmed. The new generator was placed back into the old subcutaneous pocket. The wound was then closed in 2 layers of 3-0 Vicryl suture. Skin was closed in a subcuticular manner with 4-0 undyed Vicryl suture. A 2 layer pressure dressing was then applied. The entire system was interrogated and appropriate parameters obtained. Patient tolerated procedure well and was taken to the recovery room in stable condition. There are no immediate family members present for peer financial counselor. Med[employer]onic generator model number:[id number] serial number:[id number] Atrial lead has an amplitude of 1.4 with an impedance of 407 ohms and a capture threshold of 0.75. Ventricular lead has an amplitude of 7.8 with an impedance of 437 ohms and a capture threshold 1 V. Pacing mode is AAIR/DDDR V. tach monitor rate is 137. V. tach detection rate is 171. Ventricular Fibrillation detect rate is 200.
[2022-04-20 07:48] VITALS: BP 92/66; PULSE 62; RESP 15; TEMP 36.4; O2SAT 99
[2022-04-20 07:50] VITALS: BP 93/72; PULSE 64; RESP 14; O2SAT 96
[2022-04-20 07:55] VITALS: BP 95/70; PULSE 61; RESP 16; O2SAT 98
[2022-04-20 08:00] VITALS: BP 93/70; PULSE 69; RESP 16; TEMP 36.3
[2022-04-20 08:15] VITALS: BP 98/70; PULSE 66; RESP 18; TEMP 36.2; O2SAT 99
--- NOTE | 2022-04-20 13:07 | ANE.PACU2 ---
Inpatient post-anesthesia follow up: Airway intact: Yes Vital signs: Temperature 97.1 F Pulse Rate 66 Respiratory Rate 18 Blood Pressure 98/70 Pulse Oximetry 99 Oxygen Delivery Me thod Room Air Oxygen Flow Rate Fraction of Inspir ed Oxygen Hydration adequate: Yes Nausea and vomiting: No Pain level: 1 Mental status: Baseline
== END 2022-04-20 08:40 | disposition home or self-care (01) ==
PROVIDERS: Anesthesiology; PCP Family Medicine; Visit Provider Thoracic Surgery (Cardiothoracic Vascular Surgery)
PROC: 0JPT0PZ Removal of Cardiac Rhythm Related Device from Trunk Subcutaneous Tissue and Fascia, Open Approach (ICD-10-PCS; CPT 33264; principal; 2022-04-20 07:00)
DX: Z45.02 Encounter for adjustment and management of automatic implantable cardiac defibrillator (principal); I25.10 Atherosclerotic heart disease of native coronary artery without angina pectoris; I25.2 Old myocardial infarction; Z79.01 Long term (current) use of anticoagulants; E78.5 Hyperlipidemia, unspecified; I13.0 Hypertensive heart and chronic kidney disease with heart failure and stage 1 through stage 4 chronic kidney disease, or unspecified chronic kidney disease; N18.9 Chronic kidney disease, unspecified; I50.9 Heart failure, unspecified; Z95.1 Presence of aortocoronary bypass graft; Z87.891 Personal history of nicotine dependence
CPT/HCPCS: 33264; 80048; 85025; 85610; C1721; J0690; J2370; J2704; J3010; J7030

== ENCOUNTER → 2022-04-29 09:25 | Outpatient (BNVA) | payer OTHER, SELFPAY | PROVIDERS: PCP Family Medicine; Visit Provider Nurse Practitioner Family | DX: I48.91 Unspecified atrial fibrillation (principal); Z79.01 Long term (current) use of anticoagulants | CPT/HCPCS: 85610; 99214 ==

== ENCOUNTER 2022-05-12 16:36 | Inpatient (IN) | payer OTHER, SELFPAY ==
[2022-05-12] VITALS (13 sets, daily range): BP systolic 69–87; BP diastolic 49–59; PULSE 93–129; RESP 16–27; TEMP 36.7; O2SAT 88–98; BMI 22.6; BMI 23.6
--- NOTE | 2022-05-12 16:20 | ECG_ITS ---
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 Measurements Intervals [place] Rate: 110 P: 0 SC: 0 QRS: 74 QRSD: 153 T: -89 QT: 314 QTc: 425 Interpretive Statements ATRIAL FIBRILLATION WITH RAPID VENTRICULAR RESPONSE INTRAVENTRICULAR CONDUCTION DELAY [130+ ms QRS DURATION] POSSIBLE INFERIOR MYOCARDIAL INFARCTION , OF INDETERMINATE AGE [30 ms Q WAVE IN II/aVF] Compared to ECG 03/09/2022 20:56:08 Atrial-paced complex(es) or rhythm no longer present Myocardial infarct finding still present Electronically Signed On 05-15-2022 7:54:20 THIRD RAIL INSTALLER by Marie Davenport M.D. [id number]
--- NOTE | 2022-05-12 16:56 | CTR_ITS ---
PROCEDURE INFORMATION: Exam: CT Head Without Contrast Exam date and time: 05/12/2022 8:14 PM Age: 81 years old Clinical indication: Injury or trauma; Fall; Blunt trauma (contusions or hematomas); Consciousness not specified TECHNIQUE: Imaging protocol: Computed tomography of the head without contrast. Radiation optimization: All CT scans at this facility use at least one of these dose optimization techniques: automated exposure control; mA and/or kV adjustment per patient size (includes targeted exams where dose is matched to clinical indication); or iterative reconstruction. COMPARISON: CT head wo con* [id number] 03/09/2022 2:56 PM RADIATION DOSE METRICS: Total DLP (mGy-cm): 1074.18 FINDINGS: Brain: Moderate cortical volume loss. Moderate hypodensities in supratentorial periventricular and subcortical white matter, consistent with microangiopathy. No intracranial hemorrhage. Stable encephalomalacia in the anterior left parietal lobe. Cerebral ventricles: No ventriculomegaly. Paranasal sinuses: Mucosal thickening in the bilateral ethmoid air cells and left frontal sinus. Small air-fluid levels in the bilateral maxillary and right sphenoid sinuses. Mastoid air cells: Visualized mastoid air cells are well aerated. Bones/joints: Unremarkable. No acute fracture. Soft tissues: Unremarkable. Vasculature: No hyperdense artery. CT/CT head wo con* [id number] IMPRESSION: 1. No acute intracranial abnormality.
--- NOTE | 2022-05-12 16:56 | XRR_ITS ---
PROCEDURE INFORMATION: Exam: XR Chest Exam date and time: 05/12/2022 5:10 PM Age: 81 years old Clinical indication: Shortness of breath; Prior surgery; Surgery date: 3-7 days post-operative; Additional info: SOB TECHNIQUE: Imaging protocol: Radiologic exam of the chest. Views: 1 view. COMPARISON: CR XR chest 1V portable [id number] 03/09/2022 2:18 PM FINDINGS: Tubes, catheters and devices: Intact dual lead left subclavian pacemaker. Lungs: Stable chronic interstitial opacities in both lungs. Calcified granuloma in the right lung. Ground-glass opacities have developed in the central and lower right lung. Pleural spaces: Unremarkable. No pleural effusion. No pneumothorax. Heart/Mediastinum: Mild cardiomegaly. Bones/joints: Median sternotomy changes. XR/XR chest 1V portable [id number] IMPRESSION: Pneumonia versus aspiration in the right lung.
--- NOTE | 2022-05-12 16:58 | W.ED.GENADLT ---
HPI - General Adult General: Chief complaint: Dizziness Stated complaint: irregular HR Time Seen by Provider: 05/12/22 16:50 History of Present Illness: Patient comes in with palpitations, and multiple other complaints. Patient states he is generally weak and has fallen a couple times today. States he has had a cough that is productive for the past week. States that he is set to go on hospice tomorrow and that he has not come to the hospital because he could not get out of his house for the last week. Associated symptoms: Reports chest pain, dyspnea and palpitations; Deny headache(s), nausea, rash or vomiting Review of Systems Const: Reports: body aches; Denies: fever(s) Eyes: Denies: change in vision or blurry vision ENMT: Denies: throat pain or odynophagia Card: Reports: chest pain and palpitations Resp: Reports: dyspnea and productive cough GI: Reports: diarrhea; Denies: abdominal pain, nausea or vomiting : Denies: flank pain or dysuria Musc: Denies: neck pain or back pain Skin/Breast: Denies: rash or pruritus Neuro: Denies: headache(s) or numbness in extremities Psych: Denies: anxiety or change in appetite Endo: Denies: polyuria or excessive sweating PFSH ED PFSH: Medical History Atrial fibrillation Cardioembolic stroke CHF (congestive heart failure) Chronic kidney disease (CKD) Congestive heart failure Coronary artery disease Stable doing fine from a coronary disease perspective continue meds History of penile cancer History of penile cancer HTN (hypertension) Hyperlipidemia ICD (implantable cardioverter-defibrillator) in place Ischemic cardiomyopathy Postprocedural urethral stricture Surgical History History of penectomy Partial 1994. 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 Social History Smoking and tobacco status: former smoker Alcohol intake: never Lives independently: Yes Household members: none Marital status: Current occupational status: retired History of recent travel: No Physical Exam Const: COMMON NORMALS: patient oriented x3 and alert HENMT: COMMON NORMALS: normocephalic and atraumatic HEAD & SCALP: normocephalic and atraumatic Eye: COMMON NORMALS: Equal, round and reactive pupils present and EOMs intact bilaterally PUPIL: Yes Equal, round and reactive pupils present Neck/C-Spine: COMMON NORMALS: full ROM and supple Resp: COMMON NORMALS: No retractions and No use of accessory muscles OTHER: Tachypnea Cardio: OTHER: Irregularly irregular rhythm, tachycardia GI: COMMON NORMALS: Normal to inspection, nondistended, normoactive bowel sounds present, Soft to palpation and non-tender PALPATION: Yes Soft to palpation Back/Pelvis: COMMON NORMALS: thoracic and lumbar spine normal to inspection and no thoracic nor lumbar tenderness Extremity: COMMON NORMALS: normal to inspection and full ROM Neuro: COMMON NORMALS: patient oriented x3 SENSORIUM/ORIENTATION: Yes alert Psych: COMMON NORMALS: mental status grossly normal and cooperative Skin: COMMON NORMALS: no rashes or lesions noted and no wounds GENERAL SKIN EXAM: no rashes or lesions noted Course Vital Signs: Vital signs: Vital Signs Temperature 98.0 F 05/12/22 16:52 Pulse Rate 93 05/12/22 19:00 Respiratory Rate 20 H 05/12/22 19:00 Blood Pressure 76/56 05/12/22 19:00 Pulse Oximetry 92 05/12/22 19:00 Oxygen Delivery Me thod 05/12/22 16:52 Oxygen Flow Rate 2 05/12/22 16:52 MDM - General Adult Medical Decision Making Patient comes in with palpitations, and multiple other complaints. Patient states he is generally weak and has fallen a couple times today. States he has had a cough that is productive for the past week. States that he is set to go on hospice tomorrow and that he has not come to the hospital because he could not get out of his house for the last week. Upon arrival the patient is tachycardic and stat EKG shows A. fib with RVR. We will check labs, start diltiazem bolus and drip, check x-ray, CT, and reassess. On reassessment I talked to the patient about the test results. We will start Levophed for hypotension. Start antibiotics. I discussed the case with the hospitalist, and we will switch his diltiazem to amiodarone, and admit to the ICU for further work-up and treatment. Lab Data 05/12/22 16:20 05/12/22 16:20 Radiology Impressions Chest X-Ray 05/12/22 16:56 IMPRESSION: Pneumonia versus aspiration in the right lung. Laboratory Results WBC 14.8 10^3/uL (4.0-10.0) H 05/12/22 16:20 RBC 4.47 10^6/uL (4.1-5.3) 05/12/22 16:20 Hgb 14.8 g/dL (11.7-16.6) 05/12/22 16:20 Hct 44.1 % (42.0-52.0) 05/12/22 16:20 MCV 98.7 fl (80-94) H 05/12/22 16:20 MCH 33.1 pg (28.0-34.0) 05/12/22 16:20 MCHC 33.6 g/dL (30.0-36.0) 05/12/22 16:20 RDW 14.4 % (12.1-15.1) 05/12/22 16:20 Plt Count 182 10^3/cmm (130-400) 05/12/22 16:20 MPV 10.1 fL (7.4-10.4) 05/12/22 16:20 Neut % (Auto) 91.3 % 05/12/22 16:20 Lymph % (Auto) 2.2 % 05/12/22 16:20 [place] % (Auto) 3.1 % 05/12/22 16:20 Eos % (Auto) 0.3 % 05/12/22 16:20 Baso % (Auto) 0.5 % 05/12/22 16:20 Neut # (Auto) 13.56 10^3/uL (1.8-7.7) H 05/12/22 16:20 Lymph # (Auto) 0.3 10^3/uL (0.8-4.8) L 05/12/22 16:20 [place] # (Auto) 0.5 10^3/uL (0.2-0.9) 05/12/22 16:20 Eos # (Auto) 0.0 10^3/uL (0.0-0.8) 05/12/22 16:20 Baso # (Auto) 0.1 10^3/uL (0.0-0.1) 05/12/22 16:20 Nucleated RBC % (auto) 0 % 05/12/22 16:20 Nucleated RBCs # 0.0 /100WBC 05/12/22 16:20 PT 49.20 SECONDS (12.1-14.9) H 05/12/22 16:20 INR 5.37 (0.8-1.2) H* 05/12/22 16:20 Specimen Type Arterial 05/12/22 17:34 Sample Site Radial, right 05/12/22 17:34 ABG pH 7.38 (7.35-7.45) 05/12/22 17:34 ABG pCO2 31.9 mmHg (35-45) L 05/12/22 17:34 ABG pO2 72.1 mmHg (80.0-100.0) L 05/12/22 17:34 ABG HCO3 18.9 mmol/L (22-26) L 05/12/22 17:34 ABG Base Excess -5.2 mmol/L (-2.0-2.0) L 05/12/22 17:34 Juan Test Pos 05/12/22 17:34 Hematocrit 42.2 % (42-52) 05/12/22 17:34 O2 Delivery Device Nc 05/12/22 17:34 O2 Liters/Min 1.5 % 05/12/22 17:34 FiO2 26.0 % 05/12/22 17:34 Hat Band Attacher ID glc 05/12/22 17:34 Sodium 130 mmol/L (136-145) L 05/12/22 16:20 Potassium 5.3 mmol/L (3.5-5.1) H 05/12/22 16:20 Chloride 98 mmol/L (98-107) 05/12/22 16:20 Carbon Dioxide 18 mmol/L (22-29) L 05/12/22 16:20 Anion Gap 19.3 (5-19) H 05/12/22 16:20 BUN 72 mg/dL (8-23) H 05/12/22 16:20 Creatinine 1.9 mg/dL (0.7-1.2) H 05/12/22 16:20 GFR Calculation Not Reportable 05/12/22 16:20 Glucose 78 mg/dL (65-115) 05/12/22 16:20 Calculated Osmolality 290 mOsm/kg (285-295) 05/12/22 16:20 Lactate 2.1 mmol/L (0.5-2.2) 05/12/22 17:44 Calcium 10.2 mg/dL (8.5-10.5) 05/12/22 16:20 Magnesium 2.6 mg/dL (1.7-2.3) H 05/12/22 16:20 Total Bilirubin 3.4 mg/dL (0.15-1.2) H 05/12/22 16:20 AST 52 U/L (0-40) H 05/12/22 16:20 ALT 18 U/L (0-41) 05/12/22 16:20 Alkaline Phosphatase 284 U/L (40-130) H 05/12/22 16:20 NT-Pro-B Natriuret Pep 83193 pg/mL (0-450) H 05/12/22 16:20 Total Protein 6.4 g/dL (6.6-8.7) L 05/12/22 16:20 Albumin 2.6 g/dL (3.5-5.2) L 05/12/22 16:20 Globulin 3.8 g/dL (1.3-4.6) 05/12/22 16:20 Influenza Type A Ag negative (Negative) 05/12/22 17:48 Influenza Type B Ag negative (Negative) 05/12/22 17:48 SARS-CoV-2 Ag (Rapid) negative (Negative) 05/12/22 17:48 Discharge Plan Discharge Patient Disposition: Admitted As Inpatient Clinical Impression: Pneumonia, Sepsis, Atrial fibrillation with RVR Condition: Stable Prescriptions: No Action pravastatin 40 mg tablet 40 mg PO QPM Repatha SureClick 140 mg/mL pen injector 140 mg SUBCUT Q14D coenzyme Q10 [Co Q-10] 100 mg capsule 100 mg PO DAILY potassium chloride 10 mEq tablet extended release 10 meq PO DAILY Qty: 90 3RF magnesium 250 mg tablet 500 mg PO DAILY Qty: 30 2RF bumetanide 2 mg tablet 2 mg PO DAILY carvedilol 6.25 mg tablet 3.125 mg PO BID Qty: 408 3RF cholecalciferol (vitamin D3) [Vitamin D3] 25 mcg (1,000 unit) Tablet 25 mcg PO DAILY omega-3 fatty acids-fish oil 684-1,200 mg Capsule,Delayed Release(Dr/Ec) 1 cap PO DAILY lisinopril 5 mg Tablet 2.5 mg PO DAILY Hold Instructions: Resume on 03/27/22. warfarin 2.5 mg Tablet 2.5 mg PO SuMoTuWeThFr@1400 Qty: 30 0RF Protocol: Dose Management Condition: Tuesday Dose/Route: 2.5 mg Instruction: 1 x 2.5 mg tablet Condition: Tuesday Dose/Route: 5 mg Instruction: 1 x 5 mg tablet Condition: Tuesday Dose/Route: 2.5 mg Instruction: 1 x 2.5 mg tablet Condition: Tuesday Dose/Route: 5 mg Instruction: 1 x 5 mg tablet Condition: Dose/Route: 2.5 mg Instruction: 1 x 2.5 mg tablet Condition: Tuesday Dose/Route: 5 mg Instruction: 1 x 5 mg tablet Condition: Tuesday Dose/Route: 2.5 mg Instruction: 1 x 2.5 mg tablet Protocol Text: Adjustment Start Date: 04/29/22 INR Value: 16.7 Seconds INR Date: 04/29/22 warfarin 5 mg Tablet 5 mg PO Sa@1400 Qty: 10 0RF Protocol: Dose Management Condition: Tuesday Dose/Route: 2.5 mg Instruction: 1 x 2.5 mg tablet Condition: Tuesday Dose/Route: 5 mg Instruction: 1 x 5 mg tablet Condition: Tuesday Dose/Route: 2.5 mg Instruction: 1 x 2.5 mg tablet Condition: Tuesday Dose/Route: 5 mg Instruction: 1 x 5 mg tablet Condition: Dose/Route: 2.5 mg Instruction: 1 x 2.5 mg tablet Condition: Tuesday Dose/Route: 5 mg Instruction: 1 x 5 mg tablet Condition: Tuesday Dose/Route: 2.5 mg Instruction: 1 x 2.5 mg tablet Protocol Text: Adjustment Start Date: 04/29/22 INR Value: 16.7 Seconds INR Date: 04/29/22 Bactrim DS 800-160 mg tablet 1 tab PO BID Qty: 6 0RF Referrals: Echo Garay MD [Primary Care Provider] - Coding Level of Care Code ED Market Analyst for Chg Fwd Exam Comprehensive
--- NOTE | 2022-05-12 17:00 | PC.NURSE ---
Pt A&Ox4, wet cough noted, expiratory wheezes throughout. skin pink/warm/dry. speech clear, answering questions appropriately
[2022-05-12] MEDS: dilTIAZem 5 mg/mL SDV 5 mL IVP (17:12)
[2022-05-12] MEDS: calcium gluconate 0.9% NaCL 1 GM/50 ML PREMIX IV (17:16)
[2022-05-12 17:34] LABS: Basophils # 0.1 10^3/uL (0.0-0.1); Basophils % 0.5 %; Eosinophils % 0.3 %; Hematocrit 44.1 % (42.0-52.0); Hemoglobin 14.8 g/dL (11.7-16.6); Lymphocytes # 0.3 10^3/uL (0.8-4.8); Lymphocytes % 2.2 %; Mean Corpuscular HGB Conc 33.6 g/dL (30.0-36.0); Mean Corpuscular Hemoglobin 33.1 pg (28.0-34.0); Mean Corpuscular Volume 98.7 fl (80-94); Mean Platelet Volume 10.1 fL (7.4-10.4); Monocytes # 0.5 10^3/uL (0.2-0.9); Monocytes % 3.1 %; Neutrophils # 13.56 10^3/uL (1.8-7.7); Neutrophils % 91.3 %; Nucleated Red Blood Cells % 0 %; Platelet Count 182 10^3/cmm (130-400); Red Blood Count 4.47 10^6/uL (4.1-5.3); Red Cell Distribution Width 14.4 % (12.1-15.1); White Blood Count 14.8 10^3/uL (4.0-10.0)
--- NOTE | 2022-05-12 17:40 | PC.NURSE ---
spoke with Dr. Bennett regarding pt blood pressure 64/42. current order for calcium gluconate is to infuse over an hour. Per Dr. Bennett, verbal order to increase calcium gluconate to infuse over 10 minutes.
[2022-05-12 17:46] LABS: ABG PCO2 31.9 mmHg (35-45); ABG PH Result 7.38 (7.35-7.45); Arterial Blood Gas Hematocrit 42.2 % (42-52); Base Excess ABG -5.2 mmol/L (-2.0-2.0); Blood Gas Allen Test Pos; Blood Gas LPM 1.5 %; Blood Gas Operator Identificat glc; Blood Gas Sample Site Radial, right; Blood Gas Sample Type Arterial; HCO3 ABG 18.9 mmol/L (22-26); Oxygen Device NC; PO2 ABG 72.1 mmHg (80.0-100.0)
[2022-05-12 17:50] LABS: Slide Review Slide Review Perform
[2022-05-12] MEDS: azithromycin 500 MG in sodium chloride 0.9% 250 ML 250 MG IV (18:06)
[2022-05-12] MEDS: cefTRIAXone 1,000 MG in sodium chloride 0.9% (plus) 50 ML 100 MG IV (18:08)
[2022-05-12 18:11] LABS: Alanine Aminotransferase 18 U/L (0-41); Albumin Level 2.6 g/dL (3.5-5.2); Alkaline Phosphatase 284 U/L (40-130); Anion Gap 19.3 (5-19); Aspartate Amino Transferase 52 U/L (0-40); Blood Urea Nitrogen 72 mg/dL (8-23); Calcium 10.2 mg/dL (8.5-10.5); Carbon Dioxide 18 mmol/L (22-29); Chloride 98 mmol/L (98-107); Globulin 3.8 g/dL (1.3-4.6); Glucose 78 mg/dL (65-115); Magnesium 2.6 mg/dL (1.7-2.3); NT Pro B Type Natriuretic Pept 17626 pg/mL (0-450); Osmolality Calculated 290 mOsm/kg (285-295); Potassium 5.3 mmol/L (3.5-5.1); Sodium 130 mmol/L (136-145); Total Bilirubin 3.4 mg/dL (0.15-1.2); Total Protein 6.4 g/dL (6.6-8.7)
[2022-05-12 18:15] LABS: Lactate (Lactic Acid level) 2.1 mmol/L (0.5-2.2)
[2022-05-12 18:31] LABS: INR 5.37 (0.8-1.2)
[2022-05-12 18:43] LABS: Influenza A by IFA negative (Negative); Influenza B by IFA negative (Negative); SARS Covid-2 Antigen negative (Negative)
[2022-05-12] MEDS: dilTIAZem 100 MG in sodium chloride 0.9% (add-van) 100 ML IV (18:45)
--- NOTE | 2022-05-12 18:59 | PC.NURSE ---
Waiting to take pt to CT until blood pressure stabilities per order of Dr. Bennett
--- NOTE | 2022-05-12 19:16 | PC.NURSE ---
report given to Philip Pompa RN to assume care
--- NOTE | 2022-05-12 19:17 | P.HP_ITS ---
Providers/Chief Complaint Primary Care Provider: Echo Garay MD Chief Complaint: irregular HR History of Present Illness Patient is a 81 year old male patient of Dr Tucker,?ischemic cardiomyopathy, LVEF 10-15%. status Post recent AICD placement by Dr. Jase caceres Hortensia coleman, anticoagulated with warfarin, on previous admission required milrinone with Bumex to support diuresis, presented today with chief complaint of palpitations. He has been experiencing shortness of breath, productive cough, fatigue, generalized weakness. Patient is stating that for last 1 week he has been experiencing shortness of breath, orthopnea, PND and wheezing, endorsing subjective fevers, creamy yellow sputum production, he does not use oxygen at home, he has not experienced any chest pain, he called EMS few days ago when he fell, patient is stating that he was shopping all day after that fall using a walker and thought he is getting better. The ER he was diagnosed with right-sided pneumonia and A. fib RVR he was started on Cardizem drip that dropped his blood pressure eventually he was put on Levophed, at the time my evaluation his heart rate is in 70s blood pressure is MAP 66 on levo He is requiring 2 L of oxygen Other signs of fluid overload with wheezing and chest congestion Review of Systems Const: Reports: fever(s), chills, body aches and fatigue Eyes: Denies: change in vision ENMT: Denies: throat pain Card: Reports: irregular heart rhythm, swelling of feet/ankles, dyspnea on exertion and orthopnea; Denies: chest pain Resp: Reports: dyspnea GI: Denies: abdominal pain : Denies: flank pain Musc: Denies: neck pain Skin/Breast: Denies: rash Neuro: Denies: headache(s) Psych: Denies: anxiety Endo: Denies: polyuria [place]/Lymph: Denies: easy bruising All/Imm: Denies: urticaria Medications/Allergies Home Medications Medication Instructions Recorded Confirmed Last Taken Type pravastatin 40 mg tablet 40 mg PO QPM 07/18/19 04/29/22 04/19/22 History coenzyme Q10 100 mg capsule (Co 100 mg PO DAILY 04/22/21 04/29/22 04/19/22 History Q-10) evolocumab 140 mg/mL subcutaneous 140 mg SUBCUT Q14D 04/22/21 04/29/2202/24/22 History pen injector (Shania Dominguez) cholecalciferol (vitamin D3) 25 25 mcg PO DAILY 11/10/21 04/29/22 04/19/22 History mcg (1,000 unit) tablet (Vitamin D3) omega-3 fatty acids-fish oil 684 1 cap PO DAILY 11/10/21 04/29/22 04/19/22 Histo ry mg-1,200 mg capsule,delayed release magnesium 250 mg tablet 500 mg PO DAILY #30 tabs 11/17/21 04/29/22 04/20/22 Rx potassium chloride 10 mEq 10 meq PO DAILY #90 tabs 11/26/21 04/29/22 04/19/22 Rx tablet,extended release lisinopril 5 mg tablet 2.5 mg PO DAILY 02/26/22 04/29/22 04/19/22 History warfarin 2.5 mg tablet 2.5 mg PO SuMoTuWeThFr@1400 #30 03/03/22 04/29/22 04/15/22 Rx tabs warfarin 5 mg tablet 5 mg PO Sa@1400 #10 tabs 03/03/22 04/29/22 04/10/22 Rx bumetanide 2 mg tablet 2 mg PO DAILY 03/09/22 04/29/22 04/19/22 History carvedilol 6.25 mg tablet 3.125 mg PO BID #408 tabs 03/13/22 04/29/22 04/20/22 Rx sulfamethoxazole 800 1 tab PO BID #6 tabs 04/20/22 04/29/22 Unknown Rx mg-trimethoprim 160 mg tablet (Bactrim DS) Allergies Allergy/AdvReac Type Severity Reaction Status Date / Time atorvastatin Allergy Unknown Unknown Verified 04/29/22 08:00 simvastatin Allergy Unknown Unknown Verified 04/29/22 08:00 lovastatin [From Mevacor] Allergy Unknown Verified 04/29/22 08:00 PFSH Acute PFSH: Medical History Atrial fibrillation Cardioembolic stroke CHF (congestive heart failure) Chronic kidney disease (CKD) Congestive heart failure Coronary artery disease Stable doing fine from a coronary disease perspective continue meds History of penile cancer History of penile cancer HTN (hypertension) Hyperlipidemia ICD (implantable cardioverter-defibrillator) in place Ischemic cardiomyopathy Postprocedural urethral stricture Surgical History History of penectomy Partial 1994. 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 Social History Smoking and tobacco status: former smoker Alcohol intake: never Lives independently: Yes Household members: none Marital status: Current occupational status: retired History of recent travel: No Vitals/I&O/Wt Last Vital Signs Temp 98.0 F 05/12/22 16:52 Pulse 93 05/12/22 19:00 Resp 20 H 05/12/22 19:00 BP 76/56 05/12/22 19:00 Pulse Ox 92 05/12/22 19:00 O2 Del Method 05/12/22 16:52 O2 Flow Rate 2 05/12/22 16:52 05/12/22 05/12/22 05/12/22 06:59 14:59 22:59 Intake Total 102.286 / 102.286 Balance 102.286 / 102.286 Weight last 48 hrs Weight 63.503 kg Physical Exam Narrative: Frail male Muscle mass loss Unkept appearance Patient is currently on 2 L of oxygen A. fib without RVR heart rate in 70s MAP 66 On Levophed Distended abdomen nontender Positive crackles and wheezing on lung auscultation, audible wheezing Lower extremity trace edema Patient is awake and alert Nonfocal neuro exam GCS 15 Data 05/12/22 16:20 05/12/22 16:20 Micro: Microbiology 05/12/22 17:49 Blood Culture - Preliminary Blood SPECIMEN COLLECTED 05/12/22 17:44 Blood Culture - Preliminary Blood SPECIMEN COLLECTED A&P Assessment and plan (1) Pneumonia: (2) Atrial fibrillation with RVR: (3) Ischemic cardiomyopathy: (4) CHF (congestive heart failure): (5) Acute kidney injury: (6) Chronic kidney disease (CKD): (7) Shortness of breath: (8) Ascites: (9) Hyponatremia: (10) ICD (implantable cardioverter-defibrillator) in place: (11) Cardiorenal syndrome: (12) ICD (implantable cardioverter-defibrillator) discharge: (13) Dyspnea on exertion: (14) Transaminitis: (15) Postprocedural urethral stricture: (16) Urethral stricture: Plan Community-acquired pneumonia Acute hypoxia Patient is on 2 L of oxygen Chest x-ray showing right-sided pneumonia with pulmonary vascular congestion I will put patient on BiPAP to decrease work of breathing DuoNeb every 4 as needed Sputum culture, continue ceftriaxone and azithromycin A. fib RVR Patient blood pressure dropped due to Cardizem I requested to switch to amiodarone however heart rate has improved currently heart rate is in 70s MAP 66 on Levophed Hold Coumadin INR is supratherapeutic Switch to p.o. 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 Currently on Levophed High bilirubin likely related to congestive hepatopathy Patient remains hypertensive, his lisinopril was discontinued on last admission I am holding his Coreg for now We will put him on amiodarone If needed can add milrinone Status post AICD placement Combination of hyponatremia with recurrent CHF exacerbation does carry poor prognosis Please discuss with the patient whether he would opt for palliative care Social dynamics are very poor, he lives alone, no other family other than nephew who lives in a different state Acute on chronic kidney disease creatinine seems around baseline Please note he was taking Bactrim despite his chronic kidney disease, he is was taking Bactrim because of recent AICD placement prophylactic measures Discontinue Bactrim Patient at risk of cardiorenal syndrome Patient is stating the last time Dr. Jernigan was consulted for Caraballo catheter placement because of history of penilectomy Goals of care discussed with the patient is full code stating that in case of chest compressions he would only allow for 5 minutes if there is no good ROSC achieved within 5 minutes in case of any emergency nephew should be notified who lives in a different state Cardiac diet Attestations Medical Necessity Statement*: Need ICU more than 2 midnights anticipated Time Spent in Patient Care: 40 Coding Level of Care Code Acute Psychosocial Rehabilitation Counselor for Brennan Fwd Diagnoses Pneumonia J18.9 Atrial fibrillation with RVR I48.91 Ischemic cardiomyopathy I25.5 CHF (congestive heart failure) I50.9 Acute kidney injury N17.9 Chronic kidney disease (CKD) N18.9 Shortness of breath R06.02 Ascites R18.8 Hyponatremia E87.1 ICD (implantable cardioverter-defibrillator) in place Z95.810 Cardiorenal syndrome I13.10 ICD (implantable cardioverter-defibrillator) discharge Z45.02 Dyspnea on exertion R06.09 Transaminitis R74.01 Postprocedural urethral stricture Urethral stricture N35.919
--- NOTE | 2022-05-12 19:55 | PC.NURSE ---
Attempted pt report, nurse not available.
[2022-05-12 19:56] LABS: Procalcitonin 14.12 ng/mL (0-0.5)
--- NOTE | 2022-05-12 20:01 | PC.NURSE ---
Pt report called and received by [facility].
[2022-05-12] MEDS: sodium polystyrene sulfonate 15 gm/60 mL Btl PO (20:56)
--- NOTE | 2022-05-12 21:02 | PC.NURSE ---
Pt arrived from ER via strecher @ approximately 2029. No complaints of pain. Pt connected to continuos BP/cardiac/pulse ox monitoring. Redness noted on bottom. Open skin tear x2 noted on R. FA.
--- NOTE | 2022-05-12 21:05 | PC.NURSE ---
Dr. Virgen notfied of significant crackles in lungs, SOB, and increasing oxygen requirements. New order for BIPAP.
[2022-05-12 21:44] LABS: Glucose Point of Care 176 mg/dL (70-110)
[2022-05-12] MEDS: bumetanide 0.25 mg/mL SDV 4 mL 1 MG IVP (22:12)
--- NOTE | 2022-05-12 22:21 | PC.NURSE ---
Ancelmo ashley fell on ground and broke, additional vital was pulled from [place].
[2022-05-13 03:04] VITALS: PULSE 886; RESP 21; O2SAT 97
[2022-05-13 03:21] LABS: Basophils # 0.2 10^3/uL (0.0-0.1); Basophils % 0.9 %; Eosinophils # 0.1 10^3/uL (0.0-0.8); Eosinophils % 0.4 %; Hemoglobin 14.1 g/dL (11.7-16.6); Lymphocytes # 0.6 10^3/uL (0.8-4.8); Lymphocytes % 2.5 %; Mean Corpuscular HGB Conc 32.8 g/dL (30.0-36.0); Mean Corpuscular Hemoglobin 33.1 pg (28.0-34.0); Mean Corpuscular Volume 100.9 fl (80-94); Mean Platelet Volume 10.7 fL (7.4-10.4); Monocytes # 0.7 10^3/uL (0.2-0.9); Monocytes % 3.3 %; Neutrophils # 18.73 10^3/uL (1.8-7.7); Neutrophils % 84.2 %; Nucleated Red Blood Cells % 0.1 %; Platelet Count 204 10^3/cmm (130-400); Red Blood Count 4.26 10^6/uL (4.1-5.3); Red Cell Distribution Width 14.6 % (12.1-15.1); White Blood Count 22.2 10^3/uL (4.0-10.0)
[2022-05-13 03:46] LABS: Anion Gap 21.1 (5-19); Blood Urea Nitrogen 79 mg/dL (8-23); C Reactive Protein 328.8 mg/L (0.0-4.9); Calcium 10.2 mg/dL (8.5-10.5); Carbon Dioxide 15 mmol/L (22-29); Chloride 95 mmol/L (98-107); Glucose 150 mg/dL (65-115); Magnesium 2.7 mg/dL (1.7-2.3); Osmolality Calculated 289 mOsm/kg (285-295); Potassium 5.1 mmol/L (3.5-5.1); Sodium 126 mmol/L (136-145)
[2022-05-13 04:52] LABS: INR 7.18 (0.8-1.2)
[2022-05-13] MEDS: insulin lispro 100 unit/1 mL SUBCUT ×3 (09:05→17:31)
[2022-05-13] MEDS: cefTRIAXone 1,000 MG in sodium chloride 0.9% (plus) 50 ML 100 MG IV (09:06)
[2022-05-13] MEDS: bumetanide 0.25 mg/mL SDV 4 mL 1 MG IVP ×2 (09:06→19:59)
[2022-05-13] MEDS: azithromycin 250 mg Tablet 500 MG PO (09:06)
[2022-05-13 09:20] LABS: Glucose Point of Care 153 mg/dL (70-110)
[2022-05-13 11:08] LABS: Glucose Point of Care 157 mg/dL (70-110)
--- NOTE | 2022-05-13 11:39 | P.PN_ITS ---
Subjective Subjective: Currently on Levophed at 14 mics per minute. Patient is currently breathing comfortably comfortably. Supplemental O2 at 4 L/min. Amiodarone infusion currently ongoing at 0.5. Medications: Reviewed: Yes Vitals/I&O/Wt Last Vital Signs Temp 98.0 F 05/12/22 16:52 Pulse 886 H 05/13/22 03:04 Resp 20 H 05/12/22 19:00 BP 76/56 05/12/22 19:00 Pulse Ox 97 05/13/22 03:04 O2 Del Method 05/12/22 20:57 O2 Flow Rate 2 05/12/22 16:52 FiO2 40 05/13/22 08:00 05/12/22 05/13/22 05/13/22 22:59 06:59 14:59 Intake Total 718.409 / 718.409 630.471 / 1348.880 290 / 290 Output Total 100 / 100 200 / 300 Balance 618.409 / 618.409 430.471 / 1048.880 290 / 290 Weight last 48 hrs Weight 66.497 kg Weight 63.503 kg Physical Exam Narrative: General: No acute distress, AO x3 HEENT: PERRLA, pupils bilaterally equal and reactive, pallors not present Chest: creps to auscultation right lung CVS: S1-S2 regular, no murmurs, no tachycardia, no gallops, no rubs Abdomen: Soft, nontender, no organomegaly, bowel sounds present Neuro: No focal deficits, no facial deformity, AO x3, power 5/5 in all limbs Data 05/13/22 02:11 05/13/22 02:11 Micro: Microbiology 05/12/22 17:49 Blood Culture - Preliminary Blood SPECIMEN COLLECTED 05/12/22 17:44 Blood Culture - Preliminary Blood SPECIMEN COLLECTED A&P Assessment and plan (1) Pneumonia: (2) Atrial fibrillation with RVR: (3) Ischemic cardiomyopathy: (4) CHF (congestive heart failure): (5) Acute kidney injury: (6) Chronic kidney disease (CKD): (7) Shortness of breath: (8) Ascites: (9) Hyponatremia: (10) ICD (implantable cardioverter-defibrillator) in place: (11) Cardiorenal syndrome: (12) ICD (implantable cardioverter-defibrillator) discharge: (13) Dyspnea on exertion: (14) Transaminitis: (15) Postprocedural urethral stricture: (16) Urethral stricture: Plan Patient with a past medical history of ischemic cardiac cardiomyopathy, last known EF 10 to 15%, AICD in place with recent generator exchange 1 month ago, starting on home hospice soon because of his advanced cardiac disease, presenting currently with sepsis, found to have right sided pneumonia and signs of CHF. # Community-acquired pneumonia Chest x-ray showing right-sided pneumonia with pulmonary vascular congestion Currently on antibiotic treatment with ceftriaxone 1 g IV every 24 hours and azithromycin 500 mg p.o. daily. Supplemental O2 to keep saturation 92 to 94%. Currently needing 3 to 4 L/min via nasal cannula. Breathing is comfortable this morning, will keep him off BiPAP and on supplemental O2 only. # A. fib RVR Now resolved. Patient is currently in sinus rhythm with heart rate ranging between 70 to 86 bpm. Discontinue amiodarone infusion. Start p.o. amiodarone 400 mg p.o. twice daily, to be titrated down to 200 mg p.o. twice daily thereafter. Patient's hypotension is a result of cardiogenic shock, his baseline blood pressure ranges between 80-90 systolic. A map of 65 is probably probably not a realistic goal for him. Currently on Levophed infusion. We will target a MAP of 55 mmHg. Hold Coumadin INR is supratherapeutic at 7. No bleeding manifestations currently evident. Holding Coreg and lisinopril because of low blood pressure. # Acute on chronic CHF exacerbation Patient has mixed component of systolic and diastolic heart failure. High bilirubin likely related to congestive hepatopathy Renal failure likely also related to cardiorenal syndrome from poor cardiac fun ction. #Disposition: Patient is already set up with home hospice. Goal of treatment this current admission is going to be treatment of pneumonia with IV antibiotics, resolved sepsis, and once ready from this perspective plan to discharge him home with hospice as already set up. Goals of care discussed with the patient. He has elected to be DNR/DNI after being counseled that even high-quality CPR and mechanical ventilation is unlikely to improve his overall quality of life in any meaningful way. DVT ppx: currently INR 7 Attestations 2 Medical Necessity Statement*: continued admission for treatment of sepsis, pressor support, iv abx Critical Care Time: The high probability of a clinically significant, sudden or life threatening deterioration of the patient's [respiratory,cardiac, renal] system(s) required my full and direct attention, intervention and personal management. The critical care time is as shown. This time is in addition to time spent performing any reported procedures but includes the following: [x] Data and vital sign review and interpretation [x] Patient assessment, examination and intervention [x] Documentation [x] Medication orders and management Critical Care Time (min): 45 Coding Level of Care Code Acute Senior Statistician for [facility] Fwd Diagnoses Pneumonia J18.9 Atrial fibrillation with RVR I48.91 Ischemic cardiomyopathy I25.5 CHF (congestive heart failure) I50.9 Acute kidney injury N17.9 Chronic kidney disease (CKD) N18.9 Shortness of breath R06.02 Ascites R18.8 Hyponatremia E87.1 ICD (implantable cardioverter-defibrillator) in place Z95.810 Cardiorenal syndrome I13.10 ICD (implantable cardioverter-defibrillator) discharge Z45.02 Dyspnea on exertion R06.09 Transaminitis R74.01 Postprocedural urethral stricture Urethral stricture N35.919
[2022-05-13 12:14] LABS: Glucose Point of Care 167 mg/dL (70-110)
[2022-05-13 12:27] LABS: Add Urine Microscopic? YES; Bilirubin Urine 1+ (Negative); Blood Urine Neg (Negative); Glucose Urine UA Norm (Normal); Ketones Urine Negative (Negative); Leukocyte Esterase Urine Negative (Negative); Nitrate Urine Negative (Negative); Protein Urine Trace (Negative); Specific Gravity, Urine 1.015 (1.005-1.030); Urine Appearance Clear (CLEAR); Urine Color Yellow (Yellow); Urobilinogen Urine Norm (Negative); pH Urine 5 (5-7)
[2022-05-13 12:30] LABS: RBC Urine 0-4 /hpf (0-2); WBC Urine 0-4 /hpf (0-5)
[2022-05-13 12:31] LABS: Add Urine Culture? No; Fine Granular Casts Urine 0-4 /lpf; Squamous Epithelial Cell Urine 0-4 /hpf (0-5)
--- NOTE | 2022-05-13 12:36 | PC.CHAP ---
Pastoral Care Encounter/Spiritual Assessment Type of Contact [] Declined rib builder visit [] Patient/Family/Request visit [] Outpatient visit [] Follow-up visit [] Physician referral [] Code/Alert [x] Routine visit [] Staff referral [] Actively dying [] Patient sleeping [] Family support [] [] Out of room [] Palliative care [] [x] Receiving care in room [] Pre-surgical visit [] Trauma [] Long length of stay [x] ICU visit [] Other: Relational/Emotional Strength [] Patient feels connected with others/family/visitors/staff [] Distress [] Loneliness/isolation [] Abandonment Spirituality of Patient [] Person of Joanne [] Attends Congregation of their Joanne [] Believes in Prayer [] Reads Bible or Cheondoism materials [] There are Spiritual issues to be addressed Health Occupations Teacher Interventions [x] Prayer [] Active listening [] Non-anxious presence [] Spiritual/emotional support [] Crisis/trauma care [] Spiritual counseling [] Bereavement support [] Provided bereavement packet [] Provided Bible/devotional materials [] Provided toy/stuffed animal, coloring book to patient or family member [] Provided Communion [] Anointing/[place] [] Salvation [x] Completed spiritual assessment [] Other: Impact on Illness or Injury [] Angry [] Fearful [] Anxious [] Often cries [] Exhaustion [] Unable to work [] Unable to attend spiritism [] Unable to walk/stand [] Unable to read [] Unable to drive [] Unable to eat/drink [] Unable to sleep [] Unable to be with family [] Patient intubated [] Other: Summary Time spent with patient
[2022-05-13] MEDS: norepinephrine 8 MG in dextrose 5 % 500 ML 53.34 MG IV (13:38)
[2022-05-13] MEDS: amiodarone 200 mg Tablet 400 MG PO (16:21)
[2022-05-13 17:22] LABS: Glucose Point of Care 156 mg/dL (70-110)
[2022-05-14 01:55] VITALS: PULSE 85; RESP 20; O2SAT 97
[2022-05-14 05:18] LABS: Basophils # 0.1 10^3/uL (0.0-0.1); Basophils % 0.5 %; Eosinophils # 0.1 10^3/uL (0.0-0.8); Eosinophils % 0.4 %; Hematocrit 42.8 % (42.0-52.0); Hemoglobin 14.7 g/dL (11.7-16.6); Lymphocytes # 0.9 10^3/uL (0.8-4.8); Lymphocytes % 5.1 %; Mean Corpuscular HGB Conc 34.3 g/dL (30.0-36.0); Mean Corpuscular Hemoglobin 33.2 pg (28.0-34.0); Mean Corpuscular Volume 96.6 fl (80-94); Mean Platelet Volume 10.4 fL (7.4-10.4); Monocytes # 0.8 10^3/uL (0.2-0.9); Monocytes % 4.2 %; Neutrophils # 16.19 10^3/uL (1.8-7.7); Neutrophils % 88.1 %; Nucleated Red Blood Cells % 0.2 %; Platelet Count 227 10^3/cmm (130-400); Red Blood Count 4.43 10^6/uL (4.1-5.3); Red Cell Distribution Width 13.8 % (12.1-15.1); White Blood Count 18.4 10^3/uL (4.0-10.0)
[2022-05-14 05:48] LABS: Alanine Aminotransferase 32 U/L (0-41); Albumin Level 1.7 g/dL (3.5-5.2); Alkaline Phosphatase 163 U/L (40-130); Anion Gap 14.8 (5-19); Aspartate Amino Transferase 64 U/L (0-40); Calcium 9.5 mg/dL (8.5-10.5); Carbon Dioxide 21 mmol/L (22-29); Chloride 93 mmol/L (98-107); Globulin 3.6 g/dL (1.3-4.6); Glucose 119 mg/dL (65-115); INR 8.12 (0.8-1.2); Osmolality Calculated 286 mOsm/kg (285-295); Potassium 3.8 mmol/L (3.5-5.1); Sodium 125 mmol/L (136-145); Total Bilirubin 3.5 mg/dL (0.15-1.2); Total Protein 5.3 g/dL (6.6-8.7)
[2022-05-14 06:03] LABS: Blood Urea Nitrogen 83 mg/dL (8-23)
[2022-05-14 07:50] LABS: Glucose Point of Care 118 mg/dL (70-110)
[2022-05-14 07:55] VITALS: PULSE 86; RESP 26; O2SAT 94
[2022-05-14] MEDS: azithromycin 250 mg Tablet 500 MG PO (08:45)
[2022-05-14] MEDS: amiodarone 200 mg Tablet 400 MG PO ×2 (08:45→17:23)
[2022-05-14] MEDS: cefTRIAXone 1,000 MG in sodium chloride 0.9% (plus) 50 ML 100 MG IV (08:45)
[2022-05-14] MEDS: bumetanide 0.25 mg/mL SDV 4 mL 1 MG IVP (08:45)
[2022-05-14 11:37] LABS: Glucose Point of Care 123 mg/dL (70-110)
[2022-05-14] MEDS: midodrine 5 mg TABLET PO (13:07)
[2022-05-14 16:10] VITALS: PULSE 94
[2022-05-14 17:16] LABS: Glucose Point of Care 120 mg/dL (70-110)
--- NOTE | 2022-05-14 18:17 | PC.NURSE ---
At approximately 1732 patient entered into V-tach while eating his evening meal. Unit charge nurse, this nurse and others at bedside. Previous patient wishes for AND followed per protocol, medication given from unit crash cart. Family notified by unit manager convenience stores and Dr. Espinoza at bedside. Patient ICD fired and patient entered into paced SR, PEA. travel information center supervisor notified. Time of determined by Dr. Espinoza at 1815.
--- NOTE | 2022-05-14 18:32 | PC.NURSE ---
MTS notified of patient at 1824. Spoke with Cori Rudd. Direct number [phone]
--- NOTE | 2022-05-14 19:02 | P.DES_ITS ---
Discharge Providers DDS Date of Admission: 05/12/22 19:08 Date Summary Completed: 05/14/22 Attending Provider at Admission: Carlos Ballseteros MD Time of : 18:15 Attending Provider at Discharge: Solange Espinoza MD Primary Care Provider: Echo Garay MD Diagnoses Probable Cause of Ventricular fibrillation Hospital Diagnoses (1) Pneumonia: (2) Atrial fibrillation with RVR: (3) Ischemic cardiomyopathy: (4) CHF (congestive heart failure): (5) Acute kidney injury: (6) Chronic kidney disease (CKD): (7) Shortness of breath: (8) Ascites: (9) Hyponatremia: (10) ICD (implantable cardioverter-defibrillator) in place: (11) Cardiorenal syndrome: (12) ICD (implantable cardioverter-defibrillator) discharge: (13) Dyspnea on exertion: (14) Transaminitis: (15) Postprocedural urethral stricture: (16) Urethral stricture: Reason for Visit Reason for Visit irregular HR Summary Date and Time of Date of : 05/14/22 Time of : 18:15 Summary Summary: Mr. Ralph was a 81-year-old male with nonischemic cardiomyopathy LVEF 10 to 15%, slated to start being on hospice soon, presented to the hospital with chief complaints of shortness of breath, productive cough, fatigue and generalized weakness. He also had subjective fevers. He had a new oxygen requirement upon admission. Upon presentation to the ER he was diagnosed with a right-sided pneumonia and A. fib RVr. He was treated with amiodarone infusion, changed to amiodarone orally. He was also on treatment with IV antibiotics for the pneumonia. He needed additional pressor support with Levophed. He was noted to have chronically low blood pressures as a result of his cardiomyopathy. On the evening of May 14, 2022, patient went into ventricular fibrillation and had a pulseless arrest. His AICD fired 1 time however thereafter rhythm continued to be V. fib and PEA. Patient had no associated pulse. Pupils were fixed and dilated. There were no spontaneous respiration. Patient on May 14, 2022 at 6:15 PM. CPR was not attempted as patient was a DNR/DNI and had previously made his wishes clear regarding this CODE STATUS and hospice care. His nephew Mr. Roc Mahmood was updated. Additional Data Advance directives?: No Discharge Plan Discharge Patient Disposition: Condition: Stable Prescriptions: No Action pravastatin 40 mg tablet 40 mg PO QPM Repatha SureClick 140 mg/mL pen injector 140 mg SUBCUT Q14D coenzyme Q10 [Co Q-10] 100 mg capsule 100 mg PO DAILY magnesium 250 mg tablet 500 mg PO DAILY Qty: 30 2RF bumetanide 2 mg tablet 2 mg PO DAILY carvedilol 6.25 mg tablet 3.125 mg PO BID Qty: 408 3RF cholecalciferol (vitamin D3) [Vitamin D3] 25 mcg (1,000 unit) Tablet 25 mcg PO DAILY omega-3 fatty acids-fish oil 684-1,200 mg Capsule,Delayed Release(Dr/Ec) 1 cap PO DAILY lisinopril 5 mg Tablet 2.5 mg PO DAILY Hold Instructions: Resume on 03/27/22. warfarin 2.5 mg Tablet 2.5 mg PO [id number] Qty: 30 0RF Protocol: Dose Management Condition: Tuesday Dose/Route: 2.5 mg Instruction: 1 x 2.5 mg tablet Condition: Tuesday Dose/Route: 5 mg Instruction: 1 x 5 mg tablet Condition: Tuesday Dose/Route: 2.5 mg Instruction: 1 x 2.5 mg tablet Condition: Tuesday Dose/Route: 5 mg Instruction: 1 x 5 mg tablet Condition: Dose/Route: 2.5 mg Instruction: 1 x 2.5 mg tablet Condition: Tuesday Dose/Route: 5 mg Instruction: 1 x 5 mg tablet Condition: Tuesday Dose/Route: 2.5 mg Instruction: 1 x 2.5 mg tablet Protocol Text: Adjustment Start Date: 04/29/22 INR Value: 16.7 Seconds INR Date: 04/29/22 Referrals: [facility] [Outside] Echo Garay MD [Primary Care Provider] - Patient Instructions: Opioid Safety DS Attestations Time Spent in /Discharge Care*: greater than 30 min Quality - AMI: AMI present?: No Quality - Stroke: CVA present?: No Quality - VTE: VTE present?: No Coding Level of Care Code Acute Tag Maker for [facility] Fwd Diagnoses Pneumonia J18.9 Atrial fibrillation with RVR I48.91 Ischemic cardiomyopathy I25.5 CHF (congestive heart failure) I50.9 Acute kidney injury N17.9 Chronic kidney disease (CKD) N18.9 Shortness of breath R06.02 Ascites R18.8 Hyponatremia E87.1 ICD (implantable cardioverter-defibrillator) in place Z95.810 Cardiorenal syndrome I13.10 ICD (implantable cardioverter-defibrillator) discharge Z45.02 Dyspnea on exertion R06.09 Transaminitis R74.01 Postprocedural urethral stricture Urethral stricture N35.919
--- NOTE | 2022-05-14 19:57 | PC.NURSE ---
Spoke with patients next of kin, nephew, Roc Mahmood in regards to body transfer. Body is to be transferred to [facility] per telephone confirmation. Verified with second nurse. Roc said that he will send a family member either tonight or tomorrow to garbage pick up man patient belongings.
--- NOTE | 2022-05-14 20:09 | PC.NURSE ---
MTS MTS called, information relayed regarding patient's history and labs. Patient is a potential candidate according to Bisi Juan, reference number [id number].
--- NOTE | 2022-05-15 01:33 | PC.NURSE ---
Patient transferred to [facility] 23:15. Patient belongings remain in unit. Family will picker / packer tomorrow.
== END 2022-05-14 23:15 | disposition expired | DRG 193 ==
LOC: ER 19:12 → ICU 19:27
PROVIDERS: Internal Medicine; Admitting Provider Internal Medicine; Emergency Provider Emergency Medicine; PCP Family Medicine; Visit Provider Student in an Organized Health Care Education/Training Program
DX: J18.9 Pneumonia, unspecified organism (principal); I50.43 Acute on chronic combined systolic (congestive) and diastolic (congestive) heart failure; I13.0 Hypertensive heart and chronic kidney disease with heart failure and stage 1 through stage 4 chronic kidney disease, or unspecified chronic kidney disease; N17.9 Acute kidney failure, unspecified; R18.8 Other ascites; E87.1 Hypo-osmolality and hyponatremia; I25.5 Ischemic cardiomyopathy; N18.9 Chronic kidney disease, unspecified; Z95.810 Presence of automatic (implantable) cardiac defibrillator; I48.91 Unspecified atrial fibrillation; Z86.73 Personal history of transient ischemic attack (TIA), and cerebral infarction without residual deficits; I25.10 Atherosclerotic heart disease of native coronary artery without angina pectoris; Z95.1 Presence of aortocoronary bypass graft; Z85.45 Personal history of malignant neoplasm of unspecified male genital organ; E78.5 Hyperlipidemia, unspecified; Z90.79 Acquired absence of other genital organ(s); Z87.891 Personal history of nicotine dependence; N99.114 Postprocedural urethral stricture, male, unspecified; Z66 Do not resuscitate; I49.01 Ventricular fibrillation; I46.9 Cardiac arrest, cause unspecified
CPT/HCPCS: 36415; 36416; 36600; 70450; 71045; 80048; 80053; 81001; 82803; 82962; 83605; 83735; 83880; 84145; 85025; 85610; 86140; 87040; 87426; 87804; 93005; 94003; 94660; 96365; 96366; 96367; 96372; 96375; 99291; A4222; J0282; J0456; J0610; J0696; J1815; J3490; J7050; J7060; Q0144